=== PATIENT | male | born 1970 | race Caucasian/White ===

== ENCOUNTER 2018-01-31 20:37 | Inpatient (IN) | payer MEDICARE, MEDICAID, SELFPAY ==
[2018-01-31] VITALS (12 sets, daily range): BP systolic 95–168; BP diastolic 74–99; PULSE 103–129; RESP 16–34; TEMP 36.4–37.3; O2SAT 77–100; BMI 17.4; BMI 16.8
--- NOTE | 2018-01-31 20:56 | EKG12_ITS ---
Test Reason : SOB Blood Pressure : / mmHG Vent. Rate : 124 BPM Atrial Rate : 124 BPM P-R Int : 126 ms QRS Dur : 106 ms QT Int : 344 ms P-R-T Axes : 092 094 -35 degrees QTc Int : 494 ms Suspect arm lead reversal, interpretation assumes no reversal Sinus tachycardia Rightward axis Pulmonary disease pattern ST & T wave abnormality, consider anterior ischemia Abnormal ECG Confirmed by IESHA BATRES, AGUSTO ([id number]), editorial intern RADHA ELIZABETH ([id number] on 02/04/2018 1:29:00 PM Referred By: MARC Confirmed By:AGUSTO JULIAN MD
[2018-01-31] MEDS: Ipratropium/Albuterol Sulfate 3 ML AMPUL.NEB INHALATION (21:00)
[2018-01-31] MEDS: Succinylcholine Chloride 200 MG/10 ML Vial 100 MG IV (21:16)
[2018-01-31] MEDS: Propofol 10MG/Ml 1,000 MG/100 ML Bottle 3.588 MG CONT INF (21:22)
--- NOTE | 2018-01-31 21:25 | RAD_ITS ---
STUDY: X-RAY CHEST REASON FOR EXAM: Male, 47 years old. The T-tube and OG placement TECHNIQUE: Single frontal view of the chest. COMPARISON: None. FINDINGS: Bibasilar interstitial infiltrates. Lucency right upper lobe probably represents a large bullae. Probable skinfold left upper lung field. Enteric tube terminates near the GE junction. The sidehole is above the GE junction. Endotracheal tube terminates 8.8 cm above the uzair. Lungs are hyperaerated. There is no demonstrated pleural abnormality. Normal size heart. Normal mediastinum and klaudia. Normal visualized pulmonary arteries. Normal visualized aortic arch and descending thoracic aorta. Normal visualized thoracic spine. Normal visualized ribs, clavicles, and shoulders. There is no demonstrated abnormality of the visualized soft tissue structures of the upper abdomen. RAD/Chest 1 View (Portable) IMPRESSION: Malpositioned enteric tube requires advancement 10 to 20 cm. ET tube as above. Bibasilar interstitial infiltrates. COPD. Probable skinfold left upper lung field. Follow-up recommended to exclude pneumothorax. Electronically Signed: Griffin Schneider MD at 21:58 EST , Service support ,
[2018-01-31 21:35] LABS: Absolute Lymphocyte Count 0.43 X10^3/ul (0.83-4.51); Absolute Neutrophil Count 9.5 X10^3/uL (2.0-7.7); Differential Indicated SCAN CRITERIA MET; Hematocrit 38.8 % (40-54); International Normalized Ratio 1.5; Lymphocyte # 0.43 X10^3/ul (4.0); Mean Corp Hgb Conc 33.5 g/gl (32-36); Mean Corpuscular Hgb 29.3 pg (27.0-32.0); Mean Corpuscular Volume 87.6 fL (80-94); Mean Platelet Vol. 9.1 fl (6.2-12.0); Monocyte# 0.79 X10^3/uL; Monocyte% 7.3 % (0-10); Neutrophil # 9.53 X10^3/uL (2.7-7.7); Neutrophil % 88.4 % (47-70); POSITIVE COUNT NO; POSITIVE DIFFERENTIAL YES; POSITIVE MORPHOLOGY NO; Platelet Count 220 K/mm3 (150-450); Prothrombin Time (Protime)PT. 18.5 SECONDS (11.7-14.9); RBC Distribution Width CV 13.2 % (11.6-14.6); RBC Distribution Width SD 42.6 fl (35.1-43.9); Red Blood Count 4.43 M/mm3 (4.6-6.2); White Blood Count 10.8 K/mm3 (4.4-11.0)
[2018-01-31 21:36] LABS: Partial Thromboplast Time 32.5 Seconds (24.1-36.2)
[2018-01-31 21:40] LABS: ALB/GLOB Ratio 1.5 RATIO (0.9-2.4); AST(SGOT) 299 U/L (15-37); Alanine Aminotransfer ALT/SGPT 158 U/L (16-61); Albumin, Serum 3.4 g/dL (3.2-5.0); Alkaline Phosphatase 88 U/L (45-117); Anion Gap 11 (5-15); BUN 18 mg/dL (7-18); BUN/Creat Ratio 21.2 RATIO (10-20); Calcium,Total 7.8 mg/dL (8.5-10.1); Chloride 71 mmol/L (98-107); Creatinine, Serum 0.85 mg/dL (0.70-1.30); EST Glomerular Filtration Rate 102 mL/min (>60); Est Glom Filt Rate - Afr Amer 123 mL/min (>60); Estimated Creatinine Clearance 88.92 ml/min; Globulin 2.2 g/dL (2.2-4.2); Glucose 79 mg/dL (74-106); Potassium 4.7 mmol/L (3.5-5.1); Protein, Total 5.6 g/dL (6.4-8.2); Sodium Level 114 mmol/L (136-145)
[2018-01-31 21:45] LABS: Lactic Acid 3.8 mmol/L (0.4-2.0)
[2018-01-31 21:52] LABS: Differential Comment SCANNED
[2018-01-31] MEDS: Ceftriaxone 1 GM/50 ML BAG IV (22:03)
[2018-01-31] MEDS: fentaNYL 100 MCG/2 ML Ampul IV (22:03)
[2018-01-31] MEDS: MethylPREDNISolone 125 MG/2 ML Vial IV (22:03)
[2018-01-31] MEDS: fentaNYL drip 100 ML 5 MCG IV (22:03)
[2018-01-31] MEDS: 0.9% Normal Saline 1,000 ML 250 ML IV (22:13)
[2018-01-31] MEDS: Albuterol 2.5 MG/3 ML VIAL.NEB. INHALATION ×3 (22:17)
[2018-01-31] MEDS: 0.9% Normal Saline 1,000 ML 999 ML IV ×2 (22:19)
--- NOTE | 2018-01-31 22:40 | RAD_ITS ---
STUDY: X-RAY - ABDOMEN/PELVIS REASON FOR EXAM: Male, 47 years old. OG tube adjustment TECHNIQUE: 1 view semierect lower chest and upper abdomen COMPARISON: Chest x-ray 9:12 PM today FINDINGS: OD tube now in the stomach. Normal visualized lung bases. There is an unremarkable bowel gas pattern. There is no demonstrated free abdominal air. Normal soft tissue structures. Normal visualized osseous structures. RAD/Abdomen Single View (Portable) IMPRESSION: OG tube in stomach Electronically Signed: Griffin Schneider MD at 23:10 EST , Service support ,
[2018-01-31 22:49] LABS: Sodium Level 117 mmol/L (136-145)
--- NOTE | 2018-01-31 22:52 | ED.RN ---
lab called critical result on this pt of sodium of 117. dr tariq notified
--- NOTE | 2018-01-31 22:53 | ED.RN ---
UPON ARRIVAL TO ED PT WAS SHORT OF BREATH AND GASPING FOR AIR. PT O2 WAS 60% RA, HE WAS PUT ON NON REBREATHER WHICH BROUGHT HIM UP TO LOW 90'S, PT KEPT TAKING OXYGEN OFF AND DROPPING IN THE 70'S. PT WAS REFUSING TO LEAVE OXYGEN AND EVEN THOUGH STAFF TRIED TO REDIRECT HIM, HE WOULD NOT COOPERATE.
[2018-01-31 23:00] LABS: Blood Gas Specimen Type VEN; FI02 100; O2 Delivery Device Vent; PEEP 8; RR 16; SITE OTHER; Time Given 2300; VBG BASE EXCESS 3 mmol/L (-1.0-3.5); VBG Bicarbonate 31 mmol/L (22-26); VBG Oxygen Content 33 mmol/L (23-33); VBG PO2 30 mmHg (25-40); VBG SO2 43 % (50-70); VBG pCO2 76.1 mmHg (41-51); VBG pH 7.21 (7.32-7.42); Vt 400
--- NOTE | 2018-01-31 23:05 | ED.VISSUMM ---
- ER Visit Summary Date of Service: 01/31/18 Chief Complaint: Unresponsive History of Present Illness: The patient is a 47 M presenting from the halfway secondary to being unresponsive. Patient has an underlying history of MR, COPD, and frequent respiratory infections. He is a new resident of this halfway. Apparently staff was doing a check on him today, and he was noted to have decreased responsiveness. EMS was contacted, and they stated that the patient was unresponsive and had a pulse ox in the 50s. He was placed on supplemental oxygen and by the time he got to the emergency department pulse oxes were approaching the 80s, and his responsiveness was improving. [facility] states that the patient potentially has a history of seizures, although is not on any sort of anticonvulsants. Review of systems unable to be obtained secondary to the patient's level of illness. Physical Examination: Vital signs notable for heart rate of 129, respiratory rate of 30, pulse ox of 77% on nasal cannula. Cachectic appearing male visibly in some respiratory discomfort. Head normocephalic. PRL, EOMI no evidence of conjunctival pallor. Moist mucous membranes. No JVD. Heart was tachycardic and regular. Respiratory exam shows prolonged expiratory phase with wheezing and tachypnea with respiratory distress. Abdomen was soft and nontender. Extremities nontender nonedematous. Skin normal color no rash. Patient was alert and oriented to person, able to follow all commands with his upper and lower extremities. Test Results: EKG demonstrates sinus tachycardia with a rate of 124 with a rightward axis deviation and pulmonary disease pattern. CBC unremarkable, chemistry shows sodium of 117 chloride of 71. Liver panel shows bili of 2.1, AST of 299 and ALT of 158. Troponin 0.3. Lactic acid 3.8. VBG shows pH of 7.2 carbon dioxide of 70. Chest x-ray shows good placement of ET tube with infiltrate and multiple bullae noted. Emergency Department Course and Treatment: Patient presented secondary to a unresponsive episode and hypoxemia. On initial arrival, patient was verbal and responding to all commands but was uncooperative with supplemental oxygen or with nebulized breathing treatments. Multiple redirections were tried, and the patient continually was taking off his oxygen and the satting into the 80% range and having worsening respiratory function. I believe that due to his MR, and his level of disease that he does not have capacity at this time, and I believe that he requires intubation for adequate resuscitation of his respiratory disease. Patient was placed on supplemental oxygen again, was treated with etomidate, and succinylcholine. Direct laryngoscopy was performed using a Belkys 4 blade and a 8.0 ET tube. First-pass success was obtained, there was good color change and bilateral breath sounds. Patient did have an episode where he desaturated to 70%, and then easily came back up to 100% with bagging on 100% oxygen. Patient was found to have an infiltrate on chest x-ray, he was treated with Rocephin and azithromycin. He was found to have an elevated lactic acid and troponin which I believe likely are associated with his hypoxemia. Patient was found to be profoundly hyponatremic, which I am unsure of the etiology of this. I did consider the possibility of using 3% saline on the patient, but as he had full return of his mental capacity prior to us intubating him I believe that normal replacement the patient's saline rather than aggressive with 3% is appropriate. Patient potentially could have seized secondary to hyponatremia, versus ceased secondary to his hypoxemia. patient was given Solu-Medrol secondary to his obstructive lung disease. After OG tube was passed, blood was obtained from the stomach, so the patient was given Protonix. I contacted both the hospitalist and the pmo manager, and the patient will be admitted for further management. Disposition: Admission Impression: 1. Hypoxic respiratory failure 2. COPD exacerbation 3. Upper GI bleed 4. Hyponatremia 5. Hypochloremia 6. Metabolic and respiratory acidosis 7. Intubation by ED physician Critical care time 60 minutes This note was generated with [employer] dictation software. It may contain incorrect words, spelling, and punctuation that were not noted in review of the chart prior to signing ED Disposition - Plan for ED Patient: Disposition: Acute Care Hospital [facility] Chief Complaint: General Illness
--- NOTE | 2018-01-31 23:07 | PCM.HP.STD ---
Problem List (1) Respiratory failure Status: Acute Qualifiers: Chronicity: acute Respiratory failure complication: hypoxia and hypercapnia Qualified Code(s): J96.01 - Acute respiratory failure with hypoxia; J96.02 - Acute respiratory failure with hypercapnia (2) COPD (chronic obstructive pulmonary disease) Status: Acute (3) Smoker Status: Chronic (4) Mental and behavioral problem Status: Chronic History of Present Illness Date of Admission: 01/31/18 Chief Complaint: respiratory failure The patient is a 47 year old male [facility] was found unresponsive in the home. His eyes were open and dilated but sluggish to respond. His initial SPO2 was 50% by ems and he was transported to the ER. The patient was agitated and combative with regards to keeping oxygen mask on in the ER and would not keep it on. He would immediately desaturate and urgent decision to intubate the patient was made by the ER doctor. The patient has no next of kin or power of patent prosecution attorney to speak on his behalf and the decision was made in the best interest of the patient to protect his airway. Initial laboratory studies are significant for severe hyponatremia of 117, elevated troponin .302 along with elevated liver enzymes. WBC count is within normal limits. He was placed on mechanical ventilation and unable to provide any further history. The quality assurance manager of the jail was present and stated he arrived to the facility one week ago from [place] and has essentially stopped eating since his arrival. 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 Patient will be admitted to ICU for critical care management. Past Medical History Past Medical History (Chronic Problems): Chronic Problems Smoker (Chronic) Mental and behavioral problem (Chronic) Allergies No Known Allergies Allergy (Verified 01/31/18 20:57) Home Medications: Ambulatory Orders Medication Instructions Recorded Acetaminophen [Tylenol Extra 500 mg PO Q6H PRN PRN 01/31/18 Strength] Benztropine [Cogentin] 1 mg PO BID 01/31/18 Bisacodyl [Dulcolax] 5 mg PO DAILY 01/31/18 Budesonide/Formoterol 160/4.5 2 puff INHALATION BID 01/31/18 [Symbicort 160/4.5 Mcg Inhaler (SP)] Clonazepam [Klonopin] 0.5 mg PO QHS 01/31/18 Doxycycline Hyclate 100 mg PO BID 01/31/18 Guaifenesin [Mucinex] 600 mg PO BID 01/31/18 Haloperidol [Haldol] 10 mg PO QHS 01/31/18 Ipratropium/Albuterol Sulfate 3 ml INHALATION Q4H.RT 01/31/18 [Duoneb] Montelukast [Singulair] 10 mg PO DAILY 01/31/18 Multivitamins,Therapeutic 1 tablet PO DAILY 01/31/18 [Multivitamin] Omeprazole [Prilosec] 20 mg PO QHS 01/31/18 Risperidone [Risperdal] 1 mg PO DAILY 01/31/18 Risperidone [Risperdal] 2 mg PO QHS 01/31/18 Roflumilast [Daliresp] 500 mcg PO DAILY 01/31/18 Tamsulosin HCl 0.4 mg PO QHS 01/31/18 Tiotropium [place] [Spiriva 2 puff IH DAILY 01/31/18 Respimat] traZODone [Desyrel] 150 mg PO QHS 01/31/18 Smoking Status: Current every day smoker - *Family History Maternal History Items: No pertinent history Review of Systems Unable to obtain accurate/complete ROS d/t: patient is sedated and intubated VTE Information - Inpt Only VTE Present on Admission: No VTE Mechan Device Prophylaxis: None VTE Pharm Prophylaxis ordered?: Yes Patient Problems: Active and Suspected Problems Respiratory failure (Acute) COPD (chronic obstructive pulmonary disease) (Acute) - Physical Exam General: - - sedated and intubated HEENT: Atraumatic, EOMI, Normocephalic, Sluggish Pupils Neck: Supple Lungs: No rhonchi, No wheeze, Diminished Cardiovascular: Regular rate, Regular Rhythm, Normal S1, Normal S2, No murmurs Abdomen: Bowel Sounds Present Extremities: No edema Skin: No rashes Neurological: - - sedated and intubated Psych/Mental Status: - - unable to assess Vital Signs Temp Pulse Resp BP Pulse Ox 99.1 F 104 H 16 104/81 H 100 01/31/18 22:15 01/31/18 23:04 01/31/18 23:04 01/31/18 23:04 01/31/18 23:04 Oxygen Flow Rate (L/min) 15 Oxygen Delivery Method Room Air Weight: 131 lb 13.383 oz Body Mass Index (BMI) 17.4 Microbiology Past 72 Hours 01/31/18 21:27 Influenza Types A,B Direct FA (KODAK) - Final Mucosa - Nasopharyngeal Laboratory Tests Past 24 Hrs 01/31/18 01/31/18 01/31/18 20:55 20:55 20:55 WBC 10.8 RBC 4.43 L Hgb 13.0 Hct 38.8 L MCV 87.6 MCH 29.3 MCHC 33.5 RDW 13.2 RDW Differential 42.6 Plt Count 220 MPV 9.1 Immature Gran % (Auto) 0.300 Neut % (Auto) 88.4 H Lymph % (Auto) 4.0 L [place] % (Auto) 7.3 Eos % (Auto) 0.0 Baso % (Auto) 0.0 Absolute Neuts (auto) 9.5 H Absolute Lymphs (auto) 0.43 L Total Counted Not Reportable Differential Comment SCANNED PT 18.5 H INR 1.5 APTT 32.5 Specimen Type Sample Site O2 % VBG pH VBG pO2 VBG O2 Sat (Calc) VBG O2 Content VBG Base Excess POC Mix VBG pCO2 Pt Tmp Respiration Rate O2 Delivery Device Minute Volume Tidal Volume POC PEEP Blood Gas Notified Whom Blood Gas Notified Time Sodium 114 L* Potassium 4.7 Chloride 71 L* Carbon Dioxide 32.0 Anion Gap 11 BUN 18 Creatinine 0.85 Estim Creat Clear Calc 88.92 Est GFR (MDRD) Af Amer 123 Est GFR (MDRD) Non-Af 102 BUN/Creatinine Ratio 21.2 H Glucose 79 Lactic Acid Calcium 7.8 L Total Bilirubin 2.10 H AST 299 H ALT 158 H Alkaline Phosphatase 88 Troponin I 0.302 H Total Protein 5.6 L Albumin 3.4 Globulin 2.2 Albumin/Globulin Ratio 1.5 01/31/18 01/31/18 01/31/18 20:55 22:30 22:56 WBC RBC Hgb Hct MCV MCH MCHC RDW RDW Differential Plt Count MPV Immature Gran % (Auto) Neut % (Auto) Lymph % (Auto) [place] % (Auto) Eos % (Auto) Baso % (Auto) Absolute Neuts (auto) Absolute Lymphs (auto) Total Counted Differential Comment PT INR APTT Specimen Type BRANDON Sample Site OTHER O2 % 100 VBG pH 7.21 L VBG pO2 30 VBG O2 Sat (Calc) 43 L VBG O2 Content 33 VBG Base Excess 3 POC Mix VBG pCO2 Pt Tmp 76.1 H* Respiration Rate 16 O2 Delivery Device Vent Minute Volume 5.00 Tidal Volume 400 POC PEEP 8 Blood Gas Notified Whom ED Blood Gas Notified Time 2300 Sodium 117 L* Potassium Chloride Carbon Dioxide Anion Gap BUN Creatinine Estim Creat Clear Calc Est GFR (MDRD) Af Amer Est GFR (MDRD) Non-Af BUN/Creatinine Ratio Glucose Lactic Acid 3.8 H Calcium Total Bilirubin AST ALT Alkaline Phosphatase Troponin I Total Protein Albumin Globulin Albumin/Globulin Ratio Assessment/Plan All Active Problems Respiratory failure (Acute) COPD (chronic obstructive pulmonary disease) (Acute) Chronic Problems Smoker (Chronic) Mental and behavioral problem (Chronic) Plan 1. Acute Respiratory Failure- Consult outboard motorboat rigger, continue mechanical ventilation, solumedrol 40mg IV q 8hrs. repeat CXR in am, CBC, BMP. Continue propofol sedation and NG tube to low int. suction 2. Hyponatremia- normal saline IV at 125cc/hours repeat BMP in 6hrs 3. DVT prophylaxis- LMWH 4. Elevated troponin- cycle cardiac enzymes 5. elevated liver enzymes (liver shock)- CMP in am Code Visit Inpatient E&M: 51533 Init Hosp L3
--- NOTE | 2018-01-31 23:08 | ED.DCSUM_ITS ---
- ER Visit Summary Date of Service: 01/31/18 Chief Complaint: Unresponsive History of Present Illness: The patient is a 47 M presenting from the snf secondary to being unresponsive. Patient has an underlying history of MR, COPD, and frequent respiratory infections. He is a new resident of this snf. Apparently staff was doing a check on him today, and he was noted to have decreased responsiveness. EMS was contacted, and they stated that the patient was unresponsive and had a pulse ox in the 50s. He was placed on supplemental oxygen and by the time he got to the emergency department pulse oxes were approaching the 80s, and his responsiveness was improving. [facility] states that the patient potentially has a history of seizures, although is not on any sort of anticonvulsants. Review of systems unable to be obtained secondary to the patient's level of illness. Physical Examination: Vital signs notable for heart rate of 129, respiratory rate of 30, pulse ox of 77% on nasal cannula. Cachectic appearing male visibly in some respiratory discomfort. Head normocephalic. PRL, EOMI no evidence of conjunctival pallor. Moist mucous membranes. No JVD. Heart was tachycardic and regular. Respiratory exam shows prolonged expiratory phase with wheezing and tachypnea with respiratory distress. Abdomen was soft and nontender. Extremities nontender nonedematous. Skin normal color no rash. Patient was alert and oriented to person, able to follow all commands with his upper and lower extremities. Test Results: EKG demonstrates sinus tachycardia with a rate of 124 with a rightward axis deviation and pulmonary disease pattern. CBC unremarkable, chemistry shows sodium of 117 chloride of 71. Liver panel shows bili of 2.1, AST of 299 and ALT of 158. Troponin 0.3. Lactic acid 3.8. VBG shows pH of 7.2 carbon dioxide of 70. Chest x-ray shows good placement of ET tube with infiltrate and multiple bullae noted. Emergency Department Course and Treatment: Patient presented secondary to a unresponsive episode and hypoxemia. On initial arrival, patient was verbal and responding to all commands but was uncooperative with supplemental oxygen or with nebulized breathing treatments. Multiple redirections were tried, and the patient continually was taking off his oxygen and the satting into the 80% range and having worsening respiratory function. I believe that due to his MR, and his level of disease that he does not have capacity at this time, and I believe that he requires intubation for adequate resuscitation of his respiratory disease. Patient was placed on supplemental oxygen again, was treated with etomidate, and succinylcholine. Direct laryngoscopy was performed using a Belkys 4 blade and a 8.0 ET tube. First-pass success was obtained, there was good color change and bilateral breath sounds. Patient did have an episode where he desaturated to 70%, and then easily came back up to 100% with bagging on 100% oxygen. Patient was found to have an infiltrate on chest x-ray, he was treated with Rocephin and azithromycin. He was found to have an elevated lactic acid and troponin which I believe likely are associated with his hypoxemia. Patient was found to be profoundly hyponatremic, which I am unsure of the etiology of this. I did consider the possibility of using 3% saline on the patient, but as he had full return of his mental capacity prior to us intubating him I believe that normal replacement the patient's saline rather than aggressive with 3% is appropriate. Patient potentially could have seized secondary to hyponatremia, versus ceased secondary to his hypoxemia. patient was given Solu-Medrol secondary to his obstructive lung disease. After OG tube was passed, blood was obtained from the stomach, so the patient was given Protonix. I contacted both the hospitalist and the regional driver, and the patient will be admitted for further management. Disposition: Admission Impression: 1. Hypoxic respiratory failure 2. COPD exacerbation 3. Upper GI bleed 4. Hyponatremia 5. Hypochloremia 6. Metabolic and respiratory acidosis 7. Intubation by ED physician Critical care time 60 minutes This note was generated with [employer] dictation software. It may contain incorrect words, spelling, and punctuation that were not noted in review of the chart prior to signing ED Disposition - Plan for ED Patient: Disposition: Acute Care Hospital [facility] Chief Complaint: General Illness
--- NOTE | 2018-01-31 23:12 | HP.PCM_ITS ---
Problem List (1) Respiratory failure Status: Acute Qualifiers: Chronicity: acute Respiratory failure complication: hypoxia and hypercapnia Qualified Code(s): J96.01 - Acute respiratory failure with hypoxia; J96.02 - Acute respiratory failure with hypercapnia (2) COPD (chronic obstructive pulmonary disease) Status: Acute (3) Smoker Status: Chronic (4) Mental and behavioral problem Status: Chronic History of Present Illness Date of Admission: 01/31/18 Chief Complaint: respiratory failure The patient is a 47 year old male patient resident of a [facility] was found unresponsive in the home. His eyes were open and dilated but sluggish to re spond. His initial SPO2 was 50% by ems and he was transported to the ER. The patient was agitated and combative with regards to keeping oxygen mask on in the ER and would not keep it on. He would immediately desaturate and urgent decision to intubate the patient was made by the ER doctor. The patient has no next of kin or power of attorney recruiter to speak on his behalf and the decision was made in the best interest of the patient to protect his airway. Initial laboratory studies are significant for severe hyponatremia of 117, elevated troponin .302 along with elevated liver enzymes. WBC count is within normal limits. He was placed on mechanical ventilation and unable to provide any further history. The technical sales support manager of the [facility] was present and stated he arrived to the facility one week ago from [place] and has essentially stopped eating since his arrival. His mother has dementia and is in a fdc and is his only known kin.His baseline is mild mental retardation but is able to communicate and follow commands without any major behavioral concerns. Patient will be admitted to ICU for critical care management. Past Medical History Past Medical History (Chronic Problems): Chronic Problems Smoker (Chronic) Mental and behavioral problem (Chronic) Allergies No Known Allergies Allergy (Verified 01/31/18 20:57) Home Medications: Ambulatory Orders Medication Instructions Recorded Acetaminophen [Tylenol Extra 500 mg PO Q6H PRN PRN 01/31/18 Strength] Benztropine [Cogentin] 1 mg PO BID 01/31/18 Bisacodyl [Dulcolax] 5 mg PO DAILY 01/31/18 Budesonide/Formoterol 160/4.5 2 puff INHALATION BID 01/31/18 [Symbicort 160/4.5 Mcg Inhaler (SP)] Clonazepam [Klonopin] 0.5 mg PO QHS 01/31/18 Doxycycline Hyclate 100 mg PO BID 01/31/18 Guaifenesin [Mucinex] 600 mg PO BID 01/31/18 Haloperidol [Haldol] 10 mg PO QHS 01/31/18 Ipratropium/Albuterol Sulfate 3 ml INHALATION Q4H.RT 01/31/18 [Duoneb] Montelukast [Singulair] 10 mg PO DAILY 01/31/18 Multivitamins,Therapeutic 1 tablet PO DAILY 01/31/18 [Multivitamin] Omeprazole [Prilosec] 20 mg PO QHS 01/31/18 Risperidone [Risperdal] 1 mg PO DAILY 01/31/18 Risperidone [Risperdal] 2 mg PO QHS 01/31/18 Roflumilast [Daliresp] 500 mcg PO DAILY 01/31/18 Tamsulosin HCl 0.4 mg PO QHS 01/31/18 Tiotropium [place] [Spiriva 2 puff IH DAILY 01/31/18 Respimat] traZODone [Desyrel] 150 mg PO QHS 01/31/18 Smoking Status: Current every day smoker - *Family History Maternal History Items: No pertinent history Review of Systems Unable to obtain accurate/complete ROS d/t: patient is sedated and intubated VTE Information - Inpt Only VTE Present on Admission: No VTE Mechan Device Prophylaxis: None VTE Pharm Prophylaxis ordered?: Yes Patient Problems: Active and Suspected Problems Respiratory failure (Acute) COPD (chronic obstructive pulmonary disease) (Acute) - Physical Exam General: - - sedated and intubated HEENT: Atraumatic, EOMI, Normocephalic, Sluggish Pupils Neck: Supple Lungs: No rhonchi, No wheeze, Diminished Cardiovascular: Regular rate, Regular Rhythm, Normal S1, Normal S2, No murmurs Abdomen: Bowel Sounds Present Extremities: No edema Skin: No rashes Neurological: - - sedated and intubated Psych/Mental Status: - - unable to assess Vital Signs Temp Pulse Resp BP Pulse Ox 99.1 F 104 H 16 104/81 H 100 01/31/18 22:15 01/31/18 23:04 01/31/18 23:04 01/31/18 23:04 01/31/18 23:04 Oxygen Flow Rate (L/min) 15 Oxygen Delivery Method Room Air Weight: 131 lb 13.383 oz Body Mass Index (BMI) 17.4 Microbiology Past 72 Hours 01/31/18 21:27 Influenza Types A,B Direct FA (KODAK) - Final Mucosa - Nasopharyngeal Laboratory Tests Past 24 Hrs 01/31/18 01/31/18 01/31/18 20:55 20:55 20:55 WBC 10.8 RBC 4.43 L Hgb 13.0 Hct 38.8 L MCV 87.6 MCH 29.3 MCHC 33.5 RDW 13.2 RDW Differential 42.6 Plt Count 220 MPV 9.1 Immature Gran % (Auto) 0.300 Neut % (Auto) 88.4 H Lymph % (Auto) 4.0 L [place] % (Auto) 7.3 Eos % (Auto) 0.0 Baso % (Auto) 0.0 Absolute Neuts (auto) 9.5 H Absolute Lymphs (auto) 0.43 L Total Counted Not Reportable Differential Comment SCANNED PT 18.5 H INR 1.5 APTT 32.5 Specimen Type Sample Site O2 % VBG pH VBG pO2 VBG O2 Sat (Calc) VBG O2 Content VBG Base Excess POC Mix VBG pCO2 Pt Tmp Respiration Rate O2 Delivery Device Minute Volume Tidal Volume POC PEEP Blood Gas Notified Whom Blood Gas Notified Time Sodium 114 L* Potassium 4.7 Chloride 71 L* Carbon Dioxide 32.0 Anion Gap 11 BUN 18 Creatinine 0.85 Estim Creat Clear Calc 88.92 Est GFR (MDRD) Af Amer 123 Est GFR (MDRD) Non-Af 102 BUN/Creatinine Ratio 21.2 H Glucose 79 Lactic Acid Calcium 7.8 L Total Bilirubin 2.10 H AST 299 H ALT 158 H Alkaline Phosphatase 88 Troponin I 0.302 H Total Protein 5.6 L Albumin 3.4 Globulin 2.2 Albumin/Globulin Ratio 1.5 01/31/18 01/31/18 01/31/18 20:55 22:30 22:56 WBC RBC Hgb Hct MCV MCH MCHC RDW RDW Differential Plt Count MPV Immature Gran % (Auto) Neut % (Auto) Lymph % (Auto) [place] % (Auto) Eos % (Auto) Baso % (Auto) Absolute Neuts (auto) Absolute Lymphs (auto) Total Counted Differential Comment PT INR APTT Specimen Type BRANDON Sample Site OTHER O2 % 100 VBG pH 7.21 L VBG pO2 30 VBG O2 Sat (Calc) 43 L VBG O2 Content 33 VBG Base Excess 3 POC Mix VBG pCO2 Pt Tmp 76.1 H* Respiration Rate 16 O2 Delivery Device Vent Minute Volume 5.00 Tidal Volume 400 POC PEEP 8 Blood Gas Notified Whom ED Blood Gas Notified Time 2300 Sodium 117 L* Potassium Chloride Carbon Dioxide Anion Gap BUN Creatinine Estim Creat Clear Calc Est GFR (MDRD) Af Amer Est GFR (MDRD) Non-Af BUN/Creatinine Ratio Glucose Lactic Acid 3.8 H Calcium Total Bilirubin AST ALT Alkaline Phosphatase Troponin I Total Protein Albumin Globulin Albumin/Globulin Ratio Assessment/Plan All Active Problems Respiratory failure (Acute) COPD (chronic obstructive pulmonary disease) (Acute) Chronic Problems Smoker (Chronic) Mental and behavioral problem (Chronic) Plan 1. Acute Respiratory Failure- Consult sludge control operator, continue mechanical ventilation, solumedrol 40mg IV q 8hrs. repeat CXR in am, CBC, BMP. Continue propofol sedation and NG tube to low int. suction 2. Hyponatremia- normal saline IV at 125cc/hours repeat BMP in 6hrs 3. DVT prophylaxis- LMWH 4. Elevated troponin- cycle cardiac enzymes 5. elevated liver enzymes (liver shock)- CMP in am Code Visit Inpatient E&M: 10446 Init Hosp L3
[2018-02-01] VITALS (41 sets, daily range): BP systolic 80–172; BP diastolic 7–102; PULSE 81–139; RESP 8–28; TEMP 37.3–38.1; O2SAT 83–101
[2018-02-01 00:30] LABS: Base Excess 5 mmol/L (-2 to +2); Bicarbonate 31.2 mmol/L (22-26); Blood Gas Specimen Type ART; FI02 100; Mode A-C; O2 Delivery Device Vent; PEEP 8; PO2 375 mmHG (75-100); RR 16; SITE L Radial; SO2 100 % (95-99); Time Given 14; Total Carbon Dioxide 33 mmol/L; Vt 400; pCO2 59.2 mmHg (35-45); pH 7.33 (7.35-7.45)
[2018-02-01] MEDS: 0.9% Normal Saline 1,000 ML 125 ML IV (00:30)
[2018-02-01] MEDS: 0.9% NaCl Peripheral Flush Adult/Peds IV ×2 (00:55→04:53)
[2018-02-01 01:11] LABS: Reflex Lactate? Y
[2018-02-01 01:12] LABS: ALB/GLOB Ratio 1.4 RATIO (0.9-2.4); AST(SGOT) 657 U/L (15-37); Alanine Aminotransfer ALT/SGPT 458 U/L (16-61); Albumin, Serum 2.9 g/dL (3.2-5.0); Alkaline Phosphatase 78 U/L (45-117); Anion Gap 8 (5-15); BUN 15 mg/dL (7-18); BUN/Creat Ratio 21.2 RATIO (10-20); Calcium,Total 7.1 mg/dL (8.5-10.1); Chloride 79 mmol/L (98-107); Creatinine, Serum 0.71 mg/dL (0.70-1.30); EST Glomerular Filtration Rate 126 mL/min (>60); Est Glom Filt Rate - Afr Amer 152 mL/min (>60); Estimated Creatinine Clearance 102.89 ml/min; Globulin 2.1 g/dL (2.2-4.2); Glucose 112 mg/dL (74-106); Potassium 4.2 mmol/L (3.5-5.1); Sodium Level 119 mmol/L (136-145)
[2018-02-01 02:00] LABS: Lactic Acid 2.2 mmol/L (0.4-2.0)
[2018-02-01 04:53] LABS: Hematocrit 39.4 % (40-54); Hemoglobin 13.3 g/dl (13.0-16.5); Mean Corp Hgb Conc 33.8 g/gl (32-36); Mean Corpuscular Hgb 29.3 pg (27.0-32.0); Mean Corpuscular Volume 86.8 fL (80-94); Mean Platelet Vol. 9.1 fl (6.2-12.0); Platelet Count 192 K/mm3 (150-450); RBC Distribution Width CV 13.4 % (11.6-14.6); RBC Distribution Width SD 42.7 fl (35.1-43.9); Red Blood Count 4.54 M/mm3 (4.6-6.2); White Blood Count 8.8 K/mm3 (4.4-11.0)
[2018-02-01] MEDS: Propofol 10MG/Ml 1,000 MG/100 ML Bottle 3.588 MG CONT INF ×2 (04:53→15:48)
[2018-02-01 04:55] LABS: Scan Indicated on CBC? Y/N NO
[2018-02-01 05:03] LABS: Reflex Lactate? Y
[2018-02-01 05:22] LABS: Phosphorus 3.2 mg/dL (2.5-4.9)
[2018-02-01 05:28] LABS: ALB/GLOB Ratio 1.4 RATIO (0.9-2.4); AST(SGOT) 1083 U/L (15-37); Alanine Aminotransfer ALT/SGPT 861 U/L (16-61); Alkaline Phosphatase 82 U/L (45-117); Anion Gap 9 (5-15); BUN 12 mg/dL (7-18); BUN/Creat Ratio 19.8 RATIO (10-20); Calcium,Total 7.8 mg/dL (8.5-10.1); Chloride 86 mmol/L (98-107); Creatinine, Serum 0.61 mg/dL (0.70-1.30); EST Glomerular Filtration Rate 150 mL/min (>60); Est Glom Filt Rate - Afr Amer 181 mL/min (>60); Estimated Creatinine Clearance 119.76 ml/min; Globulin 2.1 g/dL (2.2-4.2); Glucose 80 mg/dL (74-106); Potassium 4.2 mmol/L (3.5-5.1); Protein, Total 5.1 g/dL (6.4-8.2); Sodium Level 128 mmol/L (136-145)
--- NOTE | 2018-02-01 05:55 | RAD_ITS ---
STUDY: X-RAY CHEST REASON FOR EXAM: Male, 47 years old. Patient intubated. Shortness of breath. TECHNIQUE: 1 view COMPARISON: January 31, 2018 FINDINGS: A background of emphysematous changes in the lungs especially in the right upper lobe. An ET tube and NG tube are in place. The heart is normal. Normal visualized thoracic spine. Normal visualized ribs, clavicles, and shoulders. There is no demonstrated abnormality of the visualized soft tissue structures of the upper abdomen. RAD/Chest 1 View (Portable) IMPRESSION: A background of emphysematous changes in the lungs. ET tube and NG tube in good positions Electronically Signed: Dilan Dick MD at 5:42 EST Tel , Service support ,
[2018-02-01] MEDS: CHLORHEXIDINE GLUC 2% CLOTH 1 EACH TOWELETTE TOPICAL (06:03)
--- NOTE | 2018-02-01 07:05 | PCM.CON.CC ---
Reason for Consult Date of Consultation: 02/01/18 Reason for Consultation: Acute respiratory failure History of Present Illness: The patient is a 47-year-old male, with a history as outlined below, who [facility] after being found unresponsive by staff members. The patient has a reported history of underlying MR, schizophrenia, chronic hypoxemic respiratory failure with a 2 L/min baseline requirement and severe COPD. The patient was previously being followed by Dr Dinh, pulmonary medicine. The patient also has a long-standing tobacco abuse history. He is currently on a maximal triple therapy inhaler regimen as an outpatient. Per documentation from the patient's penitentiary, he also has urinary retention, for whichshe regularly straight caths. History pertinent to his hospitalization was obtained primarily via chart review, as the patient is currently intubated and there is no next of kin available at the bedside. Per documentation, upon EMS arrival, the patient was noted to be hypoxic with an oxygen saturation in the 50s. On arrival to the emergency department, the patient was documented to be gasping for air with an oxygen saturation of 60% on room air. He was subsequently placed on a nonrebreather which did lead to improvement in his oxygen saturation. He was tachycardic, but remained hemodynamically stable. Initial laboratory evaluation revealed no evidence of a leukocytosis. A venous blood gas did reveal an elevated PCO2 level. Chemistry profile was notable for a sodium of 117 and chloride of 71, of unknown chronicity. Lactate was elevated to 3.8. Total bili was increased to 2.1 with an elevated AST of 299 and ALT of 158. Troponin was increased to 0.302. Initial plain film chest x-ray revealed hyperinflated lung prasad with possible basilar infiltrates and a malpositioned endotracheal tube. Again, per documentation by the ED provider, the patient was reportedly responding to all commands but was uncooperative with his nonrebreather mask and was refusing aerosol treatments. He was felt to lack medical decision capacity and was subsequently intubated. The patient did receive supplemental IV fluid hydration and was started on antibiotics. He was subsequently admitted to the medical intensive care unit for ongoing management. Past Medical History Past Medical History (Chronic Problems): Chronic Problems Smoker (Chronic) Mental and behavioral problem (Chronic) Allergies No Known Allergies Allergy (Verified 01/31/18 20:57) Home Medications: Ambulatory Orders Medication Instructions Recorded Acetaminophen [Tylenol Extra 500 mg PO Q6H PRN PRN 01/31/18 Strength] Benztropine [Cogentin] 1 mg PO BID 01/31/18 Bisacodyl [Dulcolax] 5 mg PO DAILY 01/31/18 Budesonide/Formoterol 160/4.5 2 puff INHALATION BID 01/31/18 [Symbicort 160/4.5 Mcg Inhaler (SP)] Clonazepam [Klonopin] 0.5 mg PO QHS 01/31/18 Doxycycline Hyclate 100 mg PO BID 01/31/18 Guaifenesin [Mucinex] 600 mg PO BID 01/31/18 Haloperidol [Haldol] 10 mg PO QHS 01/31/18 Ipratropium/Albuterol Sulfate 3 ml INHALATION Q4H.RT 01/31/18 [Duoneb] Montelukast [Singulair] 10 mg PO DAILY 01/31/18 Multivitamins,Therapeutic 1 tablet PO DAILY 01/31/18 [Multivitamin] Omeprazole [Prilosec] 20 mg PO QHS 01/31/18 Risperidone [Risperdal] 1 mg PO DAILY 01/31/18 Risperidone [Risperdal] 2 mg PO QHS 01/31/18 Roflumilast [Daliresp] 500 mcg PO DAILY 01/31/18 Tamsulosin HCl 0.4 mg PO QHS 01/31/18 Tiotropium [place] [Spiriva 2 puff IH DAILY 01/31/18 Respimat] traZODone [Desyrel] 150 mg PO QHS 01/31/18 Smoking Status: Current every day smoker - *Family History Maternal History Items: No pertinent history Review of Systems Unable to obtain accurate/complete ROS d/t: Due to current intubation and mechanical ventilation status. Patient Problems: Active and Suspected Problems Respiratory failure (Acute) COPD (chronic obstructive pulmonary disease) (Acute) Objective: The patient's most recent lab work, culture data and imaging studies have all been personally reviewed. - Physical Exam General: - - Currently intubated, sedated and mechanically ventilated. HEENT: Atraumatic, PERRLA, Normocephalic Oral: No Gingival or Mucosal Lesions/ Ulcerations, - - Poor dentition. Endotracheal and OG tubes in place. Neck: Supple, No Nodes, Trachea Midline Lungs: No rhonchi, No wheeze, No rales, Diminished Cardiovascular: Regular rate, Regular Rhythm, Normal S1, Normal S2, No murmurs Abdomen: Bowel Sounds Present, Soft, Non Tender Extremities: No clubbing, No cyanosis, No edema Skin: No breakdown Musculoskeletal: Cachexia, Muscle Wasting Lymphatic: No Cervical, Supraclavicular, or Inguinal Adenopathy Neurological: - - No focal neurological deficits. Currently sedated with a RASS of -2 Vital Signs Temp Pulse Resp BP Pulse Ox 37.7 C H 109 H 16 125/74 H 98 02/01/18 06:00 02/01/18 06:00 02/01/18 06:00 02/01/18 06:00 02/01/18 06:00 Oxygen Flow Rate (L/min) 15 Oxygen Delivery Method Mechanical Ventilator Weight: 123 lb 7.342 oz Body Mass Index (BMI) 16.8 Intake and Output for Last 24 Hours 01/30/18 01/31/18 02/01/18 23:59 23:59 23:59 Intake Total 903.5 / 903.5 Output Total 4825 / 4825 Balance -3921.5 / -3921.5 Microbiology Past 72 Hours 01/31/18 21:27 Influenza Types A,B Direct FA (KODAK) - Final Mucosa - Nasopharyngeal Laboratory Tests Past 24 Hrs 01/31/18 01/31/18 01/31/18 20:55 20:55 20:55 WBC 10.8 RBC 4.43 L Hgb 13.0 Hct 38.8 L MCV 87.6 MCH 29.3 MCHC 33.5 RDW 13.2 RDW Differential 42.6 Plt Count 220 MPV 9.1 Immature Gran % (Auto) 0.300 Neut % (Auto) 88.4 H Lymph % (Auto) 4.0 L [place] % (Auto) 7.3 Eos % (Auto) 0.0 Baso % (Auto) 0.0 Absolute Neuts (auto) 9.5 H Absolute Lymphs (auto) 0.43 L Total Counted Not Reportable Differential Comment SCANNED PT 18.5 H INR 1.5 APTT 32.5 Specimen Type Sample Site pH Bicarbonate Actual POC Total CO2 Base Excess O2 Saturation O2 % ABG pCO2 ABG pO2 [place] Test VBG pH VBG pO2 VBG O2 Sat (Calc) VBG O2 Content VBG Base Excess POC Mix VBG pCO2 Pt Tmp Respiration Rate O2 Delivery Device Minute Volume Vent Mode Tidal Volume POC PEEP Blood Gas Notified Whom Blood Gas Notified Time Sodium 114 L* Potassium 4.7 Chloride 71 L* Carbon Dioxide 32.0 Anion Gap 11 BUN 18 Creatinine 0.85 Estim Creat Clear Calc 88.92 Est GFR (MDRD) Af Amer 123 Est GFR (MDRD) Non-Af 102 BUN/Creatinine Ratio 21.2 H Glucose 79 Lactic Acid Calcium 7.8 L Phosphorus Magnesium Total Bilirubin 2.10 H AST 299 H ALT 158 H Alkaline Phosphatase 88 Troponin I 0.302 H Total Protein 5.6 L Albumin 3.4 Globulin 2.2 Albumin/Globulin Ratio 1.5 01/31/18 01/31/18 01/31/18 20:55 22:30 22:56 WBC RBC Hgb Hct MCV MCH MCHC RDW RDW Differential Plt Count MPV Immature Gran % (Auto) Neut % (Auto) Lymph % (Auto) [place] % (Auto) Eos % (Auto) Baso % (Auto) Absolute Neuts (auto) Absolute Lymphs (auto) Total Counted Differential Comment PT INR APTT Specimen Type BRANDON Sample Site OTHER pH Bicarbonate Actual POC Total CO2 Base Excess O2 Saturation O2 % 100 ABG pCO2 ABG pO2 [place] Test VBG pH 7.21 L VBG pO2 30 VBG O2 Sat (Calc) 43 L VBG O2 Content 33 VBG Base Excess 3 POC Mix VBG pCO2 Pt Tmp 76.1 H* Respiration Rate 16 O2 Delivery Device Vent Minute Volume 5.00 Vent Mode Tidal Volume 400 POC PEEP 8 Blood Gas Notified Whom ED Blood Gas Notified Time 2300 Sodium 117 L* Potassium Chloride Carbon Dioxide Anion Gap BUN Creatinine Estim Creat Clear Calc Est GFR (MDRD) Af Amer Est GFR (MDRD) Non-Af BUN/Creatinine Ratio Glucose Lactic Acid 3.8 H Calcium Phosphorus Magnesium Total Bilirubin AST ALT Alkaline Phosphatase Troponin I Total Protein Albumin Globulin Albumin/Globulin Ratio 02/01/18 02/01/18 02/01/18 00:05 00:05 00:15 WBC RBC Hgb Hct MCV MCH MCHC RDW RDW Differential Plt Count MPV Immature Gran % (Auto) Neut % (Auto) Lymph % (Auto) [place] % (Auto) Eos % (Auto) Baso % (Auto) Absolute Neuts (auto) Absolute Lymphs (auto) Total Counted Differential Comment PT INR APTT Specimen Type ART Sample Site L Radial pH 7.33 L Bicarbonate Actual 31.2 H POC Total CO2 33 Base Excess 5 H O2 Saturation 100 H O2 % 100 ABG pCO2 59.2 H ABG pO2 375 H* Tarun Test NA VBG pH VBG pO2 VBG O2 Sat (Calc) VBG O2 Content VBG Base Excess POC Mix VBG pCO2 Pt Tmp Respiration Rate 16 O2 Delivery Device Vent Minute Volume Vent Mode A-C Tidal Volume 400 POC PEEP 8 Blood Gas Notified Whom [facility] Blood Gas Notified Time 14 Sodium 119 L* Potassium 4.2 Chloride 79 L Carbon Dioxide 32.0 Anion Gap 8 BUN 15 Creatinine 0.71 Estim Creat Clear Calc 102.89 Est GFR (MDRD) Af Amer 152 Est GFR (MDRD) Non-Af 126 BUN/Creatinine Ratio 21.2 H Glucose 112 H Lactic Acid Calcium 7.1 L Phosphorus Magnesium Total Bilirubin 1.40 H AST 657 H ALT 458 H Alkaline Phosphatase 78 Troponin I 0.480 H Total Protein 5.0 L Albumin 2.9 L Globulin 2.1 L Albumin/Globulin Ratio 1.4 02/01/18 02/01/18 02/01/18 00:55 04:30 04:30 WBC 8.8 RBC 4.54 L Hgb 13.3 Hct 39.4 L MCV 86.8 MCH 29.3 MCHC 33.8 RDW 13.4 RDW Differential 42.7 Plt Count 192 MPV 9.1 Immature Gran % (Auto) Neut % (Auto) Lymph % (Auto) [place] % (Auto) Eos % (Auto) Baso % (Auto) Absolute Neuts (auto) Absolute Lymphs (auto) Total Counted Differential Comment PT INR APTT Specimen Type Sample Site pH Bicarbonate Actual POC Total CO2 Base Excess O2 Saturation O2 % ABG pCO2 ABG pO2 [place] Test VBG pH VBG pO2 VBG O2 Sat (Calc) VBG O2 Content VBG Base Excess POC Mix VBG pCO2 Pt Tmp Respiration Rate O2 Delivery Device Minute Volume Vent Mode Tidal Volume POC PEEP Blood Gas Notified Whom Blood Gas Notified Time Sodium Potassium Chloride Carbon Dioxide Anion Gap BUN Creatinine Estim Creat Clear Calc Est GFR (MDRD) Af Amer Est GFR (MDRD) Non-Af BUN/Creatinine Ratio Glucose Lactic Acid 2.2 H Calcium Phosphorus Magnesium 2.0 Total Bilirubin AST ALT Alkaline Phosphatase Troponin I Total Protein Albumin Globulin Albumin/Globulin Ratio 12/02/01/18 02/01/18 04:30 04:30 04:30 WBC RBC Hgb Hct MCV MCH MCHC RDW RDW Differential Plt Count MPV Immature Gran % (Auto) Neut % (Auto) Lymph % (Auto) [place] % (Auto) Eos % (Auto) Baso % (Auto) Absolute Neuts (auto) Absolute Lymphs (auto) Total Counted Differential Comment PT INR APTT Specimen Type Sample Site pH Bicarbonate Actual POC Total CO2 Base Excess O2 Saturation O2 % ABG pCO2 ABG pO2 [place] Test VBG pH VBG pO2 VBG O2 Sat (Calc) VBG O2 Content VBG Base Excess POC Mix VBG pCO2 Pt Tmp Respiration Rate O2 Delivery Device Minute Volume Vent Mode Tidal Volume POC PEEP Blood Gas Notified Whom Blood Gas Notified Time Sodium 128 L Potassium 4.2 Chloride 86 L Carbon Dioxide 33.0 H Anion Gap 9 BUN 12 Creatinine 0.61 L Estim Creat Clear Calc 119.76 Est GFR (MDRD) Af Amer 181 Est GFR (MDRD) Non-Af 150 BUN/Creatinine Ratio 19.8 Glucose 80 Lactic Acid Calcium 7.8 L Phosphorus 3.2 Magnesium Total Bilirubin 0.90 AST 1083 H ALT 861 H Alkaline Phosphatase 82 Troponin I 0.712 H* Total Protein 5.1 L Albumin 3.0 L Globulin 2.1 L Albumin/Globulin Ratio 1.4 Clinical Impression(s) from Imaging Studies Chest X-Ray 01/31/18 21:25 IMPRESSION: Malpositioned enteric tube requires advancement 10 to 20 cm. ET tube as above. Bibasilar interstitial infiltrates. COPD. Probable skinfold left upper lung field. Follow-up recommended to exclude pneumothorax. Electronically Signed: Griffin Schneider MD at 21:58 EST , Service support , KUB X-Ray 01/31/18 22:40 IMPRESSION: OG tube in stomach Electronically Signed: Griffin Schneider MD at 23:10 EST , Service support , Chest X-Ray 02/01/18 05:55 IMPRESSION: A background of emphysematous changes in the lungs. ET tube and NG tube in good positions Electronically Signed: Dilan Dick MD at 5:42 EST Tel , Service support , Assessment/Plan Active and Suspected Problems Respiratory failure (Acute) COPD (chronic obstructive pulmonary disease) (Acute) RECOMMENDATIONS: 1. Continue to wean FiO2 to maintain oxygen saturations at or above 90%. 2. Continue empiric antimicrobials, pending infectious workup. 3. Initiate scheduled aerosol treatments. Continue steroids. 4. Discontinue sodium containing fluids, as the patients sodium was over corrected overnight. 5. Check urine and serum osmolality. 6. Check urine toxicology screen. 7. Check hepatitis panel. 8. Continue to trend troponins and check BNP. 9. Obtain echocardiogram. IMPRESSIONS: 1. Acute on chronic hypoxemic respiratory failure The patient presented to the emergency department with acute on chronic respiratory failure. He does have a baseline 2 L/min supplemental oxygen requirement along with what is presumptive severe COPD and ongoing tobacco dependence. While his plain film chest imaging was underwhelming for the presence of a significant pneumonia, the patient was started on broad-spectrum antibiotics. We will plan to check a full respiratory viral panel to evaluate for the presence of viral etiologies. Strep and urine Legionella antigens will also be checked. We will start scheduled aerosol treatments along with steroids. Wean FiO2 to maintain oxygen saturations at or above 90%. Continue to trend troponins and check BNP. We will also check echocardiogram. 2. Hyponatremia of unknown chronicity The patient did present with significantly decreased serum sodium level of unknown chronicity. His mentation did appear to be intact while in the emergency department per documentation. Therefore hypertonic saline was never initiated. The patient did receive a significant amount of normal saline overnight and his sodium has been overcorrected over the last 12 hours. Therefore, all sodium containing supplemental IV fluids will be placed on hold at this time. We will continue to monitor sodium level closely. 3. Transaminitis Unclear etiology. Could be secondary to passive vascular congestion. However, we will also plan to check a hepatitis panel. Transaminase levels will be rechecked accordingly. 4. Troponin elevation Continue to trend troponins. Obtain echocardiogram. Cardiology consultation is pending. 5. Chronic urinary retention/schizophrenia/GERD/long-standing tobacco dependence Complicates care, management, recovery and prognosis. Continue appropriate ICU prophylaxis. Nicotine replacement therapy can be initiated while the patient is admitted to the hospital. TIME: 50 minutes of critical care time, independent of procedures, was spent addressing the patient's acute on chronic hypoxemic respiratory failure, hyponatremia, transaminitis, troponin elevation, review of all data and collaboration with the care team. ([id number]) Code Visit 9xxxx: [id number] Critical care first hour
--- NOTE | 2018-02-01 07:10 | ECHOD_ITS ---
Reason For Study: dyspnea/SOB Procedure This was a 2D Doppler, Color Flow transthoracic echocardiogram. The study was technically difficult. The study was technically limited. Due to body habitus and PT is supine and on vent for exam. Exam performed portable in ICU/CCU. Left Ventricle Normal LV size. The estimated ejection fraction is 40 %. Stage 1 diastolic dysfunction. There is mild to moderate global hypokinesis of the left ventricle. Right Ventricle Normal RV size. Normal systolic function. Atria Normal left atrium. Normal right atrium. Mitral Valve Bileaflet diffuse mitral valve thickening. Tricuspid Valve Normal tricuspid valve. Aortic Valve Trisinus/trileaflet aortic valve. Normal aortic valve. Pulmonic Valve Normal pulmonic valve. Great Vessels Normal aortic root. The inferior vena cava is dilated. Pericardium/Pleural Small pericardial effusion. Thickened pericardium. MMode/2D Measurements & Calculations LVIDd: 4.5 cm IVSd: 0.97 cm Ao root diam: 3.5 cm LVIDs: 3.5 cm LVPWd: 0.97 cm RVDd: 3.3 cm FS: 22.4 % LAV(MOD-bp): 21.5 ml LA A4 area: 9.5 cm2 LA dimension(2D): 3.3 cm LAV(MOD-bp) Indexed: 12.3 ml/m2 LAV(MOD-sp2): 22.1 ml LAV(MOD-sp4): 20.4 ml RA A4 area: 11.2 cm2 Time Measurements MV dec time: 0.23 sec Doppler Measurements & Calculations MV E max enrique: 61.6 cm/sec Med Peak E' Enrique: 7.7 cm/sec Ao V2 max: 87.3 cm/sec MV A max enrique: 93.3 cm/sec E/E' med: 7.9 Ao max P.0 mmHg MV E/A: 0.66 LV V1 max: 65.5 cm/sec PA V2 max: 62.6 cm/sec LV V1 max P.7 mmHg Interpretation Summary Normal LV size. The estimated ejection fraction is 40 %. Stage 1 diastolic dysfunction. Bileaflet diffuse mitral valve thickening. Ordering Physician: Arturo Shelby D.O. Referring Physician: OTD Performed By: Megha Padilla RDCS, RVT
[2018-02-01] MEDS: Piperacil/Tazobactam 3.375 GM/50 ML ML IV ×3 (08:00→22:15)
[2018-02-01] MEDS: Chlorhexidine 15 ML PO ×2 (08:02→21:09)
[2018-02-01] MEDS: Enoxaparin 40 MG/0.4 ML Syringe SC (08:03)
[2018-02-01 08:09] LABS: BNP,B-Type NATRIURETIC PEPTIDE 485.4 pg/mL (0-100)
[2018-02-01 08:18] LABS: Acetaminophen (Tylenol) Level 4.3 ug/mL (10.0-30.0)
[2018-02-01 08:28] LABS: Osmolality, Serum 268 mOsm/KG (275-295)
[2018-02-01 08:28] LABS: Osmolality, Urine 204 mOsm/KG
[2018-02-01 08:30] LABS: Amphetamine Urine VISTA NEGATIVE (<1000 ng/mL); Barbiturate Urine VISTA NEGATIVE (< 200 ng/mL); Benzodiazepine Urine VISTA NEGATIVE (< 200 ng/mL); Cocaine Urine VISTA NEGATIVE (< 300 ng/mL); Ecstacy Urine VISTA NEGATIVE (< 500 ng/mL); Methadone Urine VISTA NEGATIVE (< 300 ng/mL); PCP Urine VISTA NEGATIVE (< 25 ng/mL); THC Urine VISTA NEGATIVE (< 50 ng/mL); Vista UDS pH Range 6
--- NOTE | 2018-02-01 08:30 | PN_ITS ---
Patient Problems: Active and Suspected Problems Respiratory failure (Acute) COPD (chronic obstructive pulmonary disease) (Acute) Subjective: Patient is a 47-year-old gentleman [facility] the [facility] was brought to the emergency department by the EMS squad with progressive shortness of breath. Patient was reported to be gasping for air with oxygen saturation in the 60s. An assessment of acute hypoxic respiratory failure was made patient intubated and admitted to the intensive care unit for subsequent management Objective: GENERAL: d on the vent HEENT: Atraumatic; G-tube in place EYES; Anicteric, Normal Conjunctiva NECK; supple, normal thyroid, RESPIRATORY: Diminished to auscultation bilaterally, CARDIOVASCULAR: Regular S1 S2, GI: soft, non-tender, normoactive bowel sounds, : No Renal angle tenderness; EXTREMITIES: No edema, no clubbing, no cyanosis. MUSCULOSKELETAL: muscle waisting NEURO: Unable to assess patient on the vent SKIN: No Rash Vitals/I&O's: Vital Signs Temp Pulse Resp BP Pulse Ox 99.9 F H 109 H 16 125/74 H 98 02/01/18 06:00 02/01/18 06:00 02/01/18 06:00 02/01/18 06:00 02/01/18 06:00 Oxygen Flow Rate (L/min) 15 Oxygen Delivery Method Mechanical Ventilator Weight: 56 kg Body Mass Index (BMI) 16.8 Intake and Output for Last 24 Hours 01/30/18 01/31/18 02/01/18 23:59 23:59 23:59 Intake Total 903.5 / 903.5 Output Total 4825 / 4825 Balance -3921.5 / -3921.5 Microbiology Past 72 Hours 01/31/18 21:27 Mucosa - Nasopharyngeal Influenza Types A,B Direct FA ([place]) - Final Laboratory Results 01/31/18 20:55: WBC 10.8, RBC 4.43 L, Hgb 13.0, Hct 38.8 L, MCV 87.6, MCH 29.3, MCHC 33.5, RDW 13.2, RDW Differential 42.6, Plt Count 220, MPV 9.1, Immature Gran % (Auto) 0.300, Neut % (Auto) 88.4 H, Lymph % (Auto) 4.0 L, [place] % (Auto) 7.3, Eos % (Auto) 0.0, Baso % (Auto) 0.0, Absolute Neuts (auto) 9.5 H, Absolute Lymphs (auto) 0.43 L, Total Counted Not Reportable, Differential Comment SCANNED 01/31/18 20:55: PT 18.5 H, INR 1.5, APTT 32.5 01/31/18 20:55: Sodium 114 L*, Potassium 4.7, Chloride 71 L*, Carbon Dioxide 32.0, Anion Gap 11, BUN 18, Creatinine 0.85, Estim Creat Clear Calc 88.92, Est GFR (MDRD) Af Amer 123, Est GFR (MDRD) Non-Af 102, BUN/Creatinine Ratio 21.2 H, Glucose 79, Calcium 7.8 L, Total Bilirubin 2.10 H, AST 299 H, ALT 158 H, Alkaline Phosphatase 88, Troponin I 0.302 H, Total Protein 5.6 L, Albumin 3.4, Globulin 2.2, Albumin/Globulin Ratio 1.5 01/31/18 20:55: Lactic Acid 3.8 H 01/31/18 22:30: Sodium 117 L* 01/31/18 22:56: Specimen Type BRANDON, Sample Site OTHER, O2 % 100, VBG pH 7.21 L, VBG pO2 30, VBG O2 Sat (Calc) 43 L, VBG O2 Content 33, VBG Base Excess 3, POC Mix VBG pCO2 Pt Tmp 76.1 H*, Respiration Rate 16, O2 Delivery Device Vent, Minute Volume 5.00, Tidal Volume 400, POC PEEP 8, Blood Gas Notified Whom ED , Blood Gas Notified Time 2300 02/01/18 00:05: Sodium 119 L*, Potassium 4.2, Chloride 79 L, Carbon Dioxide 32.0, Anion Gap 8, BUN 15, Creatinine 0.71, Estim Creat Clear Calc 102.89, Est GFR (MDRD) Af Amer 152, Est GFR (MDRD) Non-Af 126, BUN/Creatinine Ratio 21.2 H, Glucose 112 H, Calcium 7.1 L, Total Bilirubin 1.40 H, AST 657 H, ALT 458 H, Alkaline Phosphatase 78, Total Protein 5.0 L, Albumin 2.9 L, Globulin 2.1 L, Albumin/Globulin Ratio 1.4 02/01/18 00:05: Troponin I 0.480 H 02/01/18 00:15: Specimen Type ART, Sample Site L Radial, pH 7.33 L, Bicarbonate Actual 31.2 H, POC Total CO2 33, Base Excess 5 H, O2 Saturation 100 H, O2 % 100, ABG pCO2 59.2 H, ABG pO2 375 H*, Tarun Test NA, Respiration Rate 16, O2 Delivery Device Vent, Vent Mode A-C, Tidal Volume 400, POC PEEP 8, Blood Gas Notified Whom ANNABELLE BATRES, Blood Gas Notified Time 14 02/01/18 00:55: Lactic Acid 2.2 H 02/01/18 04:30: WBC 8.8, RBC 4.54 L, Hgb 13.3, Hct 39.4 L, MCV 86.8, MCH 29.3, M CHC 33.8, RDW 13.4, RDW Differential 42.7, Plt Count 192, MPV 9.1 02/01/18 04:30: Magnesium 2.0 02/01/18 04:30: Phosphorus 3.2 02/01/18 04:30: Troponin I 0.712 H* 02/01/18 04:30: Sodium 128 L, Potassium 4.2, Chloride 86 L, Carbon Dioxide 33.0 H, Anion Gap 9, BUN 12, Creatinine 0.61 L, Estim Creat Clear Calc 119.76, Est GFR (MDRD) Af Amer 181, Est GFR (MDRD) Non-Af 150, BUN/Creatinine Ratio 19.8, Glucose 80, Calcium 7.8 L, Total Bilirubin 0.90, AST 1083 H, ALT 861 H, Alkaline Phosphatase 82, Total Protein 5.1 L, Albumin 3.0 L, Globulin 2.1 L, Albumin/Globulin Ratio 1.4 02/01/18 04:30: B-Natriuretic Peptide 485.4 H 02/01/18 07:40: Hepatitis A IgM Ab Pending, Hep Bs Antigen Pending, Hep B Core IgM Ab Pending, Hepatitis Interpret Pending 02/01/18 07:40: Acetaminophen 4.3 L 02/01/18 07:40: Serum Osmolality 268 L 02/01/18 07:50: Urine Opiates Screen Pending, Urine Methadone Screen Pending, Ur Barbiturates Screen Pending, Ur Phencyclidine Scrn Pending, Ur Amphetamines Screen Pending, U Methamphetamin-MDMA Pending, U Benzodiazepines Scrn Pending, Urine Cocaine Screen Pending, U Cannabinoids Screen Pending, Ur Drug Screen Comment 02/01/18 07:50: MRSA (PCR) Pending 02/01/18 07:50: Urine Osmolality 204 Current Medications Chlorhexidine Gluconate () 1 each TOPICAL DAILY [facility] Last Admin: 02/01/18 06:03 Dose: 1 each Chlorhexidine Gluconate () 15 ml PO BID DEVYN Enoxaparin Sodium (Lovenox) 40 mg SC DAILY@1000 DEVYN Propofol (Diprivan) 1,000 mg in 100 mls @ 3.588 mls/hr CONT INF .Q12H [facility] Last Admin: 02/01/18 04:53 Dose: 3.588 mls/hr Fentanyl () 100 mls @ 5 mls/hr IV .Q20H [facility] Last Admin: 01/31/18 22:03 Dose: 5 mls/hr Sodium Chloride () 250 mls @ 15 mls/hr IV .[id number] PRN PRN Reason: SALINE FLUSH Pantoprazole Sodium 40 mg/ (Sodium Chloride) 110 mls @ 330 mls/hr IV Q24 DEVYN Piperacillin Sod/Tazobactam Sod (Zosyn) 3.375 gm in 50 mls @ 12.5 mls/hr IV Q8 DEVYN Magnesium Hydroxide (Milk Of Magnesia) 30 ml PO DAILY PRN PRN PRN Reason: Constipation Methylprednisolone (Solu-Medrol) 40 mg IV Q8 [facility] Last Admin: 02/01/18 05:15 Dose: 40 mg Sodium Chloride () 5 - 15 ml IV UD PRN PRN Reason: SALINE FLUSH Last Admin: 02/01/18 04:53 Dose: 10 ml Medical Necessity - Tobacco Use Smoking Status: Current every day smoker Assessment/Plan All Active Problems Respiratory failure (Acute) COPD (chronic obstructive pulmonary disease) (Acute) Patient is a 47-year-old gentleman resident at the senior care was brought to the emergency department by the EMS squad with progressive shortness of breath. Patient was reported to be gasping for air with oxygen saturation in the 60s. An assessment of acute hypoxic respiratory failure was made patient intubated and admitted to the intensive care unit for subsequent management. Chest x-ray on admission demonstrated bilateral infiltrate 1. Acute hypoxic respiratory failure secondary to acute influenza B infection. Patient admitted to the intensive care unit was placed on the vent from the ED. Patient started on Tamiflu 2. Chronic hypoxic respiratory failure secondary to COPD patient is on baseline home O2 3. Elevated troponin possibly related to demand ischemia from patient underlying infectious etiology. Patient also had a slightly elevated BNP 2D echo ordered for subsequent evaluation 4. Acute hepatitis of unknown etiology at this point acute hepatitis panel signs will continue with monitoring 5. Hyponatremia patient is on IV fluids with monitoring of electrolytes 6. Severe protein calorie malnutrition as evidenced by muscle wasting hypoalbuminemia as well as BMI of 16.3 consultation placed to nutrition 7. Schizophrenia 8. Learning disability 9. DVT prophylaxis SC Lovenox Active Medications Albuterol Sulfate (Ventolin Aerosols) 2.5 mg INHALATION Q2H PRN PRN PRN Reason: SOB &/OR WHEEZING Albuterol/Ipratropium (Duoneb) 3 ml INHALATION Q4H.RT [facility] Last Admin: 02/01/18 14:42 Dose: 3 ml Chlorhexidine Gluconate () 1 each TOPICAL DAILY [facility] Last Admin: 02/01/18 06:03 Dose: 1 each Chlorhexidine Gluconate () 15 ml PO BID [facility] Last Admin: 02/01/18 08:02 Dose: 15 ml Enoxaparin Sodium (Lovenox) 40 mg SC DAILY@1000 [facility] Last Admin: 02/01/18 08:03 Dose: 40 mg Sodium Chloride () 250 mls @ 15 mls/hr IV .[id number] PRN PRN Reason: SALINE FLUSH Piperacillin Sod/Tazobactam Sod (Zosyn) 3.375 gm in 50 mls @ 12.5 mls/hr IV Q8 [facility] Last Admin: 02/01/18 13:45 Dose: 12.5 mls/hr Fentanyl () 100 mls @ 5 mls/hr IV .Q20H [facility] Propofol (Diprivan) 1,000 mg in 100 mls @ 3.588 mls/hr CONT INF .Q12H [facility] Last Admin: 02/01/18 11:13 Dose: Not Given Lansoprazole (Prevacid) 30 mg GT DAILY [facility] Last Admin: 02/01/18 12:36 Dose: Not Given Magnesium Hydroxide (Milk Of Magnesia) 30 ml PO DAILY PRN PRN PRN Reason: Constipation Methylprednisolone (Solu-Medrol) 40 mg IV Q8 [facility] Last Admin: 02/01/18 13:45 Dose: 40 mg Oseltamivir Phosphate (Tamiflu Susp) 75 mg GT BID DEVYN Stop: 02/05/18 22:01 Sodium Chloride () 5 - 15 ml IV UD PRN PRN Reason: SALINE FLUSH Last Admin: 02/01/18 04:53 Dose: 10 ml Clinical Impression(s) from Imaging Studies Chest X-Ray 01/31/18 21:25 IMPRESSION: Malpositioned enteric tube requires advancement 10 to 20 cm. ET tube as above. Bibasilar interstitial infiltrates. COPD. Probable skinfold left upper lung field. Follow-up recommended to exclude pneumothorax. Electronically Signed: Griffin Schneider MD at 21:58 EST , Service support , KUB X-Ray 01/31/18 22:40 IMPRESSION: OG tube in stomach Electronically Signed: Griffin Schneider MD at 23:10 EST , Service support , Chest X-Ray 02/01/18 05:55 IMPRESSION: A background of emphysematous changes in the lungs. ET tube and NG tube in good positions Electronically Signed: Dilan Dick MD at 5:42 EST Tel , Service support , Code Visit Inpatient E&M: [id number] Subs Hosp L3
[2018-02-01] MEDS: fentaNYL drip 100 ML 5 MCG IV ×2 (08:43→21:08)
[2018-02-01 09:31] LABS: M R Staph aureus DNA By PCR Negative (Negative); Specimen Processing Control PASS
[2018-02-01 09:32] LABS: Probe Check PASS
--- NOTE | 2018-02-01 09:52 | CASEMGMT ---
Addendum entered by Bonny Harley 02/01/18 10:54: Med list faxed, SW shared w/physician. MICHELLE Martinez, CUSTOM STOCK MAKER Original Note: Addendum entered by Bonny Harley 02/01/18 10:36: Pt's patient case manager Nicole HaneyJenni called this SW back in regard to pt. Nicole confirmed that pt is in the [facility] in [place] temporarily. Pt was in another ch[facility] and wanted a more family setting, so went to a foster home for one month. She states they parted ways and she is now looking for a more permanent place for pt. She states pt was diagnosed at age 23 with the intellectual disability. Pt is also schizophrenic. Nicole states she has funding for now but jail is more of an issue. She states she calls 10 group homes per day and is having difficulty finding a permanent spot for the pt. She states she has until March 17 and then pt will be homeless. ORION asked about LW/POA, she confirmed pt does not have these and is his own decision maker. ORION asked if decisions need made, who would make them. Nicole asked this SW how we handle this here in the hospital. SW explained if necessary we would go to the court to try to attain temporary guardianship. SW asked if pt seems able to make his own decisions, Nicole states pt would benefit from someone to assist pt in making his own decisions. She states that pt has no family other than his mother. ORION inquired if she ever spoke to pt about his wishes, and she states his only wish is to smoke. Nicole inquired about pt going to a [place], ORION explained we will need to see if this would be medically necessary. ORION explains also though that pt would need to be in agreement with this as pt is his own decision maker. SW explained if the chcf can manage his needs, he would likely return there. If not, we would need to work w/the pt regarding [place] placement, if needed would need to go to the courts for temporary guardianship. ORION asked Nicole to fax a med list as it has not yet been received. SW will continue to follow. MICHELLE Martinez, CUSTOM STOCK MAKER Original Note: There is no contact information on this pt [facility] or on the chart, but pt is from a [facility]. SW called [facility], he is not known to them. ORION called [facility], he is not known to them but states that pt may be from a different county and to call [facility]([phone]). ORION spoke w/Jada Lizarraga, she states pt is from [facility], staying in this ch[facility] for respite as he is changing from one chcf to another in [facility]. Pt will be here for approximately 2 weeks. Pt's case manager in [place] is Nicole Hood([phone]). The nurse at the chcf is Mary Ellis([phone]), and the supervisor housecleaner/gis programmer is Alyce Mantilla([phone]). Jada also shared that pt has COPD, is a smoker, is on O2 continuously. Pt gets frequent respiratory infections, has mild intellectual disability, and self caths nightly. Staff assist pt w/meds, pt takes them orally.. Pt prefers a soft diet. Pt can complete his ADL's with mild assist, needs reminders. Pt's PCP is Dr. Douglas, urologist is Dr. Carreon, and sticker operator is Dr. Yanez. Pt went to see pulmonology last week and was diagnosed w/bronchitis, put on antibiotics. Pt goes to [facility] for psychiatry though Jada does not have listed any psychiatric diagnoses. ORION asked Jada to fax a med list, she will do so. Pt has no advance directives, pt's mother is in a [place] facility and has dementia. Pt has been his own decision maker. ORION relayed this information to the physician and RN caring for pt. ORION then called pt's patient case manager Nicole Hood, message left to call this SW back. ORION will continue to follow. MICHELLE Martinez, CUSTOM STOCK MAKER
[2018-02-01 10:35] LABS: Sodium Level 128 mmol/L (136-145)
[2018-02-01] MEDS: Ipratropium/Albuterol Sulfate 3 ML AMPUL.NEB INHALATION ×2 (10:58→14:42)
--- NOTE | 2018-02-01 14:27 | RAD_ITS ---
STUDY: X-RAY - ABDOMEN/PELVIS REASON FOR EXAM: Male, 47 years old. Oral gastric tube placement. TECHNIQUE: Single AP view of the abdomen / pelvis. COMPARISON: Comparison is made with prior examination dated January 31, 2018. FINDINGS: The tip of the orogastric tube is coiled in the fundal portion of the stomach. RAD/Abdomen Single View (Portable) IMPRESSION: The tip of the orogastric tube is coiled within the fundal portion of the stomach. Electronically Signed: Jeremias Fraser MD at 15:05 EST Tel [phone], Service support ,
[2018-02-01] MEDS: OSELTAMIVIR PHOSPHATE 6 MG/ML BOTTLE 75 MG GT ×2 (14:30→21:18)
[2018-02-02] VITALS (52 sets, daily range): BP systolic 84–160; BP diastolic 61–111; PULSE 77–130; RESP 16–41; TEMP 36.6–37.9; O2SAT 89–100
[2018-02-02] MEDS: Propofol 10MG/Ml 1,000 MG/100 ML Bottle 3.588 MG CONT INF (02:08)
[2018-02-02] MEDS: CHLORHEXIDINE GLUC 2% CLOTH 1 EACH TOWELETTE TOPICAL (02:58)
[2018-02-02 04:08] LABS: HEPATITIS B SURFACE AG Negative (Negative); Hepatitis A IgM Antibody Negative (Negative)
[2018-02-02 04:21] LABS: Hemoglobin 13.1 g/dl (13.0-16.5); Mean Corp Hgb Conc 33.6 g/gl (32-36); Mean Corpuscular Volume 89.2 fL (80-94); Mean Platelet Vol. 9.7 fl (6.2-12.0); Platelet Count 204 K/mm3 (150-450); RBC Distribution Width CV 14.2 % (11.6-14.6); RBC Distribution Width SD 45.7 fl (35.1-43.9); Red Blood Count 4.37 M/mm3 (4.6-6.2); White Blood Count 20.6 K/mm3 (4.4-11.0)
[2018-02-02 04:25] LABS: Scan Indicated on CBC? Y/N NO
[2018-02-02 04:31] LABS: Anion Gap 11 (5-15); BUN 15 mg/dL (7-18); BUN/Creat Ratio 22.9 RATIO (10-20); Calcium,Total 8.1 mg/dL (8.5-10.1); Chloride 90 mmol/L (98-107); Creatinine, Serum 0.65 mg/dL (0.70-1.30); EST Glomerular Filtration Rate 137 mL/min (>60); Est Glom Filt Rate - Afr Amer 166 mL/min (>60); Estimated Creatinine Clearance 108.89 ml/min; Glucose 96 mg/dL (74-106); Magnesium 2.5 mg/dL (1.6-2.6); Potassium 4.6 mmol/L (3.5-5.1); Sodium Level 133 mmol/L (136-145)
--- NOTE | 2018-02-02 05:55 | EKG12_ITS ---
Test Reason : Blood Pressure : / mmHG Vent. Rate : 093 BPM Atrial Rate : 093 BPM P-R Int : 108 ms QRS Dur : 098 ms QT Int : 342 ms P-R-T Axes : 088 093 267 degrees QTc Int : 425 ms Sinus rhythm with short AK T wave abnormality, consider anterolateral ischemia Abnormal ECG When compared with ECG of 31-JAN-2018 21:37, MANUAL COMPARISON REQUIRED, DATA IS UNCONFIRMED Confirmed by IESHA BATRES, AGUSTO ([id number]), sports editor RADHA ELIZABETH ([id number]) on 02/04/2018 2:18:27 PM Referred By: LITA Confirmed By:AGUSTO JULIAN MD
[2018-02-02] MEDS: Ipratropium/Albuterol Sulfate 3 ML AMPUL.NEB INHALATION ×5 (06:35→23:00)
[2018-02-02] MEDS: Piperacil/Tazobactam 3.375 GM/50 ML ML IV ×3 (06:45→22:30)
--- NOTE | 2018-02-02 07:26 | PCM.PN.INT ---
Subjective: The patient was seen and examined at the bedside this morning. Events from the last 24 hours have been reviewed. The patient is currently afebrile, hemodynamically stable and maintaining appropriate oxygen saturations with an FiO2 requirement of 40%. The patient did fail his spontaneous breathing trial this morning. Overnight nursing staff did report secretions for the patient's endotracheal tube. The patient was identified yesterday as having influenza B. He was subsequently started on Tamiflu. Objective: The patient's most recent lab work, culture data and imaging studies have all been personally reviewed. Blood cultures are pending. Respiratory viral panel was positive for influenza B. Sputum culture is pending. MRSA screen was negative. Surface echocardiogram revealed normal LV size with an ejection fraction of 40% and stage I diastolic dysfunction. There was mild to moderate global hypokinesis of the LV. General: Alert, No apparent distress, - - Remains intubated and mechanically ventilated. HEENT: Atraumatic, PERRLA, Normocephalic Oral: No Gingival or Mucosal Lesions/ Ulcerations Neck: Supple, No Nodes, Trachea Midline Lungs: No rhonchi, No wheeze, No rales, Diminished Cardiovascular: Normal S1, Normal S2, No murmurs, Tachycardic Abdomen: Bowel Sounds Present, Soft, Non Tender, Non-Distended Extremities: No clubbing, No cyanosis, No edema Skin: No breakdown Musculoskeletal: Cachexia, Muscle Wasting Lymphatic: No Cervical, Supraclavicular, or Inguinal Adenopathy Neurological: Neuro grossly intact, - - Arousable and following simple commands. Psych/Mental Status: Anxious Vital Signs Temp Pulse Resp BP Pulse Ox 37.3 C H 83 16 95/68 92 02/02/18 07:00 02/02/18 07:00 02/02/18 07:00 02/02/18 07:00 02/02/18 07:00 Oxygen Flow Rate (L/min) 15 Oxygen Delivery Method Mechanical Ventilator Weight: 121 lb 11.123 oz Body Mass Index (BMI) 16.8 Intake and Output for Last 24 Hours 01/31/18 02/01/18 02/02/18 23:59 23:59 23:59 Intake Total 1358.5 / 1358.5 389.6 / 389.6 Output Total 5525 / 5525 450 / 450 Balance -4166.5 / -4166.5 -60.4 / -60.4 Labs (Last 48 Hours) 01/31/18 01/31/18 01/31/18 20:55 20:55 20:55 WBC 10.8 RBC 4.43 L Hgb 13.0 Hct 38.8 L MCV 87.6 MCH 29.3 MCHC 33.5 RDW 13.2 RDW Differential 42.6 Plt Count 220 MPV 9.1 Immature Gran % (Auto) 0.300 Neut % (Auto) 88.4 H Lymph % (Auto) 4.0 L [place] % (Auto) 7.3 Eos % (Auto) 0.0 Baso % (Auto) 0.0 Absolute Neuts (auto) 9.5 H Absolute Lymphs (auto) 0.43 L Total Counted Not Reportable Differential Comment SCANNED PT 18.5 H INR 1.5 APTT 32.5 Specimen Type Sample Site pH Bicarbonate Actual POC Total CO2 Base Excess O2 Saturation O2 % ABG pCO2 ABG pO2 Tarun Test VBG pH VBG pO2 VBG O2 Sat (Calc) VBG O2 Content VBG Base Excess POC Mix VBG pCO2 Pt Tmp Respiration Rate O2 Delivery Device Minute Volume Vent Mode Tidal Volume POC PEEP Blood Gas Notified Whom Blood Gas Notified Time Sodium 114 L* Potassium 4.7 Chloride 71 L* Carbon Dioxide 32.0 Anion Gap 11 BUN 18 Creatinine 0.85 Estim Creat Clear Calc 88.92 Est GFR (MDRD) Af Amer 123 Est GFR (MDRD) Non-Af 102 BUN/Creatinine Ratio 21.2 H Glucose 79 Serum Osmolality Lactic Acid Calcium 7.8 L Phosphorus Magnesium Total Bilirubin 2.10 H AST 299 H ALT 158 H Alkaline Phosphatase 88 Troponin I 0.302 H B-Natriuretic Peptide Total Protein 5.6 L Albumin 3.4 Globulin 2.2 Albumin/Globulin Ratio 1.5 Urine Osmolality Urine Opiates Screen Urine Methadone Screen Acetaminophen Ur Barbiturates Screen Ur Phencyclidine Scrn Ur Amphetamines Screen U Methamphetamin-MDMA U Benzodiazepines Scrn Urine Cocaine Screen U Cannabinoids Screen Ur Drug Screen Comment Hepatitis A IgM Ab Hep Bs Antigen Hep B Core IgM Ab Hepatitis Interpret MRSA (PCR) 01/31/18 01/31/18 01/31/18 20:55 22:30 22:56 WBC RBC Hgb Hct MCV MCH MCHC RDW RDW Differential Plt Count MPV Immature Gran % (Auto) Neut % (Auto) Lymph % (Auto) [place] % (Auto) Eos % (Auto) Baso % (Auto) Absolute Neuts (auto) Absolute Lymphs (auto) Total Counted Differential Comment PT INR APTT Specimen Type BRANDON Sample Site OTHER pH Bicarbonate Actual POC Total CO2 Base Excess O2 Saturation O2 % 100 ABG pCO2 ABG pO2 Tarun Test VBG pH 7.21 L VBG pO2 30 VBG O2 Sat (Calc) 43 L VBG O2 Content 33 VBG Base Excess 3 POC Mix VBG pCO2 Pt Tmp 76.1 H* Respiration Rate 16 O2 Delivery Device Vent Minute Volume 5.00 Vent Mode Tidal Volume 400 POC PEEP 8 Blood Gas Notified Whom ED Blood Gas Notified Time 2300 Sodium 117 L* Potassium Chloride Carbon Dioxide Anion Gap BUN Creatinine Estim Creat Clear Calc Est GFR (MDRD) Af Amer Est GFR (MDRD) Non-Af BUN/Creatinine Ratio Glucose Serum Osmolality Lactic Acid 3.8 H Calcium Phosphorus Magnesium Total Bilirubin AST ALT Alkaline Phosphatase Troponin I B-Natriuretic Peptide Total Protein Albumin Globulin Albumin/Globulin Ratio Urine Osmolality Urine Opiates Screen Urine Methadone Screen Acetaminophen Ur Barbiturates Screen Ur Phencyclidine Scrn Ur Amphetamines Screen U Methamphetamin-MDMA U Benzodiazepines Scrn Urine Cocaine Screen U Cannabinoids Screen Ur Drug Screen Comment Hepatitis A IgM Ab Hep Bs Antigen Hep B Core IgM Ab Hepatitis Interpret MRSA (PCR) 02/01/18 02/01/18 02/01/18 00:05 00:05 00:15 WBC RBC Hgb Hct MCV MCH MCHC RDW RDW Differential Plt Count MPV Immature Gran % (Auto) Neut % (Auto) Lymph % (Auto) [place] % (Auto) Eos % (Auto) Baso % (Auto) Absolute Neuts (auto) Absolute Lymphs (auto) Total Counted Differential Comment PT INR APTT Specimen Type ART Sample Site L Radial pH 7.33 L Bicarbonate Actual 31.2 H POC Total CO2 33 Base Excess 5 H O2 Saturation 100 H O2 % 100 ABG pCO2 59.2 H ABG pO2 375 H* Tarun Test NA VBG pH VBG pO2 VBG O2 Sat (Calc) VBG O2 Content VBG Base Excess POC Mix VBG pCO2 Pt Tmp Respiration Rate 16 O2 Delivery Device Vent Minute Volume Vent Mode A-C Tidal Volume 400 POC PEEP 8 Blood Gas Notified Whom [facility] Blood Gas Notified Time 14 Sodium 119 L* Potassium 4.2 Chloride 79 L Carbon Dioxide 32.0 Anion Gap 8 BUN 15 Creatinine 0.71 Estim Creat Clear Calc 102.89 Est GFR (MDRD) Af Amer 152 Est GFR (MDRD) Non-Af 126 BUN/Creatinine Ratio 21.2 H Glucose 112 H Serum Osmolality Lactic Acid Calcium 7.1 L Phosphorus Magnesium Total Bilirubin 1.40 H AST 657 H ALT 458 H Alkaline Phosphatase 78 Troponin I 0.480 H B-Natriuretic Peptide Total Protein 5.0 L Albumin 2.9 L Globulin 2.1 L Albumin/Globulin Ratio 1.4 Urine Osmolality Urine Opiates Screen Urine Methadone Screen Acetaminophen Ur Barbiturates Screen Ur Phencyclidine Scrn Ur Amphetamines Screen U Methamphetamin-MDMA U Benzodiazepines Scrn Urine Cocaine Screen U Cannabinoids Screen Ur Drug Screen Comment Hepatitis A IgM Ab Hep Bs Antigen Hep B Core IgM Ab Hepatitis Interpret MRSA (PCR) 02/01/18 02/01/18 02/01/18 00:55 04:30 04:30 WBC 8.8 RBC 4.54 L Hgb 13.3 Hct 39.4 L MCV 86.8 MCH 29.3 MCHC 33.8 RDW 13.4 RDW Differential 42.7 Plt Count 192 MPV 9.1 Immature Gran % (Auto) Neut % (Auto) Lymph % (Auto) [place] % (Auto) Eos % (Auto) Baso % (Auto) Absolute Neuts (auto) Absolute Lymphs (auto) Total Counted Differential Comment PT INR APTT Specimen Type Sample Site pH Bicarbonate Actual POC Total CO2 Base Excess O2 Saturation O2 % ABG pCO2 ABG pO2 Tarun Test VBG pH VBG pO2 VBG O2 Sat (Calc) VBG O2 Content VBG Base Excess POC Mix VBG pCO2 Pt Tmp Respiration Rate O2 Delivery Device Minute Volume Vent Mode Tidal Volume POC PEEP Blood Gas Notified Whom Blood Gas Notified Time Sodium Potassium Chloride Carbon Dioxide Anion Gap BUN Creatinine Estim Creat Clear Calc Est GFR (MDRD) Af Amer Est GFR (MDRD) Non-Af BUN/Creatinine Ratio Glucose Serum Osmolality Lactic Acid 2.2 H Calcium Phosphorus Magnesium 2.0 Total Bilirubin AST ALT Alkaline Phosphatase Troponin I B-Natriuretic Peptide Total Protein Albumin Globulin Albumin/Globulin Ratio Urine Osmolality Urine Opiates Screen Urine Methadone Screen Acetaminophen Ur Barbiturates Screen Ur Phencyclidine Scrn Ur Amphetamines Screen U Methamphetamin-MDMA U Benzodiazepines Scrn Urine Cocaine Screen U Cannabinoids Screen Ur Drug Screen Comment Hepatitis A IgM Ab Hep Bs Antigen Hep B Core IgM Ab Hepatitis Interpret MRSA (PCR) 02/01/18 02/01/18 02/01/18 04:30 04:30 04:30 WBC RBC Hgb Hct MCV MCH MCHC RDW RDW Differential Plt Count MPV Immature Gran % (Auto) Neut % (Auto) Lymph % (Auto) [place] % (Auto) Eos % (Auto) Baso % (Auto) Absolute Neuts (auto) Absolute Lymphs (auto) Total Counted Differential Comment PT INR APTT Specimen Type Sample Site pH Bicarbonate Actual POC Total CO2 Base Excess O2 Saturation O2 % ABG pCO2 ABG pO2 Tarun Test VBG pH VBG pO2 VBG O2 Sat (Calc) VBG O2 Content VBG Base Excess POC Mix VBG pCO2 Pt Tmp Respiration Rate O2 Delivery Device Minute Volume Vent Mode Tidal Volume POC PEEP Blood Gas Notified Whom Blood Gas Notified Time Sodium 128 L Potassium 4.2 Chloride 86 L Carbon Dioxide 33.0 H Anion Gap 9 BUN 12 Creatinine 0.61 L Estim Creat Clear Calc 119.76 Est GFR (MDRD) Af Amer 181 Est GFR (MDRD) Non-Af 150 BUN/Creatinine Ratio 19.8 Glucose 80 Serum Osmolality Lactic Acid Calcium 7.8 L Phosphorus 3.2 Magnesium Total Bilirubin 0.90 AST 1083 H ALT 861 H Alkaline Phosphatase 82 Troponin I 0.712 H* B-Natriuretic Peptide Total Protein 5.1 L Albumin 3.0 L Globulin 2.1 L Albumin/Globulin Ratio 1.4 Urine Osmolality Urine Opiates Screen Urine Methadone Screen Acetaminophen Ur Barbiturates Screen Ur Phencyclidine Scrn Ur Amphetamines Screen U Methamphetamin-MDMA U Benzodiazepines Scrn Urine Cocaine Screen U Cannabinoids Screen Ur Drug Screen Comment Hepatitis A IgM Ab Hep Bs Antigen Hep B Core IgM Ab Hepatitis Interpret MRSA (PCR) 02/01/18 02/01/18 02/01/18 04:30 07:40 07:40 WBC RBC Hgb Hct MCV MCH MCHC RDW RDW Differential Plt Count MPV Immature Gran % (Auto) Neut % (Auto) Lymph % (Auto) [place] % (Auto) Eos % (Auto) Baso % (Auto) Absolute Neuts (auto) Absolute Lymphs (auto) Total Counted Differential Comment PT INR APTT Specimen Type Sample Site pH Bicarbonate Actual POC Total CO2 Base Excess O2 Saturation O2 % ABG pCO2 ABG pO2 Tarun Test VBG pH VBG pO2 VBG O2 Sat (Calc) VBG O2 Content VBG Base Excess POC Mix VBG pCO2 Pt Tmp Respiration Rate O2 Delivery Device Minute Volume Vent Mode Tidal Volume POC PEEP Blood Gas Notified Whom Blood Gas Notified Time Sodium Potassium Chloride Carbon Dioxide Anion Gap BUN Creatinine Estim Creat Clear Calc Est GFR (MDRD) Af Amer Est GFR (MDRD) Non-Af BUN/Creatinine Ratio Glucose Serum Osmolality Lactic Acid Calcium Phosphorus Magnesium Total Bilirubin AST ALT Alkaline Phosphatase Troponin I B-Natriuretic Peptide 485.4 H Total Protein Albumin Globulin Albumin/Globulin Ratio Urine Osmolality Urine Opiates Screen Urine Methadone Screen Acetaminophen 4.3 L Ur Barbiturates Screen Ur Phencyclidine Scrn Ur Amphetamines Screen U Methamphetamin-MDMA U Benzodiazepines Scrn Urine Cocaine Screen U Cannabinoids Screen Ur Drug Screen Comment Hepatitis A IgM Ab Pending Hep Bs Antigen Pending Hep B Core IgM Ab Pending Hepatitis Interpret Pending MRSA (PCR) 02/01/18 02/01/18 02/01/18 07:40 07:50 07:50 WBC RBC Hgb Hct MCV MCH MCHC RDW RDW Differential Plt Count MPV Immature Gran % (Auto) Neut % (Auto) Lymph % (Auto) [place] % (Auto) Eos % (Auto) Baso % (Auto) Absolute Neuts (auto) Absolute Lymphs (auto) Total Counted Differential Comment PT INR APTT Specimen Type Sample Site pH Bicarbonate Actual POC Total CO2 Base Excess O2 Saturation O2 % ABG pCO2 ABG pO2 Tarun Test VBG pH VBG pO2 VBG O2 Sat (Calc) VBG O2 Content VBG Base Excess POC Mix VBG pCO2 Pt Tmp Respiration Rate O2 Delivery Device Minute Volume Vent Mode Tidal Volume POC PEEP Blood Gas Notified Whom Blood Gas Notified Time Sodium Potassium Chloride Carbon Dioxide Anion Gap BUN Creatinine Estim Creat Clear Calc Est GFR (MDRD) Af Amer Est GFR (MDRD) Non-Af BUN/Creatinine Ratio Glucose Serum Osmolality 268 L Lactic Acid Calcium Phosphorus Magnesium Total Bilirubin AST ALT Alkaline Phosphatase Troponin I B-Natriuretic Peptide Total Protein Albumin Globulin Albumin/Globulin Ratio Urine Osmolality Urine Opiates Screen NEGATIVE Urine Methadone Screen NEGATIVE Acetaminophen Ur Barbiturates Screen NEGATIVE Ur Phencyclidine Scrn NEGATIVE Ur Amphetamines Screen NEGATIVE U Methamphetamin-MDMA NEGATIVE U Benzodiazepines Scrn NEGATIVE Urine Cocaine Screen NEGATIVE U Cannabinoids Screen NEGATIVE Ur Drug Screen Comment Hepatitis A IgM Ab Hep Bs Antigen Hep B Core IgM Ab Hepatitis Interpret MRSA (PCR) Negative 02/01/18 02/01/18 02/01/18 07:50 09:30 09:30 WBC RBC Hgb Hct MCV MCH MCHC RDW RDW Differential Plt Count MPV Immature Gran % (Auto) Neut % (Auto) Lymph % (Auto) [place] % (Auto) Eos % (Auto) Baso % (Auto) Absolute Neuts (auto) Absolute Lymphs (auto) Total Counted Differential Comment PT INR APTT Specimen Type Sample Site pH Bicarbonate Actual POC Total CO2 Base Excess O2 Saturation O2 % ABG pCO2 ABG pO2 Tarun Test VBG pH VBG pO2 VBG O2 Sat (Calc) VBG O2 Content VBG Base Excess POC Mix VBG pCO2 Pt Tmp Respiration Rate O2 Delivery Device Minute Volume Vent Mode Tidal Volume POC PEEP Blood Gas Notified Whom Blood Gas Notified Time Sodium 128 L Potassium Chloride Carbon Dioxide Anion Gap BUN Creatinine Estim Creat Clear Calc Est GFR (MDRD) Af Amer Est GFR (MDRD) Non-Af BUN/Creatinine Ratio Glucose Serum Osmolality Lactic Acid Calcium Phosphorus Magnesium Total Bilirubin AST ALT Alkaline Phosphatase Troponin I 0.990 H* B-Natriuretic Peptide Total Protein Albumin Globulin Albumin/Globulin Ratio Urine Osmolality 204 Urine Opiates Screen Urine Methadone Screen Acetaminophen Ur Barbiturates Screen Ur Phencyclidine Scrn Ur Amphetamines Screen U Methamphetamin-MDMA U Benzodiazepines Scrn Urine Cocaine Screen U Cannabinoids Screen Ur Drug Screen Comment Hepatitis A IgM Ab Hep Bs Antigen Hep B Core IgM Ab Hepatitis Interpret MRSA (PCR) 02/01/18 02/01/18 02/02/18 12:30 17:30 04:00 WBC 20.6 H RBC 4.37 L Hgb 13.1 Hct 39.0 L MCV 89.2 MCH 30.0 MCHC 33.6 RDW 14.2 RDW Differential 45.7 H Plt Count 204 MPV 9.7 Immature Gran % (Auto) Neut % (Auto) Lymph % (Auto) [place] % (Auto) Eos % (Auto) Baso % (Auto) Absolute Neuts (auto) Absolute Lymphs (auto) Total Counted Differential Comment PT INR APTT Specimen Type Sample Site pH Bicarbonate Actual POC Total CO2 Base Excess O2 Saturation O2 % ABG pCO2 ABG pO2 Tarun Test VBG pH VBG pO2 VBG O2 Sat (Calc) VBG O2 Content VBG Base Excess POC Mix VBG pCO2 Pt Tmp Respiration Rate O2 Delivery Device Minute Volume Vent Mode Tidal Volume POC PEEP Blood Gas Notified Whom Blood Gas Notified Time Sodium Potassium Chloride Carbon Dioxide Anion Gap BUN Creatinine Estim Creat Clear Calc Est GFR (MDRD) Af Amer Est GFR (MDRD) Non-Af BUN/Creatinine Ratio Glucose Serum Osmolality Lactic Acid Calcium Phosphorus Magnesium Total Bilirubin AST ALT Alkaline Phosphatase Troponin I 1.090 H* 1.080 H* B-Natriuretic Peptide Total Protein Albumin Globulin Albumin/Globulin Ratio Urine Osmolality Urine Opiates Screen Urine Methadone Screen Acetaminophen Ur Barbiturates Screen Ur Phencyclidine Scrn Ur Amphetamines Screen U Methamphetamin-MDMA U Benzodiazepines Scrn Urine Cocaine Screen U Cannabinoids Screen Ur Drug Screen Comment Hepatitis A IgM Ab Hep Bs Antigen Hep B Core IgM Ab Hepatitis Interpret MRSA (PCR) 02/02/18 04:00 WBC RBC Hgb Hct MCV MCH MCHC RDW RDW Differential Plt Count MPV Immature Gran % (Auto) Neut % (Auto) Lymph % (Auto) [place] % (Auto) Eos % (Auto) Baso % (Auto) Absolute Neuts (auto) Absolute Lymphs (auto) Total Counted Differential Comment PT INR APTT Specimen Type Sample Site pH Bicarbonate Actual POC Total CO2 Base Excess O2 Saturation O2 % ABG pCO2 ABG pO2 Tarun Test VBG pH VBG pO2 VBG O2 Sat (Calc) VBG O2 Content VBG Base Excess POC Mix VBG pCO2 Pt Tmp Respiration Rate O2 Delivery Device Minute Volume Vent Mode Tidal Volume POC PEEP Blood Gas Notified Whom Blood Gas Notified Time Sodium 133 L Potassium 4.6 Chloride 90 L Carbon Dioxide 32.0 Anion Gap 11 BUN 15 Creatinine 0.65 L Estim Creat Clear Calc 108.89 Est GFR (MDRD) Af Amer 166 Est GFR (MDRD) Non-Af 137 BUN/Creatinine Ratio 22.9 H Glucose 96 Serum Osmolality Lactic Acid Calcium 8.1 L Phosphorus Magnesium 2.5 Total Bilirubin AST ALT Alkaline Phosphatase Troponin I B-Natriuretic Peptide Total Protein Albumin Globulin Albumin/Globulin Ratio Urine Osmolality Urine Opiates Screen Urine Methadone Screen Acetaminophen Ur Barbiturates Screen Ur Phencyclidine Scrn Ur Amphetamines Screen U Methamphetamin-MDMA U Benzodiazepines Scrn Urine Cocaine Screen U Cannabinoids Screen Ur Drug Screen Comment Hepatitis A IgM Ab Hep Bs Antigen Hep B Core IgM Ab Hepatitis Interpret MRSA (PCR) Microbiology 02/01/18 08:30 Sputum, Induced/[place] Gram Stain - Final 02/01/18 08:30 Mucosa - Nasopharyngeal Respiratory Panel (PCR) - Final Influenzae B 01/31/18 21:27 Mucosa - Nasopharyngeal Influenza Types A,B Direct FA ([facility]) - Final Clinical Impression(s) from Imaging Studies Chest X-Ray 01/31/18 21:25 IMPRESSION: Malpositioned enteric tube requires advancement 10 to 20 cm. ET tube as above. Bibasilar interstitial infiltrates. COPD. Probable skinfold left upper lung field. Follow-up recommended to exclude pneumothorax. Electronically Signed: Griffin Schneider MD at 21:58 EST , Service support , KUB X-Ray 01/31/18 22:40 IMPRESSION: OG tube in stomach Electronically Signed: Griffin Schneider MD at 23:10 EST , Service support , Chest X-Ray 02/01/18 05:55 IMPRESSION: A background of emphysematous changes in the lungs. ET tube and NG tube in good positions Electronically Signed: Dilan Dick MD at 5:42 EST Tel , Service support , KUB X-Ray 02/01/18 14:27 IMPRESSION: The tip of the orogastric tube is coiled within the fundal portion of the stomach. Electronically Signed: Jeremias Fraser MD at 15:05 EST Tel [phone], Service support , Medical Necessity - Tobacco Use Smoking Status: Current every day smoker Assessment/Plan All Active Problems Respiratory failure (Acute) COPD (chronic obstructive pulmonary disease) (Acute) Non-STEMI (non-ST elevated myocardial infarction) (Acute) LV dysfunction (Acute) RECOMMENDATIONS: 1. Stop propofol and start Precedex in hopes this will assist with weaning from mechanical ventilatory support. 2. Continue empiric antibiotics along with Tamiflu. 3. Start tube feeds today. 4. Recheck LFTs tomorrow. 5. Continue scheduled aerosol treatments. 6. Continue appropriate ICU prophylaxis 7. Continue IV Solu-Medrol, with plans to transition to prednisone beginning tomorrow. 8. Start nicotine replacement therapy today. IMPRESSIONS: 1. Acute on chronic hypoxemic respiratory failure secondary to COPD exacerbation due to influenza B and possible community-acquired pneumonia The patient presented to the emergency department with acute on chronic respiratory failure. He does have a baseline 2 L/min supplemental oxygen requirement along with what is presumptive severe COPD and ongoing tobacco dependence. While his plain film chest imaging was underwhelming for the presence of a significant pneumonia, the patient was started on broad-spectrum antibiotics. Subsequent workup revealed the presence of influenza B. Tamiflu was subsequently started. Scheduled aerosol treatments along with steroids will be continued. The patient will be transition from propofol to Precedex today in hopes of weaning from mechanical ventilatory support tomorrow. Start tube feeds today. Continue appropriate ICU prophylaxis. 2. Hyponatremia of unknown chronicity The patient did present with significantly decreased serum sodium level of unknown chronicity. His mentation did appear to be intact while in the emergency department per documentation. Therefore hypertonic saline was never initiated. The patient did receive a significant amount of normal saline initially and his sodium was overcorrected. The supplemental fluids were then discontinued. His sodium level has since stabilized. 3. Combined systolic and diastolic heart failure/troponin elevation The patient's recent echocardiogram did reveal evidence of combined systolic and diastolic heart failure. The patient does have risk factors for coronary artery disease. Cardiology is currently following with potential plans for coronary angiography. 4. Transaminitis Unclear etiology. Could be secondary to passive vascular congestion. Hepatitis panel is pending. Transaminase levels will be rechecked accordingly. 5. Chronic urinary retention/schizophrenia/GERD/long-standing tobacco dependence Complicates care, management, recovery and prognosis. Continue appropriate ICU prophylaxis. Nicotine replacement therapy can be initiated while the patient is admitted to the hospital. TIME: 40 minutes of critical care time, independent of procedures, was spent addressing the patient's acute on chronic hypoxemic respiratory failure, hyponatremia, transaminitis, troponin elevation, review of all data and collaboration with the care team. ([id number]) Code Visit [id number]: [id number] Critical care first hour
--- NOTE | 2018-02-02 07:33 | PN_ITS ---
Subjective: The patient was seen and examined at the bedside this morning. Events from the last 24 hours have been reviewed. The patient is currently afebrile, hemodynamically stable and maintaining appropriate oxygen saturations with an FiO2 requirement of 40%. The patient did fail his spontaneous breathing trial this morning. Overnight nursing staff did report secretions for the patient's endotracheal tube. The patient was identified yesterday as having influenza B. He was subsequently started on Tamiflu. Objective: The patient's most recent lab work, culture data and imaging studies have all been personally reviewed. Blood cultures are pending. Respiratory viral panel was positive for influenza B. Sputum culture is pending. MRSA screen was negative. Surface echocardiogram revealed normal LV size with an ejection fraction of 40% and stage I diastolic dysfunction. There was mild to moderate global hypokinesis of the LV. General: Alert, No apparent distress, - - Remains intubated and mechanically ventilated. HEENT: Atraumatic, PERRLA, Normocephalic Oral: No Gingival or Mucosal Lesions/ Ulcerations Neck: Supple, No Nodes, Trachea Midline Lungs: No rhonchi, No wheeze, No rales, Diminished Cardiovascular: Normal S1, Normal S2, No murmurs, Tachycardic Abdomen: Bowel Sounds Present, Soft, Non Tender, Non-Distended Extremities: No clubbing, No cyanosis, No edema Skin: No breakdown Musculoskeletal: Cachexia, Muscle Wasting Lymphatic: No Cervical, Supraclavicular, or Inguinal Adenopathy Neurological: Neuro grossly intact, - - Arousable and following simple commands. Psych/Mental Status: Anxious Vital Signs Temp Pulse Resp BP Pulse Ox 37.3 C H 83 16 95/68 92 02/02/18 07:00 02/02/18 07:00 02/02/18 07:00 02/02/18 07:00 02/02/18 07:00 Oxygen Flow Rate (L/min) 15 Oxygen Delivery Method Mechanical Ventilator Weight: 121 lb 11.123 oz Body Mass Index (BMI) 16.8 Intake and Output for Last 24 Hours 01/31/18 02/01/18 02/02/18 23:59 23:59 23:59 Intake Total 1358.5 / 1358.5 389.6 / 389.6 Output Total 5525 / 5525 450 / 450 Balance -4166.5 / -4166.5 -60.4 / -60.4 Labs (Last 48 Hours) 01/31/18 01/31/18 01/31/18 20:55 20:55 20:55 WBC 10.8 RBC 4.43 L Hgb 13.0 Hct 38.8 L MCV 87.6 MCH 29.3 MCHC 33.5 RDW 13.2 RDW Differential 42.6 Plt Count 220 MPV 9.1 Immature Gran % (Auto) 0.300 Neut % (Auto) 88.4 H Lymph % (Auto) 4.0 L Fannin % (Auto) 7.3 Eos % (Auto) 0.0 Baso % (Auto) 0.0 Absolute Neuts (auto) 9.5 H Absolute Lymphs (auto) 0.43 L Total Counted Not Reportable Differential Comment SCANNED PT 18.5 H INR 1.5 APTT 32.5 Specimen Type Sample Site pH Bicarbonate Actual POC Total CO2 Base Excess O2 Saturation O2 % ABG pCO2 ABG pO2 Tarun Test VBG pH VBG pO2 VBG O2 Sat (Calc) VBG O2 Content VBG Base Excess POC Mix VBG pCO2 Pt Tmp Respiration Rate O2 Delivery Device Minute Volume Vent Mode Tidal Volume POC PEEP Blood Gas Notified Whom Blood Gas Notified Time Sodium 114 L* Potassium 4.7 Chloride 71 L* Carbon Dioxide 32.0 Anion Gap 11 BUN 18 Creatinine 0.85 Estim Creat Clear Calc 88.92 Est GFR (MDRD) Af Amer 123 Est GFR (MDRD) Non-Af 102 BUN/Creatinine Ratio 21.2 H Glucose 79 Serum Osmolality Lactic Acid Calcium 7.8 L Phosphorus Magnesium Total Bilirubin 2.10 H AST 299 H ALT 158 H Alkaline Phosphatase 88 Troponin I 0.302 H B-Natriuretic Peptide Total Protein 5.6 L Albumin 3.4 Globulin 2.2 Albumin/Globulin Ratio 1.5 Urine Osmolality Urine Opiates Screen Urine Methadone Screen Acetaminophen Ur Barbiturates Screen Ur Phencyclidine Scrn Ur Amphetamines Screen U Methamphetamin-MDMA U Benzodiazepines Scrn Urine Cocaine Screen U Cannabinoids Screen Ur Drug Screen Comment Hepatitis A IgM Ab Hep Bs Antigen Hep B Core IgM Ab Hepatitis Interpret MRSA (PCR) 01/31/18 01/31/18 01/31/18 20:55 22:30 22:56 WBC RBC Hgb Hct MCV MCH MCHC RDW RDW Differential Plt Count MPV Immature Gran % (Auto) Neut % (Auto) Lymph % (Auto) Fannin % (Auto) Eos % (Auto) Baso % (Auto) Absolute Neuts (auto) Absolute Lymphs (auto) Total Counted Differential Comment PT INR APTT Specimen Type BRANDON Sample Site OTHER pH Bicarbonate Actual POC Total CO2 Base Excess O2 Saturation O2 % 100 ABG pCO2 ABG pO2 Tarun Test VBG pH 7.21 L VBG pO2 30 VBG O2 Sat (Calc) 43 L VBG O2 Content 33 VBG Base Excess 3 POC Mix VBG pCO2 Pt Tmp 76.1 H* Respiration Rate 16 O2 Delivery Device Vent Minute Volume 5.00 Vent Mode Tidal Volume 400 POC PEEP 8 Blood Gas Notified Whom ED Blood Gas Notified Time 2300 Sodium 117 L* Potassium Chloride Carbon Dioxide Anion Gap BUN Creatinine Estim Creat Clear Calc Est GFR (MDRD) Af Amer Est GFR (MDRD) Non-Af BUN/Creatinine Ratio Glucose Serum Osmolality Lactic Acid 3.8 H Calcium Phosphorus Magnesium Total Bilirubin AST ALT Alkaline Phosphatase Troponin I B-Natriuretic Peptide Total Protein Albumin Globulin Albumin/Globulin Ratio Urine Osmolality Urine Opiates Screen Urine Methadone Screen Acetaminophen Ur Barbiturates Screen Ur Phencyclidine Scrn Ur Amphetamines Screen U Methamphetamin-MDMA U Benzodiazepines Scrn Urine Cocaine Screen U Cannabinoids Screen Ur Drug Screen Comment Hepatitis A IgM Ab Hep Bs Antigen Hep B Core IgM Ab Hepatitis Interpret MRSA (PCR) 02/01/18 02/01/18 02/01/18 00:05 00:05 00:15 WBC RBC Hgb Hct MCV MCH MCHC RDW RDW Differential Plt Count MPV Immature Gran % (Auto) Neut % (Auto) Lymph % (Auto) Fannin % (Auto) Eos % (Auto) Baso % (Auto) Absolute Neuts (auto) Absolute Lymphs (auto) Total Counted Differential Comment PT INR APTT Specimen Type ART Sample Site L Radial pH 7.33 L Bicarbonate Actual 31.2 H POC Total CO2 33 Base Excess 5 H O2 Saturation 100 H O2 % 100 ABG pCO2 59.2 H ABG pO2 375 H* Tarun Test NA VBG pH VBG pO2 VBG O2 Sat (Calc) VBG O2 Content VBG Base Excess POC Mix VBG pCO2 Pt Tmp Respiration Rate 16 O2 Delivery Device Vent Minute Volume Vent Mode A-C Tidal Volume 400 POC PEEP 8 Blood Gas Notified Whom [facility] Blood Gas Notified Time 14 Sodium 119 L* Potassium 4.2 Chloride 79 L Carbon Dioxide 32.0 Anion Gap 8 BUN 15 Creatinine 0.71 Estim Creat Clear Calc 102.89 Est GFR (MDRD) Af Amer 152 Est GFR (MDRD) Non-Af 126 BUN/Creatinine Ratio 21.2 H Glucose 112 H Serum Osmolality Lactic Acid Calcium 7.1 L Phosphorus Magnesium Total Bilirubin 1.40 H AST 657 H ALT 458 H Alkaline Phosphatase 78 Troponin I 0.480 H B-Natriuretic Peptide Total Protein 5.0 L Albumin 2.9 L Globulin 2.1 L Albumin/Globulin Ratio 1.4 Urine Osmolality Urine Opiates Screen Urine Methadone Screen Acetaminophen Ur Barbiturates Screen Ur Phencyclidine Scrn Ur Amphetamines Screen U Methamphetamin-MDMA U Benzodiazepines Scrn Urine Cocaine Screen U Cannabinoids Screen Ur Drug Screen Comment Hepatitis A IgM Ab Hep Bs Antigen Hep B Core IgM Ab Hepatitis Interpret MRSA (PCR) 02/01/18 02/01/18 02/01/18 00:55 04:30 04:30 WBC 8.8 RBC 4.54 L Hgb 13.3 Hct 39.4 L MCV 86.8 MCH 29.3 MCHC 33.8 RDW 13.4 RDW Differential 42.7 Plt Count 192 MPV 9.1 Immature Gran % (Auto) Neut % (Auto) Lymph % (Auto) Fannin % (Auto) Eos % (Auto) Baso % (Auto) Absolute Neuts (auto) Absolute Lymphs (auto) Total Counted Differential Comment PT INR APTT Specimen Type Sample Site pH Bicarbonate Actual POC Total CO2 Base Excess O2 Saturation O2 % ABG pCO2 ABG pO2 Tarun Test VBG pH VBG pO2 VBG O2 Sat (Calc) VBG O2 Content VBG Base Excess POC Mix VBG pCO2 Pt Tmp Respiration Rate O2 Delivery Device Minute Volume Vent Mode Tidal Volume POC PEEP Blood Gas Notified Whom Blood Gas Notified Time Sodium Potassium Chloride Carbon Dioxide Anion Gap BUN Creatinine Estim Creat Clear Calc Est GFR (MDRD) Af Amer Est GFR (MDRD) Non-Af BUN/Creatinine Ratio Glucose Serum Osmolality Lactic Acid 2.2 H Calcium Phosphorus Magnesium 2.0 Total Bilirubin AST ALT Alkaline Phosphatase Troponin I B-Natriuretic Peptide Total Protein Albumin Globulin Albumin/Globulin Ratio Urine Osmolality Urine Opiates Screen Urine Methadone Screen Acetaminophen Ur Barbiturates Screen Ur Phencyclidine Scrn Ur Amphetamines Screen U Methamphetamin-MDMA U Benzodiazepines Scrn Urine Cocaine Screen U Cannabinoids Screen Ur Drug Screen Comment Hepatitis A IgM Ab Hep Bs Antigen Hep B Core IgM Ab Hepatitis Interpret MRSA (PCR) 02/01/18 02/01/18 02/01/18 04:30 04:30 04:30 WBC RBC Hgb Hct MCV MCH MCHC RDW RDW Differential Plt Count MPV Immature Gran % (Auto) Neut % (Auto) Lymph % (Auto) Fannin % (Auto) Eos % (Auto) Baso % (Auto) Absolute Neuts (auto) Absolute Lymphs (auto) Total Counted Differential Comment PT INR APTT Specimen Type Sample Site pH Bicarbonate Actual POC Total CO2 Base Excess O2 Saturation O2 % ABG pCO2 ABG pO2 Tarun Test VBG pH VBG pO2 VBG O2 Sat (Calc) VBG O2 Content VBG Base Excess POC Mix VBG pCO2 Pt Tmp Respiration Rate O2 Delivery Device Minute Volume Vent Mode Tidal Volume POC PEEP Blood Gas Notified Whom Blood Gas Notified Time Sodium 128 L Potassium 4.2 Chloride 86 L Carbon Dioxide 33.0 H Anion Gap 9 BUN 12 Creatinine 0.61 L Estim Creat Clear Calc 119.76 Est GFR (MDRD) Af Amer 181 Est GFR (MDRD) Non-Af 150 BUN/Creatinine Ratio 19.8 Glucose 80 Serum Osmolality Lactic Acid Calcium 7.8 L Phosphorus 3.2 Magnesium Total Bilirubin 0.90 AST 1083 H ALT 861 H Alkaline Phosphatase 82 Troponin I 0.712 H* B-Natriuretic Peptide Total Protein 5.1 L Albumin 3.0 L Globulin 2.1 L Albumin/Globulin Ratio 1.4 Urine Osmolality Urine Opiates Screen Urine Methadone Screen Acetaminophen Ur Barbiturates Screen Ur Phencyclidine Scrn Ur Amphetamines Screen U Methamphetamin-MDMA U Benzodiazepines Scrn Urine Cocaine Screen U Cannabinoids Screen Ur Drug Screen Comment Hepatitis A IgM Ab Hep Bs Antigen Hep B Core IgM Ab Hepatitis Interpret MRSA (PCR) 02/01/18 02/01/18 02/01/18 04:30 07:40 07:40 WBC RBC Hgb Hct MCV MCH MCHC RDW RDW Differential Plt Count MPV Immature Gran % (Auto) Neut % (Auto) Lymph % (Auto) Fannin % (Auto) Eos % (Auto) Baso % (Auto) Absolute Neuts (auto) Absolute Lymphs (auto) Total Counted Differential Comment PT INR APTT Specimen Type Sample Site pH Bicarbonate Actual POC Total CO2 Base Excess O2 Saturation O2 % ABG pCO2 ABG pO2 Tarun Test VBG pH VBG pO2 VBG O2 Sat (Calc) VBG O2 Content VBG Base Excess POC Mix VBG pCO2 Pt Tmp Respiration Rate O2 Delivery Device Minute Volume Vent Mode Tidal Volume POC PEEP Blood Gas Notified Whom Blood Gas Notified Time Sodium Potassium Chloride Carbon Dioxide Anion Gap BUN Creatinine Estim Creat Clear Calc Est GFR (MDRD) Af Amer Est GFR (MDRD) Non-Af BUN/Creatinine Ratio Glucose Serum Osmolality Lactic Acid Calcium Phosphorus Magnesium Total Bilirubin AST ALT Alkaline Phosphatase Troponin I B-Natriuretic Peptide 485.4 H Total Protein Albumin Globulin Albumin/Globulin Ratio Urine Osmolality Urine Opiates Screen Urine Methadone Screen Acetaminophen 4.3 L Ur Barbiturates Screen Ur Phencyclidine Scrn Ur Amphetamines Screen U Methamphetamin-MDMA U Benzodiazepines Scrn Urine Cocaine Screen U Cannabinoids Screen Ur Drug Screen Comment Hepatitis A IgM Ab Pending Hep Bs Antigen Pending Hep B Core IgM Ab Pending Hepatitis Interpret Pending MRSA (PCR) 02/01/18 02/01/18 02/01/18 07:40 07:50 07:50 WBC RBC Hgb Hct MCV MCH MCHC RDW RDW Differential Plt Count MPV Immature Gran % (Auto) Neut % (Auto) Lymph % (Auto) Fannin % (Auto) Eos % (Auto) Baso % (Auto) Absolute Neuts (auto) Absolute Lymphs (auto) Total Counted Differential Comment PT INR APTT Specimen Type Sample Site pH Bicarbonate Actual POC Total CO2 Base Excess O2 Saturation O2 % ABG pCO2 ABG pO2 Tarun Test VBG pH VBG pO2 VBG O2 Sat (Calc) VBG O2 Content VBG Base Excess POC Mix VBG pCO2 Pt Tmp Respiration Rate O2 Delivery Device Minute Volume Vent Mode Tidal Volume POC PEEP Blood Gas Notified Whom Blood Gas Notified Time Sodium Potassium Chloride Carbon Dioxide Anion Gap BUN Creatinine Estim Creat Clear Calc Est GFR (MDRD) Af Amer Est GFR (MDRD) Non-Af BUN/Creatinine Ratio Glucose Serum Osmolality 268 L Lactic Acid Calcium Phosphorus Magnesium Total Bilirubin AST ALT Alkaline Phosphatase Troponin I B-Natriuretic Peptide Total Protein Albumin Globulin Albumin/Globulin Ratio Urine Osmolality Urine Opiates Screen NEGATIVE Urine Methadone Screen NEGATIVE Acetaminophen Ur Barbiturates Screen NEGATIVE Ur Phencyclidine Scrn NEGATIVE Ur Amphetamines Screen NEGATIVE U Methamphetamin-MDMA NEGATIVE U Benzodiazepines Scrn NEGATIVE Urine Cocaine Screen NEGATIVE U Cannabinoids Screen NEGATIVE Ur Drug Screen Comment Hepatitis A IgM Ab Hep Bs Antigen Hep B Core IgM Ab Hepatitis Interpret MRSA (PCR) Negative 02/01/18 02/01/18 02/01/18 07:50 09:30 09:30 WBC RBC Hgb Hct MCV MCH MCHC RDW RDW Differential Plt Count MPV Immature Gran % (Auto) Neut % (Auto) Lymph % (Auto) Fannin % (Auto) Eos % (Auto) Baso % (Auto) Absolute Neuts (auto) Absolute Lymphs (auto) Total Counted Differential Comment PT INR APTT Specimen Type Sample Site pH Bicarbonate Actual POC Total CO2 Base Excess O2 Saturation O2 % ABG pCO2 ABG pO2 Tarun Test VBG pH VBG pO2 VBG O2 Sat (Calc) VBG O2 Content VBG Base Excess POC Mix VBG pCO2 Pt Tmp Respiration Rate O2 Delivery Device Minute Volume Vent Mode Tidal Volume POC PEEP Blood Gas Notified Whom Blood Gas Notified Time Sodium 128 L Potassium Chloride Carbon Dioxide Anion Gap BUN Creatinine Estim Creat Clear Calc Est GFR (MDRD) Af Amer Est GFR (MDRD) Non-Af BUN/Creatinine Ratio Glucose Serum Osmolality Lactic Acid Calcium Phosphorus Magnesium Total Bilirubin AST ALT Alkaline Phosphatase Troponin I 0.990 H* B-Natriuretic Peptide Total Protein Albumin Globulin Albumin/Globulin Ratio Urine Osmolality 204 Urine Opiates Screen Urine Methadone Screen Acetaminophen Ur Barbiturates Screen Ur Phencyclidine Scrn Ur Amphetamines Screen U Methamphetamin-MDMA U Benzodiazepines Scrn Urine Cocaine Screen U Cannabinoids Screen Ur Drug Screen Comment Hepatitis A IgM Ab Hep Bs Antigen Hep B Core IgM Ab Hepatitis Interpret MRSA (PCR) 02/01/18 02/01/18 02/02/18 12:30 17:30 04:00 WBC 20.6 H RBC 4.37 L Hgb 13.1 Hct 39.0 L MCV 89.2 MCH 30.0 MCHC 33.6 RDW 14.2 RDW Differential 45.7 H Plt Count 204 MPV 9.7 Immature Gran % (Auto) Neut % (Auto) Lymph % (Auto) Fannin % (Auto) Eos % (Auto) Baso % (Auto) Absolute Neuts (auto) Absolute Lymphs (auto) Total Counted Differential Comment PT INR APTT Specimen Type Sample Site pH Bicarbonate Actual POC Total CO2 Base Excess O2 Saturation O2 % ABG pCO2 ABG pO2 Tarun Test VBG pH VBG pO2 VBG O2 Sat (Calc) VBG O2 Content VBG Base Excess POC Mix VBG pCO2 Pt Tmp Respiration Rate O2 Delivery Device Minute Volume Vent Mode Tidal Volume POC PEEP Blood Gas Notified Whom Blood Gas Notified Time Sodium Potassium Chloride Carbon Dioxide Anion Gap BUN Creatinine Estim Creat Clear Calc Est GFR (MDRD) Af Amer Est GFR (MDRD) Non-Af BUN/Creatinine Ratio Glucose Serum Osmolality Lactic Acid Calcium Phosphorus Magnesium Total Bilirubin AST ALT Alkaline Phosphatase Troponin I 1.090 H* 1.080 H* B-Natriuretic Peptide Total Protein Albumin Globulin Albumin/Globulin Ratio Urine Osmolality Urine Opiates Screen Urine Methadone Screen Acetaminophen Ur Barbiturates Screen Ur Phencyclidine Scrn Ur Amphetamines Screen U Methamphetamin-MDMA U Benzodiazepines Scrn Urine Cocaine Screen U Cannabinoids Screen Ur Drug Screen Comment Hepatitis A IgM Ab Hep Bs Antigen Hep B Core IgM Ab Hepatitis Interpret MRSA (PCR) 02/02/18 04:00 WBC RBC Hgb Hct MCV MCH MCHC RDW RDW Differential Plt Count MPV Immature Gran % (Auto) Neut % (Auto) Lymph % (Auto) Fannin % (Auto) Eos % (Auto) Baso % (Auto) Absolute Neuts (auto) Absolute Lymphs (auto) Total Counted Differential Comment PT INR APTT Specimen Type Sample Site pH Bicarbonate Actual POC Total CO2 Base Excess O2 Saturation O2 % ABG pCO2 ABG pO2 Tarun Test VBG pH VBG pO2 VBG O2 Sat (Calc) VBG O2 Content VBG Base Excess POC Mix VBG pCO2 Pt Tmp Respiration Rate O2 Delivery Device Minute Volume Vent Mode Tidal Volume POC PEEP Blood Gas Notified Whom Blood Gas Notified Time Sodium 133 L Potassium 4.6 Chloride 90 L Carbon Dioxide 32.0 Anion Gap 11 BUN 15 Creatinine 0.65 L Estim Creat Clear Calc 108.89 Est GFR (MDRD) Af Amer 166 Est GFR (MDRD) Non-Af 137 BUN/Creatinine Ratio 22.9 H Glucose 96 Serum Osmolality Lactic Acid Calcium 8.1 L Phosphorus Magnesium 2.5 Total Bilirubin AST ALT Alkaline Phosphatase Troponin I B-Natriuretic Peptide Total Protein Albumin Globulin Albumin/Globulin Ratio Urine Osmolality Urine Opiates Screen Urine Methadone Screen Acetaminophen Ur Barbiturates Screen Ur Phencyclidine Scrn Ur Amphetamines Screen U Methamphetamin-MDMA U Benzodiazepines Scrn Urine Cocaine Screen U Cannabinoids Screen Ur Drug Screen Comment Hepatitis A IgM Ab Hep Bs Antigen Hep B Core IgM Ab Hepatitis Interpret MRSA (PCR) Microbiology 02/01/18 08:30 Sputum, Induced/[place]uk[place] Gram Stain - Final 02/01/18 08:30 Mucosa - Nasopharyngeal Respiratory Panel (PCR) - Final Influenzae B 01/31/18 21:27 Mucosa - Nasopharyngeal Influenza Types A,B Direct FA ([facility]) - Final Clinical Impression(s) from Imaging Studies Chest X-Ray 01/31/18 21:25 IMPRESSION: Malpositioned enteric tube requires advancement 10 to 20 cm. ET tube as above. Bibasilar interstitial infiltrates. COPD. Probable skinfold left upper lung field. Follow-up recommended to exclude pneumothorax. Electronically Signed: Griffin Schneider MD at 21:58 EST , Service support , KUB X-Ray 01/31/18 22:40 IMPRESSION: OG tube in stomach Electronically Signed: Griffin Schneider MD at 23:10 EST , Service support , Chest X-Ray 02/01/18 05:55 IMPRESSION: A background of emphysematous changes in the lungs. ET tube and NG tube in good positions Electronically Signed: Dilan Dick MD at 5:42 EST Tel , Service support , KUB X-Ray 02/01/18 14:27 IMPRESSION: The tip of the orogastric tube is coiled within the fundal portion of the stomach. Electronically Signed: Jeremias Fraser MD at 15:05 EST Tel [phone], Service support , Medical Necessity - Tobacco Use Smoking Status: Current every day smoker Assessment/Plan All Active Problems Respiratory failure (Acute) COPD (chronic obstructive pulmonary disease) (Acute) Non-STEMI (non-ST elevated myocardial infarction) (Acute) LV dysfunction (Acute) RECOMMENDATIONS: 1. Stop propofol and start Precedex in hopes this will assist with weaning from mechanical ventilatory support. 2. Continue empiric antibiotics along with Tamiflu. 3. Start tube feeds today. 4. Recheck LFTs tomorrow. 5. Continue scheduled aerosol treatments. 6. Continue appropriate ICU prophylaxis 7. Continue IV Solu-Medrol, with plans to transition to prednisone beginning tomorrow. 8. Start nicotine replacement therapy today. IMPRESSIONS: 1. Acute on chronic hypoxemic respiratory failure secondary to COPD exace rbation due to influenza B and possible community-acquired pneumonia The patient presented to the emergency department with acute on chronic respiratory failure. He does have a baseline 2 L/min supplemental oxygen requirement along with what is presumptive severe COPD and ongoing tobacco dependence. While his plain film chest imaging was underwhelming for the presence of a significant pneumonia, the patient was started on broad-spectrum antibiotics. Subsequent workup revealed the presence of influenza B. Tamiflu was subsequently started. Scheduled aerosol treatments along with steroids will be continued. The patient will be transition from propofol to Precedex today in hopes of weaning from mechanical ventilatory support tomorrow. Start tube feeds today. Continue appropriate ICU prophylaxis. 2. Hyponatremia of unknown chronicity The patient did present with significantly decreased serum sodium level of unknown chronicity. His mentation did appear to be intact while in the emergency department per documentation. Therefore hypertonic saline was never initiated. The patient did receive a significant amount of normal saline initially and his sodium was overcorrected. The supplemental fluids were then discontinued. His sodium level has since stabilized. 3. Combined systolic and diastolic heart failure/troponin elevation The patient's recent echocardiogram did reveal evidence of combined systolic and diastolic heart failure. The patient does have risk factors for coronary artery disease. Cardiology is currently following with potential plans for coronary angiography. 4. Transaminitis Unclear etiology. Could be secondary to passive vascular congestion. Hepatitis panel is pending. Transaminase levels will be rechecked accordingly. 5. Chronic urinary retention/schizophrenia/GERD/long-standing tobacco dependence Complicates care, management, recovery and prognosis. Continue appropriate ICU prophylaxis. Nicotine replacement therapy can be initiated while the patient is admitted to the hospital. TIME: 40 minutes of critical care time, independent of procedures, was spent addressing the patient's acute on chronic hypoxemic respiratory failure, hyponatremia, transaminitis, troponin elevation, review of all data and collaboration with the care team. ([id number]) Code Visit [id number]: [id number] Critical care first hour
--- NOTE | 2018-02-02 08:15 | PCM.PN.HOSP ---
Patient Problems: Active and Suspected Problems Respiratory failure (Acute) COPD (chronic obstructive pulmonary disease) (Acute) Subjective: Patient is a 47-year-old gentleman resident at the [facility] was brought to the emergency department by the EMS squad with progressive shortness of breath. Patient was reported to be gasping for air with oxygen saturation in the 60s. An assessment of acute hypoxic respiratory failure was made patient intubated and admitted to the intensive care unit for subsequent management. Chest x-ray on admission demonstrated bilateral infiltrate 02/02/2018: Patient seen awake on the vent able to carry out purposeful conversation patient to undergo weaning trial this a.m. Objective: GENERAL: Patient remains on the vent; but awake HEENT: Atraumatic; ET tube in place EYES; Anicteric, Normal Conjunctiva NECK; supple, normal thyroid, RESPIRATORY: Diminished to auscultation bilaterally, CARDIOVASCULAR: Regular S1 S2, GI: soft, non-tender, normoactive bowel sounds, : No Renal angle tenderness; EXTREMITIES: No edema, no clubbing, no cyanosis. MUSCULOSKELETAL: muscle waisting NEURO: Unable to assess patient on the vent SKIN: No Rash Vitals/I&O's: Vital Signs Temp Pulse Resp BP Pulse Ox 99.2 F H 128 H 16 150/91 H 99 02/02/18 07:00 02/02/18 08:00 02/02/18 08:00 02/02/18 08:00 02/02/18 08:00 Oxygen Flow Rate (L/min) 15 Oxygen Delivery Method Mechanical Ventilator Weight: 55.2 kg Body Mass Index (BMI) 16.8 Intake and Output for Last 24 Hours 01/31/18 02/01/18 02/02/18 23:59 23:59 23:59 Intake Total 1358.5 / 1358.5 389.6 / 389.6 Output Total 5525 / 5525 450 / 450 Balance -4166.5 / -4166.5 -60.4 / -60.4 Microbiology Past 72 Hours 02/01/18 08:30 Sputum, Induced/Lukens Gram Stain - Final 02/01/18 08:30 Mucosa - Nasopharyngeal Respiratory Panel (PCR) - Final Influenzae B 01/31/18 21:27 Mucosa - Nasopharyngeal Influenza Types A,B Direct FA (KODAK) - Final Laboratory Results 02/01/18 07:40: Acetaminophen 4.3 L 02/01/18 07:40: Serum Osmolality 268 L 02/01/18 07:50: Urine Opiates Screen NEGATIVE, Urine Methadone Screen NEGATIVE, Ur Barbiturates Screen NEGATIVE, Ur Phencyclidine Scrn NEGATIVE, Ur Amphetamines Screen NEGATIVE, U Methamphetamin-MDMA NEGATIVE, U Benzodiazepines Scrn NEGATIVE, Urine Cocaine Screen NEGATIVE, U Cannabinoids Screen NEGATIVE 02/01/18 07:50: MRSA (PCR) Negative 02/01/18 07:50: Urine Osmolality 204 02/01/18 09:30: Troponin I 0.990 H* 02/01/18 09:30: Sodium 128 L 02/01/18 12:30: Troponin I 1.090 H* 02/01/18 17:30: Troponin I 1.080 H* 02/02/18 04:00: WBC 20.6 H, RBC 4.37 L, Hgb 13.1, Hct 39.0 L, MCV 89.2, MCH 30.0, MCHC 33.6, RDW 14.2, RDW Differential 45.7 H, Plt Count 204, MPV 9.7 02/02/18 04:00: Sodium 133 L, Potassium 4.6, Chloride 90 L, Carbon Dioxide 32.0, Anion Gap 11, BUN 15, Creatinine 0.65 L, Estim Creat Clear Calc 108.89, Est GFR (MDRD) Af Amer 166, Est GFR (MDRD) Non-Af 137, BUN/Creatinine Ratio 22.9 H, Glucose 96, Calcium 8.1 L, Magnesium 2.5 Current Medications Albuterol Sulfate (Ventolin Aerosols) 2.5 mg INHALATION Q2H PRN PRN PRN Reason: SOB &/OR WHEEZING Albuterol/Ipratropium (Duoneb) 3 ml INHALATION Q4H.RT [facility] Last Admin: 02/02/18 06:35 Dose: 3 ml Chlorhexidine Gluconate () 1 each TOPICAL DAILY [facility] Last Admin: 02/02/18 02:58 Dose: 1 each Chlorhexidine Gluconate () 15 ml PO BID [facility] Last Admin: 02/01/18 21:09 Dose: 15 ml Enoxaparin Sodium (Lovenox) 40 mg SC DAILY@1000 [facility] Last Admin: 02/01/18 08:03 Dose: 40 mg Sodium Chloride () 250 mls @ 15 mls/hr IV .[id number] PRN PRN Reason: SALINE FLUSH Piperacillin Sod/Tazobactam Sod (Zosyn) 3.375 gm in 50 mls @ 12.5 mls/hr IV Q8 [facility] Last Admin: 02/02/18 06:45 Dose: 12.5 mls/hr Fentanyl () 100 mls @ 5 mls/hr IV .Q20H [facility] Last Admin: 02/01/18 21:08 Dose: 5 mls/hr Propofol (Diprivan) 1,000 mg in 100 mls @ 3.588 mls/hr CONT INF .Q12H [facility] Last Admin: 02/02/18 02:08 Dose: 3.588 mls/hr Dexmedetomidine HCl 400 mcg/ (Sodium Chloride) 100 mls @ 6.9 mls/hr IV .[id number] [facility] Lansoprazole (Prevacid) 30 mg GT DAILY [facility] Last Admin: 02/01/18 12:36 Dose: Not Given Magnesium Hydroxide (Milk Of Magnesia) 30 ml PO DAILY PRN PRN PRN Reason: Constipation Methylprednisolone (Solu-Medrol) 40 mg IV Q8 [facility] Last Admin: 02/02/18 06:46 Dose: 40 mg Oseltamivir Phosphate (Tamiflu Susp) 75 mg GT BID [facility] Stop: 02/05/18 22:01 Last Admin: 02/01/18 21:18 Dose: 75 mg Sodium Chloride () 5 - 15 ml IV UD PRN PRN Reason: SALINE FLUSH Last Admin: 02/01/18 04:53 Dose: 10 ml Medical Necessity - Tobacco Use Smoking Status: Current every day smoker Assessment/Plan All Active Problems Respiratory failure (Acute) COPD (chronic obstructive pulmonary disease) (Acute) Patient is a 47-year-old gentleman resident at the [facility] was brought to the emergency department by the EMS squad with progressive shortness of breath. Patient was reported to be gasping for air with oxygen saturation in the 60s. An assessment of acute hypoxic respiratory failure was made patient intubated and admitted to the intensive care unit for subsequent management. Chest x-ray on admission demonstrated bilateral infiltrate 1. Acute hypoxic respiratory failure secondary to acute influenza B infection. Patient admitted to the intensive care unit was placed on the vent from the ED. Patient started on Tamiflu, Zosyn as well as vancomycin given gram-positive cocci in the sputum Gram stain patient undergo weaning trial on the morning of 02/02/2018 2. Chronic hypoxic respiratory failure secondary to COPD patient is on baseline home O2 3. Elevated troponin possibly related to demand ischemia from patient underlying infectious etiology. Patient also had a slightly elevated BNP 2D echo ordered for subsequent evaluation 2D echo demonstrated EF of 40% and stage I diastolic dysfunction with bileaflet diffuse mitral valve thickening 4. Acute hepatitis of unknown etiology at this point acute hepatitis panel signs will continue with monitoring 5. Hyponatremia patient is on IV fluids with monitoring of electrolytes 6. Severe protein calorie malnutrition as evidenced by muscle wasting hypoalbuminemia as well as BMI of 16.3 consultation placed to nutrition 7. Schizophrenia 8. Learning disability 9. DVT prophylaxis SC Lovenox Clinical Impression(s) from Imaging Studies KUB X-Ray 02/01/18 14:27 IMPRESSION: The tip of the orogastric tube is coiled within the fundal portion of the stomach. Electronically Signed: Jeremias Fraser MD at 15:05 EST Tel [phone], Service support , Active Medications Albuterol Sulfate (Ventolin Aerosols) 2.5 mg INHALATION Q2H PRN PRN PRN Reason: SOB &/OR WHEEZING Albuterol/Ipratropium (Duoneb) 3 ml INHALATION Q4H.RT [facility] Last Admin: 02/02/18 06:35 Dose: 3 ml Chlorhexidine Gluconate () 1 each TOPICAL DAILY [facility] Last Admin: 02/02/18 02:58 Dose: 1 each Chlorhexidine Gluconate () 15 ml PO BID [facility] Last Admin: 02/01/18 21:09 Dose: 15 ml Enoxaparin Sodium (Lovenox) 40 mg SC DAILY@1000 [facility] Last Admin: 02/01/18 08:03 Dose: 40 mg Sodium Chloride () 250 mls @ 15 mls/hr IV .[id number] PRN PRN Reason: SALINE FLUSH Piperacillin Sod/Tazobactam Sod (Zosyn) 3.375 gm in 50 mls @ 12.5 mls/hr IV Q8 [facility] Last Admin: 02/02/18 06:45 Dose: 12.5 mls/hr Fentanyl () 100 mls @ 5 mls/hr IV .Q20H [facility] Last Admin: 02/01/18 21:08 Dose: 5 mls/hr Propofol (Diprivan) 1,000 mg in 100 mls @ 3.588 mls/hr CONT INF .Q12H [facility] Last Admin: 02/02/18 02:08 Dose: 3.588 mls/hr Dexmedetomidine HCl 400 mcg/ (Sodium Chloride) 100 mls @ 6.9 mls/hr IV .[id number] [facility] Lansoprazole (Prevacid) 30 mg GT DAILY [facility] Last Admin: 02/01/18 12:36 Dose: Not Given Magnesium Hydroxide (Milk Of Magnesia) 30 ml PO DAILY PRN PRN PRN Reason: Constipation Methylprednisolone (Solu-Medrol) 40 mg IV Q8 [facility] Last Admin: 02/02/18 06:46 Dose: 40 mg Oseltamivir Phosphate (Tamiflu Susp) 75 mg GT BID [facility] Stop: 02/05/18 22:01 Last Admin: 02/01/18 21:18 Dose: 75 mg Sodium Chloride () 5 - 15 ml IV UD PRN PRN Reason: SALINE FLUSH Last Admin: 02/01/18 04:53 Dose: 10 ml Code Visit Inpatient E&M: 13393 Subs Hosp L3
--- NOTE | 2018-02-02 08:18 | PN_ITS ---
Patient Problems: Active and Suspected Problems Respiratory failure (Acute) COPD (chronic obstructive pulmonary disease) (Acute) Subjective: Patient is a 47-year-old gentleman resident at the [facility] was brought to the emergency department by the EMS squad with progressive shortness of breath. Patient was reported to be gasping for air with oxygen saturation in the 60s. An assessment of acute hypoxic respiratory failure was made patient intubated and admitted to the intensive care unit for subsequent management. Chest x-ray on admission demonstrated bilateral infiltrate 02/02/2018: Patient seen awake on the vent able to carry out purposeful conversation patient to undergo weaning trial this a.m. Objective: GENERAL: Patient remains on the vent; but awake HEENT: Atraumatic; ET tube in place EYES; Anicteric, Normal Conjunctiva NECK; supple, normal thyroid, RESPIRATORY: Diminished to auscultation bilaterally, CARDIOVASCULAR: Regular S1 S2, GI: soft, non-tender, normoactive bowel sounds, : No Renal angle tenderness; EXTREMITIES: No edema, no clubbing, no cyanosis. MUSCULOSKELETAL: muscle waisting NEURO: Unable to assess patient on the vent SKIN: No Rash Vitals/I&O's: Vital Signs Temp Pulse Resp BP Pulse Ox 99.2 F H 128 H 16 150/91 H 99 02/02/18 07:00 02/02/18 08:00 02/02/18 08:00 02/02/18 08:00 02/02/18 08:00 Oxygen Flow Rate (L/min) 15 Oxygen Delivery Method Mechanical Ventilator Weight: 55.2 kg Body Mass Index (BMI) 16.8 Intake and Output for Last 24 Hours 01/31/18 02/01/18 02/02/18 23:59 23:59 23:59 Intake Total 1358.5 / 1358.5 389.6 / 389.6 Output Total 5525 / 5525 450 / 450 Balance -4166.5 / -4166.5 -60.4 / -60.4 Microbiology Past 72 Hours 02/01/18 08:30 Sputum, Induced/Lukens Gram Stain - Final 02/01/18 08:30 Mucosa - Nasopharyngeal Respiratory Panel (PCR) - Final Influenzae B 01/31/18 21:27 Mucosa - Nasopharyngeal Influenza Types A,B Direct FA ([facility]) - Final Laboratory Results 02/01/18 07:40: Acetaminophen 4.3 L 02/01/18 07:40: Serum Osmolality 268 L 02/01/18 07:50: Urine Opiates Screen NEGATIVE, Urine Methadone Screen NEGATIVE, Ur Barbiturates Screen NEGATIVE, Ur Phencyclidine Scrn NEGATIVE, Ur Amphetamines Screen NEGATIVE, U Methamphetamin-MDMA NEGATIVE, U Benzodiazepines Scrn NEGATIVE, Urine Cocaine Screen NEGATIVE, U Cannabinoids Screen NEGATIVE 02/01/18 07:50: MRSA (PCR) Negative 02/01/18 07:50: Urine Osmolality 204 02/01/18 09:30: Troponin I 0.990 H* 02/01/18 09:30: Sodium 128 L 02/01/18 12:30: Troponin I 1.090 H* 02/01/18 17:30: Troponin I 1.080 H* 02/02/18 04:00: WBC 20.6 H, RBC 4.37 L, Hgb 13.1, Hct 39.0 L, MCV 89.2, MCH 30. 0, MCHC 33.6, RDW 14.2, RDW Differential 45.7 H, Plt Count 204, MPV 9.7 02/02/18 04:00: Sodium 133 L, Potassium 4.6, Chloride 90 L, Carbon Dioxide 32.0, Anion Gap 11, BUN 15, Creatinine 0.65 L, Estim Creat Clear Calc 108.89, Est GFR (MDRD) Af Amer 166, Est GFR (MDRD) Non-Af 137, BUN/Creatinine Ratio 22.9 H, Glucose 96, Calcium 8.1 L, Magnesium 2.5 Current Medications Albuterol Sulfate (Ventolin Aerosols) 2.5 mg INHALATION Q2H PRN PRN PRN Reason: SOB &/OR WHEEZING Albuterol/Ipratropium (Duoneb) 3 ml INHALATION Q4H.RT [facility] Last Admin: 02/02/18 06:35 Dose: 3 ml Chlorhexidine Gluconate () 1 each TOPICAL DAILY [facility] Last Admin: 02/02/18 02:58 Dose: 1 each Chlorhexidine Gluconate () 15 ml PO BID [facility] Last Admin: 02/01/18 21:09 Dose: 15 ml Enoxaparin Sodium (Lovenox) 40 mg SC DAILY@1000 [facility] Last Admin: 02/01/18 08:03 Dose: 40 mg Sodium Chloride () 250 mls @ 15 mls/hr IV .[id number] PRN PRN Reason: SALINE FLUSH Piperacillin Sod/Tazobactam Sod (Zosyn) 3.375 gm in 50 mls @ 12.5 mls/hr IV Q8 [facility] Last Admin: 02/02/18 06:45 Dose: 12.5 mls/hr Fentanyl () 100 mls @ 5 mls/hr IV .Q20H [facility] Last Admin: 02/01/18 21:08 Dose: 5 mls/hr Propofol (Diprivan) 1,000 mg in 100 mls @ 3.588 mls/hr CONT INF .Q12H [facility] Last Admin: 02/02/18 02:08 Dose: 3.588 mls/hr Dexmedetomidine HCl 400 mcg/ (Sodium Chloride) 100 mls @ 6.9 mls/hr IV .[id number] [facility] Lansoprazole (Prevacid) 30 mg GT DAILY [facility] Last Admin: 02/01/18 12:36 Dose: Not Given Magnesium Hydroxide (Milk Of Magnesia) 30 ml PO DAILY PRN PRN PRN Reason: Constipation Methylprednisolone (Solu-Medrol) 40 mg IV Q8 [facility] Last Admin: 02/02/18 06:46 Dose: 40 mg Oseltamivir Phosphate (Tamiflu Susp) 75 mg GT BID [facility] Stop: 02/05/18 22:01 Last Admin: 02/01/18 21:18 Dose: 75 mg Sodium Chloride () 5 - 15 ml IV UD PRN PRN Reason: SALINE FLUSH Last Admin: 02/01/18 04:53 Dose: 10 ml Medical Necessity - Tobacco Use Smoking Status: Current every day smoker Assessment/Plan All Active Problems Respiratory failure (Acute) COPD (chronic obstructive pulmonary disease) (Acute) Patient is a 47-year-old gentleman resident at the [facility] was brought to the emergency department by the EMS squad with progressive shortness of breath. Patient was reported to be gasping for air with oxygen saturation in the 60s. An assessment of acute hypoxic respiratory failure was made patient intubated and admitted to the intensive care unit for subsequent management. Chest x-ray on admission demonstrated bilateral infiltrate 1. Acute hypoxic respiratory failure secondary to acute influenza B infection. Patient admitted to the intensive care unit was placed on the vent from the ED. Patient started on Tamiflu, Zosyn as well as vancomycin given gram-positive cocci in the sputum Gram stain patient undergo weaning trial on the morning of 02/02/2018 2. Chronic hypoxic respiratory failure secondary to COPD patient is on baseline home O2 3. Elevated troponin possibly related to demand ischemia from patient underlying infectious etiology. Patient also had a slightly elevated BNP 2D echo ordered for subsequent evaluation 2D echo demonstrated EF of 40% and stage I diastolic dysfunction with bileaflet diffuse mitral valve thickening 4. Acute hepatitis of unknown etiology at this point acute hepatitis panel signs will continue with monitoring 5. Hyponatremia patient is on IV fluids with monitoring of electrolytes 6. Severe protein calorie malnutrition as evidenced by muscle wasting hypoalbuminemia as well as BMI of 16.3 consultation placed to nutrition 7. Schizophrenia 8. Learning disability 9. DVT prophylaxis SC Lovenox Clinical Impression(s) from Imaging Studies KUB X-Ray 02/01/18 14:27 IMPRESSION: The tip of the orogastric tube is coiled within the fundal portion of the stomach. Electronically Signed: Jeremias Fraser MD at 15:05 EST Tel [phone], Service support , Active Medications Albuterol Sulfate (Ventolin Aerosols) 2.5 mg INHALATION Q2H PRN PRN PRN Reason: SOB &/OR WHEEZING Albuterol/Ipratropium (Duoneb) 3 ml INHALATION Q4H.RT [facility] Last Admin: 02/02/18 06:35 Dose: 3 ml Chlorhexidine Gluconate () 1 each TOPICAL DAILY [facility] Last Admin: 02/02/18 02:58 Dose: 1 each Chlorhexidine Gluconate () 15 ml PO BID [facility] Last Admin: 02/01/18 21:09 Dose: 15 ml Enoxaparin Sodium (Lovenox) 40 mg SC DAILY@1000 [facility] Last Admin: 02/01/18 08:03 Dose: 40 mg Sodium Chloride () 250 mls @ 15 mls/hr IV .[id number] PRN PRN Reason: SALINE FLUSH Piperacillin Sod/Tazobactam Sod (Zosyn) 3.375 gm in 50 mls @ 12.5 mls/hr IV Q8 [facility] Last Admin: 02/02/18 06:45 Dose: 12.5 mls/hr Fentanyl () 100 mls @ 5 mls/hr IV .Q20H [facility] Last Admin: 02/01/18 21:08 Dose: 5 mls/hr Propofol (Diprivan) 1,000 mg in 100 mls @ 3.588 mls/hr CONT INF .Q12H [facility] Last Admin: 02/02/18 02:08 Dose: 3.588 mls/hr Dexmedetomidine HCl 400 mcg/ (Sodium Chloride) 100 mls @ 6.9 mls/hr IV .[id number] [facility] Lansoprazole (Prevacid) 30 mg GT DAILY [facility] Last Admin: 02/01/18 12:36 Dose: Not Given Magnesium Hydroxide (Milk Of Magnesia) 30 ml PO DAILY PRN PRN PRN Reason: Constipation Methylprednisolone (Solu-Medrol) 40 mg IV Q8 [facility] Last Admin: 02/02/18 06:46 Dose: 40 mg Oseltamivir Phosphate (Tamiflu Susp) 75 mg GT BID [facility] Stop: 02/05/18 22:01 Last Admin: 02/01/18 21:18 Dose: 75 mg Sodium Chloride () 5 - 15 ml IV UD PRN PRN Reason: SALINE FLUSH Last Admin: 02/01/18 04:53 Dose: 10 ml Code Visit Inpatient E&M: [id number] Subs Hosp L3
--- NOTE | 2018-02-02 09:57 | NS ---
If pt to remain intubated and tube feeding appropriate, rec Vital AF 1.2 via OG at goal rate of 60c/hour w/ 100cc H2O flush every 4 hours to provide 1728 calories, 108 g protein, and 1767cc total fluid per day. Would start tube feed at 20cc/hour and increase SLOWLY by 10cc every 12 hours as pt tolerates until goal rate achieved. Would monitor pt labs closely d/t malnutrition and concern for refeeding syndrome. Estevan Palmer MS, RDN, LD
[2018-02-02] MEDS: fentaNYL drip 100 ML 5 MCG IV ×2 (10:35→19:38)
[2018-02-02] MEDS: Enoxaparin 40 MG/0.4 ML Syringe SC (10:36)
[2018-02-02] MEDS: Chlorhexidine 15 ML PO ×2 (10:37→22:22)
[2018-02-02] MEDS: Vital AF 1.2 Cal Liquid 1,000 ML 20 ML GT (10:37)
[2018-02-02] MEDS: OSELTAMIVIR PHOSPHATE 6 MG/ML BOTTLE 75 MG GT ×2 (10:58→22:24)
--- NOTE | 2018-02-02 10:58 | CASEMGMT ---
SW participated in ICU rounds, pt is still intubated this morning. SW will continue to follow, will speak w/pt when appropriate regarding discharge planning. MICHELLE Martinez, SENIOR DIRECTOR OF [employer]
[2018-02-02 11:20] LABS: Hepatitis B Core AB IgM Negative (Negative)
--- NOTE | 2018-02-02 12:14 | PCM.CONS.C ---
Problem List (1) Non-STEMI (non-ST elevated myocardial infarction) Status: Acute (2) LV dysfunction Status: Acute (3) Respiratory failure Status: Acute Qualifiers: Chronicity: acute Respiratory failure complication: hypoxia and hypercapnia Qualified Code(s): J96.01 - Acute respiratory failure with hypoxia; J96.02 - Acute respiratory failure with hypercapnia (4) COPD (chronic obstructive pulmonary disease) Status: Acute Reason for Consult Date of Consultation: 02/02/18 Reason for Consultation: Non-STEMI, LV dysfunction, respiratory arrest History of Present Illness: The patient is a 47 year old M, currently intubated, who apparently lives at a half-way, has MRDD, unknown coronary history, apparently with COPD and previous smoking history. Patient was found to be unresponsive at the half-way, and EMS was called. At that time his O2 sats were in the 50s, and he was given supplemental oxygen and brought to the emergency room at [facility]. Upon arrival his sats had improved, but his mental status was inadequate to maintain his respiratory state, and he was urgently intubated to protect his airway and for mental status changes. His initial EKG showed normal sinus rhythm with anterior T wave inversion which has subsequently corrected on today's EKG. Initially his troponins were 0.3 and increased to maximum 1.0 and are now trending downwards. A 2D echo with Doppler was performed yesterday which demonstrated an EF around 40%. Currently the patient is intubated, and there are no other family members to assist with his history. He is currently on a fentanyl drip, Precedex drip, but on no blood pressure support medications. Apparently when he becomes agitated he becomes quite tachycardic. His telemetry has showed normal sinus rhythm/sinus tachycardia with PACs. Subsequent to this the patient has been found to be positive for influenza type B, and is currently in a respiratory isolation type of situation. [] Past Medical History Allergies/Adverse Reactions: Allergies No Known Allergies Allergy (Verified 01/31/18 20:57) Home Medications: Ambulatory Orders Medication Instructions Recorded Acetaminophen [Tylenol Extra 500 mg PO Q6H PRN PRN 01/31/18 Strength] Benztropine [Cogentin] 1 mg PO BID 01/31/18 Bisacodyl [Dulcolax] 5 mg PO DAILY 01/31/18 Budesonide/Formoterol 160/4.5 2 puff INHALATION BID 01/31/18 [Symbicort 160/4.5 Mcg Inhaler (SP)] Clonazepam [Klonopin] 0.5 mg PO QHS 01/31/18 Doxycycline Hyclate 100 mg PO BID 01/31/18 Guaifenesin [Mucinex] 600 mg PO BID 01/31/18 Haloperidol [Haldol] 10 mg PO QHS 01/31/18 Ipratropium/Albuterol Sulfate 3 ml INHALATION Q4H.RT 01/31/18 [Duoneb] Montelukast [Singulair] 10 mg PO DAILY 01/31/18 Multivitamins,Therapeutic 1 tablet PO DAILY 01/31/18 [Multivitamin] Omeprazole [Prilosec] 20 mg PO QHS 01/31/18 Risperidone [Risperdal] 1 mg PO DAILY 01/31/18 Risperidone [Risperdal] 2 mg PO QHS 01/31/18 Roflumilast [Daliresp] 500 mcg PO DAILY 01/31/18 Tamsulosin HCl 0.4 mg PO QHS 01/31/18 Tiotropium [place] [Spiriva 2 puff IH DAILY 01/31/18 Respimat] traZODone [Desyrel] 150 mg PO QHS 01/31/18 Past Medical History (Chronic Problems): Chronic Problems Smoker (Chronic) Mental and behavioral problem (Chronic) - *Family History Maternal History Items: No pertinent history Smoking Status: Current every day smoker Review of Systems - Review of Systems General: Denies: Fever, Night Sweats, Fatigue Cardiovascular: Denies: Chest Discomfort, Shortness of Breath, Orthopnea, PND, Peripheral Edema, Palpitations, Lightheadedness, Dizziness, Near Syncope, Syncope Respiratory: Denies: Cough, Sputum Production, Hemoptysis Gastrointestinal: Denies: Hematemesis, Hematochezia, Melena Genitourinary: Denies: Dysuria, Hematuria Skin: Denies: Rash Subjectve: Patient intubated, sedated, unresponsive to verbal stimuli. Objective: Vital Signs Temp Pulse Resp BP Pulse Ox 99.0 F 93 16 106/72 97 02/02/18 08:00 02/02/18 11:30 02/02/18 11:30 02/02/18 11:30 02/02/18 11:30 Oxygen Flow Rate (L/min) 15 Oxygen Delivery Method Mechanical Ventilator Weight: 121 lb 11.123 oz Body Mass Index (BMI) 16.8 Intake and Output for Last 24 Hours 01/31/18 02/01/18 02/02/18 23:59 23:59 23:59 Intake Total 1358.5 / 1358.5 389.6 / 389.6 Output Total 5525 / 5525 450 / 450 Balance -4166.5 / -4166.5 -60.4 / -60.4 General: Awake, Alert, Oriented x 3 HEENT: PERRL, EOMI, Sclera Non Icteric Neck: Supple, Good ROM, No Lymph Node Enlargement Lungs: Clear to auscultation Cardiovascular: Regular Rhythm, Normal S1, Normal S2, No Murmurs, No Rubs, No Gallops Vascular: No Carotid Bruits, Normal Femoral Pulses, Normal Radial Pulses, Normal Dorsalis Pedal Pulse, Normal Posterior Tibial Pulses Abdomen: Bowel Sounds Present, Soft, Non Tender, No HSM, No Organomegaly Extremities: No Cyanosis, No Clubbing, No edema Neurological: No Focal Motor or Sensory Deficit 02/01/18 12:30: Troponin I 1.090 H* 02/01/18 17:30: Troponin I 1.080 H* 02/02/18 04:00: WBC 20.6 H, RBC 4.37 L, Hgb 13.1, Hct 39.0 L, MCV 89.2, MCH 30.0, MCHC 33.6, RDW 14.2, RDW Differential 45.7 H, Plt Count 204, MPV 9.7 02/02/18 04:00: Sodium 133 L, Potassium 4.6, Chloride 90 L, Carbon Dioxide 32.0, Anion Gap 11, BUN 15, Creatinine 0.65 L, Est GFR (MDRD) Af Amer 166, Est GFR (MDRD) Non-Af 137, BUN/Creatinine Ratio 22.9 H, Glucose 96, Calcium 8.1 L, Magnesium 2.5 Rhythm: EKG: ECHO: Stress Test: Cardiac Cath: PCI: CT Surgery: Holter monitor: EPS: PPM: CXR: Chest CT Scan: Assessment/Plan 1. Non-STEMI: The patient has evidence of respiratory distress with low P O2 sats, found unresponsive at a half-way, and requiring supplemental oxygenation followed by urgent intubation. His chest x-ray shows no overt infiltrates, but does have evidence of diaphragmatic flattening and probable COPD. In addition he was found to be hyponatremic and is being corrected slowly. The patient had a mild elevation in his troponins at a peak of 1.0, and is now trending downwards. In addition, his echocardiogram showed global LV dysfunction of a moderate degree with an EF of approximately 40%. Patient appeared to have bilateral mitral leaflet thickening, and stage I diastolic dysfunction. At this point I would recommend starting the patient on baby aspirin 81 mg p.o. daily if not already done so, and initiating Lopressor 12.5 mg p.o. twice daily and titrating up from there to keep his heart rate less than 100, and his systolic pressure greater than 100. It is my understanding that a weaning trial will be attempted tomorrow and if this is successful we can converse with the patient regarding going forward diagnostic coronary angiogram. There are no other qualified family members available to discuss catheterization at this time while the patient is intubated. If his extubation is unsuccessful, this may mean that he has significant coronary disease which may be limiting his ability to be weaned off the ventilator. If this is the case, I would recommend that we proceed with left heart catheterization with signatures of 2 physicians in light of getting informed consent from the patient has he is sedated and on fentanyl drip. I reviewed the patient's echocardiogram to assess his mitral valve status as well. I do not see any outward signs of endocarditis at this time. His blood cultures are pending. If they turn positive he may require a transesophageal echocardiogram, which under ideal conditions could be done while he is intubated. 2. Hyperlipidemia: Recommend obtaining a fasting lipid profile once the patient has recovered from this event. The patient's LFTs are increasing, possibly suggesting shock liver. Would not recommend any antilipid therapy until his LFTs have normalized. 3. COPD: Patient has evidence of COPD on his chest x-ray as well as by history. Will defer to pulmonary. 4. Discussed with Dr. Shelby. Thank you very much for the opportunity to participate in the cardiac care of your patient. Consultation time took place between 1130 and 12 PM. Code Visit Inpatient E&M: 45235 Init Hosp L2
--- NOTE | 2018-02-02 13:58 | CASEMGMT ---
ORION received a call from Mary, nurse at the [facility], for an update. ORION gave clinical update to Mary. Mary states pt does have home O2 prescribed but does not wear it. ORION explained that we will keep them updated on how pt is doing, ORION will continue to follow. MICHELLE Martinez, HUMAN RESOURCES COMPENSATION ANALYST
[2018-02-02] MEDS: 0.9% NaCl Peripheral Flush Adult/Peds IV (14:58)
[2018-02-02] MEDS: Metoprolol Tartrate 25 MG Tablet 12.5 MG PO (22:22)
[2018-02-03] VITALS (46 sets, daily range): BP systolic 85–176; BP diastolic 70–111; PULSE 64–144; RESP 14–33; TEMP 37.7–38.4; O2SAT 16–98
[2018-02-03] MEDS: Ipratropium/Albuterol Sulfate 3 ML AMPUL.NEB INHALATION ×5 (03:40→22:04)
[2018-02-03 05:19] LABS: Hematocrit 41.7 % (40-54); Mean Corp Hgb Conc 33.6 g/gl (32-36); Mean Corpuscular Volume 89.3 fL (80-94); Mean Platelet Vol. 9.5 fl (6.2-12.0); Platelet Count 203 K/mm3 (150-450); RBC Distribution Width CV 14.3 % (11.6-14.6); RBC Distribution Width SD 46.4 fl (35.1-43.9); Red Blood Count 4.67 M/mm3 (4.6-6.2); Scan Indicated on CBC? Y/N NO; White Blood Count 17.4 K/mm3 (4.4-11.0)
[2018-02-03 05:36] LABS: Anion Gap 11 (5-15); BUN 12 mg/dL (7-18); BUN/Creat Ratio 21.8 RATIO (10-20); Calcium,Total 8.1 mg/dL (8.5-10.1); Chloride 89 mmol/L (98-107); Creatinine, Serum 0.55 mg/dL (0.70-1.30); EST Glomerular Filtration Rate 167 mL/min (>60); Est Glom Filt Rate - Afr Amer 203 mL/min (>60); Estimated Creatinine Clearance 126.85 ml/min; Glucose 142 mg/dL (74-106); Potassium 3.8 mmol/L (3.5-5.1); Sodium Level 135 mmol/L (136-145)
[2018-02-03] MEDS: Piperacil/Tazobactam 3.375 GM/50 ML ML IV (06:24)
[2018-02-03] MEDS: hydrALAZINE 20 MG/ML Vial 10 MG IV ×2 (06:24→18:37)
--- NOTE | 2018-02-03 06:30 | NURSING ---
Pt passed wean trial. Tube feed on hold, pt repositioned for optimal oxygenation, suction and O2 at bedside. Two RTs at bedside. ETT removed, O2 4L placed. Pt able to speak name. Requesting water at this time. Tolerated procedure well.
--- NOTE | 2018-02-03 06:42 | PCM.PN.INT ---
Subjective: The patient was seen and examined at the bedside this morning. Events from the last 24 hours have been reviewed. The patient is currently afebrile and hypertensive. He did pass his spontaneous breathing trial on Precedex. FiO2 requirement is minimal. The patient is alert, cooperative and following commands appropriately. Objective: The patient's most recent lab work, culture data and imaging studies have all been personally reviewed. Blood cultures are pending. Respiratory viral panel was positive for influenza B. Sputum culture is pending. MRSA screen was negative. Surface echocardiogram revealed normal LV size with an ejection fraction of 40% and stage I diastolic dysfunction. There was mild to moderate global hypokinesis of the LV. General: - - Remains intubated and mechanically ventilated. Currently tolerating CPAP mode of mechanical ventilation. HEENT: Atraumatic, PERRLA, Normocephalic Oral: No Gingival or Mucosal Lesions/ Ulcerations, - - Endotracheal and OG tubes remain in place. Neck: Supple, No Nodes, Trachea Midline Lungs: No rhonchi, No wheeze, No rales, Diminished Cardiovascular: Normal S1, Normal S2, No murmurs, Tachycardic Abdomen: Bowel Sounds Present, Soft, Non Tender Extremities: No clubbing, No cyanosis, No edema Skin: - - No significant change from previous. Musculoskeletal: Cachexia, Muscle Wasting Lymphatic: No Cervical, Supraclavicular, or Inguinal Adenopathy Neurological: Neuro grossly intact, - - Alert and following commands appropriately. Psych/Mental Status: Anxious Vital Signs Temp Pulse Resp BP Pulse Ox 37.8 C H 97 30 H 176/89 H 90 02/03/18 06:00 02/03/18 06:24 02/03/18 06:00 02/03/18 06:24 02/03/18 06:00 Oxygen Flow Rate (L/min) 15 Oxygen Delivery Method Mechanical Ventilator Weight: 116 lb 2.938 oz Body Mass Index (BMI) 16.8 Intake and Output for Last 24 Hours 02/01/18 02/02/18 02/03/18 23:59 23:59 23:59 Intake Total 1358.5 / 1358.5 1149.6 / 1149.6 1984.4 / 1984.4 Output Total 5525 / 5525 1000 / 1000 2350 / 2350 Balance -4166.5 / -4166.5 149.6 / 149.6 -365.6 / -365.6 Labs (Last 48 Hours) 02/01/18 02/01/18 02/01/18 04:30 07:40 07:40 WBC RBC Hgb Hct MCV MCH MCHC RDW RDW Differential Plt Count MPV Sodium Potassium Chloride Carbon Dioxide Anion Gap BUN Creatinine Estim Creat Clear Calc Est GFR (MDRD) Af Amer Est GFR (MDRD) Non-Af BUN/Creatinine Ratio Glucose Serum Osmolality Calcium Magnesium Troponin I B-Natriuretic Peptide 485.4 H Urine Osmolality Urine Opiates Screen Urine Methadone Screen Acetaminophen 4.3 L Ur Barbiturates Screen Ur Phencyclidine Scrn Ur Amphetamines Screen U Methamphetamin-MDMA U Benzodiazepines Scrn Urine Cocaine Screen U Cannabinoids Screen Ur Drug Screen Comment Hepatitis A IgM Ab Negative Hep Bs Antigen Negative Hep B Core IgM Ab Negative Hepatitis Interpret Pending MRSA (PCR) 02/01/18 02/01/18 02/01/18 07:40 07:50 07:50 WBC RBC Hgb Hct MCV MCH MCHC RDW RDW Differential Plt Count MPV Sodium Potassium Chloride Carbon Dioxide Anion Gap BUN Creatinine Estim Creat Clear Calc Est GFR (MDRD) Af Amer Est GFR (MDRD) Non-Af BUN/Creatinine Ratio Glucose Serum Osmolality 268 L Calcium Magnesium Troponin I B-Natriuretic Peptide Urine Osmolality Urine Opiates Screen NEGATIVE Urine Methadone Screen NEGATIVE Acetaminophen Ur Barbiturates Screen NEGATIVE Ur Phencyclidine Scrn NEGATIVE Ur Amphetamines Screen NEGATIVE U Methamphetamin-MDMA NEGATIVE U Benzodiazepines Scrn NEGATIVE Urine Cocaine Screen NEGATIVE U Cannabinoids Screen NEGATIVE Ur Drug Screen Comment Hepatitis A IgM Ab Hep Bs Antigen Hep B Core IgM Ab Hepatitis Interpret MRSA (PCR) Negative 02/01/18 02/01/18 02/01/18 07:50 09:30 09:30 WBC RBC Hgb Hct MCV MCH MCHC RDW RDW Differential Plt Count MPV Sodium 128 L Potassium Chloride Carbon Dioxide Anion Gap BUN Creatinine Estim Creat Clear Calc Est GFR (MDRD) Af Amer Est GFR (MDRD) Non-Af BUN/Creatinine Ratio Glucose Serum Osmolality Calcium Magnesium Troponin I 0.990 H* B-Natriuretic Peptide Urine Osmolality 204 Urine Opiates Screen Urine Methadone Screen Acetaminophen Ur Barbiturates Screen Ur Phencyclidine Scrn Ur Amphetamines Screen U Methamphetamin-MDMA U Benzodiazepines Scrn Urine Cocaine Screen U Cannabinoids Screen Ur Drug Screen Comment Hepatitis A IgM Ab Hep Bs Antigen Hep B Core IgM Ab Hepatitis Interpret MRSA (PCR) 02/01/18 02/01/18 02/02/18 12:30 17:30 04:00 WBC 20.6 H RBC 4.37 L Hgb 13.1 Hct 39.0 L MCV 89.2 MCH 30.0 MCHC 33.6 RDW 14.2 RDW Differential 45.7 H Plt Count 204 MPV 9.7 Sodium Potassium Chloride Carbon Dioxide Anion Gap BUN Creatinine Estim Creat Clear Calc Est GFR (MDRD) Af Amer Est GFR (MDRD) Non-Af BUN/Creatinine Ratio Glucose Serum Osmolality Calcium Magnesium Troponin I 1.090 H* 1.080 H* B-Natriuretic Peptide Urine Osmolality Urine Opiates Screen Urine Methadone Screen Acetaminophen Ur Barbiturates Screen Ur Phencyclidine Scrn Ur Amphetamines Screen U Methamphetamin-MDMA U Benzodiazepines Scrn Urine Cocaine Screen U Cannabinoids Screen Ur Drug Screen Comment Hepatitis A IgM Ab Hep Bs Antigen Hep B Core IgM Ab Hepatitis Interpret MRSA (PCR) 02/02/18 02/03/18 02/03/18 04:00 05:10 05:10 WBC 17.4 H RBC 4.67 Hgb 14.0 Hct 41.7 MCV 89.3 MCH 30.0 MCHC 33.6 RDW 14.3 RDW Differential 46.4 H Plt Count 203 MPV 9.5 Sodium 133 L 135 L Potassium 4.6 3.8 Chloride 90 L 89 L Carbon Dioxide 32.0 35.0 H Anion Gap 11 11 BUN 15 12 Creatinine 0.65 L 0.55 L Estim Creat Clear Calc 108.89 126.85 Est GFR (MDRD) Af Amer 166 203 Est GFR (MDRD) Non-Af 137 167 BUN/Creatinine Ratio 22.9 H 21.8 H Glucose 96 142 H Serum Osmolality Calcium 8.1 L 8.1 L Magnesium 2.5 Troponin I B-Natriuretic Peptide Urine Osmolality Urine Opiates Screen Urine Methadone Screen Acetaminophen Ur Barbiturates Screen Ur Phencyclidine Scrn Ur Amphetamines Screen U Methamphetamin-MDMA U Benzodiazepines Scrn Urine Cocaine Screen U Cannabinoids Screen Ur Drug Screen Comment Hepatitis A IgM Ab Hep Bs Antigen Hep B Core IgM Ab Hepatitis Interpret MRSA (PCR) Microbiology 02/01/18 08:30 Sputum, Induced/Lukens Gram Stain - Final 02/01/18 08:30 Sputum, Induced/Lukens Respiratory Culture - Preliminary Appears to be normal respiratory moreno. Further studies to follow. 02/01/18 08:30 Mucosa - Nasopharyngeal Respiratory Panel (PCR) - Final Influenzae B Clinical Impression(s) from Imaging Studies Chest X-Ray 01/31/18 21:25 IMPRESSION: Malpositioned enteric tube requires advancement 10 to 20 cm. ET tube as above. Bibasilar interstitial infiltrates. COPD. Probable skinfold left upper lung field. Follow-up recommended to exclude pneumothorax. Electronically Signed: Griffin Schneider MD at 21:58 EST , Service support , KUB X-Ray 01/31/18 22:40 IMPRESSION: OG tube in stomach Electronically Signed: Griffin Schneider MD at 23:10 EST , Service support , Chest X-Ray 02/01/18 05:55 IMPRESSION: A background of emphysematous changes in the lungs. ET tube and NG tube in good positions Electronically Signed: Dilan Dick MD at 5:42 EST Tel , Service support , KUB X-Ray 02/01/18 14:27 IMPRESSION: The tip of the orogastric tube is coiled within the fundal portion of the stomach. Electronically Signed: Jeremias Fraser MD at 15:05 EST Tel [phone], Service support , Medical Necessity - Tobacco Use Smoking Status: Current every day smoker Assessment/Plan All Active Problems Respiratory failure (Acute) COPD (chronic obstructive pulmonary disease) (Acute) Non-STEMI (non-ST elevated myocardial infarction) (Acute) LV dysfunction (Acute) RECOMMENDATIONS: 1. Proceed with a trial of extubation this morning. 2. Once extubated, wean supplemental oxygen to maintain saturations at or above 90%. The patient does have a baseline 2 L/min requirement. 3. Perform bedside swallow evaluation and advance diet accordingly. 4. Continue scheduled aerosol treatments. 5. Wean the patient off of Precedex completely. 6. Transition from IV steroids to prednisone 40 mg daily by mouth. 7. Continue antibiotics along with Tamiflu. 8. Continue nicotine replacement therapy. IMPRESSIONS: 1. Acute on chronic hypoxemic respiratory failure secondary to COPD exacerbation due to influenza B and possible community-acquired pneumonia The patient presented to the emergency department with acute on chronic respiratory failure. He does have a baseline 2 L/min supplemental oxygen requirement along with what is presumptive severe COPD and ongoing tobacco dependence. While his plain film chest imaging was underwhelming for the presence of a significant pneumonia, the patient was started on broad-spectrum antibiotics. Subsequent workup revealed the presence of influenza B. Tamiflu was subsequently started. Scheduled aerosol treatments along with steroids will be continued. The patient is currently a candidate for a trial of extubation this morning. Once extubated, his Precedex will be discontinued completely. The patient's IV steroids will be transitioned to prednisone 40 mg daily by mouth. A bedside swallow evaluation can be completed and the patient's diet advanced accordingly. 2. Hyponatremia of unknown chronicity Resolved. The patient did present with significantly decreased serum sodium level of unknown chronicity. His mentation did appear to be intact while in the emergency department per documentation. Therefore hypertonic saline was never initiated. The patient did receive a significant amount of normal saline initially and his sodium was overcorrected. The supplemental fluids were then discontinued. His sodium level has since stabilized. 3. Combined systolic and diastolic heart failure/troponin elevation The patient's recent echocardiogram did reveal evidence of combined systolic and diastolic heart failure. The patient does have risk factors for coronary artery disease. Cardiology is currently following with potential plans for coronary angiography. 4. Transaminitis Unclear etiology. Could be secondary to passive vascular congestion. Hepatitis panel was negative.. Transaminase levels will be rechecked accordingly. 5. Chronic urinary retention/schizophrenia/GERD/long-standing tobacco dependence Complicates care, management, recovery and prognosis. Continue appropriate ICU prophylaxis. Nicotine replacement therapy can be initiated while the patient is admitted to the hospital. TIME: 40 minutes of critical care time, independent of procedures, was spent addressing the patient's acute on chronic hypoxemic respiratory failure, hyponatremia, transaminitis, troponin elevation, review of all data and collaboration with the care team. ([id number]) Code Visit 9xxxx: [id number] Critical care first hour
--- NOTE | 2018-02-03 06:45 | PN_ITS ---
Subjective: The patient was seen and examined at the bedside this morning. Events from the last 24 hours have been reviewed. The patient is currently afebrile and hypertensive. He did pass his spontaneous breathing trial on Precedex. FiO2 requirement is minimal. The patient is alert, cooperative and following commands appropriately. Objective: The patient's most recent lab work, culture data and imaging studies have all been personally reviewed. Blood cultures are pending. Respiratory viral panel was positive for influenza B. Sputum culture is pending. MRSA screen was negative. Surface echocardiogram revealed normal LV size with an ejection fraction of 40% and stage I diastolic dysfunction. There was mild to moderate global hypokinesis of the LV. General: - - Remains intubated and mechanically ventilated. Currently tolerating CPAP mode of mechanical ventilation. HEENT: Atraumatic, PERRLA, Normocephalic Oral: No Gingival or Mucosal Lesions/ Ulcerations, - - Endotracheal and OG tubes remain in place. Neck: Supple, No Nodes, Trachea Midline Lungs: No rhonchi, No wheeze, No rales, Diminished Cardiovascular: Normal S1, Normal S2, No murmurs, Tachycardic Abdomen: Bowel Sounds Present, Soft, Non Tender Extremities: No clubbing, No cyanosis, No edema Skin: - - No significant change from previous. Musculoskeletal: Cachexia, Muscle Wasting Lymphatic: No Cervical, Supraclavicular, or Inguinal Adenopathy Neurological: Neuro grossly intact, - - Alert and following commands appropriately. Psych/Mental Status: Anxious Vital Signs Temp Pulse Resp BP Pulse Ox 37.8 C H 97 30 H 176/89 H 90 02/03/18 06:00 02/03/18 06:24 02/03/18 06:00 02/03/18 06:24 02/03/18 06:00 Oxygen Flow Rate (L/min) 15 Oxygen Delivery Method Mechanical Ventilator Weight: 116 lb 2.938 oz Body Mass Index (BMI) 16.8 Intake and Output for Last 24 Hours 02/01/18 02/02/18 02/03/18 23:59 23:59 23:59 Intake Total 1358.5 / 1358.5 1149.6 / 1149.6 1984.4 / 1984.4 Output Total 5525 / 5525 1000 / 1000 2350 / 2350 Balance -4166.5 / -4166.5 149.6 / 149.6 -365.6 / -365.6 Labs (Last 48 Hours) 02/01/18 02/01/18 02/01/18 04:30 07:40 07:40 WBC RBC Hgb Hct MCV MCH MCHC RDW RDW Differential Plt Count MPV Sodium Potassium Chloride Carbon Dioxide Anion Gap BUN Creatinine Estim Creat Clear Calc Est GFR (MDRD) Af Amer Est GFR (MDRD) Non-Af BUN/Creatinine Ratio Glucose Serum Osmolality Calcium Magnesium Troponin I B-Natriuretic Peptide 485.4 H Urine Osmolality Urine Opiates Screen Urine Methadone Screen Acetaminophen 4.3 L Ur Barbiturates Screen Ur Phencyclidine Scrn Ur Amphetamines Screen U Methamphetamin-MDMA U Benzodiazepines Scrn Urine Cocaine Screen U Cannabinoids Screen Ur Drug Screen Comment Hepatitis A IgM Ab Negative Hep Bs Antigen Negative Hep B Core IgM Ab Negative Hepatitis Interpret Pending MRSA (PCR) 02/01/18 02/01/18 02/01/18 07:40 07:50 07:50 WBC RBC Hgb Hct MCV MCH MCHC RDW RDW Differential Plt Count MPV Sodium Potassium Chloride Carbon Dioxide Anion Gap BUN Creatinine Estim Creat Clear Calc Est GFR (MDRD) Af Amer Est GFR (MDRD) Non-Af BUN/Creatinine Ratio Glucose Serum Osmolality 268 L Calcium Magnesium Troponin I B-Natriuretic Peptide Urine Osmolality Urine Opiates Screen NEGATIVE Urine Methadone Screen NEGATIVE Acetaminophen Ur Barbiturates Screen NEGATIVE Ur Phencyclidine Scrn NEGATIVE Ur Amphetamines Screen NEGATIVE U Methamphetamin-MDMA NEGATIVE U Benzodiazepines Scrn NEGATIVE Urine Cocaine Screen NEGATIVE U Cannabinoids Screen NEGATIVE Ur Drug Screen Comment Hepatitis A IgM Ab Hep Bs Antigen Hep B Core IgM Ab Hepatitis Interpret MRSA (PCR) Negative 02/01/18 02/01/18 02/01/18 07:50 09:30 09:30 WBC RBC Hgb Hct MCV MCH MCHC RDW RDW Differential Plt Count MPV Sodium 128 L Potassium Chloride Carbon Dioxide Anion Gap BUN Creatinine Estim Creat Clear Calc Est GFR (MDRD) Af Amer Est GFR (MDRD) Non-Af BUN/Creatinine Ratio Glucose Serum Osmolality Calcium Magnesium Troponin I 0.990 H* B-Natriuretic Peptide Urine Osmolality 204 Urine Opiates Screen Urine Methadone Screen Acetaminophen Ur Barbiturates Screen Ur Phencyclidine Scrn Ur Amphetamines Screen U Methamphetamin-MDMA U Benzodiazepines Scrn Urine Cocaine Screen U Cannabinoids Screen Ur Drug Screen Comment Hepatitis A IgM Ab Hep Bs Antigen Hep B Core IgM Ab Hepatitis Interpret MRSA (PCR) 02/01/18 02/01/18 02/02/18 12:30 17:30 04:00 WBC 20.6 H RBC 4.37 L Hgb 13.1 Hct 39.0 L MCV 89.2 MCH 30.0 MCHC 33.6 RDW 14.2 RDW Differential 45.7 H Plt Count 204 MPV 9.7 Sodium Potassium Chloride Carbon Dioxide Anion Gap BUN Creatinine Estim Creat Clear Calc Est GFR (MDRD) Af Amer Est GFR (MDRD) Non-Af BUN/Creatinine Ratio Glucose Serum Osmolality Calcium Magnesium Troponin I 1.090 H* 1.080 H* B-Natriuretic Peptide Urine Osmolality Urine Opiates Screen Urine Methadone Screen Acetaminophen Ur Barbiturates Screen Ur Phencyclidine Scrn Ur Amphetamines Screen U Methamphetamin-MDMA U Benzodiazepines Scrn Urine Cocaine Screen U Cannabinoids Screen Ur Drug Screen Comment Hepatitis A IgM Ab Hep Bs Antigen Hep B Core IgM Ab Hepatitis Interpret MRSA (PCR) 02/02/18 02/03/18 02/03/18 04:00 05:10 05:10 WBC 17.4 H RBC 4.67 Hgb 14.0 Hct 41.7 MCV 89.3 MCH 30.0 MCHC 33.6 RDW 14.3 RDW Differential 46.4 H Plt Count 203 MPV 9.5 Sodium 133 L 135 L Potassium 4.6 3.8 Chloride 90 L 89 L Carbon Dioxide 32.0 35.0 H Anion Gap 11 11 BUN 15 12 Creatinine 0.65 L 0.55 L Estim Creat Clear Calc 108.89 126.85 Est GFR (MDRD) Af Amer 166 203 Est GFR (MDRD) Non-Af 137 167 BUN/Creatinine Ratio 22.9 H 21.8 H Glucose 96 142 H Serum Osmolality Calcium 8.1 L 8.1 L Magnesium 2.5 Troponin I B-Natriuretic Peptide Urine Osmolality Urine Opiates Screen Urine Methadone Screen Acetaminophen Ur Barbiturates Screen Ur Phencyclidine Scrn Ur Amphetamines Screen U Methamphetamin-MDMA U Benzodiazepines Scrn Urine Cocaine Screen U Cannabinoids Screen Ur Drug Screen Comment Hepatitis A IgM Ab Hep Bs Antigen Hep B Core IgM Ab Hepatitis Interpret MRSA (PCR) Microbiology 02/01/18 08:30 Sputum, Induced/Lukens Gram Stain - Final 02/01/18 08:30 Sputum, Induced/Lukens Respiratory Culture - Preliminary Appears to be normal respiratory moreno. Further studies to follow. 02/01/18 08:30 Mucosa - Nasopharyngeal Respiratory Panel (PCR) - Final Influenzae B Clinical Impression(s) from Imaging Studies Chest X-Ray 01/31/18 21:25 IMPRESSION: Malpositioned enteric tube requires advancement 10 to 20 cm. ET tube as above. Bibasilar interstitial infiltrates. COPD. Probable skinfold left upper lung field. Follow-up recommended to exclude pneumothorax. Electronically Signed: Griffin Schneider MD at 21:58 EST , Service support , KUB X-Ray 01/31/18 22:40 IMPRESSION: OG tube in stomach Electronically Signed: Griffin Schneider MD at 23:10 EST , Service support , Chest X-Ray 02/01/18 05:55 IMPRESSION: A background of emphysematous changes in the lungs. ET tube and NG tube in good positions Electronically Signed: Dilan Dick MD at 5:42 EST Tel , Service support , KUB X-Ray 02/01/18 14:27 IMPRESSION: The tip of the orogastric tube is coiled within the fundal portion of the stomach. Electronically Signed: Jeremias Fraser MD at 15:05 EST Tel [phone], Service support , Medical Necessity - Tobacco Use Smoking Status: Current every day smoker Assessment/Plan All Active Problems Respiratory failure (Acute) COPD (chronic obstructive pulmonary disease) (Acute) Non-STEMI (non-ST elevated myocardial infarction) (Acute) LV dysfunction (Acute) RECOMMENDATIONS: 1. Proceed with a trial of extubation this morning. 2. Once extubated, wean supplemental oxygen to maintain saturations at or above 90%. The patient does have a baseline 2 L/min requirement. 3. Perform bedside swallow evaluation and advance diet accordingly. 4. Continue scheduled aerosol treatments. 5. Wean the patient off of Precedex completely. 6. Transition from IV steroids to prednisone 40 mg daily by mouth. 7. Continue antibiotics along with Tamiflu. 8. Continue nicotine replacement therapy. IMPRESSIONS: 1. Acute on chronic hypoxemic respiratory failure secondary to COPD exacerbation due to influenza B and possible community-acquired pneumonia The patient presented to the emergency department with acute on chronic respiratory failure. He does have a baseline 2 L/min supplemental oxygen requirement along with what is presumptive severe COPD and ongoing tobacco dependence. While his plain film chest imaging was underwhelming for the presence of a significant pneumonia, the patient was started on broad-spectrum antibiotics. Subsequent workup revealed the presence of influenza B. Tamiflu was subsequently started. Scheduled aerosol treatments along with steroids will be continued. The patient is currently a candidate for a trial of extubation this morning. Once extubated, his Precedex will be discontinued completely. The patient's IV steroids will be transitioned to prednisone 40 mg daily by mouth. A bedside swallow evaluation can be completed and the patient's diet advanced accordingly. 2. Hyponatremia of unknown chronicity Resolved. The patient did present with significantly decreased serum sodium level of unknown chronicity. His mentation did appear to be intact while in the emergency department per documentation. Therefore hypertonic saline was never initiated. The patient did receive a significant amount of normal saline initially and his sodium was overcorrected. The supplemental fluids were then discontinued. His sodium level has since stabilized. 3. Combined systolic and diastolic heart failure/troponin elevation The patient's recent echocardiogram did reveal evidence of combined systolic and diastolic heart failure. The patient does have risk factors for coronary artery disease. Cardiology is currently following with potential plans for coronary angiography. 4. Transaminitis Unclear etiology. Could be secondary to passive vascular congestion. Hepatitis panel was negative.. Transaminase levels will be rechecked accordingly. 5. Chronic urinary retention/schizophrenia/GERD/long-standing tobacco dependence Complicates care, management, recovery and prognosis. Continue appropriate ICU prophylaxis. Nicotine replacement therapy can be initiated while the patient is admitted to the hospital. TIME: 40 minutes of critical care time, independent of procedures, was spent addressing the patient's acute on chronic hypoxemic respiratory failure, hyponatremia, transaminitis, troponin elevation, review of all data and collaboration with the care team. ([id number]) Code Visit 9xxxx: [id number] Critical care first hour
[2018-02-03 07:27] LABS: AST(SGOT) 386 U/L (15-37); Alanine Aminotransfer ALT/SGPT 775 U/L (16-61); Albumin, Serum 3.1 g/dL (3.2-5.0); Alkaline Phosphatase 76 U/L (45-117); Bilirubin, Direct 0.29 mg/dL (0.00-0.30); Globulin 2.2 g/dL (2.2-4.2); Protein, Total 5.3 g/dL (6.4-8.2)
--- NOTE | 2018-02-03 08:07 | PCM.PN.HOSP ---
Patient Problems: Active and Suspected Problems Respiratory failure (Acute) COPD (chronic obstructive pulmonary disease) (Acute) Non-STEMI (non-ST elevated myocardial infarction) (Acute) LV dysfunction (Acute) Subjective: Patient was successfully weaned off the vent this morning. Patient seen currently appears comfortable at rest. His med rec reconciled. Case was discussed with Dr. Shelby as well as Dr. Millan with pulmonary and neurology respectively. Plan is for patient to possibly undergo left heart catheterization prior to his discharge Objective: GENERAL: Cooperative HEENT: Atraumatic; EYES; Anicteric, Normal Conjunctiva NECK; supple, normal thyroid, RESPIRATORY: Diminished to auscultation bilaterally, CARDIOVASCULAR: Regular S1 S2, GI: soft, non-tender, normoactive bowel sounds, : No Renal angle tenderness; EXTREMITIES: No edema, no clubbing, no cyanosis. MUSCULOSKELETAL: muscle waisting NEURO: Awake no lateralizing signs SKIN: No Rash Vitals/I&O's: Vital Signs Temp Pulse Resp BP Pulse Ox 100.2 F H 111 H 22 H 145/85 H 93 02/03/18 07:00 02/03/18 07:00 02/03/18 07:00 02/03/18 07:00 02/03/18 07:00 Oxygen Flow Rate (L/min) 4 Oxygen Delivery Method Nasal Cannula Weight: 52.7 kg Body Mass Index (BMI) 16.8 Intake and Output for Last 24 Hours 02/01/18 02/02/18 02/03/18 23:59 23:59 23:59 Intake Total 1358.5 / 1358.5 1149.6 / 1149.6 1984.4 / 1984.4 Output Total 5525 / 5525 1000 / 1000 2350 / 2350 Balance -4166.5 / -4166.5 149.6 / 149.6 -365.6 / -365.6 Microbiology Past 72 Hours 02/01/18 08:30 Sputum, Induced/Lukens Gram Stain - Final 02/01/18 08:30 Sputum, Induced/Lukens Respiratory Culture - Preliminary Appears to be normal respiratory moreno. Further studies to follow. 02/01/18 08:30 Mucosa - Nasopharyngeal Respiratory Panel (PCR) - Final Influenzae B 01/31/18 21:27 Mucosa - Nasopharyngeal Influenza Types A,B Direct FA ([facility]) - Final Laboratory Results 02/01/18 07:40: Hepatitis A IgM Ab Negative, Hep Bs Antigen Negative, Hep B Core IgM Ab Negative 02/03/18 05:10: WBC 17.4 H, RBC 4.67, Hgb 14.0, Hct 41.7, MCV 89.3, MCH 30.0, MCHC 33.6, RDW 14.3, RDW Differential 46.4 H, Plt Count 203, MPV 9.5 02/03/18 05:10: Sodium 135 L, Potassium 3.8, Chloride 89 L, Carbon Dioxide 35.0 H, Anion Gap 11, BUN 12, Creatinine 0.55 L, Estim Creat Clear Calc 126.85, Est GFR (MDRD) Af Amer 203, Est GFR (MDRD) Non-Af 167, BUN/Creatinine Ratio 21.8 H, Glucose 142 H, Calcium 8.1 L 02/03/18 05:10: Total Bilirubin 0.70, Direct Bilirubin 0.29, AST 386 H, ALT 775 H, Alkaline Phosphatase 76, Total Protein 5.3 L, Albumin 3.1 L, Globulin 2.2 Current Medications Acetaminophen (Tylenol) 500 mg PO Q6H PRN PRN PRN Reason: HEADACHE Albuterol Sulfate (Ventolin Aerosols) 2.5 mg INHALATION Q2H PRN PRN PRN Reason: SOB &/OR WHEEZING Albuterol/Ipratropium (Duoneb) 3 ml INHALATION Q4H.RT DEVYN Last Admin: 02/03/18 06:36 Dose: 3 ml Aspirin (Aspirin, Baby) 81 mg PO DAILY@0800 [facility] Benztropine Mesylate (Cogentin) 1 mg PO BID [facility] Bisacodyl (Dulcolax) 5 mg PO DAILY [facility] Chlorhexidine Gluconate () 1 each TOPICAL DAILY [facility] Last Admin: 02/02/18 02:58 Dose: 1 each Enoxaparin Sodium (Lovenox) 40 mg SC DAILY@1000 [facility] Last Admin: 02/02/18 10:36 Dose: 40 mg Hydralazine HCl (Apresoline Iv) 10 mg IV Q6H PRN PRN PRN Reason: BLOOD PRESSURE Last Admin: 02/03/18 06:24 Dose: 10 mg Sodium Chloride () 250 mls @ 15 mls/hr IV .[id number] PRN PRN Reason: SALINE FLUSH Piperacillin Sod/Tazobactam Sod (Zosyn) 3.375 gm in 50 mls @ 12.5 mls/hr IV Q8 [facility] Last Admin: 02/03/18 06:24 Dose: 12.5 mls/hr Lansoprazole (Prevacid) 30 mg GT DAILY [facility] Last Admin: 02/02/18 10:38 Dose: 30 mg Magnesium Hydroxide (Milk Of Magnesia) 30 ml PO DAILY PRN PRN PRN Reason: Constipation Metoprolol Tartrate (Lopressor (Beta Pietro)) 12.5 mg PO BID [facility] Last Admin: 02/02/18 22:22 Dose: 12.5 mg Nicotine (Nicoderm Cq (Pbkc)) 21 mg TRANSDERM. DAILY [facility] Last Admin: 02/02/18 10:35 Dose: 21 mg Non-Formulary Medication (Budesonide/Formoterol 160/4.5) 2 puff INHALATION BID [facility] Non-Formulary Medication (Clonazepam) 0.5 mg PO QHS [facility] Oseltamivir Phosphate (Tamiflu Susp) 75 mg GT BID [facility] Stop: 02/05/18 22:01 Last Admin: 02/02/18 22:24 Dose: 75 mg Prednisone () 40 mg PO DAILY@0800 [facility] Sodium Chloride () 5 - 15 ml IV UD PRN PRN Reason: SALINE FLUSH Last Admin: 02/02/18 14:58 Dose: 10 ml Medical Necessity - Tobacco Use Smoking Status: Current every day smoker Assessment/Plan All Active Problems Respiratory failure (Acute) COPD (chronic obstructive pulmonary disease) (Acute) Non-STEMI (non-ST elevated myocardial infarction) (Acute) LV dysfunction (Acute) Patient is a 47-year-old gentleman resident at the [facility] was brought to the emergency department by the EMS squad with progressive shortness of breath. Patient was reported to be gasping for air with oxygen saturation in the 60s. An assessment of acute hypoxic respiratory failure was made patient intubated and admitted to the intensive care unit for subsequent management. Chest x-ray on admission demonstrated bilateral infiltrate 1. Acute hypoxic respiratory failure secondary to acute influenza B infection. Patient admitted to the intensive care unit was placed on the vent from the ED. Patient started on Tamiflu, Zosyn as well as vancomycin given gram-positive cocci in the sputum Gram stain patient undergo weaning trial on the morning of 02/02/2018. Patient was weaned off the vent on the morning of 02/03/2018 2. Chronic hypoxic respiratory failure secondary to COPD patient is on baseline home O2 3. Elevated troponin possibly related to demand ischemia from patient underlying infectious etiology. Patient also had a slightly elevated BNP 2D echo ordered for subsequent evaluation 2D echo demonstrated EF of 40% and stage I diastolic dysfunction with bileaflet diffuse mitral valve thickening Case was discussed with Dr. Millan with cardiology plan is for patient to possibly undergo left heart catheterization prior to his discharge 4. Acute hepatitis of unknown etiology at this point acute hepatitis panel ordered, will continue with monitoring 5. Hyponatremia patient is on IV fluids with monitoring of electrolytes 6. Severe protein calorie malnutrition as evidenced by muscle wasting hypoalbuminemia as well as BMI of 16.3 consultation placed to nutrition 7. Schizophrenia 8. Learning disability 9. DVT prophylaxis SC Lovenox Clinical Impression(s) from Imaging Studies KUB X-Ray 02/01/18 14:27 IMPRESSION: The tip of the orogastric tube is coiled within the fundal portion of the stomach. Electronically Signed: Jeremias Fraser MD at 15:05 EST Tel [phone], Service support , Active Medications Albuterol Sulfate (Ventolin Aerosols) 2.5 mg INHALATION Q2H PRN PRN PRN Reason: SOB &/OR WHEEZING Albuterol/Ipratropium (Duoneb) 3 ml INHALATION Q4H.RT [facility] Last Admin: 02/02/18 06:35 Dose: 3 ml Chlorhexidine Gluconate () 1 each TOPICAL DAILY [facility] Last Admin: 02/02/18 02:58 Dose: 1 each Chlorhexidine Gluconate () 15 ml PO BID [facility] Last Admin: 02/01/18 21:09 Dose: 15 ml Enoxaparin Sodium (Lovenox) 40 mg SC DAILY@1000 [facility] Last Admin: 02/01/18 08:03 Dose: 40 mg Sodium Chloride () 250 mls @ 15 mls/hr IV .[id number] PRN PRN Reason: SALINE FLUSH Piperacillin Sod/Tazobactam Sod (Zosyn) 3.375 gm in 50 mls @ 12.5 mls/hr IV Q8 [facility] Last Admin: 02/02/18 06:45 Dose: 12.5 mls/hr Fentanyl () 100 mls @ 5 mls/hr IV .Q20H [facility] Last Admin: 02/01/18 21:08 Dose: 5 mls/hr Propofol (Diprivan) 1,000 mg in 100 mls @ 3.588 mls/hr CONT INF .Q12H [facility] Last Admin: 02/02/18 02:08 Dose: 3.588 mls/hr Dexmedetomidine HCl 400 mcg/ (Sodium Chloride) 100 mls @ 6.9 mls/hr IV .[id number] [facility] Lansoprazole (Prevacid) 30 mg GT DAILY [facility] Last Admin: 02/01/18 12:36 Dose: Not Given Magnesium Hydroxide (Milk Of Magnesia) 30 ml PO DAILY PRN PRN PRN Reason: Constipation Methylprednisolone (Solu-Medrol) 40 mg IV Q8 [facility] Last Admin: 02/02/18 06:46 Dose: 40 mg Oseltamivir Phosphate (Tamiflu Susp) 75 mg GT BID [facility] Stop: 02/05/18 22:01 Last Admin: 02/01/18 21:18 Dose: 75 mg Sodium Chloride () 5 - 15 ml IV UD PRN PRN Reason: SALINE FLUSH Last Admin: 02/01/18 04:53 Dose: 10 ml Code Visit Inpatient E&M: 67148 Subs Hosp L3
[2018-02-03] MEDS: guaiFENesin 600 MG Tablet PO ×2 (08:49→21:26)
[2018-02-03] MEDS: Aspirin 81 MG TAB.CHEW PO (08:49)
[2018-02-03] MEDS: predniSONE 20 MG Tablet 40 MG PO (08:49)
[2018-02-03] MEDS: CHLORHEXIDINE GLUC 2% CLOTH 1 EACH TOWELETTE TOPICAL (08:49)
[2018-02-03] MEDS: RisperiDONE 1 MG Tablet PO (08:49)
[2018-02-03] MEDS: Montelukast 10 MG Tablet PO (08:49)
--- NOTE | 2018-02-03 09:13 | PCM.PN.CARD ---
Subjectve: Patient extubated this morning, awake, alert, talking fluently. Patient denies any chest pain or angina, or previously known coronary artery disease. I informed the patient about findings with his small release of troponins, and LV dysfunction. I discussed with the patient the option of catheterization and he wishes to wait until his qc chemist comes to discuss. Objective: Vital Signs Temp Pulse Resp BP Pulse Ox 100.2 F H 111 H 22 H 145/85 H 93 02/03/18 07:00 02/03/18 07:00 02/03/18 07:00 02/03/18 07:00 02/03/18 07:00 Oxygen Flow Rate (L/min) 4 Oxygen Delivery Method Nasal Cannula Weight: 116 lb 2.938 oz Body Mass Index (BMI) 16.8 Intake and Output for Last 24 Hours 02/01/18 02/02/18 02/03/18 23:59 23:59 23:59 Intake Total 1358.5 / 1358.5 1149.6 / 1149.6 1984.4 / 1984.4 Output Total 5525 / 5525 1000 / 1000 2350 / 2350 Balance -4166.5 / -4166.5 149.6 / 149.6 -365.6 / -365.6 General: Awake, Alert, Oriented x 3 HEENT: PERRL, EOMI, Sclera Non Icteric Neck: Supple, Good ROM, No Lymph Node Enlargement Lungs: Clear to auscultation Cardiovascular: Regular Rhythm, Normal S1, Normal S2, No Murmurs, No Rubs, No Gallops Vascular: No Carotid Bruits, Normal Femoral Pulses, Normal Radial Pulses, Normal Dorsalis Pedal Pulse, Normal Posterior Tibial Pulses Abdomen: Bowel Sounds Present, Soft, Non Tender, No HSM, No Organomegaly Extremities: No Cyanosis, No Clubbing, No edema Neurological: No Focal Motor or Sensory Deficit 02/03/18 05:10: WBC 17.4 H, RBC 4.67, Hgb 14.0, Hct 41.7, MCV 89.3, MCH 30.0, MCHC 33.6, RDW 14.3, RDW Differential 46.4 H, Plt Count 203, MPV 9.5 02/03/18 05:10: Sodium 135 L, Potassium 3.8, Chloride 89 L, Carbon Dioxide 35.0 H, Anion Gap 11, BUN 12, Creatinine 0.55 L, Est GFR (MDRD) Af Amer 203, Est GFR (MDRD) Non-Af 167, BUN/Creatinine Ratio 21.8 H, Glucose 142 H, Calcium 8.1 L 02/03/18 05:10: Total Bilirubin 0.70, Direct Bilirubin 0.29 Rhythm: EKG: ECHO: Stress Test: Cardiac Cath: PCI: CT Surgery: Holter monitor: EPS: PPM: CXR: Chest CT Scan: Medical Necessity - Tobacco Use Smoking Status: Current every day smoker Assessment/Plan 1. Non-STEMI: The patient has evidence of respiratory distress with low P O2 sats, [facility], and requiring supplemental oxygenation followed by urgent intubation. His chest x-ray shows no overt infiltrates, but does have evidence of diaphragmatic flattening and probable COPD. In addition he was found to be hyponatremic and is being corrected slowly. The patient had a mild elevation in his troponins at a peak of 1.0, and is now trending downwards. In addition, his echocardiogram showed global LV dysfunction of a moderate degree with an EF of approximately 40%. Patient appeared to have bilateral mitral leaflet thickening, and stage I diastolic dysfunction. Patient was extubated successfully this morning and has remained tachycardic and hypertensive although he is neurologically intact. Have recommended that he discontinue Lopressor and start Coreg 6.25 mg p.o. twice daily and Cozaar 25 mg p.o. daily. Patient is awaiting his qc chemist to arrive so he they can together discuss the option of left heart catheterization. The patient does not wish to discuss catheterization until she arrives. In anticipation of catheterization tomorrow morning, as well as his non-STEMI, we will load him with 3 mg of Plavix p.o. followed by 75 mg a day in addition to his baby aspirin. I have asked the nursing staff to notify me when his qc chemist arrives to the we can discuss consent for his catheterization. I reviewed the patient's echocardiogram to assess his mitral valve status as well. I do not see any outward signs of endocarditis at this time. His blood cultures are pending. 2. Hyperlipidemia: Recommend obtaining a fasting lipid profile once the patient has recovered from this event. The patient's LFTs are now decreasing, possibly suggesting resolution of shock liver. Would not recommend any antilipid therapy until his LFTs have normalized. 3. COPD: Patient has evidence of COPD on his chest x-ray as well as by history. Will defer to pulmonary. 4. Discussed with Dr. Shelby. Thank you very much for the opportunity to participate in the cardiac care of your patient. We will hopefully plan for left heart catheterization tomorrow morning pending joint consent with the patient's primary caregiver. Code Visit Inpatient E&M: 26388 Subs Hosp L2
[2018-02-03] MEDS: Metoprolol Tartrate 5 MG/5 ML Vial IV ×3 (09:15→17:10)
[2018-02-03] MEDS: Clopidogrel Bisulfate 300 MG Tablet PO (09:17)
[2018-02-03] MEDS: Losartan Potassium 25 MG Tablet PO (09:17)
--- NOTE | 2018-02-03 09:17 | PN.CARD_ITS ---
Subjectve: Patient extubated this morning, awake, alert, talking fluently. Patient denies any chest pain or angina, or previously known coronary artery disease. I informed the patient about findings with his small release of troponins, and LV dysfunction. I discussed with the patient the option of catheterization and he wishes to wait until his furnace caretaker comes to discuss. Objective: Vital Signs Temp Pulse Resp BP Pulse Ox 100.2 F H 111 H 22 H 145/85 H 93 02/03/18 07:00 02/03/18 07:00 02/03/18 07:00 02/03/18 07:00 02/03/18 07:00 Oxygen Flow Rate (L/min) 4 Oxygen Delivery Method Nasal Cannula Weight: 116 lb 2.938 oz Body Mass Index (BMI) 16.8 Intake and Output for Last 24 Hours 02/01/18 02/02/18 02/03/18 23:59 23:59 23:59 Intake Total 1358.5 / 1358.5 1149.6 / 1149.6 1984.4 / 1984.4 Output Total 5525 / 5525 1000 / 1000 2350 / 2350 Balance -4166.5 / -4166.5 149.6 / 149.6 -365.6 / -365.6 General: Awake, Alert, Oriented x 3 HEENT: PERRL, EOMI, Sclera Non Icteric Neck: Supple, Good ROM, No Lymph Node Enlargement Lungs: Clear to auscultation Cardiovascular: Regular Rhythm, Normal S1, Normal S2, No Murmurs, No Rubs, No Gallops Vascular: No Carotid Bruits, Normal Femoral Pulses, Normal Radial Pulses, Normal Dorsalis Pedal Pulse, Normal Posterior Tibial Pulses Abdomen: Bowel Sounds Present, Soft, Non Tender, No HSM, No Organomegaly Extremities: No Cyanosis, No Clubbing, No edema Neurological: No Focal Motor or Sensory Deficit 02/03/18 05:10: WBC 17.4 H, RBC 4.67, Hgb 14.0, Hct 41.7, MCV 89.3, MCH 30.0, MCHC 33.6, RDW 14.3, RDW Differential 46.4 H, Plt Count 203, MPV 9.5 02/03/18 05:10: Sodium 135 L, Potassium 3.8, Chloride 89 L, Carbon Dioxide 35.0 H, Anion Gap 11, BUN 12, Creatinine 0.55 L, Est GFR (MDRD) Af Amer 203, Est GFR (MDRD) Non-Af 167, BUN/Creatinine Ratio 21.8 H, Glucose 142 H, Calcium 8.1 L 02/03/18 05:10: Total Bilirubin 0.70, Direct Bilirubin 0.29 Rhythm: EKG: ECHO: Stress Test: Cardiac Cath: PCI: CT Surgery: Holter monitor: EPS: PPM: CXR: Chest CT Scan: Medical Necessity - Tobacco Use Smoking Status: Current every day smoker Assessment/Plan 1. Non-STEMI: The patient has evidence of respiratory distress with low P O2 sats, found unresponsive at a correction, and requiring supplemental oxygenation followed by urgent intubation. His chest x-ray shows no overt infiltrates, but does have evidence of diaphragmatic flattening and probable COPD. In addition he was found to be hyponatremic and is being corrected slowly. The patient had a mild elevation in his troponins at a peak of 1.0, and is now trending downwards. In addition, his echocardiogram showed global LV dysfunction of a moderate degree with an EF of approximately 40%. Patient appeared to have bilateral mitral leaflet thickening, and stage I diastolic dysfunction. Patient was extubated successfully this morning and has remained tachycardic and hypertensive although he is neurologically intact. Have recommended that he discontinue Lopressor and start Coreg 6.25 mg p.o. twice daily and Cozaar 25 mg p.o. daily. Patient is awaiting his furnace caretaker to arrive so he they can together discuss the option of left heart catheterization. The patient does not wish to discuss catheterization until she arrives. In anticipation of catheterization tomorrow morning, as well as his non-STEMI, we will load him with 3 mg of Plavix p.o. followed by 75 mg a day in addition to his baby aspirin. I have asked the nursing staff to notify me when his furnace caretaker arrives to the we can discuss consent for his catheterization. I reviewed the patient's echocardiogram to assess his mitral valve status as well. I do not see any outward signs of endocarditis at this time. His blood cultures are pending. 2. Hyperlipidemia: Recommend obtaining a fasting lipid profile once the patient has recovered from this event. The patient's LFTs are now decreasing, possibly suggesting resolution of shock liver. Would not recommend any antilipid therapy until his LFTs have normalized. 3. COPD: Patient has evidence of COPD on his chest x-ray as well as by history. Will defer to pulmonary. 4. Discussed with Dr. Shelby. Thank you very much for the opportunity to participate in the cardiac care of your patient. We will hopefully plan for left heart catheterization tomorrow morning pending joint consent with the patient's primary caregiver. Code Visit Inpatient E&M: 01164 Subs Hosp L2
--- NOTE | 2018-02-03 09:26 | CASEMGMT ---
Physician would like to do a heart cath. However, patient is stating he doesn't make these decisions. RN feels he is confused enough she doesn't feel comfortable getting consent from patient. Per Bonny SEARS's note patient is his own decision maker. ORION called patient's [employer] Military Administrative Technician, Nicole and she confirmed he is his own decision maker. ORION explained situation and she asked what SW would do if it was someone else. She said they cannot make decisions for him as they get paid for working with him. ORION will continue to work on this. Sonia WATKINS MSW
[2018-02-03] MEDS: Enoxaparin 40 MG/0.4 ML Syringe SC (09:49)
[2018-02-03] MEDS: Bisacodyl 5 MG Tablet PO (09:53)
[2018-02-03] MEDS: Benztropine 2 MG Tablet 1 MG PO ×2 (09:53→21:30)
[2018-02-03] MEDS: Multivitamins,Therapeutic Tablet 1 TABLET PO (09:53)
[2018-02-03] MEDS: 0.9% NaCl Peripheral Flush Adult/Peds IV ×4 (09:54→18:38)
--- NOTE | 2018-02-03 10:13 | CASEMGMT ---
SW spoke with patient and he said he wanted to talk to Kelsie. When asked who Kelsie was he said it is his step sister. SW asked if she lives around here and he said [place]. He said he wants to see her as it is almost [place] and he hasn't seen her in a long time. SW asked him if he knows who Nicole is and he said it is his Senior Health Physics Technician. SW told him SW spoke with Nicole, and she said he makes his own decisions. SW told him the Dr wants to do a procedure and he is the one that gives the okay. He said there is a house and he wants to buy it. SW explained the situation again and he says that he wants to buy that house. It doesn't appear patient is understanding the situations. We are not sure what patient's baseline is either. SW will talk with physician about whether or not heart cath is emergent and if it could be done as an outpatient. Sonia WATKINS MSW
[2018-02-03] MEDS: Oseltamivir Phosphate 75 MG Capsule PO ×2 (10:39→21:22)
--- NOTE | 2018-02-03 10:45 | CASEMGMT ---
ORION spoke with Dr Millan and explained patient is his own decision maker. Patient does need this heart cath while here. He was just extubated today so he may clear up a little. Two physicians may be able to approve the procedure. ORION updated RN. Sonia WATKINS NURSE PRACTITIONER MANAGER
[2018-02-03 10:46] LABS: Magnesium 2.1 mg/dL (1.6-2.6); Potassium 3.5 mmol/L (3.5-5.1)
[2018-02-03] MEDS: Potassium Chloride 10mEq/100mL 10 MEQ/100 ML IV.SOLN. 100 MEQ IV BOLUS ×4 (11:08→15:13)
[2018-02-03] MEDS: Carvedilol 6.25 MG Tablet PO ×2 (12:28→21:30)
[2018-02-03 13:46] LABS: Urine Sodium 91 mmol/L (Not Establ.)
[2018-02-03 14:00] LABS: Osmolality, Urine 270 mOsm/KG
[2018-02-03 14:21] LABS: Anion Gap 9 (5-15); BUN 10 mg/dL (7-18); Calcium,Total 8.5 mg/dL (8.5-10.1); Chloride 88 mmol/L (98-107); Creatinine, Serum 0.59 mg/dL (0.70-1.30); EST Glomerular Filtration Rate 156 mL/min (>60); Est Glom Filt Rate - Afr Amer 188 mL/min (>60); Estimated Creatinine Clearance 112.89 ml/min; Glucose 134 mg/dL (74-106); Potassium 4.1 mmol/L (3.5-5.1); Sodium Level 136 mmol/L (136-145)
--- NOTE | 2018-02-03 14:32 | CASEMGMT ---
ORION received a call from Nicole at [employer] . She said she spoke with patient's step dad, Lauro Guillory. Patient completed a healthcare power of contract attorney in 2010 and he named his step dad as his POA. She faxed ORION the documents. ORION called patient's step dad, Lauro and let him know SW will notify the nurse that he is the medical POA and will make sure they have his number. ORION asked him if he would be able to come to rounds tomorrow at 9am and he could not. He said he is willing to talk on the phone with physician or nurse. ORION spoke with patient's RN, Nat. SW let her know about Lauro and the healthcare POA papers. ORION told her he is not able to make it to rounds tomorrow. ORION also spoke with patient and let him know about conversation with Lauro. ORION told him that he filled out healthcare power of contract attorney papers awhile back and he named Lauro as his power of contract attorney. ORION told him Lauro can help him make medical decisions. He was fine with this and asked when he is coming in. ORION told him he did not tell SW if he was coming in. He seemed happy and relieved to have assistance with decision making. As ORION was typing this note Lauro called ORION and said he changed his plans around and he will be at [facility] for rounds tomorrow. ORION will let RN know. Sonia VARNER
[2018-02-03 14:35] LABS: Osmolality, Serum 287 mOsm/KG (275-295)
[2018-02-03] MEDS: Acetaminophen 500 MG Tablet PO (15:53)
[2018-02-03] MEDS: Piperacil/Tazobactam 3.375 GM Q8 PREMIX IV (21:21)
[2018-02-03] MEDS: Tamsulosin HCl 0.4 MG Capsule PO (21:24)
[2018-02-03] MEDS: RisperiDONE 2 MG Tablet PO (21:26)
[2018-02-03] MEDS: Haloperidol 5 MG Tablet 10 MG PO (21:28)
[2018-02-03] MEDS: traZODone 100 MG Tablet 150 MG PO (21:29)
[2018-02-03] MEDS: clonazePAM 0.5 MG Tablet PO (21:34)
[2018-02-03] MEDS: Pantoprazole Sodium 20 MG Tablet PO (21:35)
[2018-02-04] VITALS (31 sets, daily range): BP systolic 107–185; BP diastolic 49–118; PULSE 110–147; RESP 13–31; TEMP 36.7–38.1; O2SAT 76–99
[2018-02-04] MEDS: Ipratropium/Albuterol Sulfate 3 ML AMPUL.NEB INHALATION ×6 (02:20→23:17)
[2018-02-04] MEDS: CHLORHEXIDINE GLUC 2% CLOTH 1 EACH TOWELETTE TOPICAL (03:44)
[2018-02-04] MEDS: 0.9% NaCl Peripheral Flush Adult/Peds IV ×2 (03:44→18:08)
[2018-02-04 05:09] LABS: Absolute Lymphocyte Count 1.02 X10^3/ul (0.83-4.51); Basophil# 0.01 X10^3/uL; Basophil% 0.1 % (0-1); Hematocrit 46.5 % (40-54); Hemoglobin 15.4 g/dl (13.0-16.5); Lymphocyte # 1.02 X10^3/ul (4.0); Lymphocyte % 5.2 % (19-41); Mean Corp Hgb Conc 33.1 g/gl (32-36); Mean Corpuscular Volume 90.5 fL (80-94); Mean Platelet Vol. 9.7 fl (6.2-12.0); Monocyte# 0.64 X10^3/uL; Monocyte% 3.2 % (0-10); Neutrophil # 18.04 X10^3/uL (2.7-7.7); Neutrophil % 91.2 % (47-70); Platelet Count 201 K/mm3 (150-450); RBC Distribution Width CV 14.5 % (11.6-14.6); RBC Distribution Width SD 47.7 fl (35.1-43.9); Red Blood Count 5.14 M/mm3 (4.6-6.2); White Blood Count 19.8 K/mm3 (4.4-11.0)
[2018-02-04 05:10] LABS: POSITIVE COUNT NO; POSITIVE DIFFERENTIAL NO; POSITIVE MORPHOLOGY YES
[2018-02-04 05:11] LABS: Differential Indicated SCAN CRITERIA MET
[2018-02-04 05:13] LABS: International Normalized Ratio 1.2; Prothrombin Time (Protime)PT. 14.9 SECONDS (11.7-14.9)
[2018-02-04 05:14] LABS: Partial Thromboplast Time 26.5 Seconds (24.1-36.2)
[2018-02-04 05:17] LABS: Anion Gap 10 (5-15); BUN 16 mg/dL (7-18); BUN/Creat Ratio 36.8 RATIO (10-20); Calcium,Total 8.4 mg/dL (8.5-10.1); Chloride 89 mmol/L (98-107); Creatinine, Serum 0.44 mg/dL (0.70-1.30); EST Glomerular Filtration Rate 220 mL/min (>60); Est Glom Filt Rate - Afr Amer 266 mL/min (>60); Estimated Creatinine Clearance 151.38 ml/min; Glucose 95 mg/dL (74-106); Potassium 3.6 mmol/L (3.5-5.1); Sodium Level 136 mmol/L (136-145)
--- NOTE | 2018-02-04 05:55 | EKG12_ITS ---
Test Reason : AM EKG Blood Pressure : / mmHG Vent. Rate : 132 BPM Atrial Rate : 132 BPM P-R Int : 126 ms QRS Dur : 090 ms QT Int : 320 ms P-R-T Axes : 090 092 -58 degrees QTc Int : 474 ms Suspect arm lead reversal, interpretation assumes no reversal Sinus tachycardia with Premature atrial complexes Biatrial enlargement ST & T wave abnormality, consider inferior ischemia ST & T wave abnormality, consider anterior ischemia Abnormal ECG When compared with ECG of 04-FEB-2018 05:27, MANUAL COMPARISON REQUIRED, DATA IS UNCONFIRMED Confirmed by WALLACE THOMAS ([id number]), advertising editor RADHA ELIZABETH ([id number]) on 02/09/2018 2:55:01 PM Referred By: LITA Confirmed By:WALLACE THOMAS
[2018-02-04] MEDS: Aspirin 81 MG TAB.CHEW PO (06:17)
[2018-02-04] MEDS: Piperacil/Tazobactam 3.375 GM Q8 PREMIX IV ×3 (06:17→22:55)
[2018-02-04] MEDS: Clopidogrel Bisulfate 75 MG Tablet PO (06:19)
[2018-02-04] MEDS: Losartan Potassium 25 MG Tablet PO (06:21)
[2018-02-04] MEDS: Carvedilol 6.25 MG Tablet PO ×2 (06:22→13:12)
--- NOTE | 2018-02-04 07:24 | PCM.PN.HOSP ---
Patient Problems: Active and Suspected Problems Respiratory failure (Acute) COPD (chronic obstructive pulmonary disease) (Acute) Non-STEMI (non-ST elevated myocardial infarction) (Acute) LV dysfunction (Acute) Subjective: Patient seen, agreed to undergo left heart catheterization as long as there is no cutting. Patient still remains tachycardic, hyponatremia resolved. Objective: GENERAL: Cooperative HEENT: Atraumatic; EYES; Anicteric, Normal Conjunctiva NECK; supple, normal thyroid, RESPIRATORY: Diminished to auscultation bilaterally, CARDIOVASCULAR: Regular S1 S2, GI: soft, non-tender, normoactive bowel sounds, : No Renal angle tenderness; EXTREMITIES: No edema, no clubbing, no cyanosis. MUSCULOSKELETAL: muscle waisting NEURO: Awake no lateralizing signs SKIN: No Rash Vitals/I&O's: Vital Signs Temp Pulse Resp BP Pulse Ox 100.3 F H 122 H 16 136/100 H 97 02/04/18 04:00 02/04/18 07:00 02/04/18 07:00 02/04/18 07:00 02/04/18 07:00 Oxygen Flow Rate (L/min) 4 Oxygen Delivery Method Nasal Cannula Weight: 47.9 kg Body Mass Index (BMI) 16.8 Intake and Output for Last 24 Hours 02/02/18 02/03/18 02/04/18 23:59 23:59 23:59 Intake Total 1149.6 / 1149.6 5970.4 / 5970.4 239.8 / 239.8 Output Total 1000 / 1000 9800 / 9800 1850 / 1850 Balance 149.6 / 149.6 -3829.6 / -3829.6 -1610.2 / -1610.2 Microbiology Past 72 Hours 01/31/18 12:17 Blood Culture (Wb) - No Site/Description Given Blood Culture - Preliminary No growth in 48 hours. 01/31/18 20:55 Blood Culture (Wb) - Anticubital Right Blood Culture - Preliminary No growth in 48 hours. 02/01/18 08:30 Sputum, Induced/Lukens Gram Stain - Final 02/01/18 08:30 Sputum, Induced/Lukens Respiratory Culture - Final 02/01/18 08:30 Mucosa - Nasopharyngeal Respiratory Panel (PCR) - Final Influenzae B Laboratory Results 02/01/18 07:40: Hepatitis Interpret Not Reportable 02/03/18 05:10: Total Bilirubin 0.70, Direct Bilirubin 0.29, AST 386 H, ALT 775 H, Alkaline Phosphatase 76, Total Protein 5.3 L, Albumin 3.1 L, Globulin 2.2 02/03/18 10:28: Potassium 3.5, Magnesium 2.1 02/03/18 13:35: Urine Osmolality 270 02/03/18 13:35: Ur Random Sodium 91 02/03/18 13:45: Sodium 136, Potassium 4.1, Chloride 88 L, Carbon Dioxide 39.0 H, Anion Gap 9, BUN 10, Creatinine 0.59 L, Estim Creat Clear Calc 112.89, Est GFR (MDRD) Af Amer 188, Est GFR (MDRD) Non-Af 156, BUN/Creatinine Ratio 17.0, Glucose 134 H, Calcium 8.5 02/03/18 13:45: Serum Osmolality 287 02/04/18 04:55: Sodium 136, Potassium 3.6, Chloride 89 L, Carbon Dioxide 37.0 H, Anion Gap 10, BUN 16, Creatinine 0.44 L, Estim Creat Clear Calc 151.38, Est GFR (MDRD) Af Amer 266, Est GFR (MDRD) Non-Af 220, BUN/Creatinine Ratio 36.8 H, Glucose 95, Calcium 8.4 L 02/04/18 04:55: WBC 19.8 H, RBC 5.14, Hgb 15.4, Hct 46.5, MCV 90.5, MCH 30.0, MCHC 33.1, RDW 14.5, RDW Differential 47.7 H, Plt Count 201, MPV 9.7, Immature Gran % (Auto) 0.300, Neut % (Auto) 91.2 H, Lymph % (Auto) 5.2 L, Noble % (Auto) 3.2, Eos % (Auto) 0.0, Baso % (Auto) 0.1, Absolute Neuts (auto) 18.0 H, Absolute Lymphs (auto) 1.02, Total Counted Not Reportable 02/04/18 04:55: PT 14.9, INR 1.2, APTT 26.5 Current Medications Acetaminophen (Tylenol) 500 mg PO Q6H PRN PRN PRN Reason: HEADACHE Last Admin: 02/03/18 15:53 Dose: 500 mg Albuterol Sulfate (Ventolin Aerosols) 2.5 mg INHALATION Q2H PRN PRN PRN Reason: SOB &/OR WHEEZING Albuterol/Ipratropium (Duoneb) 3 ml INHALATION Q4H.RT [facility] Last Admin: 02/04/18 02:20 Dose: 3 ml Aspirin (Aspirin, Baby) 81 mg PO DAILY@0800 [facility] Last Admin: 02/04/18 06:17 Dose: 81 mg Benztropine Mesylate (Cogentin) 1 mg PO BID [facility] Last Admin: 02/03/18 21:30 Dose: 1 mg Bisacodyl (Dulcolax) 5 mg PO DAILY [facility] Last Admin: 02/03/18 09:53 Dose: 5 mg Carvedilol (Coreg) 6.25 mg PO BID [facility] Last Admin: 02/04/18 06:22 Dose: 6.25 mg Chlorhexidine Gluconate () 1 each TOPICAL DAILY [facility] Last Admin: 02/04/18 03:44 Dose: 1 each Clonazepam (Klonopin) 0.5 mg PO QHS [facility] Last Admin: 02/03/18 21:34 Dose: 0.5 mg Clopidogrel Bisulfate (Plavix) 75 mg PO DAILY [facility] Last Admin: 02/04/18 06:19 Dose: 75 mg Enoxaparin Sodium (Lovenox) 40 mg SC DAILY@1000 [facility] Last Admin: 02/03/18 09:49 Dose: 40 mg Guaifenesin (Mucinex) 600 mg PO BID [facility] Last Admin: 02/03/18 21:26 Dose: 600 mg Haloperidol (Haldol) 10 mg PO QHS [facility] Last Admin: 02/03/18 21:28 Dose: 10 mg Hydralazine HCl (Apresoline Iv) 10 mg IV Q6H PRN PRN PRN Reason: BLOOD PRESSURE Last Admin: 02/03/18 18:37 Dose: 10 mg Sodium Chloride () 250 mls @ 15 mls/hr IV .[id number] PRN PRN Reason: SALINE FLUSH Piperacillin Sod/Tazobactam Sod (Zosyn) 3.375 gm in 50 mls @ 12.5 mls/hr IV Q8 [facility] Last Admin: 02/04/18 06:17 Dose: 12.5 mls/hr Losartan Potassium (Cozaar) 25 mg PO DAILY [facility] Last Admin: 02/04/18 06:21 Dose: 25 mg Magnesium Hydroxide (Milk Of Magnesia) 30 ml PO DAILY PRN PRN PRN Reason: Constipation Metoprolol Tartrate (Lopressor (Beta Pietro)) 5 mg IV Q6H PRN PRN PRN Reason: HR > 100 Last Admin: 02/03/18 17:10 Dose: 5 mg Montelukast Sodium (Singulair) 10 mg PO DAILY [facility] Last Admin: 02/03/18 08:49 Dose: 10 mg [facility]it[facility]amin) [facility] Last Admin: 02/03/18 09:53 Dose: 1 tablet Nicotine (Nicoderm Cq (Pbkc)) 21 mg TRANSDERM. DAILY [facility] Last Admin: 02/03/18 08:50 Dose: 21 mg Nutritional Formula (Lactose Free) (Ensure Enlive) 120 ml PO 4X/DAY [facility] Last Admin: 02/04/18 00:02 Dose: Not Given Oseltamivir Phosphate (Tamiflu) 75 mg PO BID [facility] Stop: 02/05/18 22:01 Last Admin: 02/03/18 21:22 Dose: 75 mg Pantoprazole Sodium (Protonix) 20 mg PO QHS [facility] Last Admin: 02/03/18 21:35 Dose: 20 mg Prednisone () 40 mg PO DAILY@0800 [facility] Last Admin: 02/03/18 08:49 Dose: 40 mg Risperidone (Risperdal) 2 mg PO QHS [facility] Last Admin: 02/03/18 21:26 Dose: 2 mg Risperidone (Risperdal) 1 mg PO DAILY [facility] Last Admin: 02/03/18 08:49 Dose: 1 mg Sodium Chloride () 5 - 15 ml IV UD PRN PRN Reason: SALINE FLUSH Last Admin: 02/04/18 03:44 Dose: 10 ml Tamsulosin HCl (Flomax) 0.4 mg PO QHS [facility] Last Admin: 02/03/18 21:24 Dose: 0.4 mg Trazodone HCl (Desyrel) 150 mg PO QHS [facility] Last Admin: 02/03/18 21:29 Dose: 150 mg Medical Necessity - Tobacco Use Smoking Status: Current every day smoker Assessment/Plan All Active Problems Respiratory failure (Acute) COPD (chronic obstructive pulmonary disease) (Acute) Non-STEMI (non-ST elevated myocardial infarction) (Acute) LV dysfunction (Acute) Patient is a 47-year-old gentleman resident [facility] the [facility] was brought to the emergency department by the EMS squad with progressive shortness of breath. Patient was reported to be gasping for air with oxygen saturation in the 60s. An assessment of acute hypoxic respiratory failure was made patient intubated and admitted to the intensive care unit for subsequent management. Chest x-ray on admission demonstrated bilateral infiltrate 1. Acute hypoxic respiratory failure secondary to acute influenza B infection. Patient admitted to the intensive care unit was placed on the vent from the ED. Patient started on Tamiflu, Zosyn as well as vancomycin given gram-positive cocci in the sputum Gram stain patient undergo weaning trial on the morning of 02/02/2018. Patient was weaned off the vent on the morning of 02/03/2018. Seen on the morning of 02/04/2018 remains comfortable at rest 2. Chronic hypoxic respiratory failure secondary to COPD patient is on baseline home O2 3. Elevated troponin possibly related to demand ischemia from patient underlying infectious etiology. Patient also had a slightly elevated BNP 2D echo ordered for subsequent evaluation 2D echo demonstrated EF of 40% and stage I diastolic dysfunction with bileaflet diffuse mitral valve thickening Case was discussed with Dr. Millan with cardiology plan is for patient to possibly undergo left heart catheterization prior to his discharge patient left heart catheterization tentatively scheduled on 02/04/2018 4. Acute hepatitis of unknown etiology at this point acute hepatitis panel ordered, will continue with monitoring 5. Hyponatremia patient is on IV fluids with monitoring of electrolytes 6. Severe protein calorie malnutrition as evidenced by muscle wasting hypoalbuminemia as well as BMI of 16.3 consultation placed to nutrition 7. Schizophrenia 8. Learning disability 9. DVT prophylaxis SC Lovenox Code Visit Inpatient E&M: 53784 Subs Hosp L2
--- NOTE | 2018-02-04 07:30 | PN_ITS ---
Subjective: The patient was seen and examined at the bedside this morning. Events from the last 24 hours have been reviewed. The patient is currently afebrile, hemodynamically stable and maintaining appropriate oxygen saturations on 4 L/min via nasal cannula. The patient is done well clinically following extubation yesterday. His only complaint is for that of being thirsty this morning. Objective: The patient's most recent lab work, culture data and imaging studies have all been personally reviewed. Blood cultures are pending. Respiratory viral panel was positive for influenza B. Sputum culture is pending. MRSA screen was negative. Surface echocardiogram revealed normal LV size with an ejection fraction of 40% and stage I diastolic dysfunction. There was mild to moderate global hypokinesis of the LV. General: Alert, Cooperative, No apparent distress, - - Intermittently confused. HEENT: Atraumatic, PERRLA, Normocephalic Oral: Moist Mucosa, - - Poor dentition Neck: Supple, No Nodes, Trachea Midline Lungs: No wheeze, No rales, Diminished, Rhonchi Cardiovascular: Normal S1, Normal S2, No murmurs, Tachycardic Abdomen: Bowel Sounds Present, Soft, Non Tender Extremities: No clubbing, No cyanosis, No edema Skin: - - No significant change from previous. Musculoskeletal: Cachexia, Muscle Wasting Lymphatic: No Cervical, Supraclavicular, or Inguinal Adenopathy Neurological: Neuro grossly intact Psych/Mental Status: Flat Affect Vital Signs Temp Pulse Resp BP Pulse Ox 37.9 C H 122 H 16 136/100 H 97 02/04/18 04:00 02/04/18 07:00 02/04/18 07:00 02/04/18 07:00 02/04/18 07:00 Oxygen Flow Rate (L/min) 4 Oxygen Delivery Method Nasal Cannula Weight: 105 lb 9.623 oz Body Mass Index (BMI) 16.8 Intake and Output for Last 24 Hours 02/02/18 02/03/18 02/04/18 23:59 23:59 23:59 Intake Total 1149.6 / 1149.6 5970.4 / 5970.4 239.8 / 239.8 Output Total 1000 / 1000 9800 / 9800 1850 / 1850 Balance 149.6 / 149.6 -3829.6 / -3829.6 -1610.2 / -1610.2 Labs (Last 48 Hours) 02/01/18 02/03/18 02/03/18 07:40 05:10 05:10 WBC 17.4 H RBC 4.67 Hgb 14.0 Hct 41.7 MCV 89.3 MCH 30.0 MCHC 33.6 RDW 14.3 RDW Differential 46.4 H Plt Count 203 MPV 9.5 Immature Gran % (Auto) Neut % (Auto) Lymph % (Auto) [place] % (Auto) Eos % (Auto) Baso % (Auto) Absolute Neuts (auto) Absolute Lymphs (auto) Total Counted PT INR APTT Sodium 135 L Potassium 3.8 Chloride 89 L Carbon Dioxide 35.0 H Anion Gap 11 BUN 12 Creatinine 0.55 L Estim Creat Clear Calc 126.85 Est GFR (MDRD) Af Amer 203 Est GFR (MDRD) Non-Af 167 BUN/Creatinine Ratio 21.8 H Glucose 142 H Serum Osmolality Calcium 8.1 L Magnesium Total Bilirubin Direct Bilirubin AST ALT Alkaline Phosphatase Total Protein Albumin Globulin Urine Osmolality Ur Random Sodium Hepatitis A IgM Ab Negative Hep Bs Antigen Negative Hep B Core IgM Ab Negative Hepatitis Interpret Not Reportable 02/03/18 02/03/18 02/03/18 05:10 10:28 13:35 WBC RBC Hgb Hct MCV MCH MCHC RDW RDW Differential Plt Count MPV Immature Gran % (Auto) Neut % (Auto) Lymph % (Auto) [place] % (Auto) Eos % (Auto) Baso % (Auto) Absolute Neuts (auto) Absolute Lymphs (auto) Total Counted PT INR APTT Sodium Potassium 3.5 Chloride Carbon Dioxide Anion Gap BUN Creatinine Estim Creat Clear Calc Est GFR (MDRD) Af Amer Est GFR (MDRD) Non-Af BUN/Creatinine Ratio Glucose Serum Osmolality Calcium Magnesium 2.1 Total Bilirubin 0.70 Direct Bilirubin 0.29 AST 386 H ALT 775 H Alkaline Phosphatase 76 Total Protein 5.3 L Albumin 3.1 L Globulin 2.2 Urine Osmolality 270 Ur Random Sodium Hepatitis A IgM Ab Hep Bs Antigen Hep B Core IgM Ab Hepatitis Interpret 02/03/18 02/03/18 02/03/18 13:35 13:45 13:45 WBC RBC Hgb Hct MCV MCH MCHC RDW RDW Differential Plt Count MPV Immature Gran % (Auto) Neut % (Auto) Lymph % (Auto) [place] % (Auto) Eos % (Auto) Baso % (Auto) Absolute Neuts (auto) Absolute Lymphs (auto) Total Counted PT INR APTT Sodium 136 Potassium 4.1 Chloride 88 L Carbon Dioxide 39.0 H Anion Gap 9 BUN 10 Creatinine 0.59 L Estim Creat Clear Calc 112.89 Est GFR (MDRD) Af Amer 188 Est GFR (MDRD) Non-Af 156 BUN/Creatinine Ratio 17.0 Glucose 134 H Serum Osmolality 287 Calcium 8.5 Magnesium Total Bilirubin Direct Bilirubin AST ALT Alkaline Phosphatase Total Protein Albumin Globulin Urine Osmolality Ur Random Sodium 91 Hepatitis A IgM Ab Hep Bs Antigen Hep B Core IgM Ab Hepatitis Interpret 02/04/18 02/04/18 02/04/18 04:55 04:55 04:55 WBC 19.8 H RBC 5.14 Hgb 15.4 Hct 46.5 MCV 90.5 MCH 30.0 MCHC 33.1 RDW 14.5 RDW Differential 47.7 H Plt Count 201 MPV 9.7 Immature Gran % (Auto) 0.300 Neut % (Auto) 91.2 H Lymph % (Auto) 5.2 L [place] % (Auto) 3.2 Eos % (Auto) 0.0 Baso % (Auto) 0.1 Absolute Neuts (auto) 18.0 H Absolute Lymphs (auto) 1.02 Total Counted Not Reportable PT 14.9 INR 1.2 APTT 26.5 Sodium 136 Potassium 3.6 Chloride 89 L Carbon Dioxide 37.0 H Anion Gap 10 BUN 16 Creatinine 0.44 L Estim Creat Clear Calc 151.38 Est GFR (MDRD) Af Amer 266 Est GFR (MDRD) Non-Af 220 BUN/Creatinine Ratio 36.8 H Glucose 95 Serum Osmolality Calcium 8.4 L Magnesium Total Bilirubin Direct Bilirubin AST ALT Alkaline Phosphatase Total Protein Albumin Globulin Urine Osmolality Ur Random Sodium Hepatitis A IgM Ab Hep Bs Antigen Hep B Core IgM Ab Hepatitis Interpret Microbiology 01/31/18 12:17 Blood Culture (Wb) - No Site/Description Given Blood Culture - Preliminary No growth in 48 hours. 01/31/18 20:55 Blood Culture (Wb) - Anticubital Right Blood Culture - Preliminary No growth in 48 hours. 02/01/18 08:30 Sputum, Induced/Lukens Gram Stain - Final 02/01/18 08:30 Sputum, Induced/Lukens Respiratory Culture - Final Clinical Impression(s) from Imaging Studies Chest X-Ray 01/31/18 21:25 IMPRESSION: Malpositioned enteric tube requires advancement 10 to 20 cm. ET tube as above. Bibasilar interstitial infiltrates. COPD. Probable skinfold left upper lung field. Follow-up recommended to exclude pneumothorax. Electronically Signed: Griffin Schneider MD at 21:58 EST , Service support , KUB X-Ray 01/31/18 22:40 IMPRESSION: OG tube in stomach Electronically Signed: Griffin Schneider MD at 23:10 EST , Service support , Chest X-Ray 02/01/18 05:55 IMPRESSION: A background of emphysematous changes in the lungs. ET tube and NG tube in good positions Electronically Signed: Dilan Dick MD at 5:42 EST Tel , Service support , KUB X-Ray 02/01/18 14:27 IMPRESSION: The tip of the orogastric tube is coiled within the fundal portion of the stomach. Electronically Signed: Jeremias Fraser MD at 15:05 EST Tel [phone], Service support , Medical Necessity - Tobacco Use Smoking Status: Current every day smoker Assessment/Plan All Active Problems Respiratory failure (Acute) COPD (chronic obstructive pulmonary disease) (Acute) Non-STEMI (non-ST elevated myocardial infarction) (Acute) LV dysfunction (Acute) RECOMMENDATIONS: 1. Consideration for cardiac catheterization next week. 2. Continue to wean supplemental oxygen to maintain saturations at or above 90%. Encourage aggressive incentive spirometer use. 3. Continue 1.5 L fluid restriction 4. Continue antibiotics along with Tamiflu. 5. Continue scheduled bronchodilators along with prednisone 40 mg daily. 6. Continue nicotine replacement therapy. 7. Continue baseline psychiatric medications. IMPRESSIONS: 1. Acute on chronic hypoxemic respiratory failure secondary to COPD exacerbation due to influenza B and possible community-acquired pneumonia The patient presented to the emergency department with acute on chronic respiratory failure. He does have a baseline 2 L/min supplemental oxygen requirement along with what is presumptive severe COPD and ongoing tobacco dependence. While his plain film chest imaging was underwhelming for the presence of a significant pneumonia, the patient was started on broad-spectrum antibiotics. Subsequent workup revealed the presence of influenza B. Tamiflu was subsequently started. Scheduled aerosol treatments along with steroids will be continued. We will continue to encourage incentive spirometer use and wean supplemental oxygen as tolerated. 2. Hyponatremia of unknown chronicity Resolved. The patient did present with significantly decreased serum sodium level of unknown chronicity. His mentation did appear to be intact while in the emergency department per documentation. Therefore hypertonic saline was never initiated. The patient did receive a significant amount of normal saline initially and his sodium was overcorrected. The supplemental fluids were then discontinued. His sodium level has since stabilized. The patient does appear to be drinking a significant amount of free water, raising the concern for underlying psychogenic polydipsia. He has therefore been placed on a 1.5 L fluid restriction. 3. Combined systolic and diastolic heart failure/troponin elevation The patient's recent echocardiogram did reveal evidence of combined systolic and diastolic heart failure. The patient does have risk factors for coronary artery disease. Cardiology is currently following with potential plans for coronary angiography. 4. Transaminitis Unclear etiology. Could be secondary to passive vascular congestion. Hepatitis panel was negative. Transaminase levels are improving. 5. Chronic urinary retention/schizophrenia/GERD/long-standing tobacco dependence Complicates care, management, recovery and prognosis. Continue appropriate ICU prophylaxis. Nicotine replacement therapy can be continued while the patient is admitted to the hospital. This note was generated with [employer] software. It may contain incorrect words, spelling, and punctuation that were not noted in checking the note before signing. Code Visit Inpatient E&M: 81529 Subs Hosp L3
--- NOTE | 2018-02-04 07:31 | PN_ITS ---
Patient Problems: Active and Suspected Problems Respiratory failure (Acute) COPD (chronic obstructive pulmonary disease) (Acute) Non-STEMI (non-ST elevated myocardial infarction) (Acute) LV dysfunction (Acute) Subjective: Patient seen, agreed to undergo left heart catheterization as long as there is no cutting. Patient still remains tachycardic, hyponatremia resolved. Objective: GENERAL: Cooperative HEENT: Atraumatic; EYES; Anicteric, Normal Conjunctiva NECK; supple, normal thyroid, RESPIRATORY: Diminished to auscultation bilaterally, CARDIOVASCULAR: Regular S1 S2, GI: soft, non-tender, normoactive bowel sounds, : No Renal angle tenderness; EXTREMITIES: No edema, no clubbing, no cyanosis. MUSCULOSKELETAL: muscle waisting NEURO: Awake no lateralizing signs SKIN: No Rash Vitals/I&O's: Vital Signs Temp Pulse Resp BP Pulse Ox 100.3 F H 122 H 16 136/100 H 97 02/04/18 04:00 02/04/18 07:00 02/04/18 07:00 02/04/18 07:00 02/04/18 07:00 Oxygen Flow Rate (L/min) 4 Oxygen Delivery Method Nasal Cannula Weight: 47.9 kg Body Mass Index (BMI) 16.8 Intake and Output for Last 24 Hours 02/02/18 02/03/18 02/04/18 23:59 23:59 23:59 Intake Total 1149.6 / 1149.6 5970.4 / 5970.4 239.8 / 239.8 Output Total 1000 / 1000 9800 / 9800 1850 / 1850 Balance 149.6 / 149.6 -3829.6 / -3829.6 -1610.2 / -1610.2 Microbiology Past 72 Hours 01/31/18 12:17 Blood Culture (Wb) - No Site/Description Given Blood Culture - Preliminary No growth in 48 hours. 01/31/18 20:55 Blood Culture (Wb) - Anticubital Right Blood Culture - Preliminary No growth in 48 hours. 02/01/18 08:30 Sputum, Induced/Lukens Gram Stain - Final 02/01/18 08:30 Sputum, Induced/Lukens Respiratory Culture - Final 02/01/18 08:30 Mucosa - Nasopharyngeal Respiratory Panel (PCR) - Final Influenzae B Laboratory Results 02/01/18 07:40: Hepatitis Interpret Not Reportable 02/03/18 05:10: Total Bilirubin 0.70, Direct Bilirubin 0.29, AST 386 H, ALT 775 H, Alkaline Phosphatase 76, Total Protein 5.3 L, Albumin 3.1 L, Globulin 2.2 02/03/18 10:28: Potassium 3.5, Magnesium 2.1 02/03/18 13:35: Urine Osmolality 270 02/03/18 13:35: Ur Random Sodium 91 02/03/18 13:45: Sodium 136, Potassium 4.1, Chloride 88 L, Carbon Dioxide 39.0 H, Anion Gap 9, BUN 10, Creatinine 0.59 L, Estim Creat Clear Calc 112.89, Est GFR (MDRD) Af Amer 188, Est GFR (MDRD) Non-Af 156, BUN/Creatinine Ratio 17.0, Glucose 134 H, Calcium 8.5 02/03/18 13:45: Serum Osmolality 287 02/04/18 04:55: Sodium 136, Potassium 3.6, Chloride 89 L, Carbon Dioxide 37.0 H, Anion Gap 10, BUN 16, Creatinine 0.44 L, Estim Creat Clear Calc 151.38, Est GFR (MDRD) Af Amer 266, Est GFR (MDRD) Non-Af 220, BUN/Creatinine Ratio 36.8 H, Glucose 95, Calcium 8.4 L 02/04/18 04:55: WBC 19.8 H, RBC 5.14, Hgb 15.4, Hct 46.5, MCV 90.5, MCH 30.0, MCHC 33.1, RDW 14.5, RDW Differential 47.7 H, Plt Count 201, MPV 9.7, Immature Gran % (Auto) 0.300, Neut % (Auto) 91.2 H, Lymph % (Auto) 5.2 L, [place] % (Auto) 3.2, Eos % (Auto) 0.0, Baso % (Auto) 0.1, Absolute Neuts (auto) 18.0 H, Absolute Lymphs (auto) 1.02, Total Counted Not Reportable 02/04/18 04:55: PT 14.9, INR 1.2, APTT 26.5 Current Medications Acetaminophen (Tylenol) 500 mg PO Q6H PRN PRN PRN Reason: HEADACHE Last Admin: 02/03/18 15:53 Dose: 500 mg Albuterol Sulfate (Ventolin Aerosols) 2.5 mg INHALATION Q2H PRN PRN PRN Reason: SOB &/OR WHEEZING Albuterol/Ipratropium (Duoneb) 3 ml INHALATION Q4H.RT [facility] Last Admin: 02/04/18 02:20 Dose: 3 ml Aspirin (Aspirin, Baby) 81 mg PO DAILY@0800 [facility] Last Admin: 02/04/18 06:17 Dose: 81 mg Benztropine Mesylate (Cogentin) 1 mg PO BID [facility] Last Admin: 02/03/18 21:30 Dose: 1 mg Bisacodyl (Dulcolax) 5 mg PO DAILY [facility] Last Admin: 02/03/18 09:53 Dose: 5 mg Carvedilol (Coreg) 6.25 mg PO BID [facility] Last Admin: 02/04/18 06:22 Dose: 6.25 mg Chlorhexidine Gluconate () 1 each TOPICAL DAILY [facility] Last Admin: 02/04/18 03:44 Dose: 1 each Clonazepam (Klonopin) 0.5 mg PO QHS [facility] Last Admin: 02/03/18 21:34 Dose: 0.5 mg Clopidogrel Bisulfate (Plavix) 75 mg PO DAILY [facility] Last Admin: 02/04/18 06:19 Dose: 75 mg Enoxaparin Sodium (Lovenox) 40 mg SC DAILY@1000 [facility] Last Admin: 02/03/18 09:49 Dose: 40 mg Guaifenesin (Mucinex) 600 mg PO BID [facility] Last Admin: 02/03/18 21:26 Dose: 600 mg Haloperidol (Haldol) 10 mg PO QHS [facility] Last Admin: 02/03/18 21:28 Dose: 10 mg Hydralazine HCl (Apresoline Iv) 10 mg IV Q6H PRN PRN PRN Reason: BLOOD PRESSURE Last Admin: 02/03/18 18:37 Dose: 10 mg Sodium Chloride () 250 mls @ 15 mls/hr IV .[id number] PRN PRN Reason: SALINE FLUSH Piperacillin Sod/Tazobactam Sod (Zosyn) 3.375 gm in 50 mls @ 12.5 mls/hr IV Q8 [facility] Last Admin: 02/04/18 06:17 Dose: 12.5 mls/hr Losartan Potassium (Cozaar) 25 mg PO DAILY [facility] Last Admin: 02/04/18 06:21 Dose: 25 mg Magnesium Hydroxide (Milk Of Magnesia) 30 ml PO DAILY PRN PRN PRN Reason: Constipation Metoprolol Tartrate (Lopressor (Beta Pietro)) 5 mg IV Q6H PRN PRN PRN Reason: HR > 100 Last Admin: 02/03/18 17:10 Dose: 5 mg Montelukast Sodium (Singulair) 10 mg PO DAILY [facility] Last Admin: 02/03/18 08:49 Dose: 10 mg [facility] Last Admin: 02/03/18 09:53 Dose: 1 tablet Nicotine (Nicoderm Cq (Pbkc)) 21 mg TRANSDERM. DAILY [facility] Last Admin: 02/03/18 08:50 Dose: 21 mg Nutritional Formula (Lactose Free) (Ensure Enlive) 120 ml PO 4X/DAY [facility] Last Admin: 02/04/18 00:02 Dose: Not Given Oseltamivir Phosphate (Tamiflu) 75 mg PO BID [facility] Stop: 02/05/18 22:01 Last Admin: 02/03/18 21:22 Dose: 75 mg Pantoprazole Sodium (Protonix) 20 mg PO QHS [facility] Last Admin: 02/03/18 21:35 Dose: 20 mg Prednisone () 40 mg PO DAILY@0800 [facility] Last Admin: 02/03/18 08:49 Dose: 40 mg Risperidone (Risperdal) 2 mg PO QHS [facility] Last Admin: 02/03/18 21:26 Dose: 2 mg Risperidone (Risperdal) 1 mg PO DAILY [facility] Last Admin: 02/03/18 08:49 Dose: 1 mg Sodium Chloride () 5 - 15 ml IV UD PRN PRN Reason: SALINE FLUSH Last Admin: 02/04/18 03:44 Dose: 10 ml Tamsulosin HCl (Flomax) 0.4 mg PO QHS [facility] Last Admin: 02/03/18 21:24 Dose: 0.4 mg Trazodone HCl (Desyrel) 150 mg PO QHS [facility] Last Admin: 02/03/18 21:29 Dose: 150 mg Medical Necessity - Tobacco Use Smoking Status: Current every day smoker Assessment/Plan All Active Problems Respiratory failure (Acute) COPD (chronic obstructive pulmonary disease) (Acute) Non-STEMI (non-ST elevated myocardial infarction) (Acute) LV dysfunction (Acute) Patient is a 47-year-old gentleman resident at the [facility] was brought to the emergency department by the EMS squad with progressive shortness of breath. Patient was reported to be gasping for air with oxygen saturation in the 60s. An assessment of acute hypoxic respiratory failure was made patient intubated and admitted to the intensive care unit for subsequent management. Chest x-ray on admission demonstrated bilateral infiltrate 1. Acute hypoxic respiratory failure secondary to acute influenza B infection. Patient admitted to the intensive care unit was placed on the vent from the ED. Patient started on Tamiflu, Zosyn as well as vancomycin given gram-positive cocci in the sputum Gram stain patient undergo weaning trial on the morning of 02/02/2018. Patient was weaned off the vent on the morning of 02/03/2018. Seen on the morning of 02/04/2018 remains comfortable at rest 2. Chronic hypoxic respiratory failure secondary to COPD patient is on baseline home O2 3. Elevated troponin possibly related to demand ischemia from patient underlying infectious etiology. Patient also had a slightly elevated BNP 2D echo ordered for subsequent evaluation 2D echo demonstrated EF of 40% and stage I diastolic dysfunction with bileaflet diffuse mitral valve thickening Case was discussed with Dr. Millan with cardiology plan is for patient to possibly undergo left heart catheterization prior to his discharge patient left heart catheterization tentatively scheduled on 02/04/2018 4. Acute hepatitis of unknown etiology at this point acute hepatitis panel o rdered, will continue with monitoring 5. Hyponatremia patient is on IV fluids with monitoring of electrolytes 6. Severe protein calorie malnutrition as evidenced by muscle wasting hypoalbuminemia as well as BMI of 16.3 consultation placed to nutrition 7. Schizophrenia 8. Learning disability 9. DVT prophylaxis SC Lovenox Code Visit Inpatient E&M: 57334 Subs Hosp L2
--- NOTE | 2018-02-04 09:34 | PCM.PN.CARD ---
Subjectve: Patient improving from mental status today, although still has occasional confusing conversations. No anginal symptoms. Patient is tachycardic and hypertensive as well as tachypneic. He is unable to lay down flat due to nausea for more than 1 minute. No edema. He has significant rhonchi over his right lung with what appears to be a late expiratory pleural rub. Telemetry shows sinus tachycardia with rare PVCs. Objective: Vital Signs Temp Pulse Resp BP Pulse Ox 100.3 F H 112 H 13 143/101 H 96 02/04/18 04:00 02/04/18 08:00 02/04/18 08:00 02/04/18 08:00 02/04/18 08:00 Oxygen Flow Rate (L/min) 4 Oxygen Delivery Method Nasal Cannula Weight: 105 lb 9.623 oz Body Mass Index (BMI) 16.8 Intake and Output for Last 24 Hours 02/02/18 02/03/18 02/04/18 23:59 23:59 23:59 Intake Total 1149.6 / 1149.6 5970.4 / 5970.4 239.8 / 239.8 Output Total 1000 / 1000 9800 / 9800 1850 / 1850 Balance 149.6 / 149.6 -3829.6 / -3829.6 -1610.2 / -1610.2 General: Awake, Alert, Oriented x 3 HEENT: PERRL, EOMI, Sclera Non Icteric Neck: Supple, Good ROM, No Lymph Node Enlargement Lungs: Clear to auscultation Cardiovascular: Regular Rhythm, Normal S1, Normal S2, No Murmurs, No Rubs, No Gallops Vascular: No Carotid Bruits, Normal Femoral Pulses, Normal Radial Pulses, Normal Dorsalis Pedal Pulse, Normal Posterior Tibial Pulses Abdomen: Bowel Sounds Present, Soft, Non Tender, No HSM, No Organomegaly Extremities: No Cyanosis, No Clubbing, No edema Neurological: No Focal Motor or Sensory Deficit 02/03/18 10:28: Potassium 3.5, Magnesium 2.1 02/03/18 13:45: Sodium 136, Potassium 4.1, Chloride 88 L, Carbon Dioxide 39.0 H, Anion Gap 9, BUN 10, Creatinine 0.59 L, Est GFR (MDRD) Af Amer 188, Est GFR (MDRD) Non-Af 156, BUN/Creatinine Ratio 17.0, Glucose 134 H, Calcium 8.5 02/03/18 13:45: Serum Osmolality 287 02/04/18 04:55: Sodium 136, Potassium 3.6, Chloride 89 L, Carbon Dioxide 37.0 H, Anion Gap 10, BUN 16, Creatinine 0.44 L, Est GFR (MDRD) Af Amer 266, Est GFR (MDRD) Non-Af 220, BUN/Creatinine Ratio 36.8 H, Glucose 95, Calcium 8.4 L 02/04/18 04:55: WBC 19.8 H, RBC 5.14, Hgb 15.4, Hct 46.5, MCV 90.5, MCH 30.0, MCHC 33.1, RDW 14.5, RDW Differential 47.7 H, Plt Count 201, MPV 9.7, Immature Gran % (Auto) 0.300, Neut % (Auto) 91.2 H, Lymph % (Auto) 5.2 L, [place] % (Auto) 3.2, Eos % (Auto) 0.0, Baso % (Auto) 0.1, Absolute Neuts (auto) 18.0 H, Total Counted Not Reportable 02/04/18 04:55: PT 14.9, INR 1.2, APTT 26.5 Rhythm: EKG: ECHO: Stress Test: Cardiac Cath: PCI: CT Surgery: Holter monitor: EPS: PPM: CXR: Chest CT Scan: Medical Necessity - Tobacco Use Smoking Status: Current every day smoker Assessment/Plan 1. Non-STEMI: The patient has evidence of respiratory distress with low P O2 sats, found unresponsive at a fdc, and requiring supplemental oxygenation followed by urgent intubation. His chest x-ray showed no overt infiltrates, but does have evidence of diaphragmatic flattening and probable COPD. In addition he was found to be hyponatremic and is being corrected slowly. Patient is tachypneic this morning, with rhonchi over his right base as well as a late expiratory pleural rub. The patient had a mild elevation in his troponins at a peak of 1.0, and is now trending downwards. In addition, his echocardiogram showed global LV dysfunction of a moderate degree with an EF of approximately 40%. Patient appeared to have bilateral mitral leaflet thickening, and stage I diastolic dysfunction. Patient was extubated successfully on 02/03/18 and has remained tachycardic and hypertensive although he is neurologically intact. We have started Coreg 6.25 mg p.o. twice daily yesterday, and will recommend increasing to 12.5 mg p.o. twice daily today for tachycardia and hypertension. In addition we had started him on Cozaar 25 mg p.o. daily. Would also recommend starting him on Lasix 20 mg p.o. daily for his LV dysfunction and tachypnea. I reviewed the patient's echocardiogram to assess his mitral valve status as well. I do not see any outward signs of endocarditis at this time. His blood cultures are pending. I had a long and thorough discussion with the patient this morning, who deferred to his stepfather who is a POA. I had a long and thorough discussion with the patient's stepfather who is his POA and explained the risks/benefits of the catheterization procedure with specific attention to lack of on-site surgical backup. Patient's POA has agreed to consent to catheterization witnessed by ICU nursing staff. Signed consent is in the chart. Patient is unable to lay down flat today, but will hopefully be able to proceed with catheterization on Wednesday. Patient was loaded with Plavix 300 mg x1 yesterday and will continue baby aspirin and Plavix 75 mg p.o. daily going forward until his catheterization on Wednesday. 2. Hyperlipidemia: Recommend obtaining a fasting lipid profile once the patient has recovered from this event. The patient's LFTs are now decreasing, possibly suggesting resolution of shock liver. Would not recommend any antilipid therapy until his LFTs have normalized. 3. COPD: Patient has evidence of COPD on his chest x-ray as well as by history. Will defer to pulmonary. 4. Discussed with Dr. Shelby. Thank you very much for the opportunity to participate in the cardiac care of your patient. We will hopefully plan for left heart catheterization Wednesday. Code Visit Inpatient E&M: 84107 Subs Hosp L2
[2018-02-04] MEDS: Benztropine 2 MG Tablet 1 MG PO ×2 (11:10→22:57)
[2018-02-04] MEDS: Multivitamins,Therapeutic Tablet 1 TABLET PO (11:10)
[2018-02-04] MEDS: predniSONE 20 MG Tablet 40 MG PO (11:10)
[2018-02-04] MEDS: Bisacodyl 5 MG Tablet PO (11:11)
[2018-02-04] MEDS: guaiFENesin 600 MG Tablet PO ×2 (11:11→22:56)
[2018-02-04] MEDS: RisperiDONE 1 MG Tablet PO (11:12)
[2018-02-04] MEDS: Montelukast 10 MG Tablet PO (11:12)
[2018-02-04] MEDS: Oseltamivir Phosphate 75 MG Capsule PO ×2 (11:13→22:56)
[2018-02-04] MEDS: Enoxaparin 40 MG/0.4 ML Syringe SC (11:16)
--- NOTE | 2018-02-04 13:51 | CASEMGMT ---
ORION spoke with Mary cosby [facility] RN. She said she would need to come in and do an assessment before patient could return. ORION told her he will be getting a heart cath on Wednesday so he won't be ready over the weekend. She will talk with ORION on Wednesday. She told ORION that there are a lot of steps at the [facility]. Sonia WATKINS MSW
--- NOTE | 2018-02-04 16:06 | CPS ---
Patient up with therapy to bathroom. Patient removed nasal cannula as PT entered room. Approx on room Air x 5 min. placed back on 3lpm.
[2018-02-04] MEDS: Metoprolol Tartrate 5 MG/5 ML Vial IV (18:07)
[2018-02-04] MEDS: Tamsulosin HCl 0.4 MG Capsule PO (22:55)
[2018-02-04] MEDS: Pantoprazole Sodium 20 MG Tablet PO (22:56)
[2018-02-04] MEDS: RisperiDONE 2 MG Tablet PO (22:56)
[2018-02-04] MEDS: clonazePAM 0.5 MG Tablet PO (22:56)
[2018-02-04] MEDS: Carvedilol 12.5 MG Tablet PO (22:57)
[2018-02-04] MEDS: traZODone 100 MG Tablet 150 MG PO (22:57)
[2018-02-04] MEDS: Haloperidol 5 MG Tablet 10 MG PO (23:00)
[2018-02-05] VITALS (24 sets, daily range): BP systolic 72–162; BP diastolic 46–90; PULSE 92–130; RESP 16–22; TEMP 36.4–37.1; O2SAT 93–97
--- NOTE | 2018-02-05 06:15 | PN_ITS ---
Patient Problems: Active and Suspected Problems Respiratory failure (Acute) COPD (chronic obstructive pulmonary disease) (Acute) Non-STEMI (non-ST elevated myocardial infarction) (Acute) LV dysfunction (Acute) Subjective: The patient was seen and examined at the bedside this morning. Events from the last 24 hours have been reviewed. The patient is currently afebrile, hemodynamically stable and maintaining appropriate oxygen saturations on 3 L/min via nasal cannula. The patient has done well clinically following his transfer from the intensive care unit. The patient is currently being considered for cardiac catheterization on Wednesday. Objective: The patient's most recent lab work, culture data and imaging studies have all been personally reviewed. Blood cultures are pending. Respiratory viral panel was positive for influenza B. Sputum culture is pending. MRSA screen was negative. Surface echocardiogram revealed normal LV size with an ejection fraction of 40% and stage I diastolic dysfunction. There was mild to moderate global hypokinesis of the LV. - Physical Exam General: Alert, Cooperative, No apparent distress, - - Resting comfortably in bed at the current time. HEENT: Atraumatic, PERRLA, Normocephalic Oral: No Gingival or Mucosal Lesions/ Ulcerations, - - Poor dentition Neck: Supple, No Nodes, Trachea Midline Lungs: No rhonchi, No wheeze, No rales, Diminished Cardiovascular: Normal S1, Normal S2, No murmurs, Tachycardic Abdomen: Bowel Sounds Present, Soft, Non Tender Extremities: No clubbing, No cyanosis, No edema Skin: - - No significant change from previous Musculoskeletal: Cachexia, Muscle Wasting Lymphatic: No Cervical, Supraclavicular, or Inguinal Adenopathy Neurological: Cranial nerves II-XII grossly intact, Neuro grossly intact Psych/Mental Status: Flat Affect Vital Signs Temp Pulse Resp BP Pulse Ox 36.7 C 110 H 18 162/90 H 94 02/05/18 04:34 02/05/18 04:34 02/05/18 04:34 02/05/18 04:34 02/05/18 04:34 Oxygen Flow Rate (L/min) 3 Oxygen Delivery Method Nasal Cannula Weight: 105 lb 9.623 oz Body Mass Index (BMI) 16.8 Intake and Output for Last 24 Hours 02/03/18 02/04/18 02/05/18 23:59 23:59 23:59 Intake Total 5970.4 / 5970.4 1521.8 / 1521.8 120 / 120 Output Total 9800 / 9800 2250 / 2250 1800 / 1800 Balance -3829.6 / -3829.6 -728.2 / -728.2 -1680 / -1680 Microbiology Past 72 Hours 01/31/18 12:17 Blood Culture - Preliminary Blood Culture (Wb) - No Site/Description Given No growth in 48 hours. 01/31/18 20:55 Blood Culture - Preliminary Blood Culture (Wb) - Anticubital Right No growth in 48 hours. 02/01/18 08:30 Gram Stain - Final Sputum, Induced/Lukens Respiratory Culture - Final Labs (Last 48 Hours) 02/01/18 02/03/18 02/03/18 07:40 05:10 10:28 WBC RBC Hgb Hct MCV MCH MCHC RDW RDW Differential Plt Count MPV Immature Gran % (Auto) Neut % (Auto) Lymph % (Auto) Stoddard % (Auto) Eos % (Auto) Baso % (Auto) Absolute Neuts (auto) Absolute Lymphs (auto) Total Counted PT INR APTT Sodium Potassium 3.5 Chloride Carbon Dioxide Anion Gap BUN Creatinine Estim Creat Clear Calc Est GFR (MDRD) Af Amer Est GFR (MDRD) Non-Af BUN/Creatinine Ratio Glucose Serum Osmolality Calcium Magnesium 2.1 Total Bilirubin 0.70 Direct Bilirubin 0.29 AST 386 H ALT 775 H Alkaline Phosphatase 76 Total Protein 5.3 L Albumin 3.1 L Globulin 2.2 Urine Osmolality Ur Random Sodium Hepatitis Interpret Not Reportable 02/03/18 02/03/18 02/03/18 13:35 13:35 13:45 WBC RBC Hgb Hct MCV MCH MCHC RDW RDW Differential Plt Count MPV Immature Gran % (Auto) Neut % (Auto) Lymph % (Auto) Stoddard % (Auto) Eos % (Auto) Baso % (Auto) Absolute Neuts (auto) Absolute Lymphs (auto) Total Counted PT INR APTT Sodium 136 Potassium 4.1 Chloride 88 L Carbon Dioxide 39.0 H Anion Gap 9 BUN 10 Creatinine 0.59 L Estim Creat Clear Calc 112.89 Est GFR (MDRD) Af Amer 188 Est GFR (MDRD) Non-Af 156 BUN/Creatinine Ratio 17.0 Glucose 134 H Serum Osmolality Calcium 8.5 Magnesium Total Bilirubin Direct Bilirubin AST ALT Alkaline Phosphatase Total Protein Albumin Globulin Urine Osmolality 270 Ur Random Sodium 91 Hepatitis Interpret 02/03/18 02/04/18 02/04/18 13:45 04:55 04:55 WBC 19.8 H RBC 5.14 Hgb 15.4 Hct 46.5 MCV 90.5 MCH 30.0 MCHC 33.1 RDW 14.5 RDW Differential 47.7 H Plt Count 201 MPV 9.7 Immature Gran % (Auto) 0.300 Neut % (Auto) 91.2 H Lymph % (Auto) 5.2 L Stoddard % (Auto) 3.2 Eos % (Auto) 0.0 Baso % (Auto) 0.1 Absolute Neuts (auto) 18.0 H Absolute Lymphs (auto) 1.02 Total Counted Not Reportable PT INR APTT Sodium 136 Potassium 3.6 Chloride 89 L Carbon Dioxide 37.0 H Anion Gap 10 BUN 16 Creatinine 0.44 L Estim Creat Clear Calc 151.38 Est GFR (MDRD) Af Amer 266 Est GFR (MDRD) Non-Af 220 BUN/Creatinine Ratio 36.8 H Glucose 95 Serum Osmolality 287 Calcium 8.4 L Magnesium Total Bilirubin Direct Bilirubin AST ALT Alkaline Phosphatase Total Protein Albumin Globulin Urine Osmolality Ur Random Sodium Hepatitis Interpret 02/04/18 04:55 WBC RBC Hgb Hct MCV MCH MCHC RDW RDW Differential Plt Count MPV Immature Gran % (Auto) Neut % (Auto) Lymph % (Auto) Stoddard % (Auto) Eos % (Auto) Baso % (Auto) Absolute Neuts (auto) Absolute Lymphs (auto) Total Counted PT 14.9 INR 1.2 APTT 26.5 Sodium Potassium Chloride Carbon Dioxide Anion Gap BUN Creatinine Estim Creat Clear Calc Est GFR (MDRD) Af Amer Est GFR (MDRD) Non-Af BUN/Creatinine Ratio Glucose Serum Osmolality Calcium Magnesium Total Bilirubin Direct Bilirubin AST ALT Alkaline Phosphatase Total Protein Albumin Globulin Urine Osmolality Ur Random Sodium Hepatitis Interpret Microbiology 01/31/18 12:17 Blood Culture (Wb) - No Site/Description Given Blood Culture - Preliminary No growth in 48 hours. 01/31/18 20:55 Blood Culture (Wb) - Anticubital Right Blood Culture - Preliminary No growth in 48 hours. 02/01/18 08:30 Sputum, Induced/Lukens Gram Stain - Final 02/01/18 08:30 Sputum, Induced/Lukens Respiratory Culture - Final Clinical Impression(s) from Imaging Studies Chest X-Ray 01/31/18 21:25 IMPRESSION: Malpositioned enteric tube requires advancement 10 to 20 cm. ET tube as above. Bibasilar interstitial infiltrates. COPD. Probable skinfold left upper lung field. Follow-up recommended to exclude pneumothorax. Electronically Signed: Griffin Schneider MD at 21:58 EST , Service support , KUB X-Ray 01/31/18 22:40 IMPRESSION: OG tube in stomach Electronically Signed: Griffin Schneider MD at 23:10 EST , Service support , Chest X-Ray 02/01/18 05:55 IMPRESSION: A background of emphysematous changes in the lungs. ET tube and NG tube in good positions Electronically Signed: Dilan Dick MD at 5:42 EST Tel , Service support , KUB X-Ray 02/01/18 14:27 IMPRESSION: The tip of the orogastric tube is coiled within the fundal portion of the stomach. Electronically Signed: Jeremias Farser MD at 15:05 EST Tel [phone], Service support , Medical Necessity - Tobacco Use Smoking Status: Current every day smoker Assessment/Plan All Active Problems Respiratory failure (Acute) COPD (chronic obstructive pulmonary disease) (Acute) Non-STEMI (non-ST elevated myocardial infarction) (Acute) LV dysfunction (Acute) RECOMMENDATIONS: 1. Consideration for cardiac catheterization next week. 2. Continue to wean supplemental oxygen to maintain saturations at or above 90%. Encourage aggressive incentive spirometer use. 3. Continue 1.5 L fluid restriction 4. Continue antibiotics along with Tamiflu. 5. Continue scheduled bronchodilators along with prednisone 40 mg daily. 6. Continue nicotine replacement therapy. 7. Continue baseline psychiatric medications. IMPRESSIONS: 1. Acute on chronic hypoxemic respiratory failure secondary to COPD exacerbation due to influenza B and possible community-acquired pneumonia The patient presented to the emergency department with acute on chronic respiratory failure. He does have a baseline 2 L/min supplemental oxygen requirement along with what is presumptive severe COPD and ongoing tobacco dependence. While his plain film chest imaging was underwhelming for the presence of a significant pneumonia, the patient was continued on broad-spectrum antibiotics. Subsequent workup revealed the presence of influenza B. Tamiflu was subsequently started. Scheduled aerosol treatments along with steroids will be continued. We will continue to encourage incentive spirometer use and wean supplemental oxygen as tolerated. 2. Hyponatremia of unknown chronicity Resolved. The patient did present with significantly decreased serum sodium level of unknown chronicity. His mentation did appear to be intact while in the emergency department per documentation. Therefore hypertonic saline was never initiated. The patient did receive a significant amount of normal saline initially and his sodium was overcorrected. The supplemental fluids were then discontinued. His sodium level has since stabilized. The patient does appear to be drinking a significant amount of free water, raising the concern for underlying psychogenic polydipsia. He has therefore been placed on a 1.5 L fluid restriction. 3. Combined systolic and diastolic heart failure/troponin elevation The patient's recent echocardiogram did reveal evidence of combined systolic and diastolic heart failure. The patient does have risk factors for coronary artery disease. Cardiology is currently following with potential plans for coronary angiography. 4. Transaminitis Unclear etiology. Could be secondary to passive vascular congestion. Hepatitis panel was negative. Transaminase levels are improving. 5. Chronic urinary retention/schizophrenia/GERD/long-standing tobacco dependence Complicates care, management, recovery and prognosis. Continue appropriate ICU prophylaxis. Nicotine replacement therapy can be continued while the patient is admitted to the hospital. This note was generated with [employer] dictation software. It may contain incorrect words, spelling, and punctuation that were not noted in checking the note before signing. Code Visit Inpatient E&M: 28884 Subs Hosp L2
[2018-02-05] MEDS: Piperacil/Tazobactam 3.375 GM Q8 PREMIX IV ×3 (06:28→22:02)
[2018-02-05] MEDS: Ipratropium/Albuterol Sulfate 3 ML AMPUL.NEB INHALATION ×5 (06:54→23:53)
--- NOTE | 2018-02-05 09:04 | PCM.PN.HOSP ---
Patient Problems: Active and Suspected Problems Respiratory failure (Acute) COPD (chronic obstructive pulmonary disease) (Acute) Non-STEMI (non-ST elevated myocardial infarction) (Acute) LV dysfunction (Acute) Subjective: Patient seen undergoing physical therapy still has a wet productive cough plan is for patient undergo left heart catheterization on 02/07/2018 Objective: GENERAL: Cooperative HEENT: Atraumatic; EYES; Anicteric, Normal Conjunctiva NECK; supple, normal thyroid, RESPIRATORY: Diminished to auscultation bilaterally, CARDIOVASCULAR: Regular S1 S2, GI: soft, non-tender, normoactive bowel sounds, : No Renal angle tenderness; EXTREMITIES: No edema, no clubbing, no cyanosis. MUSCULOSKELETAL: muscle waisting NEURO: Awake no lateralizing signs SKIN: No Rash Vitals/I&O's: Vital Signs Temp Pulse Resp BP Pulse Ox 98.0 F 100 20 H 162/90 H 95 02/05/18 04:34 02/05/18 07:10 02/05/18 06:54 02/05/18 04:34 02/05/18 06:54 Oxygen Flow Rate (L/min) 3 Oxygen Delivery Method Nasal Cannula Weight: 47.4 kg Body Mass Index (BMI) 16.8 Intake and Output for Last 24 Hours 02/03/18 02/04/18 02/05/18 23:59 23:59 23:59 Intake Total 5970.4 / 5970.4 1521.8 / 1521.8 120 / 120 Output Total 9800 / 9800 2250 / 2250 1800 / 1800 Balance -3829.6 / -3829.6 -728.2 / -728.2 -1680 / -1680 Microbiology Past 72 Hours 01/31/18 12:17 Blood Culture (Wb) - No Site/Description Given Blood Culture - Preliminary No growth in 48 hours. 01/31/18 20:55 Blood Culture (Wb) - Anticubital Right Blood Culture - Preliminary No growth in 48 hours. 02/01/18 08:30 Sputum, Induced/Lukens Gram Stain - Final 02/01/18 08:30 Sputum, Induced/Lukens Respiratory Culture - Final Current Medications Acetaminophen (Tylenol) 500 mg PO Q6H PRN PRN PRN Reason: HEADACHE Last Admin: 02/03/18 15:53 Dose: 500 mg Albuterol Sulfate (Ventolin Aerosols) 2.5 mg INHALATION Q2H PRN PRN PRN Reason: SOB &/OR WHEEZING Albuterol/Ipratropium (Duoneb) 3 ml INHALATION Q4H.RT [facility] Last Admin: 02/05/18 06:54 Dose: 3 ml Aspirin (Aspirin, Baby) 81 mg PO DAILY@0800 [facility] Last Admin: 02/04/18 06:17 Dose: 81 mg Benztropine Mesylate (Cogentin) 1 mg PO BID [facility] Last Admin: 02/04/18 22:57 Dose: 1 mg Bisacodyl (Dulcolax) 5 mg PO DAILY [facility] Last Admin: 02/04/18 11:11 Dose: 5 mg Carvedilol (Coreg) 12.5 mg PO BID [facility] Last Admin: 02/04/18 22:57 Dose: 12.5 mg Chlorhexidine Gluconate () 1 each TOPICAL DAILY [facility] Last Admin: 02/04/18 03:44 Dose: 1 each Clonazepam (Klonopin) 0.5 mg PO QHS [facility] Last Admin: 02/04/18 22:56 Dose: 0.5 mg Clopidogrel Bisulfate (Plavix) 75 mg PO DAILY [facility] Last Admin: 02/04/18 06:19 Dose: 75 mg Enoxaparin Sodium (Lovenox) 40 mg SC DAILY@1000 [facility] Last Admin: 02/04/18 11:16 Dose: 40 mg Furosemide (Lasix) 20 mg PO DAILY [facility] Guaifenesin (Mucinex) 600 mg PO BID [facility] Last Admin: 02/04/18 22:56 Dose: 600 mg Haloperidol (Haldol) 10 mg PO QHS [facility] Last Admin: 02/04/18 23:00 Dose: 10 mg Hydralazine HCl (Apresoline Iv) 10 mg IV Q6H PRN PRN PRN Reason: BLOOD PRESSURE Last Admin: 02/03/18 18:37 Dose: 10 mg Sodium Chloride () 250 mls @ 15 mls/hr IV .[id number] PRN PRN Reason: SALINE FLUSH Piperacillin Sod/Tazobactam Sod (Zosyn) 3.375 gm in 50 mls @ 12.5 mls/hr IV Q8 [facility] Last Admin: 02/05/18 06:28 Dose: 12.5 mls/hr Losartan Potassium (Cozaar) 25 mg PO DAILY [facility] Last Admin: 02/04/18 06:21 Dose: 25 mg Magnesium Hydroxide (Milk Of Magnesia) 30 ml PO DAILY PRN PRN PRN Reason: Constipation Metoprolol Tartrate (Lopressor (Beta Pietro)) 5 mg IV Q6H PRN PRN PRN Reason: HR > 100 Last Admin: 02/04/18 18:07 Dose: 5 mg Montelukast Sodium (Singulair) 10 mg PO DAILY [facility] Last Admin: 02/04/18 11:12 Dose: 10 mg Multivitamins (Multivitamin) 1 tablet PO DAILYCM [facility] Last Admin: 02/04/18 11:10 Dose: 1 tablet Nicotine (Nicoderm Cq (Pbkc)) 21 mg TRANSDERM. DAILY [facility] Last Admin: 02/04/18 11:16 Dose: 21 mg Nutritional Formula (Lactose Free) (Ensure Enlive) 120 ml PO 4X/DAY [facility] Last Admin: 02/04/18 22:57 Dose: 120 ml Oseltamivir Phosphate (Tamiflu) 75 mg PO BID [facility] Stop: 02/05/18 22:01 Last Admin: 02/04/18 22:56 Dose: 75 mg Pantoprazole Sodium (Protonix) 20 mg PO QHS [facility] Last Admin: 02/04/18 22:56 Dose: 20 mg Prednisone () 40 mg PO DAILY@0800 [facility] Last Admin: 02/04/18 11:10 Dose: 40 mg Risperidone (Risperdal) 2 mg PO QHS [facility] Last Admin: 02/04/18 22:56 Dose: 2 mg Risperidone (Risperdal) 1 mg PO DAILY [facility] Last Admin: 02/04/18 11:12 Dose: 1 mg Sodium Chloride () 5 - 15 ml IV UD PRN PRN Reason: SALINE FLUSH Last Admin: 02/04/18 18:08 Dose: 10 ml Tamsulosin HCl (Flomax) 0.4 mg PO QHS [facility] Last Admin: 02/04/18 22:55 Dose: 0.4 mg Trazodone HCl (Desyrel) 150 mg PO QHS [facility] Last Admin: 02/04/18 22:57 Dose: 150 mg Medical Necessity - Tobacco Use Smoking Status: Current every day smoker Assessment/Plan All Active Problems Respiratory failure (Acute) COPD (chronic obstructive pulmonary disease) (Acute) Non-STEMI (non-ST elevated myocardial infarction) (Acute) LV dysfunction (Acute) Patient is a 47-year-old gentleman resident at the [facility] was brought to the emergency department by the EMS squad with progressive shortness of breath. Patient was reported to be gasping for air with oxygen saturation in the 60s. An assessment of acute hypoxic respiratory failure was made patient intubated and admitted to the intensive care unit for subsequent management. Chest x-ray on admission demonstrated bilateral infiltrate 1. Acute hypoxic respiratory failure secondary to acute influenza B infection. Patient admitted to the intensive care unit was placed on the vent from the ED. Patient started on Tamiflu, Zosyn as well as vancomycin given gram-positive cocci in the sputum Gram stain final sputum cultures demonstrated only mixed normal moreno. Patient was weaned off the vent on the morning of 02/03/2018. Patient progress is rather been slow 2. Chronic hypoxic respiratory failure secondary to COPD patient is on baseline home O2 3. Elevated troponin possibly related to demand ischemia from patient underlying infectious etiology. Patient also had a slightly elevated BNP 2D echo ordered for subsequent evaluation 2D echo demonstrated EF of 40% and stage I diastolic dysfunction with bileaflet diffuse mitral valve thickening Case was discussed with Dr. Millan with cardiology plan is for patient to possibly undergo left heart catheterization prior to his discharge patient left heart catheterization tentatively scheduled on 02/07/2018 4. Acute hepatitis of unknown etiology at this point acute hepatitis panel ordered, will continue with monitoring 5. Hyponatremia patient is on IV fluids with monitoring of electrolytes 6. Severe protein calorie malnutrition as evidenced by muscle wasting hypoalbuminemia as well as BMI of 16.3 consultation placed to nutrition 7. Schizophrenia 8. Learning disability 9. DVT prophylaxis SC Lovenox Code Visit Inpatient E&M: 08599 Subs Hosp L2
[2018-02-05] MEDS: Multivitamins,Therapeutic Tablet 1 TABLET PO (09:22)
[2018-02-05] MEDS: Aspirin 81 MG TAB.CHEW PO (09:22)
[2018-02-05] MEDS: Enoxaparin 40 MG/0.4 ML Syringe SC (09:23)
[2018-02-05] MEDS: Bisacodyl 5 MG Tablet PO (09:23)
[2018-02-05] MEDS: Benztropine 2 MG Tablet 1 MG PO ×2 (09:23→22:01)
[2018-02-05] MEDS: predniSONE 20 MG Tablet 40 MG PO (09:23)
[2018-02-05] MEDS: Montelukast 10 MG Tablet PO (09:24)
[2018-02-05] MEDS: Oseltamivir Phosphate 75 MG Capsule PO ×2 (09:24→21:59)
[2018-02-05] MEDS: RisperiDONE 1 MG Tablet PO (09:24)
[2018-02-05] MEDS: Clopidogrel Bisulfate 75 MG Tablet PO (09:24)
[2018-02-05] MEDS: guaiFENesin 600 MG Tablet PO ×2 (09:24→22:01)
--- NOTE | 2018-02-05 09:51 | PCM.PN.CARD ---
Subjectve: Patient continues to improve, however still unable to lay down flat due to what appears to be abdominal spasms. Still has harsh productive cough. No chest pain. Telemetry shows normal sinus rhythm with rare PVC. Objective: Vital Signs Temp Pulse Resp BP Pulse Ox 98.4 F 109 H 18 97/67 97 02/05/18 09:36 02/05/18 09:36 02/05/18 09:36 02/05/18 09:36 02/05/18 09:36 Oxygen Flow Rate (L/min) 2 Oxygen Delivery Method Nasal Cannula Weight: 104 lb 7.986 oz Body Mass Index (BMI) 16.8 Intake and Output for Last 24 Hours 02/03/18 02/04/18 02/05/18 23:59 23:59 23:59 Intake Total 5970.4 / 5970.4 1521.8 / 1521.8 120 / 120 Output Total 9800 / 9800 2250 / 2250 1800 / 1800 Balance -3829.6 / -3829.6 -728.2 / -728.2 -1680 / -1680 General: Awake, Alert, Oriented x 3 HEENT: PERRL, EOMI, Sclera Non Icteric Neck: Supple, Good ROM, No Lymph Node Enlargement Lungs: Clear to auscultation Cardiovascular: Regular Rhythm, Normal S1, Normal S2, No Murmurs, No Rubs, No Gallops Vascular: No Carotid Bruits, Normal Femoral Pulses, Normal Radial Pulses, Normal Dorsalis Pedal Pulse, Normal Posterior Tibial Pulses Abdomen: Bowel Sounds Present, Soft, Non Tender, No HSM, No Organomegaly Extremities: No Cyanosis, No Clubbing, No edema Neurological: No Focal Motor or Sensory Deficit Rhythm: EKG: ECHO: Stress Test: Cardiac Cath: PCI: CT Surgery: Holter monitor: EPS: PPM: CXR: Chest CT Scan: Medical Necessity - Tobacco Use Smoking Status: Current every day smoker Assessment/Plan 1. Non-STEMI: The patient has evidence of respiratory distress with low P O2 sats, found unresponsive at a detention, and requiring supplemental oxygenation followed by urgent intubation. His chest x-ray showed no overt infiltrates, but does have evidence of diaphragmatic flattening and probable COPD. In addition he was found to be hyponatremic and is being corrected slowly. Patient is tachypneic this morning, with rhonchi over his right base as well as a late expiratory pleural rub. The patient had a mild elevation in his troponins at a peak of 1.0, and is now trending downwards. In addition, his echocardiogram showed global LV dysfunction of a moderate degree with an EF of approximately 40%. Patient appeared to have bilateral mitral leaflet thickening, and stage I diastolic dysfunction. Patient was extubated successfully on 02/03/18 and has remained tachycardic and hypertensive although he is neurologically intact. We have started Coreg 6.25 mg p.o. twice daily yesterday, and will continue current dose of 12.5 mg p.o. twice daily today for tachycardia and hypertension. In addition we had started him on Cozaar 25 mg p.o. daily. Would also recommend starting him on Lasix 20 mg p.o. daily for his LV dysfunction and tachypnea. I reviewed the patient's echocardiogram to assess his mitral valve status as well. I do not see any outward signs of endocarditis at this time. His blood cultures are negative x2. I had a long and thorough discussion with the patient this morning, who deferred to his stepfather who is a POA. I had a long and thorough discussion with the patient's stepfather who is his POA and explained the risks/benefits of the catheterization procedure with specific attention to lack of on-site surgical backup. Patient's POA has agreed to consent to catheterization witnessed by ICU nursing staff. Signed consent is in the chart. Patient is unable to lay down flat today, but will hopefully be able to proceed with catheterization on Wednesday. Patient was loaded with Plavix 300 mg x1 yesterday and will continue baby aspirin and Plavix 75 mg p.o. daily going forward until his catheterization on Wednesday. 2. Hyperlipidemia: Recommend obtaining a fasting lipid profile once the patient has recovered from this event. The patient's LFTs are now decreasing, possibly suggesting resolution of shock liver. Would not recommend any antilipid therapy until his LFTs have normalized. 3. COPD: Patient has evidence of COPD on his chest x-ray as well as by history. Will defer to pulmonary. 4. Thank you very much for the opportunity to participate in the cardiac care of your patient. We will hopefully plan for left heart catheterization Wednesday. Code Visit Inpatient E&M: 20328 Subs Hosp L2
[2018-02-05] MEDS: Pantoprazole Sodium 20 MG Tablet PO (21:59)
[2018-02-05] MEDS: RisperiDONE 2 MG Tablet PO (21:59)
[2018-02-05] MEDS: clonazePAM 0.5 MG Tablet PO (21:59)
[2018-02-05] MEDS: Haloperidol 5 MG Tablet 10 MG PO (22:00)
[2018-02-05] MEDS: traZODone 100 MG Tablet 150 MG PO (22:00)
[2018-02-05] MEDS: Tamsulosin HCl 0.4 MG Capsule PO (22:01)
[2018-02-06] VITALS (20 sets, daily range): BP systolic 92–127; BP diastolic 44–87; PULSE 58–125; RESP 16–22; TEMP 36.2–37.4; O2SAT 90–96
[2018-02-06] MEDS: Ipratropium/Albuterol Sulfate 3 ML AMPUL.NEB INHALATION ×5 (03:48→20:34)
--- NOTE | 2018-02-06 06:07 | PCM.PROGNOTE ---
Patient Problems: Active and Suspected Problems Respiratory failure (Acute) COPD (chronic obstructive pulmonary disease) (Acute) Non-STEMI (non-ST elevated myocardial infarction) (Acute) LV dysfunction (Acute) Subjective: The patient was seen and examined at the bedside this morning. Events from the last 24 hours have been reviewed. The patient is currently afebrile, hemodynamically stable and maintaining appropriate oxygen saturations on 2 L/min via nasal cannula. No overnight events were noted. The patient does report interval improvement in his shortness of breath. He does still have a cough. Objective: The patient's most recent lab work, culture data and imaging studies have all been personally reviewed. Blood cultures are pending. Respiratory viral panel was positive for influenza B. Sputum culture is pending. MRSA screen was negative. Surface echocardiogram revealed normal LV size with an ejection fraction of 40% and stage I diastolic dysfunction. There was mild to moderate global hypokinesis of the LV. - Physical Exam General: Alert, Cooperative, No apparent distress HEENT: Atraumatic, PERRLA, Normocephalic Oral: Moist Mucosa, - - Poor dentition Neck: Supple, No Nodes, Trachea Midline Lungs: No rhonchi, No wheeze, No rales, Diminished Cardiovascular: Normal S1, Normal S2, No murmurs, Tachycardic Abdomen: Bowel Sounds Present, Soft, Non Tender, Non-Distended Extremities: No clubbing, No cyanosis, No edema, Capillary Refill Less than 3 Seconds Skin: - - No significant change from previous Musculoskeletal: Cachexia, Muscle Wasting Lymphatic: No Cervical, Supraclavicular, or Inguinal Adenopathy Neurological: Cranial nerves II-XII grossly intact, Neuro grossly intact Psych/Mental Status: Flat Affect Vital Signs Temp Pulse Resp BP Pulse Ox 37.1 C 109 H 16 102/82 H 96 02/06/18 04:00 02/06/18 04:00 02/06/18 04:00 02/06/18 04:00 02/06/18 04:00 Oxygen Flow Rate (L/min) 2 Oxygen Delivery Method Nasal Cannula Weight: 104 lb 7.986 oz Body Mass Index (BMI) 16.8 Intake and Output for Last 24 Hours 02/04/18 02/05/18 02/06/18 23:59 23:59 23:59 Intake Total 1521.8 / 1521.8 1765 / 1765 Output Total 2250 / 2250 3100 / 3100 Balance -728.2 / -728.2 -1335 / -1335 Microbiology Past 72 Hours 01/31/18 12:17 Blood Culture - Preliminary Blood Culture (Wb) - No Site/Description Given No growth in 48 hours. 01/31/18 20:55 Blood Culture - Preliminary Blood Culture (Wb) - Anticubital Right No growth in 48 hours. 02/01/18 08:30 Gram Stain - Final Sputum, Induced/Lukens Respiratory Culture - Final Clinical Impression(s) from Imaging Studies Chest X-Ray 01/31/18 21:25 IMPRESSION: Malpositioned enteric tube requires advancement 10 to 20 cm. ET tube as above. Bibasilar interstitial infiltrates. COPD. Probable skinfold left upper lung field. Follow-up recommended to exclude pneumothorax. Electronically Signed: Griffin Schneider MD at 21:58 EST , Service support , KUB X-Ray 01/31/18 22:40 IMPRESSION: OG tube in stomach Electronically Signed: Griffin Schneider MD at 23:10 EST , Service support , Chest X-Ray 02/01/18 05:55 IMPRESSION: A background of emphysematous changes in the lungs. ET tube and NG tube in good positions Electronically Signed: Dilan Dick MD at 5:42 EST Tel , Service support , KUB X-Ray 02/01/18 14:27 IMPRESSION: The tip of the orogastric tube is coiled within the fundal portion of the stomach. Electronically Signed: Jeremias Fraser MD at 15:05 EST Tel [phone], Service support , Medical Necessity - Tobacco Use Smoking Status: Current every day smoker Assessment/Plan All Active Problems Respiratory failure (Acute) COPD (chronic obstructive pulmonary disease) (Acute) Non-STEMI (non-ST elevated myocardial infarction) (Acute) LV dysfunction (Acute) RECOMMENDATIONS: 1. Consideration for cardiac catheterization next week. 2. Continue to wean supplemental oxygen to maintain saturations at or above 90%. Encourage aggressive incentive spirometer use. 3. Continue 1.5 L fluid restriction 4. Continue antibiotics along with Tamiflu. 5. Continue scheduled bronchodilators along with prednisone 40 mg daily. 6. Continue nicotine replacement therapy. 7. Continue baseline psychiatric medications. IMPRESSIONS: 1. Acute on chronic hypoxemic respiratory failure secondary to COPD exacerbation due to influenza B and possible community-acquired pneumonia The patient presented to the emergency department with acute on chronic respiratory failure. He does have a baseline 2 L/min supplemental oxygen requirement along with what is presumptive severe COPD and ongoing tobacco dependence. While his plain film chest imaging was underwhelming for the presence of a significant pneumonia, the patient was continued on broad-spectrum antibiotics, due to fevers which recurred once antibiotics were discontinued. Subsequent workup revealed the presence of influenza B. Tamiflu was subsequently started. Scheduled aerosol treatments along with steroids will be continued. We will continue to encourage incentive spirometer use and wean supplemental oxygen as tolerated. 2. Hyponatremia of unknown chronicity Resolved. The patient did present with significantly decreased serum sodium level of unknown chronicity. His mentation did appear to be intact while in the emergency department per documentation. Therefore hypertonic saline was never initiated. The patient did receive a significant amount of normal saline initially and his sodium was overcorrected. The supplemental fluids were then discontinued. His sodium level has since stabilized. The patient does appear to be drinking a significant amount of free water, raising the concern for underlying psychogenic polydipsia. He has therefore been placed on a 1.5 L fluid restriction. 3. Combined systolic and diastolic heart failure/troponin elevation The patient's recent echocardiogram did reveal evidence of combined systolic and diastolic heart failure. The patient does have risk factors for coronary artery disease. Cardiology is currently following with potential plans for coronary angiography. 4. Transaminitis Unclear etiology. Could be secondary to passive vascular congestion. Hepatitis panel was negative. Transaminase levels are improving. 5. Chronic urinary retention/schizophrenia/GERD/long-standing tobacco dependence Complicates care, management, recovery and prognosis. Continue appropriate ICU prophylaxis. Nicotine replacement therapy can be continued while the patient is admitted to the hospital. This note was generated with [employer] dictation software. It may contain incorrect words, spelling, and punctuation that were not noted in checking the note before signing. Code Visit Inpatient E&M: 96140 Subs Hosp L2
[2018-02-06] MEDS: Piperacil/Tazobactam 3.375 GM Q8 PREMIX IV (06:33)
[2018-02-06 07:00] LABS: Hematocrit 42.6 % (40-54); Hemoglobin 13.4 g/dl (13.0-16.5); Mean Corp Hgb Conc 31.5 g/gl (32-36); Mean Corpuscular Hgb 29.3 pg (27.0-32.0); Mean Platelet Vol. 9.2 fl (6.2-12.0); Platelet Count 222 K/mm3 (150-450); RBC Distribution Width CV 14.1 % (11.6-14.6); RBC Distribution Width SD 47.5 fl (35.1-43.9); Red Blood Count 4.58 M/mm3 (4.6-6.2); White Blood Count 16.1 K/mm3 (4.4-11.0)
[2018-02-06 07:12] LABS: Scan Indicated on CBC? Y/N NO
[2018-02-06 07:27] LABS: AST(SGOT) 115 U/L (15-37); Alanine Aminotransfer ALT/SGPT 571 U/L (16-61); Albumin, Serum 2.9 g/dL (3.2-5.0); Alkaline Phosphatase 63 U/L (45-117); Anion Gap 5 (5-15); BUN 12 mg/dL (7-18); BUN/Creat Ratio 19.4 RATIO (10-20); Bilirubin, Direct 0.33 mg/dL (0.00-0.30); Chloride 92 mmol/L (98-107); Creatinine, Serum 0.62 mg/dL (0.70-1.30); EST Glomerular Filtration Rate 147 mL/min (>60); Est Glom Filt Rate - Afr Amer 177 mL/min (>60); Estimated Creatinine Clearance 92.55 ml/min; Glucose 100 mg/dL (74-106); Magnesium 2.1 mg/dL (1.6-2.6); Protein, Total 4.9 g/dL (6.4-8.2); Sodium Level 137 mmol/L (136-145)
--- NOTE | 2018-02-06 07:38 | PN_ITS ---
Patient Problems: Active and Suspected Problems Respiratory failure (Acute) COPD (chronic obstructive pulmonary disease) (Acute) Non-STEMI (non-ST elevated myocardial infarction) (Acute) LV dysfunction (Acute) Subjective: Patient seen remains comfortable at rest. Scheduled to undergo left heart catheterization on 02/07/2018 Objective: GENERAL: Cooperative HEENT: Atraumatic; EYES; Anicteric, Normal Conjunctiva NECK; supple, normal thyroid, RESPIRATORY: Diminished to auscultation bilaterally, CARDIOVASCULAR: Regular S1 S2, GI: soft, non-tender, normoactive bowel sounds, : No Renal angle tenderness; EXTREMITIES: No edema, no clubbing, no cyanosis. MUSCULOSKELETAL: muscle waisting NEURO: Awake no lateralizing signs SKIN: No Rash Vitals/I&O's: Vital Signs Temp Pulse Resp BP Pulse Ox 98.8 F 107 H 22 H 102/82 H 91 02/06/18 04:00 02/06/18 06:38 02/06/18 06:38 02/06/18 04:00 02/06/18 06:38 Oxygen Flow Rate (L/min) 2 Oxygen Delivery Method Nasal Cannula Weight: 45.4 kg Body Mass Index (BMI) 16.8 Intake and Output for Last 24 Hours 02/04/18 02/05/18 02/06/18 23:59 23:59 23:59 Intake Total 1521.8 / 1521.8 1765 / 1765 Output Total 2250 / 2250 3100 / 3100 500 / 500 Balance -728.2 / -728.2 -1335 / -1335 -500 / -500 Microbiology Past 72 Hours 01/31/18 12:17 Blood Culture (Wb) - No Site/Description Given Blood Culture - Preliminary No growth in 48 hours. 01/31/18 20:55 Blood Culture (Wb) - Anticubital Right Blood Culture - Preliminary No growth in 48 hours. 02/01/18 08:30 Sputum, Induced/Lukens Gram Stain - Final 02/01/18 08:30 Sputum, Induced/Lukens Respiratory Culture - Final Laboratory Results 02/06/18 05:24: WBC 16.1 H, RBC 4.58 L, Hgb 13.4, Hct 42.6, MCV 93.0, MCH 29.3, MCHC 31.5 L, RDW 14.1, RDW Differential 47.5 H, Plt Count 222, MPV 9.2 02/06/18 05:24: Sodium 137, Potassium 3.0 L, Chloride 92 L, Carbon Dioxide 40.0 H, Anion Gap 5, BUN 12, Creatinine 0.62 L, Estim Creat Clear Calc 92.55, Est GFR (MDRD) Af Amer 177, Est GFR (MDRD) Non-Af 147, BUN/Creatinine Ratio 19.4, Glucose 100, Calcium 8.0 L, Magnesium 2.1, Total Bilirubin 1.00, Direct Bilirubin 0.33 H, AST 115 H, ALT 571 H, Alkaline Phosphatase 63, Total Protein 4.9 L, Albumin 2.9 L, Globulin 2.0 L Current Medications Acetaminophen (Tylenol) 500 mg PO Q6H PRN PRN PRN Reason: HEADACHE Last Admin: 02/03/18 15:53 Dose: 500 mg Albuterol Sulfate (Ventolin Aerosols) 2.5 mg INHALATION Q2H PRN PRN PRN Reason: SOB &/OR WHEEZING Albuterol/Ipratropium (Duoneb) 3 ml INHALATION Q4H.RT [facility] Last Admin: 02/06/18 06:38 Dose: 3 ml Aspirin (Aspirin, Baby) 81 mg PO DAILY@0800 [facility] Last Admin: 02/05/18 09:22 Dose: 81 mg Benztropine Mesylate (Cogentin) 1 mg PO BID [facility] Last Admin: 02/05/18 22:01 Dose: 1 mg Bisacodyl (Dulcolax) 5 mg PO DAILY [facility] Last Admin: 02/05/18 09:23 Dose: 5 mg Carvedilol (Coreg) 12.5 mg PO BID [facility] Last Admin: 02/04/18 22:57 Dose: 12.5 mg Clonazepam (Klonopin) 0.5 mg PO QHS [facility] Last Admin: 02/05/18 21:59 Dose: 0.5 mg Clopidogrel Bisulfate (Plavix) 75 mg PO DAILY [facility] Last Admin: 02/05/18 09:24 Dose: 75 mg Enoxaparin Sodium (Lovenox) 40 mg SC DAILY@1000 [facility] Last Admin: 02/05/18 09:23 Dose: 40 mg Furosemide (Lasix) 20 mg PO DAILY [facility] Guaifenesin (Mucinex) 600 mg PO BID [facility] Last Admin: 02/05/18 22:01 Dose: 600 mg Haloperidol (Haldol) 10 mg PO QHS [facility] Last Admin: 02/05/18 22:00 Dose: 10 mg Hydralazine HCl (Apresoline Iv) 10 mg IV Q6H PRN PRN PRN Reason: BLOOD PRESSURE Last Admin: 02/03/18 18:37 Dose: 10 mg Sodium Chloride () 250 mls @ 15 mls/hr IV .[id number] PRN PRN Reason: SALINE FLUSH Piperacillin Sod/Tazobactam Sod (Zosyn) 3.375 gm in 50 mls @ 12.5 mls/hr IV Q8 [facility] Last Admin: 02/06/18 06:33 Dose: 12.5 mls/hr Losartan Potassium (Cozaar) 25 mg PO DAILY [facility] Last Admin: 02/05/18 10:44 Dose: Not Given Magnesium Hydroxide (Milk Of Magnesia) 30 ml PO DAILY PRN PRN PRN Reason: Constipation Metoprolol Tartrate (Lopressor (Beta Pietro)) 5 mg IV Q6H PRN PRN PRN Reason: HR > 100 Last Admin: 02/04/18 18:07 Dose: 5 mg Montelukast Sodium (Singulair) 10 mg PO DAILY [facility] Last Admin: 02/05/18 09:24 Dose: 10 mg [facility]amin[facility] Last Admin: 02/05/18 09:22 Dose: 1 tablet Nicotine (Nicoderm Cq (Pbkc)) 21 mg TRANSDERM. DAILY [facility] Last Admin: 02/05/18 09:24 Dose: 21 mg Nutritional Formula (Lactose Free) (Ensure Enlive) 120 ml PO 4X/DAY [facility] Last Admin: 02/05/18 22:01 Dose: Not Given Pantoprazole Sodium (Protonix) 20 mg PO QHS [facility] Last Admin: 02/05/18 21:59 Dose: 20 mg Prednisone () 40 mg PO DAILY@0800 [facility] Last Admin: 02/05/18 09:23 Dose: 40 mg Risperidone (Risperdal) 2 mg PO QHS [facility] Last Admin: 02/05/18 21:59 Dose: 2 mg Risperidone (Risperdal) 1 mg PO DAILY [facility] Last Admin: 02/05/18 09:24 Dose: 1 mg Sodium Chloride () 5 - 15 ml IV UD PRN PRN Reason: SALINE FLUSH Last Admin: 12/21/18 18:08 Dose: 10 ml Tamsulosin HCl (Flomax) 0.4 mg PO QHS [facility] Last Admin: 02/05/18 22:01 Dose: 0.4 mg Trazodone HCl (Desyrel) 150 mg PO QHS [facility] Last Admin: 02/05/18 22:00 Dose: 150 mg Medical Necessity - Tobacco Use Smoking Status: Current every day smoker Assessment/Plan All Active Problems Respiratory failure (Acute) COPD (chronic obstructive pulmonary disease) (Acute) Non-STEMI (non-ST elevated myocardial infarction) (Acute) LV dysfunction (Acute) Patient is a 47-year-old gentleman resident at the [facility] was brought to the emergency department by the EMS squad with progressive shortness of breath. Patient was reported to be gasping for air with oxygen saturation in the 60s. An assessment of acute hypoxic respiratory failure was made patient intubated and admitted to the intensive care unit for subsequent management. Chest x-ray on admission demonstrated bilateral infiltrate 1. Acute hypoxic respiratory failure secondary to acute influenza B infection. Patient admitted to the intensive care unit was placed on the vent from the ED. Patient started on Tamiflu, Zosyn as well as vancomycin given gram-positive cocci in the sputum Gram stain final sputum cultures demonstrated only mixed normal moreno. Patient was weaned off the vent on the morning of 02/03/2018. Patient progress is rather been slow. Patient currently only on Zosyn which was switched to Augmentin starting 02/06/2018 2. Chronic hypoxic respiratory failure secondary to COPD patient is on baseline home O2 3. Elevated troponin possibly related to demand ischemia from patient underlying infectious etiology. Patient also had a slightly elevated BNP 2D echo ordered for subsequent evaluation 2D echo demonstrated EF of 40% and stage I diastolic dysfunction with bileaflet diffuse mitral valve thickening Case was discussed with Dr. Millan with cardiology plan is for patient to possibly undergo left heart catheterization prior to his discharge patient left heart catheterization tentatively scheduled on 02/07/2018 4. Acute hepatitis of unknown etiology at this point acute hepatitis panel ordered, will continue with monitoring 5. Hyponatremia patient is on IV fluids with monitoring of electrolytes 6. Severe protein calorie malnutrition as evidenced by muscle wasting hypoalbuminemia as well as BMI of 16.3 consultation placed to nutrition 7. Schizophrenia 8. Learning disability 9. DVT prophylaxis SC Lovenox 10. Severe protein calorie malnutrition as evidenced by low BMI 13.2, decreased energy level and muscle wasting: Patient has been seen in consultation by dietitian Code Visit Inpatient E&M: 92386 Subs Hosp L2
[2018-02-06] MEDS: Aspirin 81 MG TAB.CHEW PO (09:07)
[2018-02-06] MEDS: Clopidogrel Bisulfate 75 MG Tablet PO (09:07)
[2018-02-06] MEDS: Benztropine 2 MG Tablet 1 MG PO ×2 (09:07→22:59)
[2018-02-06] MEDS: Montelukast 10 MG Tablet PO (09:07)
[2018-02-06] MEDS: guaiFENesin 600 MG Tablet PO ×2 (09:07→23:00)
[2018-02-06] MEDS: Losartan Potassium 25 MG Tablet PO (09:08)
[2018-02-06] MEDS: Enoxaparin 40 MG/0.4 ML Syringe SC (09:08)
[2018-02-06] MEDS: predniSONE 20 MG Tablet 40 MG PO (09:08)
[2018-02-06] MEDS: Bisacodyl 5 MG Tablet PO (09:08)
[2018-02-06] MEDS: Multivitamins,Therapeutic Tablet 1 TABLET PO (09:08)
[2018-02-06] MEDS: RisperiDONE 1 MG Tablet PO (09:10)
--- NOTE | 2018-02-06 09:30 | PN.CARD_ITS ---
Subjectve: Patient sitting in a chair eating breakfast. Reports that he was able to lay down flat last evening. No chest pain. Telemetry showed normal sinus rhythm. Objective: Vital Signs Temp Pulse Resp BP Pulse Ox 98.8 F 116 H 22 H 102/82 H 91 02/06/18 04:00 02/06/18 06:59 02/06/18 06:38 02/06/18 04:00 02/06/18 06:38 Oxygen Flow Rate (L/min) 2 Oxygen Delivery Method Nasal Cannula Weight: 100 lb 1.438 oz Body Mass Index (BMI) 16.8 Intake and Output for Last 24 Hours 02/04/18 02/05/18 02/06/18 23:59 23:59 23:59 Intake Total 1521.8 / 1521.8 1765 / 1765 Output Total 2250 / 2250 3100 / 3100 500 / 500 Balance -728.2 / -728.2 -1335 / -1335 -500 / -500 General: Awake, Alert, Oriented x 3 HEENT: PERRL, EOMI, Sclera Non Icteric Neck: Supple, Good ROM, No Lymph Node Enlargement Lungs: Clear to auscultation Cardiovascular: Regular Rhythm, Normal S1, Normal S2, No Murmurs, No Rubs, No Gallops Vascular: No Carotid Bruits, Normal Femoral Pulses, Normal Radial Pulses, Normal Dorsalis Pedal Pulse, Normal Posterior Tibial Pulses Abdomen: Bowel Sounds Present, Soft, Non Tender, No HSM, No Organomegaly Extremities: No Cyanosis, No Clubbing, No edema Neurological: No Focal Motor or Sensory Deficit 02/06/18 05:24: WBC 16.1 H, RBC 4.58 L, Hgb 13.4, Hct 42.6, MCV 93.0, MCH 29.3, MCHC 31.5 L, RDW 14.1, RDW Differential 47.5 H, Plt Count 222, MPV 9.2 02/06/18 05:24: Sodium 137, Potassium 3.0 L, Chloride 92 L, Carbon Dioxide 40.0 H, Anion Gap 5, BUN 12, Creatinine 0.62 L, Est GFR (MDRD) Af Amer 177, Est GFR (MDRD) Non-Af 147, BUN/Creatinine Ratio 19.4, Glucose 100, Calcium 8.0 L, Magnesium 2.1, Total Bilirubin 1.00, Direct Bilirubin 0.33 H Rhythm: EKG: ECHO: Stress Test: Cardiac Cath: PCI: CT Surgery: Holter monitor: EPS: PPM: CXR: Chest CT Scan: Medical Necessity - Tobacco Use Smoking Status: Current every day smoker Assessment/Plan 1. Non-STEMI: The patient had initial presentation of respiratory distress with low P O2 sats, [facility], and requiring supplemental oxygenation followed by urgent intubation. His chest x-ray showed no overt infiltrates, but does have evidence of diaphragmatic flattening and probable COPD. In addition he was found to be hyponatremic and is being corrected slowly. Patient is tachypneic this morning, with rhonchi over his right base as well as a late expiratory pleural rub. The patient had a mild elevation in his troponins at a peak of 1.0, and is now trending downwards. In addition, his echocardiogram showed global LV dysfunction of a moderate degree with an EF of approximately 40%. Patient appeared to have bilateral mitral leaflet thickening, and stage I diastolic dysfunction. Patient was extubated successfully on 02/03/18 and has remained tachycardic and hypertensive although he is neurologically intact. We have started Coreg 6.25 mg p.o. twice daily yesterday, and will continue current dose of 12.5 mg p.o. twice daily today for tachycardia and hypertension. In addition we had started him on Cozaar 25 mg p.o. daily. Would also recommend starting him on Lasix 20 mg p.o. daily for his LV dysfunction and tachypnea, and will add potassium chloride 10 mEq p.o. daily. Recommend keeping his potassium above 4.0. I reviewed the patient's echocardiogram to assess his mitral valve status as well. I do not see any outward signs of endocarditis at this time. His blood cultures are negative x2. I had a long and thorough discussion with the patient this morning, who deferred to his stepfather who is a POA. I had a long and thorough discussion with the patient's stepfather who is his POA and explained the risks/benefits of the catheterization procedure with specific attention to lack of on-site surgical backup. Patient's POA has agreed to consent to catheterization witnessed by ICU nursing staff. Signed consent is in the chart. Patient is unable to lay down flat today, but will hopefully be able to proceed with catheterization on Wednesday. Patient was loaded with Plavix 300 mg x1 yesterday and will continue baby aspirin and Plavix 75 mg p.o. daily going forward until his catheterization on Wednesday. 2. Hyperlipidemia: Recommend obtaining a fasting lipid profile once the patient has recovered from this event. The patient's LFTs are now decreasing, possibly suggesting resolution of shock liver. Would not recommend any antilipid therapy until his LFTs have normalized. 3. COPD: Patient has evidence of COPD on his chest x-ray as well as by history. Will defer to pulmonary. 4. Thank you very much for the opportunity to participate in the cardiac care of your patient. We will hopefully plan for left heart catheterization Wednesday. Code Visit Inpatient E&M: 51768 Subs Hosp L2
[2018-02-06] MEDS: Amox/Clavulanate 500 MG Tablet PO ×2 (12:43→16:28)
[2018-02-06] MEDS: Acetaminophen 500 MG Tablet PO (16:38)
[2018-02-06] MEDS: Haloperidol 5 MG Tablet 10 MG PO (23:00)
[2018-02-06] MEDS: clonazePAM 0.5 MG Tablet PO (23:00)
[2018-02-06] MEDS: Pantoprazole Sodium 20 MG Tablet PO (23:00)
[2018-02-06] MEDS: RisperiDONE 2 MG Tablet PO (23:00)
[2018-02-06] MEDS: Tamsulosin HCl 0.4 MG Capsule PO (23:04)
[2018-02-06] MEDS: traZODone 100 MG Tablet 150 MG PO (23:05)
[2018-02-07] VITALS (24 sets, daily range): BP systolic 95–137; BP diastolic 60–98; PULSE 85–113; RESP 16–20; TEMP 35.8–37.5; O2SAT 93–100
[2018-02-07 02:31] LABS: Bacteria 0 SEEN /hpf (None Seen); Red Blood Cells-Urine 0 SEEN /hpf (0-5); White Blood Cells 0 SEEN /hpf (0-5)
[2018-02-07 02:35] LABS: Color, Urine Yellow (Yellow); Glucose, Dipstick Normal (Normal); Ketone-Dipstick Negative (Negative); Leukocyte Esterase-Dipstick Negative /ul (Negative); Nitrite-Dipstick Negative (Negative); Occult Blood-Urine Negative /ul (Negative); Protein-Dipstick 15 mg/dl (Negative); Urine Bilirubin Dipstick Negative (Negative); Urine Clarity Clear (Clear); Urine Urobilinogen Normal (Normal)
[2018-02-07 03:08] LABS: Amorphous Sediment RARE; Mucous, Urine RARE /hpf (<or=2+); Squamous Epithelial Cells - UA 0-5 SEEN /hpf (0-5)
[2018-02-07] MEDS: Ipratropium/Albuterol Sulfate 3 ML AMPUL.NEB INHALATION ×4 (03:49→19:19)
[2018-02-07 05:58] LABS: Absolute Lymphocyte Count 1.19 X10^3/ul (0.83-4.51); Absolute Neutrophil Count 14.1 X10^3/uL (2.0-7.7); Basophil# 0.01 X10^3/uL; Basophil% 0.1 % (0-1); Eosinophil# 0.01 X10^3/uL; Eosinophils% 0.1 % (0-5); Hematocrit 43.7 % (40-54); Hemoglobin 14.1 g/dl (13.0-16.5); Lymphocyte # 1.19 X10^3/ul (4.0); Lymphocyte % 7.2 % (19-41); Mean Corp Hgb Conc 32.3 g/gl (32-36); Mean Corpuscular Hgb 30.3 pg (27.0-32.0); Mean Corpuscular Volume 93.8 fL (80-94); Mean Platelet Vol. 9.4 fl (6.2-12.0); Monocyte# 1.09 X10^3/uL; Monocyte% 6.6 % (0-10); Neutrophil # 14.12 X10^3/uL (2.7-7.7); Neutrophil % 85.8 % (47-70); Platelet Count 242 K/mm3 (150-450); RBC Distribution Width CV 14.3 % (11.6-14.6); RBC Distribution Width SD 47.2 fl (35.1-43.9); Red Blood Count 4.66 M/mm3 (4.6-6.2); White Blood Count 16.5 K/mm3 (4.4-11.0)
[2018-02-07 06:00] LABS: POSITIVE COUNT NO; POSITIVE DIFFERENTIAL NO; POSITIVE MORPHOLOGY NO
[2018-02-07 06:05] LABS: International Normalized Ratio 1.1; Prothrombin Time (Protime)PT. 14.5 SECONDS (11.7-14.9)
[2018-02-07 06:06] LABS: Partial Thromboplast Time 25.2 Seconds (24.1-36.2)
[2018-02-07] MEDS: Aspirin 81 MG TAB.CHEW PO (06:14)
[2018-02-07] MEDS: 0.9% Normal Saline 1,000 ML 15 ML IV (06:14)
[2018-02-07] MEDS: Losartan Potassium 25 MG Tablet PO (06:16)
[2018-02-07] MEDS: Clopidogrel Bisulfate 75 MG Tablet PO (06:16)
[2018-02-07 06:25] LABS: AST(SGOT) 64 U/L (15-37); Alanine Aminotransfer ALT/SGPT 447 U/L (16-61); Albumin, Serum 3.1 g/dL (3.2-5.0); Alkaline Phosphatase 65 U/L (45-117); Anion Gap 6 (5-15); BUN 14 mg/dL (7-18); BUN/Creat Ratio 25.9 RATIO (10-20); Chloride 95 mmol/L (98-107); Creatinine, Serum 0.54 mg/dL (0.70-1.30); EST Glomerular Filtration Rate 171 mL/min (>60); Est Glom Filt Rate - Afr Amer 207 mL/min (>60); Estimated Creatinine Clearance 106.26 ml/min; Glucose 103 mg/dL (74-106); Potassium 2.8 mmol/L (3.5-5.1); Protein, Total 5.1 g/dL (6.4-8.2); Sodium Level 140 mmol/L (136-145)
[2018-02-07] MEDS: Potassium Chloride 10mEq/100mL 10 MEQ/100 ML IV.SOLN. 100 MEQ IV BOLUS ×6 (06:49→13:45)
--- NOTE | 2018-02-07 08:13 | PCM.PROGNOTE ---
Patient Problems: Active and Suspected Problems Respiratory failure (Acute) COPD (chronic obstructive pulmonary disease) (Acute) Non-STEMI (non-ST elevated myocardial infarction) (Acute) LV dysfunction (Acute) Subjective: Patient is a poor historian, but overall feels that he is subjectively improved compared to previous. She does still requiring supplemental oxygen to maintain saturations. Patient is currently n.p.o. secondary to heart catheterization later today. Patient does report a cough, but feels this is slightly improved compared to previous. - Physical Exam General: Alert, Cooperative, No apparent distress, - - Difficult to obtain a history. HEENT: Atraumatic, PERRLA, EOMI, Normocephalic, - - No scleral icterus or injection noted. Deep set eyes. Oral: Moist Mucosa, No Gingival or Mucosal Lesions/ Ulcerations, - - Poor dentition Neck: Supple, No JVD, No Nodes, Trachea Midline Lungs: No rhonchi, No wheeze, No rales, Diminished, - - Symmetric expansion. No dullness to percussion. Cardiovascular: Normal S1, Normal S2, No murmurs, No rub noted, No Gallop, Tachycardic Abdomen: Bowel Sounds Present, Soft, Non Tender, Non-Distended Extremities: No clubbing, No cyanosis, No edema, Capillary Refill Less than 3 Seconds Skin: No rashes, No breakdown Musculoskeletal: No Tenderness to Palpation of Joints or Extremities, Cachexia, Muscle Wasting Lymphatic: No Cervical, Supraclavicular, or Inguinal Adenopathy Neurological: Cranial nerves II-XII grossly intact, Neuro grossly intact Psych/Mental Status: Impulsive, Restless Vital Signs Temp Pulse Resp BP Pulse Ox 36.5 C L 109 H 18 111/85 H 93 02/07/18 06:20 02/07/18 07:01 02/07/18 06:53 02/07/18 06:20 02/07/18 06:53 Oxygen Flow Rate (L/min) 3 Oxygen Delivery Method Nasal Cannula Weight: 43.7 kg Body Mass Index (BMI) 16.8 Intake and Output for Last 24 Hours 02/05/18 02/06/18 02/07/18 23:59 23:59 23:59 Intake Total 1765 / 1765 1255.4 / 1255.4 Output Total 3100 / 3100 2024 700 / 700 Balance -1335 / -1335 -769.6 / -769.6 -700 / -700 Microbiology Past 72 Hours 01/31/18 12:17 Blood Culture - Final Blood Culture (Wb) - No Site/Description Given No growth in 5 days. 01/31/18 20:55 Blood Culture - Final Blood Culture (Wb) - Anticubital Right No growth in 5 days. Laboratory Tests Past 24 Hrs 02/07/18 02/07/18 02/07/18 02:25 05:18 05:18 WBC 16.5 H RBC 4.66 Hgb 14.1 Hct 43.7 MCV 93.8 MCH 30.3 MCHC 32.3 RDW 14.3 RDW Differential 47.2 H Plt Count 242 MPV 9.4 Immature Gran % (Auto) 0.200 Neut % (Auto) 85.8 H Lymph % (Auto) 7.2 L Page % (Auto) 6.6 Eos % (Auto) 0.1 Baso % (Auto) 0.1 Absolute Neuts (auto) 14.1 H Absolute Lymphs (auto) 1.19 Total Counted Not Reportable PT INR APTT Sodium 140 Potassium 2.8 L Chloride 95 L Carbon Dioxide 39.0 H Anion Gap 6 BUN 14 Creatinine 0.54 L Estim Creat Clear Calc 106.26 Est GFR (MDRD) Af Amer 207 Est GFR (MDRD) Non-Af 171 BUN/Creatinine Ratio 25.9 H Glucose 103 Calcium 8.0 L Total Bilirubin 1.10 H Direct Bilirubin 0.40 H AST 64 H ALT 447 H Alkaline Phosphatase 65 Total Protein 5.1 L Albumin 3.1 L Globulin 2.0 L Urine Color Yellow Urine Clarity Clear Urine pH 7.0 Ur Specific [place] 1.010 Urine Protein 15 H Urine Glucose (UA) Normal Urine Ketones Negative Urine Occult Blood Negative Urine Nitrite Negative Urine Bilirubin Negative Urine Urobilinogen Normal Ur Leukocyte Esterase Negative Urine RBC 0 SEEN Urine WBC 0 SEEN Ur Squamous Epith Cells 0-5 SEEN Amorphous Sediment RARE Urine Bacteria 0 SEEN Urine Mucus RARE 02/07/18 05:18 WBC RBC Hgb Hct MCV MCH MCHC RDW RDW Differential Plt Count MPV Immature Gran % (Auto) Neut % (Auto) Lymph % (Auto) Page % (Auto) Eos % (Auto) Baso % (Auto) Absolute Neuts (auto) Absolute Lymphs (auto) Total Counted PT 14.5 INR 1.1 APTT 25.2 Sodium Potassium Chloride Carbon Dioxide Anion Gap BUN Creatinine Estim Creat Clear Calc Est GFR (MDRD) Af Amer Est GFR (MDRD) Non-Af BUN/Creatinine Ratio Glucose Calcium Total Bilirubin Direct Bilirubin AST ALT Alkaline Phosphatase Total Protein Albumin Globulin Urine Color Urine Clarity Urine pH Ur Specific [place] Urine Protein Urine Glucose (UA) Urine Ketones Urine Occult Blood Urine Nitrite Urine Bilirubin Urine Urobilinogen Ur Leukocyte Esterase Urine RBC Urine WBC Ur Squamous Epith Cells Amorphous Sediment Urine Bacteria Urine Mucus Medical Necessity - Tobacco Use Smoking Status: Current every day smoker Assessment/Plan All Active Problems Respiratory failure (Acute) COPD (chronic obstructive pulmonary disease) (Acute) Non-STEMI (non-ST elevated myocardial infarction) (Acute) LV dysfunction (Acute) RECOMMENDATIONS: 1. Await results of cardiac catheterization 2. Continue to wean supplemental oxygen to maintain saturations at or above 90%. Encourage aggressive incentive spirometer use. 3. Continue 1.5 L fluid restriction 4. Continue antibiotics along with Tamiflu. 5. Continue scheduled bronchodilators along with prednisone 40 mg daily. 6. Continue nicotine replacement therapy. 7. Continue baseline psychiatric medications. IMPRESSIONS: 1. Acute on chronic hypoxemic respiratory failure secondary to COPD exacerbation due to influenza B and possible community-acquired pneumonia The patient presented to the emergency department with acute on chronic respiratory failure. He does have a baseline 2 L/min supplemental oxygen requirement along with what is presumptive severe COPD and ongoing tobacco dependence. Patient is currently on steroids, bronchodilators and Tamiflu secondary to influenza B. Encourage incentive spirometer and ambulation as tolerated. Would not be surprised the patient requires increased supplemental oxygen at discharge from his baseline for at least a short period of time. 2. Hyponatremia of unknown chronicity Resolved. Patient's clinical course is consistent with hypovolemic hyponatremia. Patient currently on a fluid restriction note sodium level is stabilized. Patient would also be at risk for psychogenic polydipsia given baseline schizophrenia. 3. Combined systolic and diastolic heart failure/troponin elevation The patient's recent echocardiogram did reveal evidence of combined systolic and diastolic heart failure. The patient does have risk factors for coronary artery disease. Cardiology is currently following with potential plans for coronary angiography. Await these results. 4. Transaminitis Unclear etiology. Could be secondary to passive vascular congestion. Hepatitis panel was negative. Transaminase levels are improving. 5. Chronic urinary retention/schizophrenia/GERD/long-standing tobacco dependence Complicates care, management, recovery and prognosis. Continue appropriate ICU prophylaxis. Nicotine replacement therapy can be continued while the patient is admitted to the hospital. Code Visit Inpatient E&M: 70690 Subs Hosp L2
[2018-02-07] MEDS: guaiFENesin 600 MG Tablet PO ×2 (08:38→22:15)
[2018-02-07] MEDS: Amox/Clavulanate 500 MG Tablet PO ×3 (08:38→16:22)
[2018-02-07] MEDS: RisperiDONE 1 MG Tablet PO (08:38)
--- NOTE | 2018-02-07 09:09 | CASEMGMT ---
ORION called Mary from patient's [place] [facility]. She will be in today around 1p to assess patient and see if he is able to return to the [place] [facility] or if he will need alternative placement. She will be in today around 1p. Sonia WATKINS MSW
[2018-02-07] MEDS: DiphenhydrAMINE 25 MG Capsule 50 MG PO (09:50)
--- NOTE | 2018-02-07 10:17 | PCM.PN.HOSP ---
Patient Problems: Active and Suspected Problems Respiratory failure (Acute) COPD (chronic obstructive pulmonary disease) (Acute) Non-STEMI (non-ST elevated myocardial infarction) (Acute) LV dysfunction (Acute) Subjective: Patient was seen and examined. He had a left heart cath done today. Findings include non-obstructive coronary arteries, normal LV size, wall motion and systolic function, occluded bilateral common iliacs. Unable to assess the coronaries from the femoral approach due to occluded bilateral common iliacs. Cardiac cath was done via right brachial approach. Vitals/I&O's: Vital Signs Temp Pulse Resp BP Pulse Ox 97.9 F 99 18 109/98 H 98 02/07/18 08:45 02/07/18 08:45 02/07/18 08:45 02/07/18 08:45 02/07/18 08:45 Oxygen Flow Rate (L/min) 3 Oxygen Delivery Method Nasal Cannula Weight: 43.7 kg Body Mass Index (BMI) 16.8 Intake and Output for Last 24 Hours 02/05/18 02/06/18 02/07/18 23:59 23:59 23:59 Intake Total 1765 / 1765 1255.4 / 1255.4 Output Total 3100 / 3100 202 / 2024 700 / 700 Balance -1335 / -1335 -769.6 / -769.6 -700 / -700 General: Alert, Oriented x3, Cooperative, No apparent distress HEENT: Atraumatic, PERRLA, EOMI, Normocephalic Oral: Moist Mucosa Neck: Supple Lungs: Clear to auscultation, Normal air movement Cardiovascular: Regular rate, Regular Rhythm, Normal S1, Normal S2, No murmurs Abdomen: Bowel Sounds Present, Soft, Non Tender, Non-Distended, No Hepato-splenomegaly Extremities: No edema Skin: No rashes, No breakdown Musculoskeletal: No Tenderness to Palpation of Joints or Extremities Lymphatic: No Cervical, Supraclavicular, or Inguinal Adenopathy Neurological: Cranial nerves II-XII grossly intact, Neuro grossly intact Psych/Mental Status: Normal Affect, Appropriate Microbiology Past 72 Hours 01/31/18 12:17 Blood Culture (Wb) - No Site/Description Given Blood Culture - Final No growth in 5 days. 01/31/18 20:55 Blood Culture (Wb) - Anticubital Right Blood Culture - Final No growth in 5 days. Laboratory Results 02/07/18 02:25: Urine Color Yellow, Urine Clarity Clear, Urine pH 7.0, Ur Specific [place] 1.010, Urine Protein 15 H, Urine Glucose (UA) Normal, Urine Ketones Negative, Urine Occult Blood Negative, Urine Nitrite Negative, Urine Bilirubin Negative, Urine Urobilinogen Normal, Ur Leukocyte Esterase Negative, Urine RBC 0 SEEN, Urine WBC 0 SEEN, Ur Squamous Epith Cells 0-5 SEEN, Amorphous Sediment RARE, Urine Bacteria 0 SEEN, Urine Mucus RARE 02/07/18 05:18: WBC 16.5 H, RBC 4.66, Hgb 14.1, Hct 43.7, MCV 93.8, MCH 30.3, MCHC 32.3, RDW 14.3, RDW Differential 47.2 H, Plt Count 242, MPV 9.4, Immature Gran % (Auto) 0.200, Neut % (Auto) 85.8 H, Lymph % (Auto) 7.2 L, [place] % (Auto) 6.6, Eos % (Auto) 0.1, Baso % (Auto) 0.1, Absolute Neuts (auto) 14.1 H, Absolute Lymphs (auto) 1.19, Total Counted Not Reportable 02/07/18 05:18: Sodium 140, Potassium 2.8 L, Chloride 95 L, Carbon Dioxide 39.0 H, Anion Gap 6, BUN 14, Creatinine 0.54 L, Estim Creat Clear Calc 106.26, Est GFR (MDRD) Af Amer 207, Est GFR (MDRD) Non-Af 171, BUN/Creatinine Ratio 25.9 H, Glucose 103, Calcium 8.0 L, Total Bilirubin 1.10 H, Direct Bilirubin 0.40 H, AST 64 H, ALT 447 H, Alkaline Phosphatase 65, Total Protein 5.1 L, Albumin 3.1 L, Globulin 2.0 L 02/07/18 05:18: PT 14.5, INR 1.1, APTT 25.2 Current Medications Acetaminophen (Tylenol) 500 mg PO Q6H PRN PRN PRN Reason: HEADACHE Last Admin: 02/06/18 16:38 Dose: 500 mg Albuterol Sulfate (Ventolin Aerosols) 2.5 mg INHALATION Q2H PRN PRN PRN Reason: SOB &/OR WHEEZING Albuterol/Ipratropium (Duoneb) 3 ml INHALATION Q4H.RT [facility] Last Admin: 02/07/18 06:53 Dose: 3 ml Amoxicillin/Clavulanate Potassium (Augmentin Tablet) 500 mg PO TIDCM [facility] Last Admin: 02/07/18 08:38 Dose: 500 mg Aspirin (Aspirin, Baby) 81 mg PO DAILY@0800 [facility] Last Admin: 02/07/18 06:14 Dose: 81 mg Benztropine Mesylate (Cogentin) 1 mg PO BID [facility] Last Admin: 02/06/18 22:59 Dose: 1 mg Bisacodyl (Dulcolax) 5 mg PO DAILY [facility] Last Admin: 02/06/18 09:08 Dose: 5 mg Carvedilol (Coreg) 12.5 mg PO BID [facility] Last Admin: 02/04/18 22:57 Dose: 12.5 mg Clonazepam (Klonopin) 0.5 mg PO QHS [facility] Last Admin: 02/06/18 23:00 Dose: 0.5 mg Clopidogrel Bisulfate (Plavix) 75 mg PO DAILY [facility] Last Admin: 02/07/18 06:16 Dose: 75 mg Enoxaparin Sodium (Lovenox) 40 mg SC DAILY@1000 [facility] Last Admin: 02/07/18 08:39 Dose: Not Given Furosemide (Lasix) 20 mg PO DAILY [facility] Guaifenesin (Mucinex) 600 mg PO BID [facility] Last Admin: 02/07/18 08:38 Dose: 600 mg Haloperidol (Haldol) 10 mg PO QHS [facility] Last Admin: 02/06/18 23:00 Dose: 10 mg Hydralazine HCl (Apresoline Iv) 10 mg IV Q6H PRN PRN PRN Reason: BLOOD PRESSURE Last Admin: 02/03/18 18:37 Dose: 10 mg Sodium Chloride () 250 mls @ 15 mls/hr IV .[id number] PRN PRN Reason: SALINE FLUSH Sodium Chloride () 1,000 mls @ 15 mls/hr IV .Q48H [facility] Last Admin: 02/07/18 06:14 Dose: 15 mls/hr Potassium Chloride () 10 meq in 100 mls @ 100 mls/hr IV BOLUS Q1H [facility] Stop: 02/07/18 12:29 Last Admin: 02/07/18 09:48 Dose: 100 mls/hr Losartan Potassium (Cozaar) 25 mg PO DAILY [facility] Last Admin: 02/07/18 06:16 Dose: 25 mg Magnesium Hydroxide (Milk Of Magnesia) 30 ml PO DAILY PRN PRN PRN Reason: Constipation Metoprolol Tartrate (Lopressor (Beta Pietro)) 5 mg IV Q6H PRN PRN PRN Reason: HR > 100 Last Admin: 02/04/18 18:07 Dose: 5 mg Montelukast Sodium (Singulair) 10 mg PO DAILY [facility] Last Admin: 02/06/18 09:07 Dose: 10 mg [facility] Admin: 02/06/18 09:08 Dose: 1 tablet Nicotine (Nicoderm Cq (Pbkc)) 21 mg TRANSDERM. DAILY [facility] Last Admin: 02/07/18 08:38 Dose: 21 mg Nutritional Formula (Lactose Free) (Ensure Enlive) 120 ml PO 4X/DAY [facility] Last Admin: 02/07/18 08:38 Dose: Not Given Pantoprazole Sodium (Protonix) 20 mg PO QHS [facility] Last Admin: 02/06/18 23:00 Dose: 20 mg Potassium Chloride (K-Dur) 20 meq PO DAILYCM [facility] Last Admin: 02/07/18 08:38 Dose: 20 meq Prednisone () 40 mg PO DAILY@0800 [facility] Last Admin: 02/06/18 09:08 Dose: 40 mg Risperidone (Risperdal) 2 mg PO QHS [facility] Last Admin: 02/06/18 23:00 Dose: 2 mg Risperidone (Risperdal) 1 mg PO DAILY [facility] Last Admin: 02/07/18 08:38 Dose: 1 mg Sodium Chloride () 5 - 15 ml IV UD PRN PRN Reason: SALINE FLUSH Last Admin: 02/04/18 18:08 Dose: 10 ml Tamsulosin HCl (Flomax) 0.4 mg PO QHS [facility] Last Admin: 02/06/18 23:04 Dose: 0.4 mg Trazodone HCl (Desyrel) 150 mg PO QHS [facility] Last Admin: 02/06/18 23:05 Dose: 150 mg Medical Necessity - Tobacco Use Smoking Status: Current every day smoker Assessment/Plan All Active Problems Respiratory failure (Acute) COPD (chronic obstructive pulmonary disease) (Acute) Non-STEMI (non-ST elevated myocardial infarction) (Acute) LV dysfunction (Acute) 47-year-old male, resident at the [facility] admitted with progressive shortness of breath. Patient was reported to be in severe respiratory distress with Spo2 in the 60s. He was intubated and admitted to the intensive care unit for subsequent management. Chest x-ray on admission demonstrated bilateral infiltrate 1. Acute hypoxic respiratory failure secondary to acute COPD exacerbation secondary to acute influenza B infection, patient was intubated on admission, extubated on 02/03/2018. Remains on Tamiflu, Zosyn and Augmentin. Now on 3 L of oxygen, recovery has been very slow. 2. Acute COPD exacerbation second to acute influenza B infection, improving, on prednisone, will continue on tapering doses. 3. Elevated troponin possibly related to demand ischemia, 2D echo admission showed EF of 40%, status post cardiac cath today, EF is 75%, nonobstructive coronaries. 4. Peripheral arterial disease, occluded bilateral iliac arteries, seen during left heart cath, will refer patient for outpatient vascular surgery consult. 5. Acute hepatitis of unknown etiology, acute hepatitis panel neg, liver function appears to be slightly improved, will trend 6. Hypokalemia, potassium is 2.8, replaced, recheck, and in a.m. 7. Hyponatremia, resolved 8. Severe protein calorie malnutrition, BMI 12.7, evp strategy following 9. Schizophrenia, learning disability, on risperidone 10. DVT prophylaxis SC Lovenox Code Visit Inpatient E&M: 53468 Subs Hosp L2
--- NOTE | 2018-02-07 11:20 | CL.D_ITS ---
Patient Name: MARIAA OROZCO Study Date: 02/07/2018 Performing: Jose Guadalupe Millan MD Ht: 72.83 inches 185 cm : 1970 Wt: 97 lbs 44 kg Age: 47 Gender: male BSA: 1.58 PROCEDURE(S) PERFORMED [id number]/COR/LV CLINICAL PROFILE AND INDICATIONS Patient presents with NSTEMI for urgent cardiac cath Indications: Suspected CAD, Cardiomyopathy, LV Dysfunction Heart Failure: NYHA Class: 3, Newly Diagnosed: Yes, Heart Failure Type: Systolic Stress/Imaging Stress/Image Study Performed: No CAD Presentations: Non-STEMI. Symptom onset Date/Time: 01/31/2018 Time Not Available Comorbidities/Risk Factors: Current/Recent Smoker (< 1year) Hypertension Dyslipidemia Peripheral Arterial Disease CONCLUSIONS Non obstructive coronary arteries Normal LV size, wall motion,and systolic function LVEF: by LV gram 65-70 % RECOMMENDATIONS Management as per referring [employer] Referral for bilat aorto iliac bypass or grafting. No retrograde access via bilat femoral approach due to occluded bilateral common iliacs. Cath done via R brachial approach. No evidence of anomalous LCX. LCX appears small off of LM Consider PV surgical consult for bilat aorto bifemoral bypass. Manual sheath removal. DESCRIPTION OF PROCEDURE The patient arrived to the procedure lab. The risks and benefits of the procedure as well as a full d escription of our services here and current unavailability of surgical backup were fully explained to the patient and/or their significant other prior to the catheterization. The Timeout was completed, verifying the correct patient and procedure. The patient's procedural site was prepped and draped in the usual fashion. Local anesthetic was given subcutaneously to right groin region with Lidocaine 2%. Using a modified Seldinger technique, arterial access was obtained via the right femoral artery, a 4 Fr sheath was inserted, arterial access was obtained via the left femoral artery, a 4Fr sheath was in serted, arterial access was obtained via the right brachial artery, a 4Fr sheath was inserted Right Coronary Artery selective angiography was then performed in multiple views using a 4 Fr. AR MOD 2 cat heter. Left Coronary Artery selective angiography was performed in multiple views using a 4 Fr. JL4 catheter. Left Ventriculography was performed in KEYES projection using a [address] LV to AO pullback pressures were then recorded. Ascending (root) aorta selective angiography was then performed in single view. Ascending (root) aorta selective angiography was then performed in si ngle view.The brachial arterial sheath was pulled and manual compression applied until hemostasis is achieved.. The arterial sheath from the left groin was pulled and manual compression applied until he mostasis is achieved.. The arterial sheath from the right gropin was pulled and manual compression ap plied until hemostasis is achieved. CORONARY ANGIOGRAPHY DOMINANCE: Right Dominant LEFT HEART ASSESSMENT Left Ventricular Ejection Fraction: by LV Gram 65-70 % Normal LV wall motion Normal Left Ventricular systolic function LVEDP: 14 mmHg LEFT MAIN: Angiographically normal LEFT ANTERIOR DECENDING ARTERY: PROX LAD: Moderate calcification MID LAD: Mild luminal irregularities less than 30% CIRCUMFLEX ARTERY: Angiographically normal RIGHT CORONARY ARTERY: MID RCA: Mild luminal irregularities less than 30% AORTIC ROOT: Angiographically normal PERIPHERAL FINDINGS: Right Common Iliac Artery Appears occluded. Left Common Iliac Artery is occluded. COMPLICATIONS No Complications PROCEDURE MEDICATIONS Oxygen: 3 L/min via nasal cannula Heparin diluted in 23cc Heparinized saline. Patient given 10cc IA of this solution. 02/07/2018 10:47 :31 Verapamil 2.5mg, Ntg 100mcgs, 2000 units of Heparin diluted in 23cc Heparinized saline. Patient give n 10cc IA of this solution. 02/07/2018 10:47:31 IV Bolus: .9 NaCl 300 ml total 02/07/2018 11:13:47 SUMMARY OF HEMODYNAMIC DATA Time AIR REST ECG 10:13:54 AO 102/75 (88) SA 10:50:41 LV 92/11, 14 11:01:32 LV 100/12, 14 11:01:38 LVp 105/16, 16 11:01:44 AOp 112/75 (94) 11:01:49 Signed By Jose Guadalupe Millan MD On 02/07/2018 11:19:58 Jose Guadalupe Millan MD
[2018-02-07] MEDS: Bisacodyl 5 MG Tablet PO (12:59)
[2018-02-07] MEDS: predniSONE 20 MG Tablet 40 MG PO (12:59)
[2018-02-07] MEDS: Multivitamins,Therapeutic Tablet 1 TABLET PO (12:59)
[2018-02-07] MEDS: Benztropine 2 MG Tablet 1 MG PO ×2 (12:59→22:14)
[2018-02-07] MEDS: Montelukast 10 MG Tablet PO (12:59)
--- NOTE | 2018-02-07 13:07 | CASEMGMT ---
ORION spoke with Mary from the residential. She spoke with patient. The biggest thing would be that he is able to do steps as there are a lot of steps in the residential. Patient is only walking a few feet right now. ORION will follow up on Wednesday with his [employer] worker. ORION may need to find placement. Sonia WATKINS MSW
--- NOTE | 2018-02-07 16:12 | NURSING ---
Walked patient at bedside. No signs of bleeding or issues at insertion sites. Will continue to monitor.
[2018-02-07] MEDS: clonazePAM 0.5 MG Tablet PO (22:14)
[2018-02-07] MEDS: Pantoprazole Sodium 20 MG Tablet PO (22:14)
[2018-02-07] MEDS: Haloperidol 5 MG Tablet 10 MG PO (22:15)
[2018-02-07] MEDS: RisperiDONE 2 MG Tablet PO (22:15)
[2018-02-07] MEDS: Tamsulosin HCl 0.4 MG Capsule PO (22:15)
[2018-02-07] MEDS: traZODone 100 MG Tablet 150 MG PO (22:16)
[2018-02-08] VITALS (18 sets, daily range): BP systolic 77–143; BP diastolic 63–88; PULSE 64–120; RESP 15–24; TEMP 36.6–37.3; O2SAT 94–98
[2018-02-08] MEDS: Ipratropium/Albuterol Sulfate 3 ML AMPUL.NEB INHALATION ×4 (06:37→19:17)
[2018-02-08 06:47] LABS: Hematocrit 40.1 % (40-54); Hemoglobin 12.6 g/dl (13.0-16.5); Mean Corp Hgb Conc 31.4 g/gl (32-36); Mean Corpuscular Hgb 29.6 pg (27.0-32.0); Mean Corpuscular Volume 94.4 fL (80-94); Mean Platelet Vol. 9.6 fl (6.2-12.0); Platelet Count 231 K/mm3 (150-450); RBC Distribution Width CV 13.9 % (11.6-14.6); Red Blood Count 4.25 M/mm3 (4.6-6.2); White Blood Count 14.6 K/mm3 (4.4-11.0)
[2018-02-08 07:01] LABS: Magnesium 2.3 mg/dL (1.6-2.6); Scan Indicated on CBC? Y/N NO
[2018-02-08 07:03] LABS: AST(SGOT) 41 U/L (15-37); Alanine Aminotransfer ALT/SGPT 316 U/L (16-61); Albumin, Serum 2.7 g/dL (3.2-5.0); Alkaline Phosphatase 60 U/L (45-117); Anion Gap 8 (5-15); BUN 13 mg/dL (7-18); BUN/Creat Ratio 22.5 RATIO (10-20); Bilirubin, Direct 0.32 mg/dL (0.00-0.30); Chloride 95 mmol/L (98-107); Creatinine, Serum 0.58 mg/dL (0.70-1.30); EST Glomerular Filtration Rate 159 mL/min (>60); Est Glom Filt Rate - Afr Amer 192 mL/min (>60); Estimated Creatinine Clearance 94.79 ml/min; Globulin 1.9 g/dL (2.2-4.2); Glucose 127 mg/dL (74-106); Potassium 3.3 mmol/L (3.5-5.1); Protein, Total 4.6 g/dL (6.4-8.2); Sodium Level 139 mmol/L (136-145)
--- NOTE | 2018-02-08 07:13 | PN_ITS ---
Patient Problems: Active and Suspected Problems Respiratory failure (Acute) COPD (chronic obstructive pulmonary disease) (Acute) Non-STEMI (non-ST elevated myocardial infarction) (Acute) LV dysfunction (Acute) Subjective: Patient did well overnight. Patient did have a heart catheterization yesterday and no intervention was required. Patient with no complaints this morning. Patient remains on nasal cannula oxygen, but states that he slept well. - Physical Exam General: Alert, Cooperative, No apparent distress, Disoriented, - - Cachectic. Speaking in full sentences. HEENT: Atraumatic, PERRLA, EOMI, Normocephalic, - - No scleral icterus or injection noted Oral: Moist Mucosa, No Gingival or Mucosal Lesions/ Ulcerations Neck: Supple, No JVD, No Nodes, Trachea Midline Lungs: No rhonchi, No rales, Diminished, Wheezes, - - Symmetric expansion. No dullness to percussion. Cardiovascular: Regular rate, Regular Rhythm, Normal S1, Normal S2, No murmurs, No rub noted, No Gallop Abdomen: Bowel Sounds Present, Soft, Non Tender, Non-Distended Extremities: No cyanosis, No edema, Capillary Refill Less than 3 Seconds, Clubbing Skin: No rashes, No breakdown Musculoskeletal: No Tenderness to Palpation of Joints or Extremities, Cachexia, Muscle Wasting Lymphatic: No Cervical, Supraclavicular, or Inguinal Adenopathy Neurological: Cranial nerves II-XII grossly intact, Neuro grossly intact, Motor Exam 5/5 strength throughout Psych/Mental Status: Flat Affect Vital Signs Temp Pulse Resp BP Pulse Ox 37.2 C 97 18 110/66 95 02/08/18 03:30 02/08/18 06:38 02/08/18 06:38 02/08/18 03:30 02/08/18 06:39 Oxygen Flow Rate (L/min) 3 Oxygen Delivery Method Nasal Cannula Weight: 43.5 kg Body Mass Index (BMI) 16.8 Intake and Output for Last 24 Hours 02/06/18 02/07/18 02/08/18 23:59 23:59 23:59 Intake Total 1255.4 / 1255.4 1496 / 1496 460 / 460 Output Total 2024 / 2024 3475 / 3475 250 / 250 Balance -769.6 / -769.6 -1978 / 210 / 210 Microbiology Past 72 Hours 01/31/18 12:17 Blood Culture - Final Blood Culture (Wb) - No Site/Description Given No growth in 5 days. 01/31/18 20:55 Blood Culture - Final Blood Culture (Wb) - Anticubital Right No growth in 5 days. Laboratory Tests Past 24 Hrs 02/08/18 02/08/18 02/08/18 05:30 05:30 05:30 WBC 14.6 H RBC 4.25 L Hgb 12.6 L Hct 40.1 MCV 94.4 H MCH 29.6 MCHC 31.4 L RDW 13.9 RDW Differential 48.0 H Plt Count 231 MPV 9.6 Sodium 139 Potassium 3.3 L Chloride 95 L Carbon Dioxide 36.0 H Anion Gap 8 BUN 13 Creatinine 0.58 L Estim Creat Clear Calc 94.79 Est GFR (MDRD) Af Amer 192 Est GFR (MDRD) Non-Af 159 BUN/Creatinine Ratio 22.5 H Glucose 127 H Calcium 8.0 L Magnesium 2.3 Total Bilirubin 1.00 Direct Bilirubin 0.32 H AST 41 H ALT 316 H Alkaline Phosphatase 60 Total Protein 4.6 L Albumin 2.7 L Globulin 1.9 L Medical Necessity - Tobacco Use Smoking Status: Current every day smoker Assessment/Plan All Active Problems Respiratory failure (Acute) COPD (chronic obstructive pulmonary disease) (Acute) Non-STEMI (non-ST elevated myocardial infarction) (Acute) LV dysfunction (Acute) RECOMMENDATIONS: 1. Wean steroids over the next 12-14 days 2. Continue to wean supplemental oxygen to maintain saturations at or above 90%. Encourage aggressive incentive spirometer use. 3. Continue 1.5 L fluid restriction 4. Likely okay to discontinue antibiotics from my perspective. Continue Tamiflu until discharge 5. Walking oximetry prior to discharge 6. Continue nicotine replacement therapy. 7. Continue baseline psychiatric medications. IMPRESSIONS: 1. Acute on chronic hypoxemic respiratory failure secondary to COPD exacerbation due to influenza B and possible community-acquired pneumonia The patient presented to the emergency department with acute on chronic respiratory failure. He does have a baseline 2 L/min supplemental oxygen requirement along with what is presumptive severe COPD and ongoing tobacco depe ndence. Patient is currently on steroids, bronchodilators and Tamiflu secondary to influenza B. Encourage incentive spirometer and ambulation as tolerated. Would not be surprised the patient requires increased supplemental oxygen at discharge from his baseline for at least a short period of time. Will obtain a walking oximetry for discharge recommendations 2. Hyponatremia of unknown chronicity Resolved. Patient's clinical course is consistent with hypovolemic hyponatremia. Patient currently on a fluid restriction note sodium level is stabilized. Patient would also be at risk for psychogenic polydipsia given baseline schizophrenia. 3. Combined systolic and diastolic heart failure/troponin elevation The patient's recent echocardiogram did reveal evidence of combined systolic and diastolic heart failure. The patient does have risk factors for coronary artery disease. Cardiology is currently following, but coronary vasc ulature appears to be appropriate at this time. 4. Transaminitis Continues to improve. Unclear etiology. Could be secondary to passive vascular congestion. Hepatitis panel was negative. Transaminase levels are improving. 5. Chronic urinary retention/schizophrenia/GERD/long-standing tobacco dependence Complicates care, management, recovery and prognosis. Continue appropriate ICU prophylaxis. Nicotine replacement therapy can be continued while the patient is admitted to the hospital. Code Visit Inpatient E&M: 21095 Subs Hosp L2
[2018-02-08] MEDS: guaiFENesin 600 MG Tablet PO ×2 (09:16→22:16)
[2018-02-08] MEDS: Clopidogrel Bisulfate 75 MG Tablet PO (09:16)
[2018-02-08] MEDS: Montelukast 10 MG Tablet PO (09:16)
[2018-02-08] MEDS: RisperiDONE 1 MG Tablet PO (09:16)
[2018-02-08] MEDS: Losartan Potassium 25 MG Tablet PO (09:17)
[2018-02-08] MEDS: Amox/Clavulanate 500 MG Tablet PO ×3 (09:17→18:46)
[2018-02-08] MEDS: predniSONE 20 MG Tablet 40 MG PO (09:17)
[2018-02-08] MEDS: Aspirin 81 MG TAB.CHEW PO (09:17)
[2018-02-08] MEDS: Bisacodyl 5 MG Tablet PO (09:17)
[2018-02-08] MEDS: Multivitamins,Therapeutic Tablet 1 TABLET PO (09:17)
[2018-02-08] MEDS: Benztropine 2 MG Tablet 1 MG PO ×2 (09:17→22:15)
[2018-02-08] MEDS: Potassium Chloride 10mEq/100mL 10 MEQ/100 ML IV.SOLN. 100 MEQ IV BOLUS ×4 (09:21→13:36)
--- NOTE | 2018-02-08 10:30 | PCM.PN.CARD ---
Subjectve: Patient doing well this morning, somewhat hypotensive and feels slight dizziness. Bilateral groin and right brachial area clean/dry/intact without evidence of hematoma or bruits. Objective: Vital Signs Temp Pulse Resp BP Pulse Ox 98.7 F 104 H 16 77/69 L 98 02/08/18 09:30 02/08/18 09:30 02/08/18 09:30 02/08/18 09:30 02/08/18 09:30 Oxygen Flow Rate (L/min) 3 Oxygen Delivery Method Nasal Cannula Weight: 95 lb 14.417 oz Body Mass Index (BMI) 16.8 Intake and Output for Last 24 Hours 02/06/18 02/07/18 02/08/18 23:59 23:59 23:59 Intake Total 1255.4 / 1255.4 1496 / 1496 460 / 460 Output Total 2024 / 2024 3475 / 3475 250 / 250 Balance -769.6 / -769.6 -1978 / 210 / 210 General: Awake, Alert, Oriented x 3 HEENT: PERRL, EOMI, Sclera Non Icteric Neck: Supple, Good ROM, No Lymph Node Enlargement Lungs: Clear to auscultation Cardiovascular: Regular Rhythm, Normal S1, Normal S2, No Murmurs, No Rubs, No Gallops Vascular: No Carotid Bruits, Normal Femoral Pulses, Normal Radial Pulses, Normal Dorsalis Pedal Pulse, Normal Posterior Tibial Pulses Abdomen: Bowel Sounds Present, Soft, Non Tender, No HSM, No Organomegaly Extremities: No Cyanosis, No Clubbing, No edema Neurological: No Focal Motor or Sensory Deficit 02/08/18 05:30: WBC 14.6 H, RBC 4.25 L, Hgb 12.6 L, Hct 40.1, MCV 94.4 H, MCH 29.6, MCHC 31.4 L, RDW 13.9, RDW Differential 48.0 H, Plt Count 231, MPV 9.6 02/08/18 05:30: Sodium 139, Potassium 3.3 L, Chloride 95 L, Carbon Dioxide 36.0 H, Anion Gap 8, BUN 13, Creatinine 0.58 L, Est GFR (MDRD) Af Amer 192, Est GFR (MDRD) Non-Af 159, BUN/Creatinine Ratio 22.5 H, Glucose 127 H, Calcium 8.0 L, Total Bilirubin 1.00, Direct Bilirubin 0.32 H 02/08/18 05:30: Magnesium 2.3 Rhythm: EKG: ECHO: Stress Test: Cardiac Cath: PCI: CT Surgery: Holter monitor: EPS: PPM: CXR: Chest CT Scan: Medical Necessity - Tobacco Use Smoking Status: Current every day smoker Assessment/Plan 1. Non-STEMI: The patient had initial presentation of respiratory distress with low P O2 sats, found unresponsive at a [facility], and requiring supplemental oxygenation followed by urgent intubation. His chest x-ray showed no overt infiltrates, but does have evidence of diaphragmatic flattening and probable COPD. In addition he was found to be hyponatremic and is being corrected slowly. Patient is tachypneic this morning, with rhonchi over his right base as well as a late expiratory pleural rub. The patient had a mild elevation in his troponins at a peak of 1.0, and is now trending downwards. In addition, his echocardiogram showed global LV dysfunction of a moderate degree with an EF of approximately 40%. Patient appeared to have bilateral mitral leaflet thickening, and stage I diastolic dysfunction. Patient was extubated successfully on 02/03/18 and has remained tachycardic and hypertensive although he is neurologically intact. We have started Coreg 6.25 mg p.o. twice daily yesterday, and will and initially increased it to 12.5 mg p.o. twice daily however the patient is hypotensive this morning. We will decrease it back to 6.25 mg p.o. twice daily going forward. In addition we had started him on Cozaar 25 mg p.o. daily, will cut this in half to 12.5 mg a day given his normalized LV function by catheterization yesterday. Would recommend discontinuation of Lasix at this time. Recommend keeping his potassium above 4.0. I reviewed the patient's echocardiogram to assess his mitral valve status as well. I do not see any outward signs of endocarditis at this time. His blood cultures are negative x2. Patient underwent left heart catheterization yesterday which showed severe bilateral PVD with bilateral occlusion of his left and right common iliacs requiring us to access his coronary arteries via the right brachial approach. The patient has minimal nonobstructive coronary disease and normalization of his LV function. No need for PCI at this time. Recommend baby aspirin and Plavix going forward given his PVD. Patient will require a consultation with [facility] surgery Dr. Preciado for possible aortobifem bypass going forward in the future. His bilateral groin sites and brachial sites look okay. 2. Hyperlipidemia: Recommend obtaining a fasting lipid profile once the patient has recovered from this event. The patient's LFTs are now decreasing, possibly suggesting resolution of shock liver, but his ALT has not completely normalized.. Would not recommend any antilipid therapy until his LFTs have normalized. 3. COPD: Patient has evidence of COPD on his chest x-ray as well as by history. Will defer to pulmonary. 4. Thank you very much for the opportunity to participate in the cardiac care of your patient. Patient may follow-up with Dr. Millan going forward. Code Visit Inpatient E&M: 14833 Subs Hosp L2
--- NOTE | 2018-02-08 10:34 | PN.CARD_ITS ---
Subjectve: Patient doing well this morning, somewhat hypotensive and feels slight dizziness. Bilateral groin and right brachial area clean/dry/intact without ev idence of hematoma or bruits. Objective: Vital Signs Temp Pulse Resp BP Pulse Ox 98.7 F 104 H 16 77/69 L 98 02/08/18 09:30 02/08/18 09:30 02/08/18 09:30 02/08/18 09:30 02/08/18 09:30 Oxygen Flow Rate (L/min) 3 Oxygen Delivery Method Nasal Cannula Weight: 95 lb 14.417 oz Body Mass Index (BMI) 16.8 Intake and Output for Last 24 Hours 02/06/18 02/07/18 02/08/18 23:59 23:59 23:59 Intake Total 1255.4 / 1255.4 1496 / 1496 460 / 460 Output Total 2024 / 2024 3475 / 3475 250 / 250 Balance -769.6 / -769.6 -1978 / 210 / 210 General: Awake, Alert, Oriented x 3 HEENT: PERRL, EOMI, Sclera Non Icteric Neck: Supple, Good ROM, No Lymph Node Enlargement Lungs: Clear to auscultation Cardiovascular: Regular Rhythm, Normal S1, Normal S2, No Murmurs, No Rubs, No Gallops Vascular: No Carotid Bruits, Normal Femoral Pulses, Normal Radial Pulses, Normal Dorsalis Pedal Pulse, Normal Posterior Tibial Pulses Abdomen: Bowel Sounds Present, Soft, Non Tender, No HSM, No Organomegaly Extremities: No Cyanosis, No Clubbing, No edema Neurological: No Focal Motor or Sensory Deficit 02/08/18 05:30: WBC 14.6 H, RBC 4.25 L, Hgb 12.6 L, Hct 40.1, MCV 94.4 H, MCH 29.6, MCHC 31.4 L, RDW 13.9, RDW Differential 48.0 H, Plt Count 231, MPV 9.6 02/08/18 05:30: Sodium 139, Potassium 3.3 L, Chloride 95 L, Carbon Dioxide 36.0 H, Anion Gap 8, BUN 13, Creatinine 0.58 L, Est GFR (MDRD) Af Amer 192, Est GFR (MDRD) Non-Af 159, BUN/Creatinine Ratio 22.5 H, Glucose 127 H, Calcium 8.0 L, Total Bilirubin 1.00, Direct Bilirubin 0.32 H 02/08/18 05:30: Magnesium 2.3 Rhythm: EKG: ECHO: Stress Test: Cardiac Cath: PCI: CT Surgery: Holter monitor: EPS: PPM: CXR: Chest CT Scan: Medical Necessity - Tobacco Use Smoking Status: Current every day smoker Assessment/Plan 1. Non-STEMI: The patient had initial presentation of respiratory distress with low P O2 sats, [facility], and requiring supplemental oxygenation followed by urgent intubation. His chest x-ray showed no overt infiltrates, but does have evidence of diaphragmatic flattening and probable COPD. In addition he was found to be hyponatremic and is being corrected slowly. Patient is tachypneic this morning, with rhonchi over his right base as well as a late expiratory pleural rub. The patient had a mild elevation in his troponins at a peak of 1.0, and is now trending downwards. In addition, his echocardiogram showed global LV dysfunction of a moderate degree with an EF of approximately 40%. Patient appeared to have bilateral mitral leaflet thickening, and stage I diastolic dysfunction. Patient was extubated successfully on 02/03/18 and has remained tachycardic and hypertensive although he is neurologically intact. We have started Coreg 6.25 mg p.o. twice daily yesterday, and will and initially increased it to 12.5 mg p.o. twice daily however the patient is hypotensive this morning. We will decrease it back to 6.25 mg p.o. twice daily going forward. In addition we had started him on Cozaar 25 mg p.o. daily, will cut this in half to 12.5 mg a day given his normalized LV function by catheterization yesterday. Would recommend discontinuation of Lasix at this time. Recommend keeping his potassium above 4 .0. I reviewed the patient's echocardiogram to assess his mitral valve status as well. I do not see any outward signs of endocarditis at this time. His blood cultures are negative x2. Patient underwent left heart catheterization yesterday which showed severe bilateral PVD with bilateral occlusion of his left and right common iliacs requiring us to access his coronary arteries via the right brachial approach. The patient has minimal nonobstructive coronary disease and normalization of his LV function. No need for PCI at this time. Recommend baby aspirin and Plavix going forward given his PVD. Patient will require a consultation with [facility] surgery Dr. Preciado for possible aortobifem bypass going forward in the future. His bilateral groin sites and brachial sites look okay. 2. Hyperlipidemia: Recommend obtaining a fasting lipid profile once the patient has recovered from this event. The patient's LFTs are now decreasing, possibly suggesting resolution of shock liver, but his ALT has not completely normalized.. Would not recommend any antilipid therapy until his LFTs have normalized. 3. COPD: Patient has evidence of COPD on his chest x-ray as well as by history. Will defer to pulmonary. 4. Thank you very much for the opportunity to participate in the cardiac care of your patient. Patient may follow-up with Dr. Millan going forward. Code Visit Inpatient E&M: 97239 Subs Hosp L2
--- NOTE | 2018-02-08 14:33 | NURSING ---
Called Mary DE LEON at [facility] to inquire about if Bhupinder has had his influenza vaccine for this season. She was unable to say but was going to call the principal programmer and call back to U with the date of administration if he has had. Will await the return call.
--- NOTE | 2018-02-08 19:24 | PCM.PN.HOSP ---
Patient Problems: Active and Suspected Problems Respiratory failure (Acute) COPD (chronic obstructive pulmonary disease) (Acute) Non-STEMI (non-ST elevated myocardial infarction) (Acute) LV dysfunction (Acute) Subjective: Patient was seen and examined. Denied any new complaints. Denies chest pain or dizziness or shortness of breath. Objective: Physical exam: General: Alert, Oriented x3, Cooperative, No apparent distress HEENT: Atraumatic, PERRLA, EOMI, Normocephalic Oral: Moist Mucosa Neck: Supple Lungs: Clear to auscultation, Normal air movement Cardiovascular: Regular rate, Regular Rhythm, Normal S1, Normal S2, No murmurs Abdomen: Bowel Sounds Present, Soft, Non Tender, Non-Distended, No Hepato-splenomegaly Extremities: No edema Skin: No rashes, No breakdown Musculoskeletal: No Tenderness to Palpation of Joints or Extremities Lymphatic: No Cervical, Supraclavicular, or Inguinal Adenopathy Neurological: Cranial nerves II-XII grossly intact, Neuro grossly intact Psych/Mental Status: Normal Affect, Appropriate Vitals/I&O's: Vital Signs Temp Pulse Resp BP Pulse Ox 99.1 F 112 H 24 H 112/78 97 02/08/18 15:50 02/08/18 19:17 02/08/18 19:17 02/08/18 15:50 02/08/18 15:50 Oxygen Flow Rate (L/min) 3 Oxygen Delivery Method Nasal Cannula Weight: 43.5 kg Body Mass Index (BMI) 16.8 Intake and Output for Last 24 Hours 02/06/18 02/07/18 02/08/18 23:59 23:59 23:59 Intake Total 1255.4 / 1255.4 1496 / 1496 1971 / 1971 Output Total 2024 / 2024 3475 / 3475 2250 / 2250 Balance -769.6 / -769.6 -1978 / -1978 -278 / -278 Microbiology Past 72 Hours 01/31/18 12:17 Blood Culture (Wb) - No Site/Description Given Blood Culture - Final No growth in 5 days. 01/31/18 20:55 Blood Culture (Wb) - Anticubital Right Blood Culture - Final No growth in 5 days. Laboratory Results 02/08/18 05:30: WBC 14.6 H, RBC 4.25 L, Hgb 12.6 L, Hct 40.1, MCV 94.4 H, MCH 29.6, MCHC 31.4 L, RDW 13.9, RDW Differential 48.0 H, Plt Count 231, MPV 9.6 02/08/18 05:30: Sodium 139, Potassium 3.3 L, Chloride 95 L, Carbon Dioxide 36.0 H, Anion Gap 8, BUN 13, Creatinine 0.58 L, Estim Creat Clear Calc 94.79, Est GFR (MDRD) Af Amer 192, Est GFR (MDRD) Non-Af 159, BUN/Creatinine Ratio 22.5 H, Glucose 127 H, Calcium 8.0 L, Total Bilirubin 1.00, Direct Bilirubin 0.32 H, AST 41 H, ALT 316 H, Alkaline Phosphatase 60, Total Protein 4.6 L, Albumin 2.7 L, Globulin 1.9 L 02/08/18 05:30: Magnesium 2.3 Current Medications Acetaminophen (Tylenol) 500 mg PO Q6H PRN PRN PRN Reason: HEADACHE Last Admin: 02/06/18 16:38 Dose: 500 mg Albuterol Sulfate (Ventolin Aerosols) 2.5 mg INHALATION Q2H PRN PRN PRN Reason: SOB &/OR WHEEZING Albuterol/Ipratropium (Duoneb) 3 ml INHALATION Q4H.RT [facility] Last Admin: 02/08/18 19:17 Dose: 3 ml Amoxicillin/Clavulanate Potassium (Augmentin Tablet) 500 mg PO TIDCM [facility] Last Admin: 02/08/18 18:46 Dose: 500 mg Aspirin (Aspirin, Baby) 81 mg PO DAILY@0800 [facility] Last Admin: 02/08/18 09:17 Dose: 81 mg Benztropine Mesylate (Cogentin) 1 mg PO BID [facility] Last Admin: 02/08/18 09:17 Dose: 1 mg Bisacodyl (Dulcolax) 5 mg PO DAILY [facility] Last Admin: 02/08/18 09:17 Dose: 5 mg Carvedilol (Coreg) 12.5 mg PO BID [facility] Last Admin: 02/04/18 22:57 Dose: 12.5 mg Clonazepam (Klonopin) 0.5 mg PO QHS [facility] Last Admin: 02/07/18 22:14 Dose: 0.5 mg Clopidogrel Bisulfate (Plavix) 75 mg PO DAILY [facility] Last Admin: 02/08/18 09:16 Dose: 75 mg Furosemide (Lasix) 20 mg PO DAILY [facility] Guaifenesin (Mucinex) 600 mg PO BID [facility] Last Admin: 02/08/18 09:16 Dose: 600 mg Haloperidol (Haldol) 10 mg PO QHS [facility] Last Admin: 02/07/18 22:15 Dose: 10 mg Heparin Sodium (Beef Lung) (Heparin 500 Unit/5 Ml (100/Ml)) 500 unit IV UD PRN PRN Reason: HEPARIN FLUSH Hydralazine HCl (Apresoline Iv) 10 mg IV Q6H PRN PRN PRN Reason: BLOOD PRESSURE Last Admin: 02/03/18 18:37 Dose: 10 mg Sodium Chloride () 250 mls @ 15 mls/hr IV .[id number] PRN PRN Reason: SALINE FLUSH Sodium Chloride () 1,000 mls @ 15 mls/hr IV .Q48H [facility] Last Admin: 02/07/18 06:14 Dose: 15 mls/hr Labetalol HCl (Trandate) 5 mg IV X1 PRN PRN Reason: SBP > 160 prior to sheath pull Stop: 02/09/18 11:07 Losartan Potassium (Cozaar) 12.5 mg PO DAILY [facility] Magnesium Hydroxide (Milk Of Magnesia) 30 ml PO DAILY PRN PRN PRN Reason: Constipation Metoprolol Tartrate (Lopressor (Beta Pietro)) 5 mg IV Q6H PRN PRN PRN Reason: HR > 100 Last Admin: 02/04/18 18:07 Dose: 5 mg Montelukast Sodium (Singulair) 10 mg PO DAILY [facility] Last Admin: 02/08/18 09:16 Dose: 10 mg [facility] Last Admin: 02/08/18 09:17 Dose: 1 tablet Nicotine (Nicoderm Cq (Pbkc)) 21 mg TRANSDERM. DAILY [facility] Last Admin: 02/08/18 09:20 Dose: 21 mg Nutritional Formula (Lactose Free) (Ensure Enlive) 120 ml PO 4X/DAY [facility] Last Admin: 02/08/18 18:46 Dose: 120 ml Pantoprazole Sodium (Protonix) 20 mg PO QHS [facility] Last Admin: 02/07/18 22:14 Dose: 20 mg Potassium Chlor[facility] (K[facility]Dur) [facility] Last Admin: 02/08/18 09:16 Dose: 20 meq Prednisone () 40 mg PO DAILY@0800 [facility]; Taper Stop: 02/20/18 07:59 Last Admin: 02/08/18 09:17 Dose: 40 mg Risperidone (Risperdal) 2 mg PO QHS [facility] Last Admin: 02/07/18 22:15 Dose: 2 mg Risperidone (Risperdal) 1 mg PO DAILY [facility] Last Admin: 02/08/18 09:16 Dose: 1 mg Sodium Chloride () 5 - 15 ml IV UD PRN PRN Reason: SALINE FLUSH Last Admin: 02/04/18 18:08 Dose: 10 ml Tamsulosin HCl (Flomax) 0.4 mg PO QHS [facility] Last Admin: 02/07/18 22:15 Dose: 0.4 mg Trazodone HCl (Desyrel) 150 mg PO QHS [facility] Last Admin: 02/07/18 22:16 Dose: 150 mg Medical Necessity - Tobacco Use Smoking Status: Current every day smoker Assessment/Plan All Active Problems Respiratory failure (Acute) COPD (chronic obstructive pulmonary disease) (Acute) Non-STEMI (non-ST elevated myocardial infarction) (Acute) LV dysfunction (Acute) 47-year-old male, resident at the [facility] admitted with progressive shortness of breath. Patient was reported to be in severe respiratory distress with Spo2 in the 60s. He was intubated and admitted to the intensive care unit for subsequent management. Chest x-ray on admission demonstrated bilateral infiltrate 1. Acute hypoxic respiratory failure secondary to acute COPD exacerbation secondary to acute influenza B infection, patient was intubated on admission, extubated on 02/03/2018. Completed 5 days of Tamiflu, more than 7 days of Augmentin. Discontinue Tamiflu and Augmentin. Continue to wean off oxygen. 2. Acute COPD exacerbation second to acute influenza B infection, improving, on prednisone taper, will continue to monitor. 3. Elevated troponin possibly related to demand ischemia, 2D echo admission showed EF of 40%, status post cardiac cath today, EF is 75%, nonobstructive coronaries. Continue on aspirin, Plavix, Coreg 4. Peripheral arterial disease, occluded bilateral iliac arteries, seen during left heart cath, will refer patient for outpatient vascular surgery consult. 5. Acute hepatitis of unknown etiology, acute hepatitis panel neg, liver function appears to be slightly improved, will trend 6. Hypokalemia, replaced, recheck, and in a.m. 7. Hyponatremia, resolved 8. Severe protein calorie malnutrition, BMI 12.7, bedspread cutter hand following 9. Schizophrenia, learning disability, on risperidone 10. DVT prophylaxis SC Lovenox Code Visit Inpatient E&M: 87857 Subs Hosp L2
[2018-02-08] MEDS: traZODone 100 MG Tablet 150 MG PO (22:15)
[2018-02-08] MEDS: Tamsulosin HCl 0.4 MG Capsule PO (22:15)
[2018-02-08] MEDS: clonazePAM 0.5 MG Tablet PO (22:16)
[2018-02-08] MEDS: Pantoprazole Sodium 20 MG Tablet PO (22:16)
[2018-02-08] MEDS: Haloperidol 5 MG Tablet 10 MG PO (22:28)
[2018-02-08] MEDS: RisperiDONE 2 MG Tablet PO (22:29)
--- NOTE | 2018-02-08 22:55 | NURSING ---
Pt at fluid restriction at time of 22:00 med pass. Pt encouraged to take meds with small amount of water.
--- NOTE | 2018-02-08 22:58 | NURSING ---
1 mg tab of Risperdal pulled from [facility]. Order is for 2 mg tab in HS. 1 mg tab not used, placed in locked information engineer pt room.
[2018-02-09] VITALS (11 sets, daily range): BP systolic 95–112; BP diastolic 61–72; PULSE 61–131; RESP 14–22; TEMP 36.8–37.2; O2SAT 85–97
[2018-02-09] MEDS: Ipratropium/Albuterol Sulfate 3 ML AMPUL.NEB INHALATION ×3 (04:20→10:45)
--- NOTE | 2018-02-09 08:03 | PN_ITS ---
Patient Problems: Active and Suspected Problems Respiratory failure (Acute) COPD (chronic obstructive pulmonary disease) (Acute) Non-STEMI (non-ST elevated myocardial infarction) (Acute) LV dysfunction (Acute) Subjective: Patient still with cough, but feels subjectively improved compared to previous. Patient denies any chest pain. Patient does report using supplemental oxygen at home, but is unaware of the liter flow. Patient feels his exercise tolerance is improved. - Physical Exam General: Alert, Cooperative, No apparent distress, - - Cachectic. Appears older than stated age. No conversational dyspnea noted. HEENT: Atraumatic, PERRLA, EOMI, Normocephalic, - - No scleral icterus or injection noted. Oral: Moist Mucosa, No Gingival or Mucosal Lesions/ Ulcerations, - - Poor dentition. Neck: Supple, No JVD, No Nodes, Trachea Midline Lungs: No rhonchi, No rales, Diminished, Wheezes, - - Symmetric expansion. No dullness to percussion. Cardiovascular: Normal S1, Normal S2, No murmurs, No rub noted, No Gallop, Tachycardic Abdomen: Bowel Sounds Present, Soft, Non Tender, Non-Distended Extremities: No cyanosis, No edema, Capillary Refill Less than 3 Seconds, Clubbing Skin: No rashes, No breakdown Musculoskeletal: No Tenderness to Palpation of Joints or Extremities Lymphatic: No Cervical, Supraclavicular, or Inguinal Adenopathy Neurological: Cranial nerves II-XII grossly intact, Neuro grossly intact, Motor Exam 5/5 strength throughout Psych/Mental Status: Anxious, Flat Affect Vital Signs Temp Pulse Resp BP Pulse Ox 37.2 C 114 H 18 110/70 93 02/09/18 06:34 02/09/18 07:23 02/09/18 07:23 02/09/18 06:34 02/09/18 07:23 Oxygen Flow Rate (L/min) 4 Oxygen Delivery Method Nasal Cannula Weight: 44.9 kg Body Mass Index (BMI) 16.8 Intake and Output for Last 24 Hours 02/07/18 02/08/18 02/09/18 23:59 23:59 23:59 Intake Total 1496 / 1496 2732 / 2732 0 / 0 Output Total 3475 / 3475 3005 / 3005 550 / 550 Balance -1978 / -1978 -273 / -273 -550 / -550 Microbiology Past 72 Hours 12/17/18 12:17 Blood Culture - Final Blood Culture (Wb) - No Site/Description Given No growth in 5 days. 01/31/18 20:55 Blood Culture - Final Blood Culture (Wb) - Anticubital Right No growth in 5 days. Medical Necessity - Tobacco Use Smoking Status: Current every day smoker Assessment/Plan All Active Problems Respiratory failure (Acute) COPD (chronic obstructive pulmonary disease) (Acute) Non-STEMI (non-ST elevated myocardial infarction) (Acute) LV dysfunction (Acute) RECOMMENDATIONS: 1. Wean steroids over the next 12-14 days 2. Continue to wean supplemental oxygen to maintain saturations at or above 90%. Encourage aggressive incentive spirometer use. 3. Continue 1.5 L fluid restriction 4. Likely okay to discontinue antibiotics from my perspective. Continue Tamiflu until discharge 5. Walking oximetry prior to discharge 6. Continue nicotine replacement therapy. 7. Continue baseline psychiatric medications. 8. Okay to discharge from my perspective if patient requires 6 L or less with ambulation IMPRESSIONS: 1. Acute on chronic hypoxemic respiratory failure secondary to COPD exacerbation due to influenza B and possible community-acquired pneumonia The patient presented to the emergency department with acute on chronic respiratory failure. He does have a baseline 2 L/min supplemental oxygen requirement along with what is presumptive severe COPD and ongoing tobacco dependence. Patient is currently on steroids, bronchodilators and Tamiflu se condary to influenza B. Encourage incentive spirometer and ambulation as tolerated. Would not be surprised the patient requires increased supplemental oxygen at discharge from his baseline for at least a short period of time. Patient can ambulate on 6 L or less and maintain a saturation greater than 89%, it is likely okay to discharge from my perspective. Patient will need close outpatient follow-up. 2. Hyponatremia of unknown chronicity Resolved. Patient's clinical course is consistent with hypovolemic hyponatremia. Patient currently on a fluid restriction note sodium level is stabilized. Patient would also be at risk for psychogenic polydipsia given baseline schizophrenia. 3. Combined systolic and diastolic heart failure/troponin elevation The patient's recent echocardiogram did reveal evidence of combined systolic and diastolic heart failure. The patient does have risk factors for coronary artery disease. Cardiology is currently following, but coronary vasculature appears to be appropriate at this time. 4. Transaminitis No labs today. This can be followed as an outpatient. Unclear if this is related to medications. Unclear etiology. Could be secondary to passive vascular congestion. Hepatitis panel was negative. Transaminase levels are improving. 5. Chronic urinary retention/schizophrenia/GERD/long-standing tobacco dependence Complicates care, management, recovery and prognosis. Continue appropriate ICU prophylaxis. Nicotine replacement therapy can be continued while the patient is admitted to the hospital. Code Visit Inpatient E&M: 77582 Subs Hosp L2
--- NOTE | 2018-02-09 08:14 | PN_ITS ---
Patient Problems: Active and Suspected Problems Respiratory failure (Acute) COPD (chronic obstructive pulmonary disease) (Acute) Non-STEMI (non-ST elevated myocardial infarction) (Acute) LV dysfunction (Acute) Subjective: Patient was seen and examined. Complains of feeling nervous, anxious to be discharged home. Denies any dizziness or shortness of breath or chest pain. Objective: General: Alert, Oriented x3, Cooperative, No apparent distress, appears anxious, on 4 L of oxygen HEENT: Atraumatic, PERRLA, EOMI, Normocephalic Oral: Moist Mucosa Neck: Supple Lungs: Clear to auscultation, Normal air movement Cardiovascular: Regular rate, Regular Rhythm, Normal S1, Normal S2, No murmurs Abdomen: Bowel Sounds Present, Soft, Non Tender, Non-Distended, No Hepato- splenomegaly Extremities: No edema Skin: No rashes, No breakdown Musculoskeletal: No Tenderness to Palpation of Joints or Extremities Lymphatic: No Cervical, Supraclavicular, or Inguinal Adenopathy Neurological: Cranial nerves II-XII grossly intact, Neuro grossly intact Psych/Mental Status: Normal Affect, Appropriate Vitals/I&O's: Vital Signs Temp Pulse Resp BP Pulse Ox 98.9 F 115 H 20 H 110/70 93 02/09/18 06:34 02/09/18 07:23 02/09/18 07:23 02/09/18 06:34 02/09/18 07:23 Oxygen Flow Rate (L/min) 4 Oxygen Delivery Method Nasal Cannula Weight: 44.9 kg Body Mass Index (BMI) 16.8 Intake and Output for Last 24 Hours 02/07/18 02/08/18 02/09/18 23:59 23:59 23:59 Intake Total 1496 / 1496 2732 / 2732 0 / 0 Output Total 3475 / 3475 3005 / 3005 550 / 550 Balance -1978 / -1979 -273 / -273 -550 / -550 Microbiology Past 72 Hours 01/31/18 12:17 Blood Culture (Wb) - No Site/Description Given Blood Culture - Final No growth in 5 days. 01/31/18 20:55 Blood Culture (Wb) - Anticubital Right Blood Culture - Final No growth in 5 days. Current Medications Acetaminophen (Tylenol) 500 mg PO Q6H PRN PRN PRN Reason: HEADACHE Last Admin: 02/06/18 16:38 Dose: 500 mg Albuterol Sulfate (Ventolin Aerosols) 2.5 mg INHALATION Q2H PRN PRN PRN Reason: SOB &/OR WHEEZING Albuterol/Ipratropium (Duoneb) 3 ml INHALATION Q4H.RT [facility] Last Admin: 02/09/18 07:22 Dose: 3 ml Aspirin (Aspirin, Baby) 81 mg PO DAILY@0800 [facility] Last Admin: 02/08/18 09:17 Dose: 81 mg Benztropine Mesylate (Cogentin) 1 mg PO BID [facility] Last Admin: 02/08/18 22:15 Dose: 1 mg Bisacodyl (Dulcolax) 5 mg PO DAILY [facility] Last Admin: 02/08/18 09:17 Dose: 5 mg Carvedilol (Coreg) 12.5 mg PO BID [facility] Last Admin: 02/04/18 22:57 Dose: 12.5 mg Clonazepam (Klonopin) 0.5 mg PO QHS [facility] Last Admin: 02/08/18 22:16 Dose: 0.5 mg Clopidogrel Bisulfate (Plavix) 75 mg PO DAILY [facility] Last Admin: 02/08/18 09:16 Dose: 75 mg Enoxaparin Sodium (Lovenox) 40 mg SC DAILY [facility] Furosemide (Lasix) 20 mg PO DAILY [facility] Guaifenesin (Mucinex) 600 mg PO BID [facility] Last Admin: 02/08/18 22:16 Dose: 600 mg Haloperidol (Haldol) 10 mg PO QHS [facility] Last Admin: 02/08/18 22:28 Dose: 10 mg Heparin Sodium (Beef Lung) (Heparin 500 Unit/5 Ml (100/Ml)) 500 unit IV UD PRN PRN Reason: HEPARIN FLUSH Hydralazine HCl (Apresoline Iv) 10 mg IV Q6H PRN PRN PRN Reason: BLOOD PRESSURE Last Admin: 02/03/18 18:37 Dose: 10 mg Sodium Chloride () 250 mls @ 15 mls/hr IV .[id number] PRN PRN Reason: SALINE FLUSH Sodium Chloride () 1,000 mls @ 15 mls/hr IV .Q48H [facility] Last Admin: 02/09/18 02:17 Dose: Not Given Labetalol HCl (Trandate) 5 mg IV X1 PRN PRN Reason: SBP > 160 prior to sheath pull Stop: 02/09/18 11:07 Losartan Potassium (Cozaar) 12.5 mg PO DAILY [facility] Magnesium Hydroxide (Milk Of Magnesia) 30 ml PO DAILY PRN PRN PRN Reason: Constipation Metoprolol Tartrate (Lopressor (Beta Pietro)) 5 mg IV Q6H PRN PRN PRN Reason: HR > 100 Last Admin: 02/04/18 18:07 Dose: 5 mg Montelukast Sodium (Singulair) 10 mg PO DAILY [facility] Last Admin: 02/08/18 09:16 Dose: 10 mg [facility] Admin: 02/08/18 09:17 Dose: 1 tablet Nicotine (Nicoderm Cq (Pbkc)) 21 mg TRANSDERM. DAILY [facility] Last Admin: 02/08/18 09:20 Dose: 21 mg Nutritional Formula (Lactose Free) (Ensure Enlive) 120 ml PO 4X/DAY [facility] Last Admin: 02/08/18 22:33 Dose: Not Given Pantoprazole Sodium (Protonix) 20 mg PO QHS [facility] Last Admin: 02/08/18 22:16 Dose: 20 mg Potassium Chloride ([facility]Dur) [facility] Last Admin: 02/08/18 09:16 Dose: 20 meq Prednisone () 40 mg PO DAILY@0800 [facility]; Taper Stop: 02/20/18 07:59 Last Admin: 02/08/18 09:17 Dose: 40 mg Risperidone (Risperdal) 2 mg PO QHS [facility] Last Admin: 02/08/18 22:29 Dose: 2 mg Risperidone (Risperdal) 1 mg PO DAILY [facility] Last Admin: 02/08/18 09:16 Dose: 1 mg Sodium Chloride () 5 - 15 ml IV UD PRN PRN Reason: SALINE FLUSH Last Admin: 02/04/18 18:08 Dose: 10 ml Trazodone HCl (Desyrel) 150 mg PO QHS [facility] Last Admin: 02/08/18 22:15 Dose: 150 mg Medical Necessity - Tobacco Use Smoking Status: Current every day smoker Assessment/Plan All Active Problems Respiratory failure (Acute) COPD (chronic obstructive pulmonary disease) (Acute) Non-STEMI (non-ST elevated myocardial infarction) (Acute) LV dysfunction (Acute) 47-year-old male, resident at the nursing home admitted with progressive shortness of breath. Patient was reported to be in severe respiratory distress with Spo2 in the 60s. He was intubated and admitted to the intensive care unit for subsequent management. Chest x-ray on admission demonstrated bilateral infiltrate 1. Acute hypoxic respiratory failure secondary to acute COPD exacerbation secondary to acute influenza B infection, patient was intubated on admission, extubated on 02/03/2018. Completed Tamiflu and Augmentin. Continue to wean off oxygen. 2. Acute COPD exacerbation secondary to acute influenza B infection, improving, on prednisone taper, will continue to monitor. 3. Elevated troponin possibly related to demand ischemia, 2D echo admission showed EF of 40%, status post cardiac cath today, EF is 75%, nonobstructive coronaries. Continue on aspirin, Plavix, Coreg 4. Peripheral arterial disease, occluded bilateral iliac arteries, seen during left heart cath, will refer patient for outpatient vascular surgery consult. 5. Acute hepatitis of unknown etiology, acute hepatitis panel neg, liver function appears to be slightly improved, will trend 6. Hypokalemia, replaced, recheck, and in a.m. 7. Hyponatremia, resolved 8. Severe protein calorie malnutrition, BMI 12.7, baker helper following 9. Schizophrenia, learning disability, on risperidone 10. DVT prophylaxis SC Lovenox Code Visit Inpatient E&M: 55969 Subs Hosp L2
[2018-02-09] MEDS: RisperiDONE 1 MG Tablet PO (08:40)
[2018-02-09] MEDS: Multivitamins,Therapeutic Tablet 1 TABLET PO (08:41)
[2018-02-09] MEDS: Benztropine 2 MG Tablet 1 MG PO (08:41)
[2018-02-09] MEDS: Clopidogrel Bisulfate 75 MG Tablet PO (08:42)
[2018-02-09] MEDS: predniSONE 20 MG Tablet 40 MG PO (08:42)
[2018-02-09] MEDS: Bisacodyl 5 MG Tablet PO (08:42)
[2018-02-09] MEDS: Aspirin 81 MG TAB.CHEW PO (08:42)
[2018-02-09] MEDS: Losartan Potassium 25 MG Tablet 12.5 MG PO (08:42)
[2018-02-09] MEDS: Montelukast 10 MG Tablet PO (08:43)
[2018-02-09] MEDS: guaiFENesin 600 MG Tablet PO (08:43)
[2018-02-09] MEDS: Enoxaparin 40 MG/0.4 ML Syringe SC (08:43)
[2018-02-09 09:02] LABS: Absolute Lymphocyte Count 1.15 X10^3/ul (0.83-4.51); Absolute Neutrophil Count 12.5 X10^3/uL (2.0-7.7); Eosinophil# 0.01 X10^3/uL; Eosinophils% 0.1 % (0-5); Hematocrit 42.2 % (40-54); Hemoglobin 13.3 g/dl (13.0-16.5); Lymphocyte # 1.15 X10^3/ul (4.0); Lymphocyte % 7.7 % (19-41); Mean Corp Hgb Conc 31.5 g/gl (32-36); Mean Corpuscular Hgb 29.5 pg (27.0-32.0); Mean Corpuscular Volume 93.6 fL (80-94); Mean Platelet Vol. 9.4 fl (6.2-12.0); Monocyte% 8.7 % (0-10); Neutrophil # 12.52 X10^3/uL (2.7-7.7); Neutrophil % 83.4 % (47-70); Platelet Count 227 K/mm3 (150-450); RBC Distribution Width CV 13.7 % (11.6-14.6); RBC Distribution Width SD 46.7 fl (35.1-43.9); Red Blood Count 4.51 M/mm3 (4.6-6.2)
[2018-02-09 09:06] LABS: POSITIVE COUNT NO; POSITIVE DIFFERENTIAL NO; POSITIVE MORPHOLOGY NO
[2018-02-09 09:19] LABS: ALB/GLOB Ratio 1.4 RATIO (0.9-2.4); AST(SGOT) 44 U/L (15-37); Alanine Aminotransfer ALT/SGPT 291 U/L (16-61); Albumin, Serum 3.3 g/dL (3.2-5.0); Alkaline Phosphatase 69 U/L (45-117); Anion Gap 6 (5-15); BUN 12 mg/dL (7-18); BUN/Creat Ratio 23.5 RATIO (10-20); Calcium,Total 8.2 mg/dL (8.5-10.1); Chloride 95 mmol/L (98-107); Creatinine, Serum 0.51 mg/dL (0.70-1.30); EST Glomerular Filtration Rate 183 mL/min (>60); Est Glom Filt Rate - Afr Amer 221 mL/min (>60); Estimated Creatinine Clearance 111.27 ml/min; Globulin 2.3 g/dL (2.2-4.2); Glucose 105 mg/dL (74-106); Protein, Total 5.6 g/dL (6.4-8.2); Sodium Level 136 mmol/L (136-145)
--- NOTE | 2018-02-09 09:32 | CASEMGMT ---
Patient is ready for discharge. He is still using a walker with therapy, therefore it is unlikely he would be able to manage the multiple steps at the custodial. ORION called patient's stepdad/POA and he has no preference as to which detention patient goes to. ORION told him SW will let him know where he goes. ORION also tried to call patient's [facility], but they do not appear to be open today. ORION called [facility] and [facility] with referral. ORION also faxed them information. [facility] wanted to do an on-site visit today. Await response from SNF's. Sonia VARNER
--- NOTE | 2018-02-09 10:20 | NURSING ---
Removed Chatman at this time - Pt tolerated well. 700 in bag documented and 8cc removed from balloon. Will monitor pt for retention.
--- NOTE | 2018-02-09 11:50 | CASEMGMT ---
ORION received a call from [place] at [facility] and they can accept patient. ORION will notify physician. Sonia VARNER
--- NOTE | 2018-02-09 11:52 | PCM.TXEXTCAR ---
- Diet 02/03/18 15:59 Diet: Regular Diet Food consistency:: Mechanical Soft/Ground Liquid Consistency:: Regular/Thin Dietary Modifications:: Fluid Restricted Diet Is pt able to select menu?: Yes Tube Feed: Shortness of breath - Routine Orders/Code Status O2 Liters per Minute: 4L O2 Frequency: Continuous Keep PO Greater than or Equal to (%): 94 Routine Lab Work: CBC - within days, BMP - within 3 days Code Status: Full Code - Wound(s) Lateral right foot Wound Type: Pressure Injury Left lateral foot Wound Type: Pressure Injury Bilateral Buttocks Wound Type: Pressure Injury Coccyx Wound Type: Pressure Injury Right groin Wound Type: Puncture Left groin Wound Type: Puncture Right brachial Wound Type: Surgical Incision Bilateral Great Toes Wound Type: Crack/Blood Blister - Therapies Weight Bearing: Weight bearing as tolerated Physical Therapy: Eval and Treat Occupational Therapy: Eval and Treat - Allergies/Procedures Done in Hospital Allergies/Adverse Reactions: Allergies No Known Allergies Allergy (Verified 01/31/18 20:57) Procedures: 2-D Echocardiogram, Cardiac catheterization - Type of Care/Length of Stay Estimated LOS: Convalescent Care Less Than 30 days Type of Care Needed: Skilled Rehab Potential: Good Prognosis: Good - Additional Orders/Day of Discharge Day of Discharge: 02/09/18 - Dietary and Speech Recommendations Dietitian Recommendations/Changes: 1.) Rec Georgi bid to help w/ skin healing. 2.) Continue Ensure Enlive 120 mL 4x/day as accepting. 3.) Rec consider supplemental nutrition support/TF d/t poor po intake to help prevent further worsening of nutrition status if in accordance with pt/family wishes. - Follow Up Care Primary Care Physician: Mike Prince,Out of [Primary Care Provider] - Please follow up with your Primary Care Physician in: within 2 weeks of disxharge from SNF Please Follow Up With: Jose Guadalupe Millan MD When: within 2 weeks Please Follow Up With: aCde Walls MD When: within 2 weeks Please Follow Up With: Kade Preciado MD When: within 1 week
--- NOTE | 2018-02-09 11:55 | PCM.DC.SUM ---
Discharge Date and Diagnosis Date of Admission: 01/31/18 Date of Discharge: 02/09/18 - Primary Discharge Diagnosis Active and Suspected Problems Acute hypoxic respiratory failure Acute COPD exacerbation Community acquired pneumonia Non-[place] Elevated troponins LV dysfunction (Acute) Acute influenza B Elevated liver enzymes Hypokalemia Hyponatremia Protein-calorie malnutrition, severe disability, on risperidone - Secondary Discharge Diagnosis Chronic Problems Smoker (Chronic) Mental and behavioral problem (Chronic) Hospital Course and Treatment Summary of Care Provided: 47-year-old male, with PMHx of schizophrenia, [place] [facility] [place] admitted with progressive shortness of breath. Patient was reported to be in severe respiratory distress with Spo2 in the 60s. He was intubated in the ED and admitted to the intensive care unit for subsequent management. Chest x-ray on admission demonstrated bilateral infiltrate. He was managed in the ICU on mechanical ventilation. He was found to have Acute influenza B. Started on Tamifu, IV antibiotics. Extubated on 02/03/18. Transitioned to Augmentin and completed course of antibiotics and Tamiflu. He was also managed for Acute COPD exacerbation with IV steroids and breathing treatments. He was transitioned to a tapering dose of prednisone. He also had elevated troponins on admission, 2d-echo showed an EF of 40%. Cardiology was consulted, subsequently had a LHC which showed minimal disease in his cofronaries but occluded common iliacs resulting in a brachial approach. He needs to follow-up with a vascular surgeon for further evaluation. His admission abnormal electrolytes - hyponatremia and hypokalemia were replaced and normal at discharge. He was also seen by nursery school teacher for severe protein and started on supplements. Subjective: See progress note of the day Objective: See progress note of the day - Physical Exam Vital Signs Temp Pulse Resp BP Pulse Ox 98.7 F 131 H 16 95/61 85 02/09/18 08:34 02/09/18 11:00 02/09/18 08:34 02/09/18 08:34 02/09/18 09:10 Oxygen Flow Rate (L/min) 4 Oxygen Delivery Method Nasal Cannula Weight: 44.9 kg Body Mass Index (BMI) 16.8 Intake and Output for Last 24 Hours 02/07/18 02/08/18 02/09/18 23:59 23:59 23:59 Intake Total 1496 / 1496 2732 / 2732 0 / 0 Output Total 3475 / 3475 3005 / 3005 550 / 550 Balance -1978 / -1978 -273 / -273 -550 / -550 Microbiology Past 72 Hours 01/31/18 12:17 Blood Culture - Final Blood Culture (Wb) - No Site/Description Given No growth in 5 days. 01/31/18 20:55 Blood Culture - Final Blood Culture (Wb) - Anticubital Right No growth in 5 days. Laboratory Tests Past 24 Hrs 02/09/18 02/09/18 08:45 08:45 WBC 15.0 H RBC 4.51 L Hgb 13.3 Hct 42.2 MCV 93.6 MCH 29.5 MCHC 31.5 L RDW 13.7 RDW Differential 46.7 H Plt Count 227 MPV 9.4 Immature Gran % (Auto) 0.100 Neut % (Auto) 83.4 H Lymph % (Auto) 7.7 L [place] % (Auto) 8.7 Eos % (Auto) 0.1 Baso % (Auto) 0.0 Absolute Neuts (auto) 12.5 H Absolute Lymphs (auto) 1.15 Total Counted Not Reportable Sodium 136 Potassium 4.0 Chloride 95 L Carbon Dioxide 35.0 H Anion Gap 6 BUN 12 Creatinine 0.51 L Estim Creat Clear Calc 111.27 Est GFR (MDRD) Af Amer 221 Est GFR (MDRD) Non-Af 183 BUN/Creatinine Ratio 23.5 H Glucose 105 Calcium 8.2 L Total Bilirubin 0.90 AST 44 H ALT 291 H Alkaline Phosphatase 69 Total Protein 5.6 L Albumin 3.3 Globulin 2.3 Albumin/Globulin Ratio 1.4 Discharge Diet: Low fat/ Low Cholesterol, 2000 mg Sodium Diet Discharge Activity: Return to Normal Activity Home Medications: Medications to take at Discharge Acetaminophen [Tylenol] 500 mg PO Q6H PRN PRN 01/31/18 Benztropine [Cogentin] 1 mg PO BID 01/31/18 Bisacodyl [Dulcolax] 5 mg PO DAILY 01/31/18 Budesonide/Formoterol 160/4.5 [Symbicort 160/4.5 Mcg Inhaler (SP)] 2 puff INHALATION BID 01/31/18 Clonazepam [Klonopin] 0.5 mg PO QHS 01/31/18 Guaifenesin [Mucinex] 600 mg PO BID 01/31/18 Haloperidol [Haldol] 10 mg PO QHS 01/31/18 Ipratropium/Albuterol Sulfate [Duoneb] 3 ml INHALATION Q4H.RT 01/31/18 Montelukast [Singulair] 10 mg PO DAILY 01/31/18 Multivitamins,Therapeutic [Multivitamin] 1 tablet PO DAILY 01/31/18 Omeprazole [Prilosec] 20 mg PO QHS 01/31/18 Risperidone [Risperdal] 1 mg PO DAILY 01/31/18 Risperidone [Risperdal] 2 mg PO QHS 01/31/18 Roflumilast [Daliresp] 500 mcg PO DAILY 01/31/18 Tamsulosin HCl 0.4 mg PO QHS 01/31/18 Tiotropium [place] [Spiriva Respimat] 2 puff IH DAILY 01/31/18 traZODone [Desyrel] 150 mg PO QHS 01/31/18 Albuterol Aerosols [Ventolin Aerosols] 2.5 mg INHALATION Q2H PRN PRN #0 vial.neb. 02/09/18 Aspirin [Aspirin, Baby] 81 mg PO DAILY@0800 #0 tab.chew 02/09/18 Clopidogrel Bisulfate [Plavix] 75 mg PO DAILY tablet 02/09/18 Ensure Enlive 120 ml PO 4X/DAY liquid 02/09/18 Losartan Potassium [Cozaar] 12.5 mg PO DAILY tablet 02/09/18 Nicotine [Nicoderm Cq] 21 mg TRANSDERM. DAILY patch 02/09/18 Potassium Chloride [K-Dur] 20 meq PO DAILYCM tablet 02/09/18 Prednisone 10 mg PO UD #20 tablet 02/09/18 Following Prescrptions Were Given to Patient: Prednisone 10 mg PO UD #20 tablet Primary Care Physician: Mike Doctor,Out of [Primary Care Provider] - Please follow up with your Primary Care Physician in: within 2 weeks of disxharge from SNF Please Follow Up With: Jose Guadalupe Millan MD When: within 2 weeks Please Follow Up With: Cade Walls MD When: within 2 weeks Please Follow Up With: Kade Preciado MD When: within 1 week Disposition: Group Home facility Minutes spent on discharge:: 45 Patient Condition:: Stable Medical Necessity - Tobacco Use Smoking Status: Current every day smoker Tobacco Use: Cigarettes Meaningful Use Info Meaningful Use Diagnoses (Choose all that apply): CHF - CHF KARUNA/ARB ordered at discharge?: Yes Documented LVEF (%): 40 Code Visit Inpatient E&M: 87272 Disch Hosp
--- NOTE | 2018-02-09 12:33 | CASEMGMT ---
Patient is ready for discharge. ORION faxed orders to [facility]. SW completed convalescent on HENS. ORION spoke with patient and let him know the plan. At first he said he did not want to go to a penitentiary and then he was ok with it once SW explained there is nowhere else for him to go right now as he would not be able to do the steps at the jail. ORION called [facility] and arranged for patient to get picked up at via cot. ORION notified RN, admin secretary, and left a message for Keya at [facility]. ORION also called patient's POA, Lauro Guillory and notified him. ORION called Mary from the jail and let her know the plan. ORION will call patient's cold press loader at [facility] tomorrow when they re-open and let her know patient went to [facility]. Plan: [facility] under skilled level of care on a convalescent stay. [facility] transported him via cot. Sonia WATKINS MSW
--- NOTE | 2018-02-09 12:43 | CASEMGMT ---
ORION also called [facility] and canceled the referral. Sonia WATKINS MSW
--- NOTE | 2018-02-09 13:04 | NURSING ---
Called report to [facility] with Annmarie and Margaret at this time - updated on H/P and current orders. Given my direct number for any questions or concerns
--- NOTE | 2018-02-10 09:59 | CASEMGMT ---
Addendum entered by Sonia Adame 02/10/18 13:47: A technical services representative from [facility] came and picked up patient's belongings. SW called Nicole at [facility] and left her a voice mail as she is out, letting her know patient went to [facility]. Sonia VARNER Original Note: SW tried to reach [facility] and no one is answering. SW did get patient's CM's voice mail and she is out until 02-21-18. ORION called Keya at [facility] and she said she could send their transportation person today if available and if not she will come and get them tomorrow. She will let SW know. ORION told her that it is an O2 concentrator with several portables, and a suitcase. Sonia WATKINS MSW
--- OUTSIDE RECORDS SUMMARY | 2018-05-05 10:28 | XMS RPT_ITS | Summary of Care ---
:1970 Author Organization [facility] Address [address] [place] [address] Care Team Providers Name Role Phone Unavailable Primary Care Provider Unavailable Encounter Details Date Type Department Care Team Description 12/22/2017 Hospital Encounter [facility] Lauro Dinh [address] MD [place], [place] [address] [id number] [place] [address] [phone] Social History Tobacco Use Types Packs/Day Years Used Date Never Assessed Sex Assigned at Date Recorded Not on file as of this encounter Plan of Treatment Not on fileas of this encounter Procedures Procedure Name Priority Date/Time Associated Diagnosis Comments BLOOD GAS, ARTERIAL Routine 12/22/2017 2:14 PM Results for this EST procedure are in the results section. in this encounter Results Blood Gas, Arterial (12/22/2017 2:14 PM) pH 7.412 7.350 - 7.450 [facility] PCO2 50.5 (H)Comment: Value 35 - 45 mm Hg [facility] above reference range [facility]OSPITAL PO2 63.8 (L) 80 - 100 mm Hg [facility] HCO3 32.1 (H) 22 - 26 mmol/L [facility] Base Excess 6.1 (H) -2 - 2 mmol/L [facility] O2 Hemoglobin 90.1 (L)Comment: Value 92 - 99 % [facility] below reference range [facility] [id number] 21.6 mm Hg [facility] Aa Ratio 74.7 % [facility] O2CT 8.2 mmol/L [facility] Hemoglobin O2 Sat. 92.2 92 - 99 % [facility] Carboxyhemoglobin 1.3 % [facility] Comment: [facility] [place] Non-Smoker? <1.5% of total Hgb Smoker?1.5 - 5.0 % of total Hgb Heavy Smoker? 5.0 - 9.0 % of total Hgb Methemoglobin 1.0 <2.0 % [facility] DeOxyhemoglobin (HHB) 7.6 (H) 0.0 - 5.0 % [facility] pH (temp conv.) 7.412 7.350 - 7.450 [facility] pCO2 (temp conv.) 50.5 (H) 35.0 - 45.0 mm Hg [facility] pO2 (temp conv.) 63.8 (L) 80 - 100 mm Hg [facility] Drawn By pdb [facility] Site [facility]TR[facility]IAL [facility] Hemoglobin 14.4 13.5 - 17.5 g/dL [facility] Hematocrit 44.3 41 - 53 % [facility] O2 Device Room Air [facility] FIO2 21.0 21 - 100 % [facility] Temperature 37.0 36.0 - 38.0 Celsius [facility] Allens Test Positive [facility] Blood Gas Instrument ;ICU [facility] Specimen Blood Performing Organization Address City/State/Zipcode Phone Number [facility] [address] [place] [address] in this encounter
--- OUTSIDE RECORDS SUMMARY | 2018-05-05 10:28 | XMS RPT_ITS | Summary of Care ---
:1970 Author Organization [facility] Address [address] [place] [address] Phone Care Team Providers Name Role Phone Lauro Douglas MD Primary Care Provider Reason for Visit Reason Comments Reschedule Encounter Details Date Type Department Care Team Description 12/30/2017 Telephone [facility] Margaret Wallace LPN Reschedule Gastroenterology [address] [place] [address] Allergies No Known Allergiesas of this encounter Medications Prescription Sig. Disp. Refills Start Date End Date Status tiotropium 18 MCG Inhale 18 mcg Active inhalation capsule daily. albuterol (PROAIR Inhale 2 puffs Active HFA) 108 (90 Base) every 6 hours as MCG/ACT Aero Soln needed for inhaler Wheezing. benztropine 1 MG Tab Take 1 mg by mouth Active 2 times daily. risperiDONE 4 MG Tab Take 4 mg by mouth Active 2 times daily. 2 tabs bid clonazePAM (KLONOPIN) Take 1 mg by mouth Active 1 MG Tab at bedtime. haloperidol lactate 5 1 mg by Intravenous Active MG/ML Solution route daily. acetaminophen 500 MG Take 500 mg by Active Tab tablet mouth every 6 hours as needed for Pain. Fluticasone Inhale 1 puff Active Furoate-Vilanterol daily. (BREO ELLIPTA) 200-25 MCG/INH Aerosol Powder, breath activated trazodone 150 MG Tab Take 150 mg by Active mouth At bedtime. Take 1/2 tab at hs bisacodyl (DULCOLAX) Take 4 dulcolax 10 tablet 0 12/13/2017 Active 5 MG Tab pills DRIndications: Other constipation peg 3350 ONE DAY before 1 L 0 12/13/2017 Active w/electrolytes Colonoscopy (GOLYTELY) oral starting at 9 am solutionIndications: drink 1 glassful 8 Other constipation oz every hour to finish by 5am the day of procedure. magnesium citrate Drink on bottle of 4 Bottle 0 12/13/2017 Active 1.745 GM/30ML magnesium citrate SolutionIndications: as directed Other constipation as of this encounter Active Problems Problem Noted Date Other constipation 12/13/2017 Overview: Added automatically from request for surgery [id number] Generalized abdominal pain 12/13/2017 Overview: Added automatically from request for surgery [id number] Abnormal weight loss 12/13/2017 Overview: Added automatically from request for surgery [id number] Social History Tobacco Use Types Packs/Day Years Used Date Current Every Day Smoker Smokeless Tobacco: Never Used Alcohol Use Drinks/Week oz/Week Comments No Sex Assigned at Date Recorded Not on file as of this encounter Plan of Treatment Upcoming Encounters Date Type Specialty Care Team Description 01/10/2018 Surgery Endoscopy Delmy Kern MD EGD DIAGNOSTIC [address] [place] [address] [phone] 01/10/2018 Procedure Pass Endoscopy 01/10/2018 Hospital Encounter Endoscopy Delmy Kern MD Other constipation [address] [place] [address] [phone] Health Maintenance Due Date Last Done Comments HIV SCREENING DISCUSSION 1981 TETANUS 1986 TDAP (ADULT) 1987 LIPID SCREENING 2008 INFLUENZA VACCINE (#1) 2017 as of this encounter
--- OUTSIDE RECORDS SUMMARY | 2018-05-05 10:29 | XMS RPT_ITS ---
:1970 Author Organization [place] Support Name Relationship Address Phone D Unavailable Unavailable Unavailable O'HENRI BANKS(COOK DINNER) Unavailable Unavailable + [place] [address] JENNY CONNOR(BOWLING ALLEY MANAGER) Unavailable [address] + MARTI CHAPPELL, [place] [address] PRIYA SIMPSON(POA) Unavailable Unavailable + D Unavailable Unavailable Unavailable Kyle'HENRI BANKS(COOK DINNER) Unavailable Unavailable + [place] [address] PRIYA SIMPSON(POA) Unavailable Unavailable + D Unavailable Unavailable Unavailable Kyle'HENRI BANKS(COOK DINNER) Unavailable Unavailable + [place] [address] D Unavailable Unavailable Unavailable Kyle'JOCELYN HENRI(COOK DINNER) Unavailable Unavailable + [place] [address] JENNY CONNOR(BOWLING ALLEY MANAGER) Unavailable [address] + MISAEL [place] [address] D Unavailable Unavailable Unavailable Kyle'HENRI BANKS(COOK DINNER) Unavailable Unavailable + [place] [address] JENNY CONNOR(BOWLING ALLEY MANAGER) Unavailable [address] + [place] [address] D Unavailable Unavailable Unavailable Kyle'HENRI BANKS(COOK DINNER) Unavailable Unavailable + [place] [address] JENNY CONNOR(BOWLING ALLEY MANAGER) Unavailable [address] + [place] [address] D Unavailable Unavailable Unavailable O'DIAM, HENRI(COOK DINNER) Unavailable Unavailable + [place] [address] JENNY CONNOR(BOWLING ALLEY MANAGER) Unavailable [address] + MARTI CHAPPELL, [place] [address] D Unavailable Unavailable Unavailable O'DIAM, HENRI(COOK DINNER) Unavailable Unavailable + [place] [address] JENNY CONNOR(BOWLING ALLEY MANAGER) Unavailable [address] + MARTI CHAPPELL, [place] [address] D Unavailable Unavailable Unavailable O'DIAM HENRI(COOK DINNER) Unavailable Unavailable + [place] [address] JENNY CONNOR(BOWLING ALLEY MANAGER) Unavailable [address] + MARTI CHAPPELL, [place] [address] D Unavailable Unavailable Unavailable O'DIAM, HENRI(COOK DINNER) Unavailable Unavailable + [place] [address] JENNY CONNOR(BOWLING ALLEY MANAGER) Unavailable [address] + MARTI CHAPPELL, [place] [address] PRIYA SIMPSON(POA) Unavailable UNK + D Unavailable Unavailable Unavailable O'DIAM HENRI(COOK DINNER) Unavailable Unavailable + [place] [address] PRIYA SIMPSON(POA) Unavailable UNK + D Unavailable Unavailable Unavailable O'DIAM HENRI(COOK DINNER) Unavailable Unavailable + [place] [address] PRIYA SIMPSON(POA) Unavailable UNK + D Unavailable Unavailable Unavailable O'DIAM, HENRI(COOK DINNER) Unavailable Unavailable + [place] [address] PRIYA SIMPSON(POA) Unavailable UNK + D Unavailable Unavailable Unavailable O'DIAM, HENRI(COOK DINNER) Unavailable Unavailable + [place] [address] PRIYA SIMPSON(POA) Unavailable Unavailable + D Unavailable Unavailable Unavailable O'DIAM, HENRI(COOK DINNER) Unavailable Unavailable + [place] [address] PRIYA SIMPSON(POA) Unavailable Unavailable + D Unavailable Unavailable Unavailable O'DIAM, HENRI(COOK DINNER) Unavailable Unavailable + [place] [address] PRIYA SIMPSON(POA) Unavailable Unavailable + D Unavailable Unavailable Unavailable O'DIAM, HENRI(COOK DINNER) Unavailable Unavailable + [place] [address] PRIYA SIMPSON(POA) Unavailable Unavailable + D Unavailable Unavailable Unavailable O'DIAM, HENRI(COOK DINNER) Unavailable Unavailable + [place] [address] PRIYA SIMPSON(POA) Unavailable Unavailable + D Unavailable Unavailable Unavailable O'DIAM, HENRI(COOK DINNER) Unavailable Unavailable + [place] [address] PRIYA SIMPSON(POA) Unavailable Unavailable + D Unavailable Unavailable Unavailable O'DIAM, HENRI(COOK DINNER) Unavailable Unavailable + [place] [address] PRIYA SIMPSON(POA) Unavailable Unavailable + D Unavailable Unavailable Unavailable O'DIAM, HENRI(COOK DINNER) Unavailable Unavailable + [place] [address] PRIYA SIMPSON(POA) Unavailable Unavailable + D Unavailable Unavailable Unavailable O'DIAM, HENRI(COOK DINNER) Unavailable Unavailable + [place] [address] PRIYA SIMPSON(POA) Unavailable Unavailable + D Unavailable Unavailable Unavailable O'DIAM, HENRI(COOK DINNER) Unavailable Unavailable + [place], [place] [address]PRIYA WALLIS(POA) Unavailable Unavailable + D Unavailable Unavailable Unavailable O'DIAM, HENRI(COOK DINNER) Unavailable Unavailable + [place] [address] PRIYA SIMPSON(POA) Unavailable Unavailable + D Unavailable Unavailable Unavailable Kyle'HENRI BANKS(COOK DINNER) Unavailable Unavailable + [place] [address] PRIYA SIMPSON(POA) Unavailable Unavailable + D Unavailable Unavailable Unavailable HENRI RANGEL(COOK DINNER) Unavailable Unavailable + [place] [address] PRIYA SIMPSON(POA) Unavailable Unavailable + D Unavailable Unavailable Unavailable Kyle'HENRI BANKS(COOK DINNER) Unavailable Unavailable + [place] [address] PRIYA SIMPSON(POA) Unavailable Unavailable + D Unavailable Unavailable Unavailable Kyle'HENRI BANKS(COOK DINNER) Unavailable Unavailable + [place] [id number] VANHAJA LOUIS Unavailable [address] + [place] [address] VANHAJA, AMNAOPHER Unavailable [address] + [place] [address] VANWAVE, LOUIS Unavailable [address] + [place] [address] VANMERRITTVE, CHRISTOPHER Unavailable [address] + [place] [address] VANHAJA, LOUIS Unavailable [address] + [place] [address] VANHAJA, CHRISTOPHER Unavailable [address] + [place] [phone] PRIYA SIMPSON Unavailable Unavailable + Care Team Providers Name Role Phone XIAO MAHAN Primary Care Unavailable Robby Braun Admitting Unavailable Arturo Shelby D.O. Consulting Unavailable Paintsil, [place] Attending Unavailable Dewayne [place] Consulting Unavailable aKde Preciado Consulting Unavailable Aparna, Robby Admitting Unavailable Robby Braun Attending Unavailable XIAO MAHAN Primary Care Unavailable Robby Braun Consulting Unavailable Robby Braun Admitting Unavailable Fantasma Oro Attending Unavailable XIAO MAHAN Primary Care Unavailable Arturo Shelby D.O. Consulting Unavailable Ulises Buchanan Consulting Unavailable Fantasma Oro Consulting Unavailable Braun, Robby Admitting Unavailable Arturo Shelby D.O. Attending Unavailable XIAO MAHAN Primary Care Unavailable Arturo Shelby D.O. Consulting Unavailable Dewayne, [place] Consulting Unavailable Kittoe, Fantasma Consulting Unavailable Braun, Robby Admitting Unavailable [place], [place] Attending Unavailable XIAO MAHAN Primary Care Unavailable Arturo Shelby D.O. Consulting Unavailable Dewayne, Ulises Consulting Unavailable [place], [place] Consulting Unavailable Braun, Robby Admitting Unavailable Jose Guadalupe Thomas Attending Unavailable XIAO MAHAN Primary Care Unavailable Arturo Shelby D.O. Consulting Unavailable Dewayne, Ulises Consulting Unavailable [place], Fantasma Consulting Unavailable Braun, Robby Admitting Unavailable Arturo Shelby D.O. Attending Unavailable XIAO MAHAN Primary Care Unavailable Arturo Shelby D.O. Consulting Unavailable Dewayne, Ulises Consulting Unavailable [place], Fantasma Consulting Unavailable Braun, Robby Admitting Unavailable KittoeFantasma Attending Unavailable XIAO MAHAN Primary Care Unavailable Arturo Shelby D.O. Consulting Unavailable Dewayne, Ulises Consulting Unavailable [place], [place] Consulting Unavailable Braun, Robby Admitting Unavailable Jose Guadalupe Thomas Attending Unavailable XIAO MAHAN Primary Care Unavailable Arturo Shelby D.O. Consulting Unavailable Dewayne, [place] Consulting Unavailable [place], [place]asma Consulting Unavailable Braun, Robby Admitting Unavailable Arturo Shelby D.O. Attending Unavailable XIAO MAHAN Primary Care Unavailable Arturo Shelby D.O. Consulting Unavailable Dewayne, [place] Consulting Unavailable [place], Fantasma Consulting Unavailable Braun, Robby Admitting Unavailable [place], Fantasma Attending Unavailable XIAO MAHAN Primary Care Unavailable Arturo Shelby D.O. Consulting Unavailable Dewayne, Ulises Consulting Unavailable [place], [place] Consulting Unavailable Braun, Robby Admitting Unavailable Jose Guadalupe Thomas Attending Unavailable XIAO MAHAN Primary Care Unavailable Arturo Shelby D.O. Consulting Unavailable Dewayne, Ulises Consulting Unavailable [place], [place] Consulting Unavailable Braun, Robby Admitting Unavailable Arturo Shelby D.O. Attending Unavailable XIAO MAHAN Primary Care Unavailable Arturo Shelby D.O. Consulting Unavailable Dewayne, [place] Consulting Unavailable [place], Fantasma Consulting Unavailable Braun, Robby Admitting Unavailable Arturo Shelby D.O. Attending Unavailable XIAO MAHAN Primary Care Unavailable Arturo Shelby D.O. Consulting Unavailable Dewayne, Ulises Consulting Unavailable [place], Fantasma Consulting Unavailable Braun, Robby Admitting Unavailable [place], Fantasma Attending Unavailable XIAO MAHAN Primary Care Unavailable Arturo Shelby D.O. Consulting Unavailable Dewayne, [place] Consulting Unavailable [place], Fantasma Consulting Unavailable Braun, Robby Admitting Unavailable Jose Guadalupe Thomas Attending Unavailable XIAO MAHAN Primary Care Unavailable Arturo Shelyb D.O. Consulting Unavailable Dewayne, Ulises Consulting Unavailable [place], [place] Consulting Unavailable Braun, Robby Admitting Unavailable Arturo Shelby D.O. Attending Unavailable XIAO MAHAN Primary Care Unavailable Arturo Shelby D.O. Consulting Unavailable Dewayne, [place] Consulting Unavailable [place], Fantasma Consulting Unavailable Braun, Robby Admitting Unavailable [place], [place] Attending Unavailable XIAO MAHAN Primary Care Unavailable Arturo Shelby D.O. Consulting Unavailable Dewayne, Ulises Consulting Unavailable [place], [place] Consulting Unavailable Braun, Robby Admitting Unavailable Jose Guadalupe Thomas Attending Unavailable XIAO MAHAN Primary Care Unavailable Arturo Shelby D.O. Consulting Unavailable Dewayne, [place] Consulting Unavailable [place], Fantasma Consulting Unavailable Braun, Robby Admitting Unavailable Paintsil, [place] Attending Unavailable XIAO MAHAN Primary Care Unavailable Arturo Shelby D.O. Consulting Unavailable Dewayne, Ulises Consulting Unavailable Paintsil, [place] Consulting Unavailable Braun, Robby Admitting Unavailable Cade Walls Attending Unavailable XIAO MAHAN Primary Care Unavailable Arturo Shelby D.O. Consulting Unavailable Dewayne, [place] Consulting Unavailable Paintsil, [place] Consulting Unavailable Braun, Robby Admitting Unavailable Jose Guadalupe Thomas Attending Unavailable XIAO MAHAN Primary Care Unavailable Arturo Shelby D.O. Consulting Unavailable Dewayne, [place] Consulting Unavailable Paintsil, [place] Consulting Unavailable Braun, Robby Admitting Unavailable Cade Walls Attending Unavailable XIAO MAHAN Primary Care Unavailable Arturo Shelby D.O. Consulting Unavailable Dewayne, [place] Consulting Unavailable Paintsil, [place] Consulting Unavailable Braun, Robby Admitting Unavailable Paintsil, [place] Attending Unavailable XIAO MAHAN Primary Care Unavailable Arturo Shelby D.O. Consulting Unavailable Dewayne, Ulises Consulting Unavailable Paintsil, [place] Consulting Unavailable Braun, Robby Admitting Unavailable Paintsil, [place] Attending Unavailable XIAO MAHAN Primary Care Unavailable Arturo Shelby D.O. Consulting Unavailable Dewayne, Ulises Consulting Unavailable Preciado, Kade A Consulting Unavailable Paintsil, [place] Consulting Unavailable Braun, Robby Admitting Unavailable Cade Walls Attending Unavailable XIAO MAHAN Primary Care Unavailable Arturo Shelby D.O. Consulting Unavailable Dewayne, [place] Consulting Unavailable Preciado, Kade A Consulting Unavailable Paintsil, [place] Consulting Unavailable Dewayne, [place] Attending Unavailable Paintsil, [place] Referring Unavailable Jose Guadalupe Thomas Attending Unavailable Fantasma Oro Referring Unavailable Carreon, Tyron Rey Attending Unavailable Barkett, Priya E Primary Care Unavailable Yanez, Gregorio R Attending Unavailable Barkett, Priya E Primary Care Unavailable Carreon, Tyron Rey Attending Unavailable Barkett, Priya E Primary Care Unavailable Carreon, Tyron Rey Admitting Unavailable Carreon, Tyron Rey Attending Unavailable Barkett, Priya E Primary Care Unavailable Carreon, Tyron Rey Attending Unavailable Barkett, Priya E Primary Care Unavailable Newbill, Luis Gutierrez Admitting Unavailable Newbill, Luis Gutierrez Attending Unavailable Barkett, Priya E Primary Care Unavailable Newbill, Luisscarlet Gutierrez Admitting Unavailable Newbill, Luis Gutierrez Attending Unavailable Barkett, Priya E Primary Care Unavailable Carreon, Tyron Rey Attending Unavailable Barkett, Priya E Primary Care Unavailable Carreon, Tyron Rey Admitting Unavailable Carreon, Tyron Rey Attending Unavailable Barkett, Priya E Primary Care Unavailable Carreon, Tyron Rey Admitting Unavailable Carreon, Tyron Rey Attending Unavailable Barkett, Priya E Primary Care Unavailable Newbill, Luisscarlet Gutierrez Admitting Unavailable Newbill, Luis Gutierrez Attending Unavailable Barkett, Priya E Primary Care Unavailable Carreon, Tyron Rey Attending Unavailable Barkett, Priya E Primary Care Unavailable Carreon, Tyron Rey Admitting Unavailable Carreon, Tyron Rey Attending Unavailable Barkett, Priya E Primary Care Unavailable Yanez, Gregorio R Admitting Unavailable Yanez, Gregorio Dillon Attending Unavailable Barkett, Priya E Primary Care Unavailable YanezGregorio R Attending Unavailable Barkett, Priya E Primary Care Unavailable Carreon, Tyron Rey Attending Unavailable Barkett, Priya E Primary Care Unavailable Yanez, Gregorio R Admitting Unavailable YanezGregorio R Attending Unavailable Barkett, Priya E Primary Care Unavailable Jovon Jo Admitting Unavailable Jovon Jo Attending Unavailable Priya Johnson Primary Care Unavailable Tyron Carreon Attending Unavailable Priya Johnson Primary Care Unavailable Tyron Carreon Attending Unavailable Priya Johnson Primary Care Unavailable Home, Dr. Abhijit Loaiza Attending Unavailable Home, Dr. Abhijit Loaiza Admitting Unavailable Gabe, Dr. Elvira Malin Admitting Unavailable Gabe, Dr. Elvira Malin Attending Unavailable Fabrizio, Dr. Priya Saldana Admitting Unavailable [place], Dr. Priya Saldana Attending Unavailable JOSE TOPETE Attending Unavailable PRIYA JOHNSON Referring Unavailable PROBLEMS PROBLEMS DATE TYPE CONDITION / CODE ATTENDING STATUS SOURCE Unknown R94.31 - Abnormal Jose Guadalupe Thomas [facility] 9 electrocardiogram Community [ECG] [EKG] / Hospital R94.31(ICD-10) Repository Admitting Other constipation / YOSELYN, [place] [address] Diagnosis K59.09(ICD-10) [place] ([place]) Repository Admitting Generalized abdominal [place] [address] Diagnosis pain / R10.84(ICD-10) [place] Repository Admitting Abnormal weight loss / YOSELYN, [facility] 8 Diagnosis R63.4(ICD-10) K System ([place]) Repository PROCEDURES PROCEDURES No Procedure Records FoundRESULTS RESULTS DISCHARGE SUMMARY Observed: 02/11/2018 Status: F Source: [place] 9:21 [facility] REPOSITORY [facility] Medical Records Department [address] [place] [id number] Discharge Summary 02/09/18 1155 MR#: [id number] Acct: [id number] Name: MARIAA OROZCO Rep #: [id number] : 1970 47 From: Maxine Rolon MD PCP: OUT OF TOWN DOCTOR Status: DIS IN Y Location: [facility] [id number] Discharge Date and Diagnosis Date of Admission: 01/31/18 Date of Discharge: 02/09/18 - Primary Discharge Diagnosis Active and Suspected Problems Acute hypoxic respiratory failure Acute COPD exacerbation Community acquired pneumonia Non-NV Elevated troponins LV dysfunction (Acute) Acute influenza B Elevated liver enzymes Hypokalemia Hyponatremia Protein-calorie malnutrition, severe disability, on risperidone - Secondary Discharge Diagnosis Chronic Problems Smoker (Chronic) Mental and behavioral problem (Chronic) Hospital Course and Treatment Summary of Care Provided: 47-year-old male, with PMHx of schizophrenia, resident at a shelter admitted with progressive shortness of breath. Patient was reported to be in severe respiratory distress with Spo2 in the 60s. He was intubated in the ED and admitted to the intensive care unit for subsequent management. Chest x-ray on admission demonstrated bilateral infiltrate. He was managed in the ICU on mechanical ventilation. He was found to have Acute influenza B. Started on Tamifu, IV antibiotics. Extubated on 02/03/18. Transitioned to Augmentin and completed course of antibiotics and Tamiflu. He was also managed for Acute COPD exacerbation with IV steroids and breathing treatments. He was transitioned to a tapering dose of prednisone. He also had elevated troponins on admission, 2d-echo showed an EF of 40%. Cardiology was consulted, subsequently had a LHC which showed minimal disease in his cofronaries but occluded common iliacs resulting in a brachial approach. He needs to follow-up with a vascular surgeon for further evaluation. His admission abnormal electrolytes - hyponatremia and hypokalemia were replaced and normal at discharge. He was also seen by manager lpn for severe protein and started on supplements. Subjective: See progress note of the day Objective: See progress note of the day - Physical Exam Vital Signs Temp Pulse Resp BP Pulse Ox 98.7 F 131 H 16 95/61 85 02/09/18 08:34 02/09/18 11:00 02/09/18 08:34 02/09/18 08:34 02/09/18 09:10 Oxygen Flow Rate (L/min) 4 Oxygen Delivery Method Nasal Cannula Weight: 44.9 kg Body Mass Index (BMI) 16.8 Intake and Output for Last 24 Hours Intake Total 1496 / 1496 2732 / 2732 0 / 0 Output Total 3475 / 3475 3005 / 3005 550 / 550 Balance -1978 / -1978 - / -273 -550 / -550 Microbiology Past 72 Hours 01/31/18 12:17 Blood Culture - Final Laboratory Tests Past 24 Hrs WBC 15.0 H RBC 4.51 L Hgb 13.3 Hct 42.2 MCV 93.6 MCH 29.5 Discharge Diet: Low fat/ Low Cholesterol, 2000 mg Sodium Diet Discharge Activity: Return to Normal Activity Home Medications: Medications to take at Discharge Acetaminophen [Tylenol] 500 mg PO Q6H PRN PRN 01/31/18 Benztropine [Cogentin] 1 mg PO BID 01/31/18 Bisacodyl [Dulcolax] 5 mg PO DAILY 01/31/18 Budesonide/Formoterol 160/4.5 [Symbicort 160/4.5 Mcg Inhaler (SP)] 2 puff INHALATION BID 01/31/18 Clonazepam [Klonopin] 0.5 mg PO QHS 01/31/18 Guaifenesin [Mucinex] 600 mg PO BID 01/31/18 Haloperidol [Haldol] 10 mg PO QHS 01/31/18 Ipratropium/Albuterol Sulfate [Duoneb] 3 ml INHALATION Q4H.RT 01/31/18 Montelukast [Singulair] 10 mg PO DAILY 01/31/18 Multivitamins,Therapeutic [Multivitamin] 1 tablet PO DAILY 01/31/18 Omeprazole [Prilosec] 20 mg PO QHS 01/31/18 Risperidone [Risperdal] 1 mg PO DAILY 01/31/18 Risperidone [Risperdal] 2 mg PO QHS 01/31/18 Roflumilast [Daliresp] 500 mcg PO DAILY 01/31/18 Tamsulosin HCl 0.4 mg PO QHS 01/31/18 Tiotropium [place] [Spiriva Respimat] 2 puff IH DAILY 01/31/18 traZODone [Desyrel] 150 mg PO QHS 01/31/18 Albuterol Aerosols [Ventolin Aerosols] 2.5 mg INHALATION Q2H PRN PRN #0 vial.neb. 02/09/18 Aspirin [Aspirin, Baby] 81 mg PO DAILY@0800 #0 tab.chew 02/09/18 Clopidogrel Bisulfate [Plavix] 75 mg PO DAILY tablet 02/09/18 Ensure Enlive 120 ml PO 4X/DAY liquid 02/09/18 Losartan Potassium [Cozaar] 12.5 mg PO DAILY tablet 02/09/18 Nicotine [Nicoderm Cq] 21 mg TRANSDERM. DAILY patch 02/09/18 Potassium Chloride [K-Dur] 20 meq PO DAILYCM tablet 02/09/18 Prednisone 10 mg PO UD #20 tablet 02/09/18 Following Prescrptions Were Given to Patient: Prednisone 10 mg PO UD #20 tablet Primary Care Physician: [facility] Doctor,Out of [Primary Care Provider] - Please follow up with your Primary Care Physician in: within 2 weeks of disxharge from SNF Please Follow Up With: Jose Guadalupe Thomas MD When: within 2 weeks Please Follow Up With: Cade Walls MD When: within 2 weeks Please Follow Up With: Kade Preciado MD When: within 1 week Disposition: [facility] facility Minutes spent on discharge:: 45 Patient Condition:: Stable Medical Necessity - Tobacco Use Smoking Status: Current every day smoker Tobacco Use: Cigarettes Meaningful Use Info Meaningful Use Diagnoses (Choose all that apply): CHF - CHF KARUNA/ARB ordered at discharge?: Yes Documented LVEF (%): 40 Code Visit Inpatient E AND M: [id number] Disch Hosp 02/11/18 0921 <Electronically signed by Maxine Rolon MD> Date Maxine Rolon MD Cosigner Signature (if applicable): Date CC: Maxine Rolon MD; OUT OF TOWN DOCTOR Signed 12 LEAD ELECTROCARDIOGRAM Observed: 02/09/2018 Status: F Source: [place] 2:55 PM [facility] REPOSITORY [facility] Cardiovascular Services [address] [place] [address] 12 Lead EKG 02/04/18 0553 MR#: [id number] Acct: [id number] Name: MARIAA OROZCO Rep #: [id number] : 1970 47 From: Jose Guadalupe Thomas MD Attending Dr: Maxine Rolon MD Status: DIS IN Ordering Dr: Jose Guadalupe Thomas MD Date: 02/04/18 Location: [facility] Sex: M C Admitted: 01/31/18 Test Reason : AM EKG Blood Pressure : / mmHG Vent. Rate : 132 BPM Atrial Rate : 132 BPM P-R Int : 126 ms QRS Dur : 090 ms QT Int : 320 ms P-R-T Axes : 090 092 -58 degrees QTc Int : 474 ms Suspect arm lead reversal, interpretation assumes no reversal Sinus tachycardia with Premature atrial complexes Biatrial enlargement ST AND T wave abnormality, consider inferior ischemia ST AND T wave abnormality, consider anterior ischemia Abnormal ECG When compared with ECG of 04-FEB-2018 05:27, MANUAL COMPARISON REQUIRED, DATA IS UNCONFIRMED Confirmed by JOSE GUADALUPE THOMAS ([id number]), food editor RADHA ELIZABETH ([id number]) on 02/09/2018 2:55:01 PM Referred By: LITA Confirmed By:JOSE GUADALUPE THOMAS 02/09/18 0622 Date Jose Guadalupe Thomas MD CC: Maxine Rolon MD; Jose Guadalupe Thomas MD; OUT OF TOWN DOCTOR Signed TRANSFER TO [facility] Observed: 02/09/2018 Status: F Source: [facility] 11:55 [facility] REPOSITORY [facility] Medical Records Department [address] [place] [address] Transfer to [facility] MR#: [id number] Acct: [id number] Name: MARIAA OROZCO Rep #: [id number] : 1970 47 From: Maxine Rolon MD PCP: OUT OF TOWN DOCTOR Status: ADM IN MARIAA OROZCO (Patient) (Health Ins. Claim No.) (Day of Discharge to Facility) Certification of patient admission REQUIRED AT TIME OF ADMISSION. I CERTIFY THAT POST-HOSPITAL CRITICAL ACCESS HOSPITAL SERVICES ARE REQUIRED TO BE GIVEN ON AN IN-PATIENT BASIS BECAUSE OF THE ABOVE NAMED PATIENT'S NEED FOR GROUP HOME CARE ON A CONTINUING BASIS FOR THE CONDITION(S) FOR WHICH HE/SHE WAS RECEIVING IN-PATIENT HOSPITAL SERVICES PRIOR TO HIS/HER TRANSFER TO THE CRITICAL ACCESS HOSPITAL. 02/09/18 9244 <Electronically signed by Maxine Rolon MD> Date [place] Paintsil MD - Diet 02/03/18 15:59 Diet: Regular Diet Food consistency:: Mechanical Soft/Ground Liquid Consistency:: Regular/Thin Dietary Modifications:: Fluid Restricted Diet Is pt able to select menu?: Yes Tube Feed: Shortness of breath - Routine Orders/Code Status O2 Liters per Minute: 4L O2 Frequency: Continuous Keep PO Greater than or Equal to (%): 94 Routine Lab Work: CBC - within days, BMP - within 3 days Code Status: Full Code - Wound(s) Lateral right foot Wound Type: Pressure Injury Left lateral foot Wound Type: Pressure Injury Bilateral Buttocks Wound Type: Pressure Injury Coccyx Wound Type: Pressure Injury Right groin Wound Type: Puncture Left groin Wound Type: Puncture Right brachial Wound Type: Surgical Incision Bilateral Great Toes Wound Type: Crack/Blood Blister - Therapies Weight Bearing: Weight bearing as tolerated Physical Therapy: Eval and Treat Occupational Therapy: Eval and Treat - Allergies/Procedures Done in Hospital Allergies/Adverse Reactions: Allergies No Known Allergies Allergy (Verified 01/31/18 20:57) Procedures: 2-D Echocardiogram, Cardiac catheterization - Type of Care/Length of Stay Estimated LOS: Convalescent Care Less Than 30 days Type of Care Needed: Skilled Rehab Potential: Good Prognosis: Good - Additional Orders/Day of Discharge Day of Discharge: 02/09/18 - Dietary and Speech Recommendations Dietitian Recommendations/Changes: 1.) Rec Georgi bid to help w/ skin healing. 2.) Continue Ensure Enlive 120 mL 4x/day as accepting. 3.) Rec consider supplemental nutrition support/TF d/t poor po intake to help prevent further worsening of nutrition status if in accordance with pt/family wishes. - Follow Up Care Primary Care Physician: Mike Doctor,Out of [Primary Care Provider] - Please follow up with your Primary Care Physician in: within 2 weeks of disxharge from SNF Please Follow Up With: Jose Guadalupe Thomas MD When: within 2 weeks Please Follow Up With: Cade Walls MD When: within 2 weeks Please Follow Up With: Kade Preciado MD When: within 1 week 02/09/18 5850 <Electronically signed by Maxine Rolon MD> Date Maxine Rolon MD CC: Kade Preciado MD; Ulises Buchanan MD; Arturo Shelby D.O.; OUT OF [facility] Signed CBC W/DIFF, AUTOMATED Collected: 02/09/2018 Status: F Source: [place] 8:45 AM [facility] REPOSITORY TYPE CODE TESTS RESULT OUT OF RANGE REFERENCE UNITS LAB L100.1000 4.4-11.0 K/mm3 High WBC 15.0 LAB L100.1200 4.6-6.2 M/mm3 Low RBC 4.51 LAB L100.1300 13.0-16.5 g/dl Normal HGB 13.3 LAB L100.1400 40-54 % Normal HCT 42.2 LAB L100.1500 80-94 fL Normal MCV 93.6 LAB L100.1600 27.0-32.0 pg Normal MCH 29.5 LAB L100.1700 32-36 g/gl Low MCHC 31.5 LAB L100.1810 11.6-14.6 % Normal RDW CV 13.7 LAB L100.1820 35.1-43.9 fl High RDW SD 46.7 LAB L100.1900 150-450 K/mm3 Normal PLT 227 LAB L100.2000 6.2-12.0 fl Normal MPV 9.4 LAB L100.2100 47-70 % High NEUT% 83.4 LAB L100.2200 19-41 % Low LY% 7.7 LAB L100.2300 0-10 % Normal MONO% 8.7 LAB L100.2400 0-5 % Normal EO% 0.1 LAB L100.2500 0-1 % Normal BASO% 0.0 LAB L100.2550 0.0-0.9 % Normal IM GRAN % 0.100 Result Comment: IG% - Immature Granulocytes (promyelocytes, myelocytes and metamyelocytes) > 1% indicates that a LEFT SHIFT is Present. LAB L100.2620 2.0-7.7 X10 3/uL High Absolute Neut 12.5 LAB L100.2720 0.83-4.51 X10 3/ul Normal Absolute Lymph 1.15 Performed By: #### L100.0100 #### [facility] [address] [place], [address] COMPREHENSIVE METABOLIC Collected: 02/09/2018 Status: F Source: [place] 8:45 AM [facility] REPOSITORY TYPE CODE TESTS RESULT OUT OF RANGE REFERENCE UNITS LAB L501.0100 74-106 mg/dL Normal GLU 105 Result Comment: Fasting Glucose result from 100 to 125 mg/dL suggests IMPAIRED HOMEOSTASIS per A.D.A. criteria. Please note revised GLUCOSE reference range effective 2017. LAB L501.1000 7-18 mg/dL Normal BUN 12 LAB L501.1100 0.70-1.30 mg/dL Low CREAT,SERUM 0.51 Result Comment: The validity of the calculated GFR AND GFRAA in patients over 70 years has not been determined. Clinical correlation is essential. LAB L501.1110 >60 mL/min Normal EST GFR 183 Result Comment: Non- GFR Calc LAB L501.1115 >60 mL/min Normal EST GFR - AA 221 Result Comment: GFR Calc LAB L501.1255 ml/min Normal Estimated CRCL 111.27 LAB L501.1300 10-20 RATIO High BUN/CRE 23.5 LAB L501.1500 6.4-8. g/dL Low 2 T PROT 5.6 LAB L501.1800 3.2-5. g/dL 0 ALB Normal 3.3 LAB L501.1950 2.2-4. g/dL 2 GLOB Normal 2.3 LAB L501.2000 0.9-2. RATIO 4 A/G Normal 1.4 LAB L501.2200 8.5-10 mg/dL Low .1 CA 8.2 LAB L501.4100 15-37 U/L High AST 44 LAB L501.4305 45-117 U/L ALK P Normal 69 LAB L501.4405 16-61 U/L High ALT 291 LAB L501.4600 0.20-1 mg/dL .00 T BILI Normal 0.90 LAB L501.5300 136-14 mmol/L 5 NA Normal 136 LAB L501.5600 3.5-5. mmol/L 1 K Normal 4.0 LAB L501.5900 98-107 mmol/L Low CL 95 LAB L501.6100 21.0-3 mmol/L High 2.0 CO2 35.0 LAB L501.6200 5-15 GAP Normal 6 Performed By: #### L500.4050 #### [facility] [address] [place], [place], [id number] CBC-COMPLETE BLOOD CNT Collected: 02/08/2018 Status: F Source: [place] NO DIFF 5:30 AM [facility] REPOSITORY TYPE CODE TESTS RESULT OUT OF RANGE REFERENCE UNITS LAB L100.1000 4.4-11.0 K/mm3 High WBC 14.6 LAB L100.1200 4.6-6.2 M/mm3 Low RBC 4.25 LAB L100.1300 13.0-16.5 g/dl Low HGB 12.6 LAB L100.1400 40-54 % Normal HCT 40.1 LAB L100.1500 80-94 fL High MCV 94.4 LAB L100.1600 27.0-32.0 pg Normal MCH 29.6 LAB L100.1700 32-36 g/gl Low MCHC 31.4 LAB L100.1810 11.6-14.6 % Normal RDW CV 13.9 LAB L100.1820 35.1-43.9 fl High RDW SD 48.0 LAB L100.1900 150-450 K/mm3 Normal PLT 231 LAB L100.2000 6.2-12.0 fl Normal MPV 9.6 Performed By: #### L100.0500 #### [facility] [address] [place], [place], [id number] MAGNESIUM Collected: 02/08/2018 Status: F Source: [place] 5:30 AM [facility] REPOSITORY TYPE CODE TESTS RESULT OUT OF RANGE REFERENCE UNITS LAB L501.5200 1.6-2.6 mg/dL Normal MG 2.3 Performed By: #### L501.5200 #### [facility] [address] [place], [place], [id number] BASIC METABOLIC Collected: 02/08/2018 Status: F Source: [place] PROFILE (BMP) 5:30 AM [facility] REPOSITORY TYPE CODE TESTS RESULT OUT OF RANGE REFERENCE UNITS LAB L501.0100 74-106 mg/dL High GLU 127 Result Comment: Fasting Glucose result greater than or equal to 126 mg/dL suggests DIABETES MELLITUS per A.D.A. criteria. Please note revised GLUCOSE reference range effective 2017. LAB L501.1000 7-18 mg/dL Normal BUN 13 LAB L501.1100 0.70-1.30 mg/dL Low CREAT,SERUM 0.58 Result Comment: The validity of the calculated GFR AND GFRAA in patients over 70 years has not been determined. Clinical correlation is essential. LAB L501.1110 >60 mL/min Normal EST GFR 159 Result Comment: Non- GFR Calc LAB L501.1115 >60 mL/min Normal EST GFR - AA 192 Result Comment: GFR Calc LAB L501.1255 ml/min Normal Estimated CRCL 94.79 LAB L501.1300 10-20 RATIO High BUN/CRE 22.5 LAB L501.2200 8.5-10 mg/dL Low .1 CA 8.0 LAB L501.5300 136-14 mmol/L Normal 5 NA 139 LAB L501.5600 3.5-5. mmol/L Low 1 K 3.3 LAB L501.5900 98-107 mmol/L Low CL 95 LAB L501.6100 21.0-3 mmol/L High 2.0 CO2 36.0 LAB L501.6200 5-15 Normal GAP 8 Performed By: #### L500.2500, L500.3400 #### [facility] [address] [place], [address] LIVER PROFILE Collected: 02/08/2018 Status: F Source: [place] 5:30 AM [facility] REPOSITORY TYPE CODE TESTS RESULT OUT OF RANGE REFERENCE UNITS LAB L501.1500 6.4-8.2 g/dL Low T PROT 4.6 LAB L501.1800 3.2-5.0 g/dL Low ALB 2.7 LAB L501.1950 2.2-4.2 g/dL Low GLOB 1.9 LAB L501.4100 15-37 U/L High AST 41 LAB L501.4305 45-117 U/L Normal ALK P 60 LAB L501.4405 16-61 U/L High ALT 316 LAB L501.4600 0.20-1.00 mg/dL Normal T BILI 1.00 LAB L501.4700 0.00-0.30 mg/dL High D BILI 0.32 Performed By: #### L500.2500, L500.3400 #### [facility] [address] [place], [place], [address] CBC W/DIFF, AUTOMATED Collected: 02/07/2018 Status: F Source: [place] 5:18 AM [facility] REPOSITORY TYPE CODE TESTS RESULT OUT OF RANGE REFERENCE UNITS LAB L100.1000 4.4-11.0 K/mm3 High WBC 16.5 LAB L100.1200 4.6-6.2 M/mm3 Normal RBC 4.66 LAB L100.1300 13.0-16.5 g/dl Normal HGB 14.1 LAB L100.1400 40-54 % Normal HCT 43.7 LAB L100.1500 80-94 fL Normal MCV 93.8 LAB L100.1600 27.0-32.0 pg Normal MCH 30.3 LAB L100.1700 32-36 g/gl Normal MCHC 32.3 LAB L100.1810 11.6-14.6 % Normal RDW CV 14.3 LAB L100.1820 35.1-43.9 fl High RDW SD 47.2 LAB L100.1900 150-450 K/mm3 Normal PLT 242 LAB L100.2000 6.2-12.0 fl Normal MPV 9.4 LAB L100.2100 47-70 % High NEUT% 85.8 LAB L100.2200 19-41 % Low LY% 7.2 LAB L100.2300 0-10 % Normal MONO% 6.6 LAB L100.2400 0-5 % Normal EO% 0.1 LAB L100.2500 0-1 % Normal BASO% 0.1 LAB L100.2550 0.0-0.9 % Normal IM GRAN % 0.200 Result Comment: IG% - Immature Granulocytes (promyelocytes, myelocytes and metamyelocytes) > 1% indicates that a LEFT SHIFT is Present. LAB L100.2620 2.0-7.7 X10 3/uL High Absolute Neut 14.1 LAB L100.2720 0.83-4.51 X10 3/ul Normal Absolute Lymph 1.19 Performed By: #### L100.0100 #### [facility] [address] [place], [address] PROTHROMBIN TIME W/INR Collected: 02/07/2018 Status: F Source: [place] 5:18 AM [facility] REPOSITORY TYPE CODE TESTS RESULT OUT OF RANGE REFERENCE UNITS LAB L300.4150 11.7-14.9 SECONDS Normal PROTIME 14.5 LAB L300.4200 Normal INR 1.1 Performed By: #### L300.3900, L300.4310 #### [facility] [address] [place], [address] PARTIAL THROMBOPLAST Collected: 02/07/2018 Status: F Source: [place] TIME 5:18 AM [facility] REPOSITORY TYPE CODE TESTS RESULT OUT OF RANGE REFERENCE UNITS LAB L300.4310 24.1-36.2 Seconds Normal PTT 25.2 Performed By: #### L300.3900, L300.4310 #### [facility] [address] [place], [address] BASIC METABOLIC Collected: 02/07/2018 Status: F Source: [place] PROFILE (BMP) 5:18 AM [facility] REPOSITORY TYPE CODE TESTS RESULT OUT OF RANGE REFERENCE UNITS LAB L501.0100 74-106 mg/dL Normal GLU 103 Result Comment: Fasting Glucose result from 100 to 125 mg/dL suggests IMPAIRED HOMEOSTASIS per A.D.A. criteria. Please note revised GLUCOSE reference range effective 2017. LAB L501.1000 7-18 mg/dL Normal BUN 14 LAB L501.1100 0.70-1.30 mg/dL Low CREAT,SERUM 0.54 Result Comment: The validity of the calculated GFR AND GFRAA in patients over 70 years has not been determined. Clinical correlation is essential. LAB L501.1110 >60 mL/min Normal EST GFR 171 Result Comment: Non- GFR Calc LAB L501.1115 >60 mL/min Normal EST GFR - AA 207 Result Comment: GFR Calc LAB L501.1255 ml/min Normal Estimated CRCL 106.26 LAB L501.1300 10-20 RATIO High BUN/CRE 25.9 LAB L501.2200 8.5-10 mg/dL Low .1 CA 8.0 LAB L501.5300 136-14 mmol/L 5 NA Normal 140 LAB L501.5600 3.5-5. mmol/L Low 1 K 2.8 LAB L501.5900 98-107 mmol/L Low CL 95 LAB L501.6100 21.0-3 mmol/L High 2.0 CO2 39.0 LAB L501.6200 5-15 GAP Normal 6 Performed By: #### L500.2500, L500.3400 #### [facility] [address] [place], [place], [id number] LIVER PROFILE Collected: 02/07/2018 Status: F Source: [place] 5:18 AM [facility] REPOSITORY TYPE CODE TESTS RESULT OUT OF RANGE REFERENCE UNITS LAB L501.1500 6.4-8.2 g/dL Low T PROT 5.1 LAB L501.1800 3.2-5.0 g/dL Low ALB 3.1 LAB L501.1950 2.2-4.2 g/dL Low GLOB 2.0 LAB L501.4100 15-37 U/L High AST 64 LAB L501.4305 45-117 U/L Normal ALK P 65 LAB L501.4405 16-61 U/L High ALT 447 LAB L501.4600 0.20-1.00 mg/dL High T BILI 1.10 LAB L501.4700 0.00-0.30 mg/dL High D BILI 0.40 Performed By: #### L500.2500, L500.3400 #### [facility] [address] [place], [place], [id number] URINALYSIS, COMPLETE Collected: 02/07/2018 Status: F Source: [place] 2:25 AM [facility] REPOSITORY Order Comment: How was Urine Obtained? CATHETER SPECIMEN TYPE CODE TESTS RESULT OUT OF RANGE REFERENCE UNITS LAB L400.3000 Yellow COLOR Normal Yellow LAB L400.3050 Clear Normal CLARITY Clear LAB L400.3200 Normal mg/dl Normal GLUCOSE, UR Normal LAB L400.3300 Negative mg/dL Normal BILIRUBIN URINE Negative LAB L400.3400 Negative mg/dl Normal KETONE UR Negative LAB L400.3465 1.002-1.030 Normal SP.GR. DIPSTX 1.010 LAB L400.3550 5.0 - 8.0 pH UR Normal 7.0 LAB L400.3600 Negative mg/dl High PROT 15 DIPSTX LAB L400.3700 Normal mg/dl Normal UROBILI Normal LAB L400.3750 Negative Normal NITRITE UR Negative LAB L400.3780 Negative /ul Normal OCCULT BLOOD-UR Negative LAB L400.3800 Negative /ul LEUK Normal ESTERASE Negative LAB L400.4050 0-5 /hpf WBC 0 Normal SEEN LAB L400.4100 0-5 /hpf 0 Normal RBC-UA SEEN LAB L400.4150 0-5 /hpf SQUAM Normal EPI 0-5 SEEN LAB L400.4300 None Seen /hpf 0 Normal BACTERIA SEEN LAB L400.4350 <or=2+ /hpf Normal MUCUS, URINE RARE LAB L400.4900 Normal AMORPHOUS RARE Performed By: #### L400.0001 #### [facility] [address] [facility] [place], [place], [id number] CBC-COMPLETE BLOOD CNT Collected: 02/06/2018 Status: F Source: [place] NO DIFF 5:24 AM [facility] REPOSITORY TYPE CODE TESTS RESULT OUT OF RANGE REFERENCE UNITS LAB L100.1000 4.4-11.0 K/mm3 High WBC 16.1 LAB L100.1200 4.6-6.2 M/mm3 Low RBC 4.58 LAB L100.1300 13.0-16.5 g/dl Normal HGB 13.4 LAB L100.1400 40-54 % Normal HCT 42.6 LAB L100.1500 80-94 fL Normal MCV 93.0 LAB L100.1600 27.0-32.0 pg Normal MCH 29.3 LAB L100.1700 32-36 g/gl Low MCHC 31.5 LAB L100.1810 11.6-14.6 % Normal RDW CV 14.1 LAB L100.1820 35.1-43.9 fl High RDW SD 47.5 LAB L100.1900 150-450 K/mm3 Normal PLT 222 LAB L100.2000 6.2-12.0 fl Normal MPV 9.2 Performed By: #### L100.0500 #### [facility] [address] [facility] [place], [place], [id number] BASIC METABOLIC Collected: 02/06/2018 Status: F Source: [place] PROFILE (BMP) 5:24 AM [facility] REPOSITORY TYPE CODE TESTS RESULT OUT OF RANGE REFERENCE UNITS LAB L501.0100 74-106 mg/dL Normal GLU 100 Result Comment: Fasting Glucose result from 100 to 125 mg/dL suggests IMPAIRED HOMEOSTASIS per A.D.A. criteria. Please note revised GLUCOSE reference range effective 2017. LAB L501.1000 7-18 mg/dL Normal BUN 12 LAB L501.1100 0.70-1.30 mg/dL Low CREAT,SERUM 0.62 Result Comment: The validity of the calculated GFR AND GFRAA in patients over 70 years has not been determined. Clinical correlation is essential. LAB L501.1110 >60 mL/min Normal EST GFR 147 Result Comment: Non- GFR Calc LAB L501.1115 >60 mL/min Normal EST GFR - AA 177 Result Comment: GFR Calc LAB L501.1255 ml/min Normal Estimated CRCL 92.55 LAB L501.1300 10-20 RATIO Normal BUN/CRE 19.4 LAB L501.2200 8.5-10 mg/dL Low .1 CA 8.0 LAB L501.5300 136-14 mmol/L Normal 5 NA 137 LAB L501.5600 3.5-5. mmol/L Low 1 K 3.0 LAB L501.5900 98-107 mmol/L Low CL 92 LAB L501.6100 21.0-3 mmol/L High 2.0 CO2 40.0 LAB L501.6200 5-15 Normal GAP 5 Performed By: #### L500.2500, L500.3400, L501.5200 #### [facility] [address] [place], [address] LIVER PROFILE Collected: 02/06/2018 Status: F Source: [place] 5:24 AM [facility] REPOSITORY TYPE CODE TESTS RESULT OUT OF RANGE REFERENCE UNITS LAB L501.1500 6.4-8.2 g/dL Low T PROT 4.9 LAB L501.1800 3.2-5.0 g/dL Low ALB 2.9 LAB L501.1950 2.2-4.2 g/dL Low GLOB 2.0 LAB L501.4100 15-37 U/L High AST 115 LAB L501.4305 45-117 U/L Normal ALK P 63 LAB L501.4405 16-61 U/L High ALT 571 LAB L501.4600 0.20-1.00 mg/dL Normal T BILI 1.00 LAB L501.4700 0.00-0.30 mg/dL High D BILI 0.33 Performed By: #### L500.2500, L500.3400, L501.5200 #### [facility] [address] [place], [address] MAGNESIUM Collected: 02/06/2018 Status: F Source: [place] 5:24 AM [facility] REPOSITORY TYPE CODE TESTS RESULT OUT OF RANGE REFERENCE UNITS LAB L501.5200 1.6-2.6 mg/dL Normal MG 2.1 Performed By: #### L500.2500, L500.3400, L501.5200 #### [facility] [address] [place], [address] 12 LEAD ELECTROCARDIOGRAM Observed: 02/04/2018 Status: F Source: [place] 2:18 PM [facility] REPOSITORY [facility] Cardiovascular Services [address] [place] [address] 12 Lead EKG 02/02/18 0525 MR#: [id number] Acct: [id number] Name: MARIAA OROZCO Rep #: [id number] : 1970 47 From: Ulises Buchanan MD Attending Dr: Fantasma Oro MD Status: ADM IN Ordering Dr: Ulises Buchanan MD Date: 02/02/18 Location: [facility] Sex: M C Admitted: 01/31/18 Test Reason : Blood Pressure : / mmHG Vent. Rate : 093 BPM Atrial Rate : 093 BPM P-R Int : 108 ms QRS Dur : 098 ms QT Int : 342 ms P-R-T Axes : 088 093 267 degrees QTc Int : 425 ms Sinus rhythm with short IA T wave abnormality, consider anterolateral ischemia Abnormal ECG When compared with ECG of 31-JAN-2018 21:37, MANUAL COMPARISON REQUIRED, DATA IS UNCONFIRMED Confirmed by DEWAYNE BATRES, ULISES ([id number]), food editor RADHA ELIZABETH ([id number]) on 02/04/2018 2:18:27 PM Referred By: LITA Confirmed By:ULISES BUCHANAN MD 02/04/18 1418 Date Ulises Buchanan MD CC: Ulises Buchanan MD; Fantasma Oro MD; OUT OF TOWN DOCTOR Signed 12 LEAD ELECTROCARDIOGRAM Observed: 02/04/2018 Status: F Source: [place] 1:29 PM [facility] REPOSITORY [facility] Cardiovascular Services [address] [place] [address] 12 Lead EKG 01/31/182136 MR#: [id number] Acct: [id number] Name: MARIAA OROZCO Rep #: [id number] : 1970 47 From: Ulises Buchanan MD Attending Dr: Fantasma Oro MD Status: ADM IN Ordering Dr: Mariaa Che MD Date: 01/31/18 Location: [facility] Sex: M C Admitted: 01/31/18 Test Reason : SOB Blood Pressure : / mmHG Vent. Rate : 124 BPM Atrial Rate : 124 BPM P-R Int : 126 ms QRS Dur : 106 ms QT Int : 344 ms P-R-T Axes : 092 094 -35 degrees QTc Int : 494 ms Suspect arm lead reversal, interpretation assumes no reversal Sinus tachycardia Rightward axis Pulmonary disease pattern ST AND T wave abnormality, consider anterior ischemia Abnormal ECG Confirmed by ULISES BUCHANAN MD ([id number]), food editor RADHA ELIZABETH ([id number]) on 02/04/2018 1:29:00 PM Referred By: MARC Confirmed By:ULISES BUCHANAN MD 02/04/18 1329 Date Ulises Buchanan MD CC: Fantasma Oro MD; Mariaa Che; OUT OF TOWN DOCTOR Signed CBC W/DIFF, AUTOMATED Collected: 02/04/2018 Status: F Source: [place] 4:55 AM [facility] REPOSITORY TYPE CODE TESTS RESULT OUT OF RANGE REFERENCE UNITS LAB L100.1000 4.4-11.0 K/mm3 High WBC 19.8 LAB L100.1200 4.6-6.2 M/mm3 Normal RBC 5.14 LAB L100.1300 13.0-16.5 g/dl Normal HGB 15.4 LAB L100.1400 40-54 % Normal HCT 46.5 LAB L100.1500 80-94 fL Normal MCV 90.5 LAB L100.1600 27.0-32.0 pg Normal MCH 30.0 LAB L100.1700 32-36 g/gl Normal MCHC 33.1 LAB L100.1810 11.6-14.6 % Normal RDW CV 14.5 LAB L100.1820 35.1-43.9 fl High RDW SD 47.7 LAB L100.1900 150-450 K/mm3 Normal PLT 201 LAB L100.2000 6.2-12.0 fl Normal MPV 9.7 LAB L100.2100 47-70 % High NEUT% 91.2 LAB L100.2200 19-41 % Low LY% 5.2 LAB L100.2300 0-10 % Normal MONO% 3.2 LAB L100.2400 0-5 % Normal EO% 0.0 LAB L100.2500 0-1 % Normal BASO% 0.1 LAB L100.2550 0.0-0.9 % Normal IM GRAN % 0.300 Result Comment: IG% - Immature Granulocytes (promyelocytes, myelocytes and metamyelocytes) > 1% indicates that a LEFT SHIFT is Present. LAB L100.2620 2.0-7.7 X10 3/uL High Absolute Neut 18.0 LAB L100.2720 0.83-4.51 X10 3/ul Normal Absolute Lymph 1.02 Performed By: #### L100.0100 #### [facility] [address] [place], [place], [address] PROTHROMBIN TIME W/INR Collected: 02/04/2018 Status: F Source: [place] 4:55 AM [facility] REPOSITORY TYPE CODE TESTS RESULT OUT OF RANGE REFERENCE UNITS LAB L300.4150 11.7-14.9 SECONDS Normal PROTIME 14.9 LAB L300.4200 Normal INR 1.2 Performed By: #### L300.3900, L300.4310 #### [facility] [address] [place], [address] PARTIAL THROMBOPLAST Collected: 02/04/2018 Status: F Source: [place] TIME 4:55 AM [facility] REPOSITORY TYPE CODE TESTS RESULT OUT OF RANGE REFERENCE UNITS LAB L300.4310 24.1-36.2 Seconds Normal PTT 26.5 Performed By: #### L300.3900, L300.4310 #### [facility] [address] [place], [address] BASIC METABOLIC Collected: 02/04/2018 Status: F Source: [place] PROFILE (BMP) 4:55 AM [facility] REPOSITORY TYPE CODE TESTS RESULT OUT OF RANGE REFERENCE UNITS LAB L501.0100 74-106 mg/dL Normal GLU 95 Result Comment: Please note revised GLUCOSE reference range effective 2017. LAB L501.1000 7-18 mg/dL Normal BUN 16 LAB L501.1100 0.70-1.30 mg/dL Low CREAT,SERUM 0.44 Result Comment: The validity of the calculated GFR AND GFRAA in patients over 70 years has not been determined. Clinical correlation is essential. LAB L501.1110 >60 mL/min Normal EST GFR 220 Result Comment: Non- GFR Calc LAB L501.1115 >60 mL/min Normal EST GFR - AA 266 Result Comment: GFR Calc LAB L501.1255 ml/min Normal Estimated CRCL 151.38 LAB L501.1300 10-20 RATIO High BUN/CRE 36.8 LAB L501.2200 8.5-10 mg/dL Low .1 CA 8.4 LAB L501.5300 136-14 mmol/L 5 NA Normal 136 LAB L501.5600 3.5-5. mmol/L 1 K Normal 3.6 LAB L501.5900 98-107 mmol/L Low CL 89 LAB L501.6100 21.0-3 mmol/L High 2.0 CO2 37.0 LAB L501.6200 5-15 GAP Normal 10 Performed By: #### L500.2500 #### [facility] [address] [place], [address] BASIC METABOLIC Collected: 02/03/2018 Status: F Source: [place] PROFILE (BMP) 1:45 PM [facility] REPOSITORY TYPE CODE TESTS RESULT OUT OF RANGE REFERENCE UNITS LAB L501.0100 74-106 mg/dL High GLU 134 Result Comment: Fasting Glucose result greater than or equal to 126 mg/dL suggests DIABETES MELLITUS per A.D.A. criteria. Please note revised GLUCOSE reference range effective 2017. LAB L501.1000 7-18 mg/dL Normal BUN 10 LAB L501.1100 0.70-1.30 mg/dL Low CREAT,SERUM 0.59 Result Comment: The validity of the calculated GFR AND GFRAA in patients over 70 years has not been determined. Clinical correlation is essential. LAB L501.1110 >60 mL/min Normal EST GFR 156 Result Comment: Non- GFR Calc LAB L501.1115 >60 mL/min Normal EST GFR - AA 188 Result Comment: GFR Calc LAB L501.1255 ml/min Normal Estimated CRCL 112.89 LAB L501.1300 10-20 RATIO BUN/CRE Normal 17.0 LAB L501.2200 8.5-10 mg/dL .1 CA Normal 8.5 LAB L501.5300 136-14 mmol/L 5 NA Normal 136 LAB L501.5600 3.5-5. mmol/L 1 K Normal 4.1 LAB L501.5900 98-107 mmol/L Low CL 88 LAB L501.6100 21.0-3 mmol/L High 2.0 CO2 39.0 LAB L501.6200 5-15 GAP Normal 9 Performed By: #### L500.2500 #### [facility] [address] [place], [address] OSMOLALITY, SERUM Collected: 02/03/2018 Status: F Source: [place] 1:45 PM [facility] REPOSITORY TYPE CODE TESTS RESULT OUT OF RANGE REFERENCE UNITS LAB L501.7300 275-295 mOsm/KG Normal 287 OSMOLALITY,S ER Performed By: #### L501.7300 #### [facility] [address] [place], [address] URINE SODIUM Collected: 02/03/2018 Status: F Source: [place] 1:35 PM [facility] REPOSITORY TYPE CODE TESTS RESULT OUT OF RANGE REFERENCE UNITS LAB L501.5500 Not Establ. mmol/L Normal UR NA 91 Performed By: #### L501.5500 #### [facility] [address] [place], [address] OSMOLALITY, URINE Collected: 02/03/2018 Status: F Source: [place] 1:35 PM [facility] REPOSITORY TYPE CODE TESTS RESULT OUT OF RANGE REFERENCE UNITS LAB L501.7400 mOsm/KG Normal 270 OSMOLALITY,U R Result Comment: OSMOLALITY URINE REFERENCE INTERVALS 24-hour Urine 300 - 900 mOsm/kg Random Urine 50 - 1400 mOsm/kg After 12 Hr fluid restriction >850 mOsm/kg Performed By: #### L501.7400 #### [facility] [address] [facility], [address] MAGNESIUM Collected: 02/03/2018 Status: F Source: [place] 10:28 AM [facility] REPOSITORY TYPE CODE TESTS RESULT OUT OF RANGE REFERENCE UNITS LAB L501.5200 1.6-2.6 mg/dL Normal MG 2.1 Performed By: #### L501.5200, L501.5600 #### [facility] [address] [facility], [address] POTASSIUM Collected: 02/03/2018 Status: F Source: PRATIMA 10:28 AM [facility] REPOSITORY TYPE CODE TESTS RESULT OUT OF RANGE REFERENCE UNITS LAB L501.5600 3.5-5.1 mmol/L Normal K 3.5 Performed By: #### L501.5200, L501.5600 #### [facility] [address] [place], [address] CBC-COMPLETE BLOOD CNT Collected: 02/03/2018 Status: F Source: PRATIM[place] NO DIFF 5:10 AM [facility] REPOSITORY TYPE CODE TESTS RESULT OUT OF RANGE REFERENCE UNITS LAB L100.1000 4.4-11.0 K/mm3 High WBC 17.4 LAB L100.1200 4.6-6.2 M/mm3 Normal RBC 4.67 LAB L100.1300 13.0-16.5 g/dl Normal HGB 14.0 LAB L100.1400 40-54 % Normal HCT 41.7 LAB L100.1500 80-94 fL Normal MCV 89.3 LAB L100.1600 27.0-32.0 pg Normal MCH 30.0 LAB L100.1700 32-36 g/gl Normal MCHC 33.6 LAB L100.1810 11.6-14.6 % Normal RDW CV 14.3 LAB L100.1820 35.1-43.9 fl High RDW SD 46.4 LAB L100.1900 150-450 K/mm3 Normal PLT 203 LAB L100.2000 6.2-12.0 fl Normal MPV 9.5 Performed By: #### L100.0500 #### [facility] [address] [place], [address] BASIC METABOLIC Collected: 02/03/2018 Status: F Source: [place] PROFILE (BMP) 5:10 AM [facility] REPOSITORY TYPE CODE TESTS RESULT OUT OF RANGE REFERENCE UNITS LAB L501.0100 74-106 mg/dL High GLU 142 Result Comment: Fasting Glucose result greater than or equal to 126 mg/dL suggests DIABETES MELLITUS per A.D.A. criteria. Please note revised GLUCOSE reference range effective 2017. LAB L501.1000 7-18 mg/dL Normal BUN 12 LAB L501.1100 0.70-1.30 mg/dL Low CREAT,SERUM 0.55 Result Comment: The validity of the calculated GFR AND GFRAA in patients over 70 years has not been determined. Clinical correlation is essential. LAB L501.1110 >60 mL/min Normal EST GFR 167 Result Comment: Non- GFR Calc LAB L501.1115 >60 mL/min Normal EST GFR - AA 203 Result Comment: GFR Calc LAB L501.1255 ml/min Normal Estimated CRCL 126.85 LAB L501.1300 10-20 RATIO High BUN/CRE 21.8 LAB L501.2200 8.5-10 mg/dL Low .1 CA 8.1 LAB L501.5300 136-14 mmol/L Low 5 NA 135 LAB L501.5600 3.5-5. mmol/L 1 K Normal 3.8 LAB L501.5900 98-107 mmol/L Low CL 89 LAB L501.6100 21.0-3 mmol/L High 2.0 CO2 35.0 LAB L501.6200 5-15 GAP Normal 11 Performed By: #### L500.2500 #### [facility] [address] [place], [address] LIVER PROFILE Collected: 02/03/2018 Status: F Source: [place] 5:10 AM [facility] REPOSITORY TYPE CODE TESTS RESULT OUT OF RANGE REFERENCE UNITS LAB L501.1500 6.4-8.2 g/dL Low T PROT 5.3 LAB L501.1800 3.2-5.0 g/dL Low ALB 3.1 LAB L501.1950 2.2-4.2 g/dL Normal GLOB 2.2 LAB L501.4100 15-37 U/L High AST 386 LAB L501.4305 45-117 U/L Normal ALK P 76 LAB L501.4405 16-61 U/L High ALT 775 LAB L501.4600 0.20-1.00 mg/dL Normal T BILI 0.70 LAB L501.4700 0.00-0.30 mg/dL Normal D BILI 0.29 Performed By: #### L500.3400 #### [facility] [address] [place], [address] CONSULTATION Observed: 02/02/2018 Status: F Source: [place] 12:22 PM [facility] REPOSITORY [facility] Medical Records Department [address] [place] [address] Consultation 02/02/18 1214 MR#: [id number] Acct: [id number] Name: MARIAA OROZCO Rep #: [id number] : 1970 47 From: Jose Guadalupe Thomas MD PCP: OUT OF TOWN DOCTOR Status: ADM IN Y Location: ICU ICU08-1 Problem List (1) Non-STEMI (non-ST elevated myocardial infarction) Status: Acute (2) LV dysfunction Status: Acute (3) Respiratory failure Status: Acute Qualifiers: Chronicity: acute Respiratory failure complication: hypoxia and hypercapnia Qualified Code(s): J96.01 - Acute respiratory failure with hypoxia; J96.02 - Acute respiratory failure with hypercapnia (4) COPD (chronic obstructive pulmonary disease) Status: Acute Reason for Consult Date of Consultation: 02/02/18 Reason for Consultation: Non-STEMI, LV dysfunction, respiratory arrest History of Present Illness: The patient is a 47 year old M, currently intubated, who apparently lives at a shelter, has MRDD, unknown coronary history, apparently with COPD and previous smoking history. Patient was found to be unresponsive at the shelter, and EMS was called. At that time his O2 sats were in the 50s, and he was given supplemental oxygen and brought to the emergency room at [facility]. Upon arrival his sats had improved, but his mental status was inadequate to maintain his respiratory state, and he was urgently intubated to protect his airway and for mental status changes. His initial EKG showed normal sinus rhythm with anterior T wave inversion which has subsequently corrected on today's EKG. Initially his troponins were 0.3 and increased to maximum 1.0 and are now trending downwards. A 2D echo with Doppler was performed yesterday which demonstrated an EF around 40%. Currently the patient is intubated, and there are no other family members to assist with his history. He is currently on a fentanyl drip, Precedex drip, but on no blood pressure support medications. Apparently when he becomes agitated he becomes quite tachycardic. His telemetry has showed normal sinus rhythm/sinus tachycardia with PACs. Subsequent to this the patient has been found to be positive for influenza type B, and is currently in a respiratory isolation type of situation. [] Past Medical History Allergies/Adverse Reactions: Allergies No Known Allergies Allergy (Verified 01/31/18 20:57) Home Medications: Ambulatory Orders Medication Instructions Recorded Acetaminophen [Tylenol Extra 500 mg PO Q6H PRN PRN 01/31/18 Past Medical History (Chronic Problems): Chronic Problems Smoker (Chronic) Mental and behavioral problem (Chronic) - *Family History Maternal History Items: No pertinent history Smoking Status: Current every day smoker Review of Systems - Review of Systems General: Denies: Fever, Night Sweats, Fatigue Cardiovascular: Denies: Chest Discomfort, Shortness of Breath, Orthopnea, PND, Peripheral Edema, Palpitations, Lightheadedness, Dizziness, Near Syncope, Syncope Respiratory: Denies: Cough, Sputum Production, Hemoptysis Gastrointestinal: Denies: Hematemesis, Hematochezia, Melena Genitourinary: Denies: Dysuria, Hematuria Skin: Denies: Rash Subjectve: Patient intubated, sedated, unresponsive to verbal stimuli. Objective: Vital Signs Temp Pulse Resp BP Pulse Ox 99.0 F 93 16 106/72 97 02/02/18 08:00 02/02/18 11:30 02/02/18 11:30 02/02/18 11:30 02/02/18 11:30 Oxygen Flow Rate (L/min) 15 Oxygen Delivery Method Mechanical Ventilator Weight: 121 lb 11.123 oz Body Mass Index (BMI) 16.8 Intake and Output for Last 24 Hours Intake Total 1358.5 / 1358.5 389.6 / 389.6 Output Total 5525 / 5525 450 / 450 Balance -4166.5 / -4166.5 -60.4 / -60.4 General: Awake, Alert, Oriented x 3 HEENT: PERRL, EOMI, Sclera Non Icteric Neck: Supple, Good ROM, No Lymph Node Enlargement Lungs: Clear to auscultation Cardiovascular: Regular Rhythm, Normal S1, Normal S2, No Murmurs, No Rubs, No Gallops Vascular: No Carotid Bruits, Normal Femoral Pulses, Normal Radial Pulses, Normal Dorsalis Pedal Pulse, Normal Posterior Tibial Pulses Abdomen: Bowel Sounds Present, Soft, Non Tender, No HSM, No Organomegaly Extremities: No Cyanosis, No Clubbing, No edema Neurological: No Focal Motor or Sensory Deficit 02/01/18 12:30: Troponin I 1.090 H* 02/01/18 17:30: Troponin I 1.080 H* 02/02/18 04:00: WBC 20.6 H, RBC 4.37 L, Hgb 13.1, Hct 39.0 L, MCV 89.2, MCH 30.0, MCHC 33.6, RDW 14.2, RDW Differential 45.7 H, Plt Count 204, MPV 9.7 02/02/18 04:00: Sodium 133 L, Potassium 4.6, Chloride 90 L, Carbon Dioxide 32.0, Anion Gap 11, BUN 15, Creatinine 0.65 L, Est GFR (MDRD) Af Amer 166, Est GFR (MDRD) Non-Af 137, BUN/Creatinine Ratio 22.9 H, Glucose 96, Calcium 8.1 L, Magnesium 2.5 Rhythm: EKG: ECHO: Stress Test: Cardiac Cath: PCI: CT Surgery: Holter monitor: EPS: PPM: CXR: Chest CT Scan: Assessment/Plan 1. Non-STEMI: The patient has evidence of respiratory distress with low P O2 sats, found unresponsive at a shelter, and requiring supplemental oxygenation followed by urgent intubation. His chest x-ray shows no overt infiltrates, but does have evidence of diaphragmatic flattening and probable COPD. In addition he was found to be hyponatremic and is being corrected slowly. The patient had a mild elevation in his troponins at a peak of 1.0, and is now trending downwards. In addition, his echocardiogram showed global LV dysfunction of a moderate degree with an EF of approximately 40%. Patient appeared to have bilateral mitral leaflet thickening, and stage I diastolic dysfunction. At this point I would recommend starting the patient on baby aspirin 81 mg p.o. daily if not already done so, and initiating Lopressor 12.5 mg p.o. twice daily and titrating up from there to keep his heart rate less than 100, and his systolic pressure greater than 100. It is my understanding that a weaning trial will be attempted tomorrow and if this is successful we can converse with the patient regarding going forward diagnostic coronary angiogram. There are no other qualified family members available to discuss catheterization at this time while the patient is intubated. If his extubation is unsuccessful, this may mean that he has significant coronary disease which may be limiting his ability to be weaned off the ventilator. If this is the case, I would recommend that we proceed with left heart catheterization with signatures of 2 physicians in light of getting informed consent from the patient has he is sedated and on fentanyl drip. I reviewed the patient's echocardiogram to assess his mitral valve status as well. I do not see any outward signs of endocarditis at this time. His blood cultures are pending. If they turn positive he may require a transesophageal echocardiogram, which under ideal conditions could be done while he is intubated. 2. Hyperlipidemia: Recommend obtaining a fasting lipid profile once the patient has recovered from this event. The patient's LFTs are increasing, possibly suggesting shock liver. Would not recommend any antilipid therapy until his LFTs have normalized. 3. COPD: Patient has evidence of COPD on his chest x-ray as well as by history. Will defer to pulmonary. 4. Discussed with Dr. Shelby. Thank you very much for the opportunity to participate in the cardiac care of your patient. Consultation time took place between 1130 and 12 PM. Code Visit Inpatient E AND M: [id number] Init Hosp L2 02/02/18 1222 <Electronically signed by Jose Guadalupe Thomas MD> Date Jose Guadalupe Thomas MD Cosigner Signature (if applicable): Date CC: Ulises Buchanan MD; Arturo Shelby D.O.; OUT OF TOWN DOCTOR Signed CONSULTATION Observed: 02/02/2018 Status: F Source: [place] 7:26 AM [facility] Medical Records Department [address] [place] [address] Consultation 02/01/18 0705 MR#: [id number] Acct: [id number] Name: MARIAA OROZCO Rep #: [id number] : 1970 47 From: Arturo Shelby DO PCP: OUT OF TOWN DOCTOR Status: ADM IN Y Location: ICU ICU-1 Reason for Consult Date of Consultation: 02/01/18 Reason for Consultation: Acute respiratory failure History of Present Illness: The patient is a 47-year-old male, with a history as outlined below, who presented from his shelter on January 31 after being found unresponsive by staff members. The patient has a reported history of underlying MR, schizophrenia, chronic hypoxemic respiratory failure with a 2 L/min baseline requirement and severe COPD. The patient was previously being followed by Dr Dinh, pulmonary medicine. The patient also has a long-standing tobacco abuse history. He is currently on a maximal triple therapy inhaler regimen as an outpatient. Per documentation from the patient's shelter, he also has urinary retention, for whichshe regularly straight caths. History pertinent to his hospitalization was obtained primarily via chart review, as the patient is currently intubated and there is no next of kin available at the bedside. Per documentation, upon EMS arrival, the patient was noted to be hypoxic with an oxygen saturation in the 50s. On arrival to the emergency department, the patient was documented to be gasping for air with an oxygen saturation of 60% on room air. He was subsequently placed on a nonrebreather which did lead to improvement in his oxygen saturation. He was tachycardic, but remained hemodynamically stable. Initial laboratory evaluation revealed no evidence of a leukocytosis. A venous blood gas did reveal an elevated PCO2 level. Chemistry profile was notable for a sodium of 117 and chloride of 71, of unknown chronicity. Lactate was elevated to 3.8. Total bili was increased to 2.1 with an elevated AST of 299 and ALT of 158. Troponin was increased to 0.302. Initial plain film chest x-ray revealed hyperinflated lung prasad with possible basilar infiltrates and a malpositioned endotracheal tube. Again, per documentation by the ED provider, the patient was reportedly responding to all commands but was uncooperative with his nonrebreather mask and was refusing aerosol treatments. He was felt to lack medical decision capacity and was subsequently intubated. The patient did receive supplemental IV fluid hydration and was started on antibiotics. He was subsequently admitted to the medical intensive care unit for ongoing management. Past Medical History Past Medical History (Chronic Problems): Chronic Problems Smoker (Chronic) Mental and behavioral problem (Chronic) Allergies No Known Allergies Allergy (Verified 01/31/18 20:57) Home Medications: Ambulatory Orders Medication Instructions Recorded Acetaminophen [Tylenol Extra 500 mg PO Q6H PRN PRN 01/31/18 Smoking Status: Current every day smoker - *Family History Maternal History Items: No pertinent history Review of Systems Unable to obtain accurate/complete ROS d/t: Due to current intubation and mechanical ventilation status. Patient Problems: Active and Suspected Problems Respiratory failure (Acute) COPD (chronic obstructive pulmonary disease) (Acute) Objective: The patient's most recent lab work, culture data and imaging studies have all been personally reviewed. - Physical Exam General: - - Currently intubated, sedated and mechanically ventilated. HEENT: Atraumatic, PERRLA, Normocephalic Oral: No Gingival or Mucosal Lesions/ Ulcerations, - - Poor dentition. Endotracheal and OG tubes in place. Neck: Supple, No Nodes, Trachea Midline Lungs: No rhonchi, No wheeze, No rales, Diminished Cardiovascular: Regular rate, Regular Rhythm, Normal S1, Normal S2, No murmurs Abdomen: Bowel Sounds Present, Soft, Non Tender Extremities: No clubbing, No cyanosis, No edema Skin: No breakdown Musculoskeletal: Cachexia, Muscle Wasting Lymphatic: No Cervical, Supraclavicular, or Inguinal Adenopathy Neurological: - - No focal neurological deficits. Currently sedated with a RASS of -2 Vital Signs Temp Pulse Resp BP Pulse Ox 37.7 C H 109 H 16 125/74 H 98 02/01/18 06:00 02/01/18 06:00 02/01/18 06:00 02/01/18 06:00 02/01/18 06:00 Oxygen Flow Rate (L/min) 15 Oxygen Delivery Method Mechanical Ventilator Weight: 123 lb 7.342 oz Body Mass Index (BMI) 16.8 Intake and Output for Last 24 Hours Intake Total 903.5 / 903.5 Output Total 4825 / 4825 Balance -3921.5 / -3921.5 Microbiology Past 72 Hours 01/31/18 21:27 Influenza Types A,B Direct FA ([place]) - Final Mucosa - Nasopharyngeal Laboratory Tests Past 24 Hrs WBC 10.8 RBC 4.43 L Hgb 13.0 Hct 38.8 L MCV 87.6 MCH 29.3 MCHC 33.5 RDW 13.2 RDW Differential 42.6 WBC RBC Hgb Hct MCV MCH MCHC RDW RDW Differential WBC 8.8 RBC 4.54 L Hgb 13.3 Hct 39.4 L MCV 86.8 MCH 29.3 MCHC 33.8 RDW 13.4 RDW Differential 42.7 Clinical Impression(s) from Imaging Studies Chest X-Ray 01/31/18 21:25 IMPRESSION: Malpositioned enteric tube requires advancement 10 to 20 cm. ET tube as above. Bibasilar interstitial infiltrates. COPD. Probable skinfold left upper lung field. Follow-up recommended to exclude pneumothorax. Electronically Signed: Griffin Schneider MD at 21:58 EST , Service support , KUB X-Ray 01/31/18 22:40 IMPRESSION: OG tube in stomach Electronically Signed: Griffin Schneider MD at 23:10 EST , Service support , Chest X-Ray 02/01/18 05:55 IMPRESSION: A background of emphysematous changes in the lungs. ET tube and NG tube in good positions Electronically Signed: Dilan Dick MD at 5:42 EST Tel , Service support , Assessment/Plan Active and Suspected Problems Respiratory failure (Acute) COPD (chronic obstructive pulmonary disease) (Acute) RECOMMENDATIONS: 1. Continue to wean FiO2 to maintain oxygen saturations at or above 90%. 2. Continue empiric antimicrobials, pending infectious workup. 3. Initiate scheduled aerosol treatments. Continue steroids. 4. Discontinue sodium containing fluids, as the patients sodium was over corrected overnight. 5. Check urine and serum osmolality. 6. Check urine toxicology screen. 7. Check hepatitis panel. 8. Continue to trend troponins and check BNP. 9. Obtain echocardiogram. IMPRESSIONS: 1. Acute on chronic hypoxemic respiratory failure The patient presented to the emergency department with acute on chronic respiratory failure. He does have a baseline 2 L/min supplemental oxygen requirement along with what is presumptive severe COPD and ongoing tobacco dependence. While his plain film chest imaging was underwhelming for the presence of a significant pneumonia, the patient was started on broad-spectrum antibiotics. We will plan to check a full respiratory viral panel to evaluate for the presence of viral etiologies. Strep and urine Legionella antigens will also be checked. We will start scheduled aerosol treatments along with steroids. Wean FiO2 to maintain oxygen saturations at or above 90%. Continue to trend troponins and check BNP. We will also check echocardiogram. 2. Hyponatremia of unknown chronicity The patient did present with significantly decreased serum sodium level of unknown chronicity. His mentation did appear to be intact while in the emergency department per documentation. Therefore hypertonic saline was never initiated. The patient did receive a significant amount of normal saline overnight and his sodium has been overcorrected over the last 12 hours. Therefore, all sodium containing supplemental IV fluids will be placed on hold at this time. We will continue to monitor sodium level closely. 3. Transaminitis Unclear etiology. Could be secondary to passive vascular congestion. However, we will also plan to check a hepatitis panel. Transaminase levels will be rechecked accordingly. 4. Troponin elevation Continue to trend troponins. Obtain echocardiogram. Cardiology consultation is pending. 5. Chronic urinary retention/schizophrenia/GERD/long-standing tobacco dependence Complicates care, management, recovery and prognosis. Continue appropriate ICU prophylaxis. Nicotine replacement therapy can be initiated while the patient is admitted to the hospital. TIME: 50 minutes of critical care time, independent of procedures, was spent addressing the patient's acute on chronic hypoxemic respiratory failure, hyponatremia, transaminitis, troponin elevation, review of all data and collaboration with the care team. ([id number]) Code Visit 9xxxx: [id number] Critical care first hour 02/02/18 07 <Electronically signed by Arturo Shelby DO> Date Arturo Shelby DO Cosigner Signature (if applicable): Date CC: Ulises Buchanan MD; Arturo Shelby D.O.; OUT OF TOWN DOCTOR Signed CBC-COMPLETE BLOOD CNT Collected: 02/02/2018 Status: F Source: [place] NO DIFF 4:00 AM [facility] REPOSITORY TYPE CODE TESTS RESULT OUT OF RANGE REFERENCE UNITS LAB L100.1000 4.4-11.0 K/mm3 High WBC 20.6 LAB L100.1200 4.6-6.2 M/mm3 Low RBC 4.37 LAB L100.1300 13.0-16.5 g/dl Normal HGB 13.1 LAB L100.1400 40-54 % Low HCT 39.0 LAB L100.1500 80-94 fL Normal MCV 89.2 LAB L100.1600 27.0-32.0 pg Normal MCH 30.0 LAB L100.1700 32-36 g/gl Normal MCHC 33.6 LAB L100.1810 11.6-14.6 % Normal RDW CV 14.2 LAB L100.1820 35.1-43.9 fl High RDW SD 45.7 LAB L100.1900 150-450 K/mm3 Normal PLT 204 LAB L100.2000 6.2-12.0 fl Normal MPV 9.7 Performed By: #### L100.0500 #### [facility] [address] [place], [place], [id number] BASIC METABOLIC Collected: 02/02/2018 Status: F Source: [place] PROFILE (BMP) 4:00 AM [facility] REPOSITORY TYPE CODE TESTS RESULT OUT OF RANGE REFERENCE UNITS LAB L501.0100 74-106 mg/dL Normal GLU 96 Result Comment: Please note revised GLUCOSE reference range effective 2017. LAB L501.1000 7-18 mg/dL Normal BUN 15 LAB L501.1100 0.70-1.30 mg/dL Low CREAT,SERUM 0.65 Result Comment: The validity of the calculated GFR AND GFRAA in patients over 70 years has not been determined. Clinical correlation is essential. LAB L501.1110 >60 mL/min Normal EST GFR 137 Result Comment: Non- GFR Calc LAB L501.1115 >60 mL/min Normal EST GFR - AA 166 Result Comment: GFR Calc LAB L501.1255 ml/min Normal Estimated CRCL 108.89 LAB L501.1300 10-20 RATIO High BUN/CRE 22.9 LAB L501.2200 8.5-10 mg/dL Low .1 CA 8.1 LAB L501.5300 136-14 mmol/L Low 5 NA 133 LAB L501.5600 3.5-5. mmol/L 1 K Normal 4.6 LAB L501.5900 98-107 mmol/L Low CL 90 LAB L501.6100 21.0-3 mmol/L 2.0 CO2 Normal 32.0 LAB L501.6200 5-15 GAP Normal 11 Performed By: #### L500.2500, L501.5200 #### [facility] [address] [place], [place], [address] MAGNESIUM Collected: 02/02/2018 Status: F Source: [place] 4:00 AM [facility] REPOSITORY TYPE CODE TESTS RESULT OUT OF RANGE REFERENCE UNITS LAB L501.5200 1.6-2.6 mg/dL Normal MG 2.5 Performed By: #### L500.2500, L501.5200 #### [facility] [address] [place], [address] TROPONIN-I Collected: 02/01/2018 Status: F Source: [place] 5:30 PM [facility] REPOSITORY TYPE CODE TESTS RESULT OUT OF RANGE REFERENCE UNITS LAB L501.4010 <0.045 ng/mL High alert 1.080 TROPONIN-I Result Comment: Critical Result(s) Called at: 18:09:34 02/01/2018 by: MIRTHA MORE IN ICU TROPONIN-I EXPECTED VALUES <0.045 Negative 0.045 - 0.590 Consistent with Cardiac Damage > OR = 0.600 Critical Value Not every elevated troponin is indicative of NV. These values should be used with clinical judgement in examining the patient's clinical picture for diagnosis. To establish a diagnosis of NV versus myocardial injury, there must be a demonstrated rise and/or fall in the troponin values, in addition to ischemic symptoms, EKG changes, new regional wall motion abnormality, and/or angiographical evidence. PLEASE NOTE: REFERENCE RANGES EDITED 17 Performed By: #### L501.4010 #### [facility] [address] [place], [address] ABDOMEN SINGLE VIEW Observed: 02/01/2018 Status: F Source: [place] (PORTABLE) 2:29 PM [facility] REPOSITORY [facility] Imaging Services [address] [facility] [place] [address] Abdomen Single View (Portable) MR#: [id number] Acct: [id number] Name: MARIAA OROZCO Rep #: [id number] : 1970 M 47 From: Jeremias Fraser MD PCP: OUT OF TOWN DOCTOR Status: ADM IN Study: Abdomen Single View (Portable) Date of Exam: 02/01/18 Exam# [id number] Ordering Dr: Arturo Shelby DO STUDY: X-RAY - ABDOMEN/PELVIS REASON FOR EXAM: Male, 47 years old. Oral gastric tube placement. TECHNIQUE: Single AP view of the abdomen / pelvis. COMPARISON: Comparison is made with prior examination dated January 31, 2018. FINDINGS: The tip of the orogastric tube is coiled in the fundal portion of the stomach. RAD/Abdomen Single View (Portable) IMPRESSION: The tip of the orogastric tube is coiled within the fundal portion of the stomach. Electronically Signed: Jeremias Fraser MD at 15:05 EST Tel [phone], Service support , CC: Arturo Shelby D.O.; OUT OF TOWN DOCTOR Riverboat Captain: Signed ECHOCARDIOGRAM COMPLETE Observed: 02/01/2018 Status: F Source: [place] 12:41 PM [facility] REPOSITORY [facility] Cardiovascular Services [address] [place] [address] Echo Complete 02/01/18 0838 MR#: [id number] Acct: [id number] Name: MARIAA OROZCO Rep #: [id number] : 1970 47 From: Ulises Buchanan MD Attending Dr: Fantasma Oro MD Status: ADM IN Ordering Dr: Arturo Shelby DO Date: 02/01/18 Location: ICU Sex: M C Admitted: 01/31/18 Reason For Study: dyspnea/SOB Procedure This was a 2D Doppler, Color Flow transthoracic echocardiogram. The study was technically difficult. The study was technically limited. Due to body habitus and PT is supine and on vent for exam. Exam performed portable in ICU/CCU. Left Ventricle Normal LV size. The estimated ejection fraction is 40 %. Stage 1 diastolic dysfunction. There is mild to moderate global hypokinesis of the left ventricle. Right Ventricle Normal RV size. Normal systolic function. Atria Normal left atrium. Normal right atrium. Mitral Valve Bileaflet diffuse mitral valve thickening. Tricuspid Valve Normal tricuspid valve. Aortic Valve Trisinus/trileaflet aortic valve. Normal aortic valve. Pulmonic Valve Normal pulmonic valve. Great Vessels Normal aortic root. The inferior vena cava is dilated. Pericardium/Pleural Small pericardial effusion. Thickened pericardium. MMode/2D Measurements AND Calculations LVIDd: 4.5 cm IVSd: 0.97 cm Ao root diam: 3.5 cm LVIDs: 3.5 cm LVPWd: 0.97 cm RVDd: 3.3 cm FS: 22.4 % LAV(MOD-bp): 21.5 ml LA A4 area: 9.5 cm2 LA dimension(2D): 3.3 cm LAV(MOD-bp) Indexed: 12.3 ml/m2 LAV(MOD-sp2): 22.1 ml LAV(MOD-sp4): 20.4 ml RA A4 area: 11.2 cm2 Time Measurements MV dec time: 0.23 sec Doppler Measurements AND Calculations MV E max carmen: 61.6 cm/sec Med Peak E' Carmen: 7.7 cm/sec Ao V2 max: 87.3 cm/sec MV A max carmen: 93.3 cm/sec E/E' med: 7.9 Ao max P.0 mmHg MV E/A: 0.66 LV V1 max: 65.5 cm/sec PA V2 max: 62.6 cm/sec LV V1 max P.7 mmHg Interpretation Summary Normal LV size. The estimated ejection fraction is 40 %. Stage 1 diastolic dysfunction. Bileaflet diffuse mitral valve thickening. Ordering Physician: Arturo Shelby D.O. Referring Physician: OTD Performed By: Megha Padilla, RENZO, RVT 02/01/18 1241 Date Ulises Buchanan MD CC: Fantasma Oro MD; Arturo Shelby D.O.; OUT OF TOWN DOCTOR Date Dictated: 02/01/18 0838 Date Transcribed: 02/01/18 124 Riverboat Captain: Signed TROPONIN-I Collected: 02/01/2018 Status: F Source: [place] 12:30 PM [facility] REPOSITORY TYPE CODE TESTS RESULT OUT OF RANGE REFERENCE UNITS LAB L501.4010 <0.045 ng/mL High alert 1.090 TROPONIN-I Result Comment: Critical Result(s) Called at: 13:56:43 02/01/2018 by: Sadie Holley TROPONIN-I EXPECTED VALUES <0.045 Negative 0.045 - 0.590 Consistent with Cardiac Damage > OR = 0.600 Critical Value Not every elevated troponin is indicative of NV. These values should be used with clinical judgement in examining the patient's clinical picture for diagnosis. To establish a diagnosis of NV versus myocardial injury, there must be a demonstrated rise and/or fall in the troponin values, in addition to ischemic symptoms, EKG changes, new regional wall motion abnormality, and/or angiographical evidence. PLEASE NOTE: REFERENCE RANGES EDITED 17 Performed By: #### L501.4010 #### [facility] [address] [place], [address] TROPONIN-I Collected: 02/01/2018 Status: F Source: [place] 9:30 AM [facility] REPOSITORY TYPE CODE TESTS RESULT OUT OF RANGE REFERENCE UNITS LAB L501.4010 <0.045 ng/mL High alert 0.990 TROPONIN-I Result Comment: Critical Result(s) Called at: 10:00:24 02/01/2018 by: Sadie Livingston TROPONIN-I EXPECTED VALUES <0.045 Negative 0.045 - 0.590 Consistent with Cardiac Damage > OR = 0.600 Critical Value Not every elevated troponin is indicative of NV. These values should be used with clinical judgement in examining the patient's clinical picture for diagnosis. To establish a diagnosis of NV versus myocardial injury, there must be a demonstrated rise and/or fall in the troponin values, in addition to ischemic symptoms, EKG changes, new regional wall motion abnormality, and/or angiographical evidence. PLEASE NOTE: REFERENCE RANGES EDITED 17 Performed By: #### L501.4010 #### [facility] [address] [place], [address] SODIUM LEVEL Collected: 02/01/2018 Status: F Source: [place] 9:30 AM [facility] REPOSITORY TYPE CODE TESTS RESULT OUT OF RANGE REFERENCE UNITS LAB L501.5300 136-145 mmol/L Low NA 128 Performed By: #### L501.5300 #### [facility] [address] [facility] [place], [address] Observed: 02/01/2018 Status: F Source: [place] RESPIRATORY PANEL 8:30 AM [facility] MOLECULAR REPOSITORY RP PANEL Normal Reference Range = Not Detected RESULTS CALLED TO ICU/CHICHI 02/01/18 1223 Dorothy Werner. Copy of report sent to Infection Control Printer MS#[id number] 02/01/18 1221 GUILLERMO. ADENOVIRUS Not Detected HUMAN METAPHNEUMO Not Detected INFLUENZA A Not Detected INFLUENZA A (SUBTYPE H1) Not Detected INFLUENZA A (SUBTYPE H3) Not Detected INFLUENZA B Positive for INFLUENZA B by NAAT technology PARAINFLUENZA 1 Not Detected PARAINFLUENZA 2 Not Detected PARAINFLUENZA 3 Not Detected PARAINFLUENZA 4 Not Detected RHINOVIRUS Not Detected RSV A Not Detected RSV B Not Detected NAAT METHOD Testing was performed using nucleic acid amplification ORGANISM 1: INFLUENZAE B Performed By: #### M100.638 #### [facility] [address] [facility], [address] Observed: 02/01/2018 Status: F Source: [place] CULTURE, SPUTUM 8:30 AM [facility] REPOSITORY Gram Stain Acceptable Specimen? Yes (<25 Epithelial cells per/lpf) Gram Stain 1+ White Blood Cells 1+ Epithelial cells 2+ Gram positive cocci Resp. Culture Mixed normal respiratory moreno. No Haemophilus, Streptococcus pneumoniae, beta-hemolytic Streptococcus or Staphylococcus aureus isolated. Performed By: #### M100.0800 #### [facility] [address] [facility], [address] URINE DRUG SCREEN Collected: 02/01/2018 Status: F Source: [place] (VISTA) 7:50 AM [facility] REPOSITORY TYPE CODE TESTS RESULT OUT OF RANGE REFERENCE UNITS LAB L505.0075 TO BE Normal CONFIRMED Result Comment: CONFIRMATORY TESTING FOR ALL POSITIVE URINE DRUG SCREEN RESULTS WILL ONLY BE SENT OUT UPON PHYSICIAN ORDER. VISTA Urine Drug Screen methods provide only preliminary analytical test results. A more specific alternate chemical method must be used in order to obtain a confirmed analytical result. Gas chromatography/mass spectrometery (GC/MS) is the preferred confirmatory method. Clinical consideration and professional judgement should be applied to any drug of abuse test result, particularly when preliminary positive results are used. URINE TCA TESTING MUST BE ORDERED SEPARATELY. USE TEST MNEMONIC: [facility] LAB L505.5005 VISTA UDS PH 6 Normal LAB L505.5015 <1000 ng/mL AMPHETAMINES Normal NEGATIVE LAB L505.5025 < 200 ng/mL BARBITIURATES Normal NEGATIVE LAB L505.5035 < 200 ng/mL BENZODIAZIPINE Normal NEGATIVE LAB L505.5045 < 300 ng/mL COCAINE Normal NEGATIVE LAB L505.5055 < 500 ng/mL ECSTACY Normal NEGATIVE LAB L505.5065 < 300 ng/mL METHADONE Normal NEGATIVE LAB L505.5075 < 300 ng/mL OPIATES Normal NEGATIVE LAB L505.5085 < 25 ng/mL PCP Normal NEGATIVE LAB L505.5095 < 50 ng/mL THC Normal NEGATIVE Performed By: #### L505.5000 #### [facility] [address] [facility], [address] OSMOLALITY, URINE Collected: 02/01/2018 Status: F Source: [place] 7:50 AM [facility] REPOSITORY TYPE CODE TESTS RESULT OUT OF RANGE REFERENCE UNITS LAB L501.7400 mOsm/KG Normal 204 OSMOLALITY,U R Result Comment: OSMOLALITY URINE REFERENCE INTERVALS 24-hour Urine 300 - 900 mOsm/kg Random Urine 50 - 1400 mOsm/kg After 12 Hr fluid restriction >850 mOsm/kg Performed By: #### L501.7400 #### [facility] [facility], [address] M R STAPH AUREUS Collected: 02/01/2018 Status: F Source: [place] DNA BY PCR 7:50 AM [facility] REPOSITORY TYPE CODE TESTS RESULT OUT OF RANGE REFERENCE UNITS LAB L8200.1100 Negative Normal MRSA Negative RESULT Performed By: #### L8200.1000 #### [facility] [place], [address] ACETAMINOPHEN (TYLENOL) Collected: 02/01/2018 Status: F Source: [place] LEVEL 7:40 AM [facility] REPOSITORY TYPE CODE TESTS RESULT OUT OF REFERENCE UNITS RANGE LAB L501.8400 10.0-30.0 ug/mL ACETAMINOPHEN Low 4.3 Performed By: #### L501.8400 #### [facility] [place], [address] OSMOLALITY, SERUM Collected: 02/01/2018 Status: F Source: [place] 7:40 AM [facility] REPOSITORY TYPE CODE TESTS RESULT OUT OF RANGE REFERENCE UNITS LAB L501.7300 275-295 mOsm/KG Low 268 OSMOLALITY,S ER Performed By: #### L501.7300 #### [facility] [address] [facility], [address] HEPATITIS PROFILE I Collected: 02/01/2018 Status: F Source: [place] DIAG 7:40 AM [facility] REPOSITORY TYPE CODE TESTS RESULT OUT OF RANGE REFERENCE UNITS LAB L3100.0200 Negative Normal HEP A Negative IgM 6734 LAB L3100.0400 Negative Normal HB Negative SURF AG LAB L3100.0440 Negative Normal HB Negative CORE [id number] Result Comment: Performed at: [facility] [id number] Cremator: Travis Baker PhD, Phone: [phone] Performed By: #### L3000.0350 #### [facility] (refer to report for specific site) refer to report for address and phone number CBC-COMPLETE BLOOD CNT Collected: 02/01/2018 Status: F Source: [place] NO DIFF 4:30 AM [facility] REPOSITORY TYPE CODE TESTS RESULT OUT OF RANGE REFERENCE UNITS LAB L100.1000 4.4-11.0 K/mm3 Normal WBC 8.8 LAB L100.1200 4.6-6.2 M/mm3 Low RBC 4.54 LAB L100.1300 13.0-16.5 g/dl Normal HGB 13.3 LAB L100.1400 40-54 % Low HCT 39.4 LAB L100.1500 80-94 fL Normal MCV 86.8 LAB L100.1600 27.0-32.0 pg Normal MCH 29.3 LAB L100.1700 32-36 g/gl Normal MCHC 33.8 LAB L100.1810 11.6-14.6 % Normal RDW CV 13.4 LAB L100.1820 35.1-43.9 fl Normal RDW SD 42.7 LAB L100.1900 150-450 K/mm3 Normal PLT 192 LAB L100.2000 6.2-12.0 fl Normal MPV 9.1 Performed By: #### L100.0500 #### [facility] [address] [place], [place], [address] PHOSPHORUS Collected: 02/01/2018 Status: F Source: [place] 4:30 AM [facility] REPOSITORY TYPE CODE TESTS RESULT OUT OF RANGE REFERENCE UNITS LAB L501.2300 2.5-4.9 mg/dL Normal PHOS 3.2 Performed By: #### L501.2300 #### [facility] [address] [place], [place], [id number] MAGNESIUM Collected: 02/01/2018 Status: F Source: [place] 4:30 AM [facility] REPOSITORY TYPE CODE TESTS RESULT OUT OF RANGE REFERENCE UNITS LAB L501.5200 1.6-2.6 mg/dL Normal MG 2.0 Performed By: #### L501.5200 #### [facility] [address] [place], [address] TROPONIN-I Collected: 02/01/2018 Status: F Source: [place] 4:30 AM [facility] REPOSITORY Order Comment: 'TROP' Serial specimen #1, #2 or #3: 3 'TROP' Serial specimen #1, #2, #3, or #4: 3 TYPE CODE TESTS RESULT OUT OF RANGE REFERENCE UNITS LAB L501.4010 <0.045 ng/mL High alert 0.712 TROPONIN-I Result Comment: Critical Result(s) Called at: 05:29:18 02/01/2018 by: Coy Herrera RN. (ICU). TROPONIN-I EXPECTED VALUES <0.045 Negative 0.045 - 0.590 Consistent with Cardiac Damage > OR = 0.600 Critical Value Not every elevated troponin is indicative of NV. These values should be used with clinical judgement in examining the patient's clinical picture for diagnosis. To establish a diagnosis of NV versus myocardial injury, there must be a demonstrated rise and/or fall in the troponin values, in addition to ischemic symptoms, EKG changes, new regional wall motion abnormality, and/or angiographical evidence. PLEASE NOTE: REFERENCE RANGES EDITED 17 Performed By: #### L501.4010 #### [facility] [address] [place], [address] COMPREHENSIVE METABOLIC Collected: 02/01/2018 Status: F Source: [facility] 4:30 AM [facility] REPOSITORY TYPE CODE TESTS RESULT OUT OF RANGE REFERENCE UNITS LAB L501.0100 74-106 mg/dL Normal GLU 80 Result Comment: Please note revised GLUCOSE reference range effective 2017. LAB L501.1000 7-18 mg/dL Normal BUN 12 LAB L501.1100 0.70-1.30 mg/dL Low CREAT,SERUM 0.61 Result Comment: The validity of the calculated GFR AND GFRAA in patients over 70 years has not been determined. Clinical correlation is essential. LAB L501.1110 >60 mL/min Normal EST GFR 150 Result Comment: Non- GFR Calc LAB L501.1115 >60 mL/min Normal EST GFR - AA 181 Result Comment: GFR Calc LAB L501.1255 ml/min Normal Estimated CRCL 119.76 LAB L501.1300 10-20 RATIO BUN/CRE Normal 19.8 LAB L501.1500 6.4-8. g/dL Low 2 T PROT 5.1 LAB L501.1800 3.2-5. g/dL Low 0 ALB 3.0 LAB L501.1950 2.2-4. g/dL Low 2 GLOB 2.1 LAB L501.2000 0.9-2. RATIO 4 A/G Normal 1.4 LAB L501.2200 8.5-10 mg/dL Low .1 CA 7.8 LAB L501.4100 15-37 U/L High AST 1083 LAB L501.4305 45-117 U/L ALK P Normal 82 LAB L501.4405 16-61 U/L High ALT 861 LAB L501.4600 0.20-1 mg/dL .00 T BILI Normal 0.90 LAB L501.5300 136-14 mmol/L Low 5 NA 128 LAB L501.5600 3.5-5. mmol/L 1 K Normal 4.2 LAB L501.5900 98-107 mmol/L Low CL 86 LAB L501.6100 21.0-3 mmol/L High 2.0 CO2 33.0 LAB L501.6200 5-15 GAP Normal 9 Performed By: #### L500.4050 #### [facility] [address] [facility] [place], [place], [address] BNP,B-TYPE NATRIURETIC Collected: 02/01/2018 Status: F Source: [place] PEPTIDE 4:30 AM [facility] REPOSITORY TYPE CODE TESTS RESULT OUT OF RANGE REFERENCE UNITS LAB L503.6620 0-100 pg/mL High B-TYPE 485.4 DARIAN PEP Performed By: #### L503.6620 #### [facility] [address] [facility] [place], [place], [address] LACTIC ACID Collected: 02/01/2018 Status: F Source: [place] 12:55 AM [facility] REPOSITORY Order Comment: Yes/No query for Sepsis Lactate Rule Y TYPE CODE TESTS RESULT OUT OF REFERENCE UNITS RANGE LAB L503.6005 0.4-2.0 mmol/L High LACTIC ACID 2.2 Result Comment: CALLED [facility] ICU WITH CRITICAL LA BY FARZAD 02-01-18 AT 0201AM READ BACK BY SAME Performed By: #### L503.6005 #### [facility] [address] [facility] [place], [address] EMERGENCY DEPARTMENT Observed: 02/01/2018 Status: F Source: [place] SUMMARY 12:19 AM [facility] REPOSITORY [facility] Medical Records Department [address] [place] [address] Emergency Department Summary 01/31/18 2305 MR#: [id number] Acct: [id number] Name: MARIAA OROZCO Candido Rolon Rep #: [id number] : 1970 47 From: Mariaa Che MD PCP: OUT OF TOWN DOCTOR Status: ADM IN - ER Visit Summary Date of Service: 01/31/18 Chief Complaint: Unresponsive History of Present Illness: The patient is a 47 M presenting from the shelter secondary to being unresponsive. Patient has an underlying history of MR, COPD, and frequent respiratory infections. He is a new resident of this shelter. Apparently staff was doing a check on him today, and he was noted to have decreased responsiveness. EMS was contacted, and they stated that the patient was unresponsive and had a pulse ox in the 50s. He was placed on supplemental oxygen and by the time he got to the emergency department pulse oxes were approaching the 80s, and his responsiveness was improving. [facility] states that the patient potentially has a history of seizures, although is not on any sort of anticonvulsants. Review of systems unable to be obtained secondary to the patient's level of illness. Physical Examination: Vital signs notable for heart rate of 129, respiratory rate of 30, pulse ox of 77% on nasal cannula. Cachectic appearing male visibly in some respiratory discomfort. Head normocephalic. PRL, EOMI no evidence of conjunctival pallor. Moist mucous membranes. No JVD. Heart was tachycardic and regular. Respiratory exam shows prolonged expiratory phase with wheezing and tachypnea with respiratory distress. Abdomen was soft and nontender. Extremities nontender nonedematous. Skin normal color no rash. Patient was alert and oriented to person, able to follow all commands with his upper and lower extremities. Test Results: EKG demonstrates sinus tachycardia with a rate of 124 with a rightward axis deviation and pulmonary disease pattern. CBC unremarkable, chemistry shows sodium of 117 chloride of 71. Liver panel shows bili of 2.1, AST of 299 and ALT of 158. Troponin 0.3. Lactic acid 3.8. VBG shows pH of 7.2 carbon dioxide of 70. Chest x-ray shows good placement of ET tube with infiltrate and multiple bullae noted. Emergency Department Course and Treatment: Patient presented secondary to a unresponsive episode and hypoxemia. On initial arrival, patient was verbal and responding to all commands but was uncooperative with supplemental oxygen or with nebulized breathing treatments. Multiple redirections were tried, and the patient continually was taking off his oxygen and the satting into the 80% range and having worsening respiratory function. I believe that due to his MR, and his level of disease that he does not have capacity at this time, and I believe that he requires intubation for adequate resuscitation of his respiratory disease. Patient was placed on supplemental oxygen again, was treated with etomidate, and succinylcholine. Direct laryngoscopy was performed using a Belkys 4 blade and a 8.0 ET tube. First-pass success was obtained, there was good color change and bilateral breath sounds. Patient did have an episode where he desaturated to 70%, and then easily came back up to 100% with bagging on 100% oxygen. Patient was found to have an infiltrate on chest x-ray, he was treated with Rocephin and azithromycin. He was found to have an elevated lactic acid and troponin which I believe likely are associated with his hypoxemia. Patient was found to be profoundly hyponatremic, which I am unsure of the etiology of this. I did consider the possibility of using 3% saline on the patient, but as he had full return of his mental capacity prior to us intubating him I believe that normal replacement the patient's saline rather than aggressive with 3% is appropriate. Patient potentially could have seized secondary to hyponatremia, versus ceased secondary to his hypoxemia. patient was given Solu-Medrol secondary to his obstructive lung disease. After OG tube was passed, blood was obtained from the stomach, so the patient was given Protonix. I contacted both the hospitalist and the volunteer coordinator, and the patient will be admitted for further management. Disposition: Admission Impression: 1. Hypoxic respiratory failure 2. COPD exacerbation 3. Upper GI bleed 4. Hyponatremia 5. Hypochloremia 6. Metabolic and respiratory acidosis 7. Intubation by ED physician Critical care time 60 minutes This note was generated with Vidder dictation software. It may contain incorrect words, spelling, and punctuation that were not noted in review of the chart prior to signing ED Disposition - Plan for ED Patient: Disposition: Acute Care Hospital [facility] Chief Complaint: General Illness What to do if you have Problems For any increased pain, shortness of breath, bleeding, nausea or vomiting, chest pain, or any unexpected problems, contact your Primary Care Provider. Call [facility] ([phone]) or report to the closest Emergency Room. Call 911 if necessary. 02/01/18 0019 <Electronically signed by Mariaa Che MD> Date Mariaa Che MD Cosigner Signature (If Indicated): Date CC: OUT OF TOWN DOCTOR BLOOD GASES BY CPS Collected: 02/01/2018 Status: F Source: [place] 12:15 AM [facility] REPOSITORY TYPE CODE TESTS RESULT OUT OF RANGE REFERENCE UNITS LAB L9000.9990 Normal BLD GAS TYPE ART LAB L9001.1000 Normal SITE L Radial LAB L9001.1010 Normal TRACEY TEST NA LAB L9001.1048 Normal Mode A-C LAB L9001.1050 O2 Normal Delivery Dev Vent LAB L9001.1065 Vt Normal 400 LAB L9001.1070 RR Normal 16 LAB L9001.1074 Normal FI02 100 LAB L9001.1076 Normal PEEP 8 LAB L9001.1104 Normal Results To HOSP LAB L9001.1105 Normal Time Given 14 LAB L9001.1110 7.35-7.45 Low pH - I-STAT 7.33 LAB L9001.1210 35-45 mmHg High pCO2 - ISTAT 59.2 LAB L9001.1310 75-100 mmHG High alert PO2 I-STAT 375 LAB L9001.2300 22-26 mmol/L High HCO3 ISTAT 31.2 LAB L9001.2400 -2 to +2 mmol/L High BE ISTAT 5 LAB L9001.2415 mmol/L Normal TOTAL CO2 33 ISTAT LAB L9001.2425 95-99 % High SO2 ISTAT 100 Performed By: #### L9000.0800 #### [facility] Point of Care [address] [place] [address] COMPREHENSIVE METABOLIC Collected: 02/01/2018 Status: F Source: [facility] 12:05 AM [facility] REPOSITORY TYPE CODE TESTS RESULT OUT OF RANGE REFERENCE UNITS LAB L501.0100 74-106 mg/dL High GLU 112 Result Comment: Fasting Glucose result from 100 to 125 mg/dL suggests IMPAIRED HOMEOSTASIS per A.D.A. criteria. Please note revised GLUCOSE reference range effective 2017. LAB L501.1000 7-18 mg/dL Normal BUN 15 LAB L501.1100 0.70-1.30 mg/dL Normal CREAT,SERUM 0.71 Result Comment: The validity of the calculated GFR AND GFRAA in patients over 70 years has not been determined. Clinical correlation is essential. LAB L501.1110 >60 mL/min Normal EST GFR 126 Result Comment: Non- GFR Calc LAB L501.1115 >60 mL/min Normal EST GFR - AA 152 Result Comment: GFR Calc LAB L501.1255 ml/min Normal Estimated CRCL 102.89 LAB L501.1300 10-20 RATIO High BUN/CRE 21.2 LAB L501.1500 6.4-8. g/dL Low 2 T PROT 5.0 LAB L501.1800 3.2-5. g/dL Low 0 ALB 2.9 LAB L501.1950 2.2-4. g/dL Low 2 GLOB 2.1 LAB L501.2000 0.9-2. RATIO 4 A/G Normal 1.4 LAB L501.2200 8.5-10 mg/dL Low .1 CA 7.1 LAB L501.4100 15-37 U/L High AST 657 LAB L501.4305 45-117 U/L ALK P Normal 78 LAB L501.4405 16-61 U/L High ALT 458 LAB L501.4600 0.20-1 mg/dL High .00 T BILI 1.40 LAB L501.5300 136-14 mmol/L Low 5 NA alert 119 Result Comment: Critical Result(s) Called at: 01:12:18 02/01/2018 by: Andressa AGUIRRE LAB L501.5600 3.5-5.1 mmol/L Normal K 4.2 LAB L501.5900 98-107 mmol/L Low CL 79 LAB L501.6100 21.0-32.0 mmol/L Normal CO2 32.0 LAB L501.6200 5-15 Normal 8 GAP Performed By: #### L500.4050 #### [facility] [address] [place], [address] TROPONIN-I Collected: 02/01/2018 Status: F Source: [place] 12:05 AM [facility] REPOSITORY Order Comment: 'TROP' Serial specimen #1, #2 or #3: 2 TYPE CODE TESTS RESULT OUT OF RANGE REFERENCE UNITS LAB L501.4010 <0.045 ng/mL High 0.480 TROPONIN-I Result Comment: TROPONIN-I EXPECTED VALUES <0.045 Negative 0.045 - 0.590 Consistent with Cardiac Damage > OR = 0.600 Critical Value Not every elevated troponin is indicative of NV. These values should be used with clinical judgement in examining the patient's clinical picture for diagnosis. To establish a diagnosis of NV versus myocardial injury, there must be a demonstrated rise and/or fall in the troponin values, in addition to ischemic symptoms, EKG changes, new regional wall motion abnormality, and/or angiographical evidence. PLEASE NOTE: REFERENCE RANGES EDITED 17 Performed By: #### L501.4010 #### [facility] [address] [place], [place], [address] CHEST 1 VIEW Observed: 02/01/2018 Status: F Source: [place] (PORTABLE) 12:02 AM [facility] REPOSITORY [facility] Imaging Services [address] [place] [address] Chest 1 View (Portable) MR#: [id number] Acct: [id number] Name: MARIAA OROZCO Gonzales Rep #: [id number] : 1970 M 47 From: Dilan Dick MD PCP: OUT OF TOWN DOCTOR Status: ADM IN Study: Chest 1 View (Portable) Date of Exam: 02/01/18 Exam# [id number] Ordering Dr: Robby Braun MD STUDY: X-RAY CHEST REASON FOR EXAM: Male, 47 years old. Patient intubated. Shortness of breath. TECHNIQUE: 1 view COMPARISON: January 31, 2018 FINDINGS: A background of emphysematous changes in the lungs especially in the right upper lobe. An ET tube and NG tube are in place. The heart is normal. Normal visualized thoracic spine. Normal visualized ribs, clavicles, and shoulders. There is no demonstrated abnormality of the visualized soft tissue structures of the upper abdomen. RAD/Chest 1 View (Portable) IMPRESSION: A background of emphysematous changes in the lungs. ET tube and NG tube in good positions Electronically Signed: Dilan Dick MD at 5:42 EST Tel , Service support , CC: OUT OF TOWN DOCTOR; Robby Braun MD Riverboat Captain: Signed HISTORY AND PHYSICAL Observed: 01/31/2018 Status: F Source: [place] EXAM 11:26 PM [facility] REPOSITORY [facility] Medical Records Department [address] [place] [address] History and Physical 01/31/18 2307 MR#: [id number] Acct: [id number] Name: PAMMARIAA Rep #: [id number] : 1970 47 From: Robby Braun MD PCP: OUT OF TOWN DOCTOR Status: ADM IN Y Location: ICU ICU08-1 Problem List (1) Respiratory failure Status: Acute Qualifiers: Chronicity: acute Respiratory failure complication: hypoxia and hypercapnia Qualified Code(s): J96.01 - Acute respiratory failure with hypoxia; J96.02 - Acute respiratory failure with hypercapnia (2) COPD (chronic obstructive pulmonary disease) Status: Acute (3) Smoker Status: Chronic (4) Mental and behavioral problem Status: Chronic History of Present Illness Date of Admission: 01/31/18 Chief Complaint: respiratory failure The patient is a 47 year old male patient resident of a shelter was found unresponsive in the home. His eyes were open and dilated but sluggish to respond. His initial SPO2 was 50% by ems and he was transported to the ER. The patient was agitated and combative with regards to keeping oxygen mask on in the ER and would not keep it on. He would immediately desaturate and urgent decision to intubate the patient was made by the ER doctor. The patient has no next of kin or power of divorce attorney to speak on his behalf and the decision was made in the best interest of the patient to protect his airway. Initial laboratory studies are significant for severe hyponatremia of 117, elevated troponin .302 along with elevated liver enzymes. WBC count is within normal limits. He was placed on mechanical ventilation and unable to provide any further history. The optical engineering manager of the shelter was present and stated he arrived to the facility one week ago from [place] and has essentially stopped eating since his arrival. His mother has dementia and is in a chcf and is his only known kin.His baseline is mild mental retardation but is able to communicate and follow commands without any major behavioral concerns. Patient will be admitted to ICU for critical care management. Past Medical History Past Medical History (Chronic Problems): Chronic Problems Smoker (Chronic) Mental and behavioral problem (Chronic) Allergies No Known Allergies Allergy (Verified 01/31/18 20:57) Home Medications: Ambulatory Orders Medication Instructions Recorded Acetaminophen [Tylenol Extra 500 mg PO Q6H PRN PRN 01/31/18 Smoking Status: Current every day smoker - *Family History Maternal History Items: No pertinent history Review of Systems Unable to obtain accurate/complete ROS d/t: patient is sedated and intubated VTE Information - Inpt Only VTE Present on Admission: No VTE Mechan Device Prophylaxis: None VTE Pharm Prophylaxis ordered?: Yes Patient Problems: Active and Suspected Problems Respiratory failure (Acute) COPD (chronic obstructive pulmonary disease) (Acute) - Physical Exam General: - - sedated and intubated HEENT: Atraumatic, EOMI, Normocephalic, Sluggish Pupils Neck: Supple Lungs: No rhonchi, No wheeze, Diminished Cardiovascular: Regular rate, Regular Rhythm, Normal S1, Normal S2, No murmurs Abdomen: Bowel Sounds Present Extremities: No edema Skin: No rashes Neurological: - - sedated and intubated Psych/Mental Status: - - unable to assess Vital Signs Temp Pulse Resp BP Pulse Ox 99.1 F 104 H 16 104/81 H 100 01/31/18 22:15 01/31/18 23:04 01/31/18 23:04 01/31/18 23:04 01/31/18 23:04 Oxygen Flow Rate (L/min) 15 Oxygen Delivery Method Room Air Weight: 131 lb 13.383 oz Body Mass Index (BMI) 17.4 Microbiology Past 72 Hours 01/31/18 21:27 Influenza Types A,B Direct FA ([place]) - Final Mucosa - Nasopharyngeal Laboratory Tests Past 24 Hrs WBC 10.8 RBC 4.43 L Hgb 13.0 Hct 38.8 L MCV 87.6 MCH 29.3 MCHC 33.5 RDW 13.2 RDW Differential 42.6 Plt Count 220 Assessment/Plan All Active Problems Respiratory failure (Acute) COPD (chronic obstructive pulmonary disease) (Acute) Chronic Problems Smoker (Chronic) Mental and behavioral problem (Chronic) Plan 1. Acute Respiratory Failure- Consult volunteer coordinator, continue mechanical ventilation, solumedrol 40mg IV q 8hrs. repeat CXR in am, CBC, BMP. Continue propofol sedation and NG tube to low int. suction 2. Hyponatremia- normal saline IV at 125cc/hours repeat BMP in 6hrs 3. DVT prophylaxis- LMWH 4. Elevated troponin- cycle cardiac enzymes 5. elevated liver enzymes (liver shock)- CMP in am Code Visit Inpatient E AND M: [id number] Init Hosp L3 01/31/182325 <Electronically signed by Robby Braun MD> Date Robby Braun MD Cosigner Signature: Date (if applicable) CC: OUT OF TOWN DOCTOR; Robby Braun MD Signed VENOUS BLOOD GAS Collected: 01/31/2018 Status: F Source: [place] 10:56 PM [facility] REPOSITORY TYPE CODE TESTS RESULT OUT OF RANGE REFERENCE UNITS LAB L9000.9990 Normal BLD GAS TYPE BRANDON LAB L9001.1000 Normal SITE OTHER LAB L9001.1050 O2 Normal Delivery Dev Vent LAB L9001.1060 MV Normal 5.00 LAB L9001.1065 Vt Normal 400 LAB L9001.1070 RR Normal 16 LAB L9001.1074 Normal FI02 100 LAB L9001.1076 Normal PEEP 8 LAB L9001.1104 Normal Results To ED LAB L9001.1105 Normal Time Given 2300 LAB L9002.1110 7.32-7.42 Low VBGpH - I-STAT 7.21 LAB L9002.1212 41-51 mmHg High alert VBG pCO2 - 76.1 ISTA LAB L9002.1310 25-40 mmHg Normal VBG PO2 I-STAT 30 LAB L9002.2300 22-26 mmol/L High VBG HCO3 ISTAT 31 LAB L9002.2400 -1.0-3.5 mmol/L Normal VBG BE ISTAT 3 LAB L9002.2410 50-70 % Low VBG SO2 ISTAT 43 LAB L9002.2415 23-33 mmol/L Normal VBG O2 CT 33 ISTAT Performed By: #### L9000.0810 #### [facility] Point of Care [address] [place] [address] ABDOMEN SINGLE VIEW Observed: 01/31/2018 Status: F Source: [place] (PORTABLE) 10:41 PM [facility] REPOSITORY [facility] Imaging Services [address] [place] [address] Abdomen Single View (Portable) MR#: [id number] Acct: [id number] Name: PAMMARIAA Rolon Rep #: [id number] : 1970 M 47 From: Griffin Schneider MD PCP: OUT OF TOWN DOCTOR Status: ADM IN Study: Abdomen Single View (Portable) Date of Exam: 01/31/18 Exam# [id number] Ordering Dr: Mariaa Che MD STUDY: X-RAY - ABDOMEN/PELVIS REASON FOR EXAM: Male, 47 years old. OG tube adjustment TECHNIQUE: 1 view semierect lower chest and upper abdomen COMPARISON: Chest x-ray 9:12 PM today FINDINGS: OD tube now in the stomach. Normal visualized lung bases. There is an unremarkable bowel gas pattern. There is no demonstrated free abdominal air. Normal soft tissue structures. Normal visualized osseous structures. 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 Y FLU A/B Rapid Negative test results should be confirmed by culture. Order Rapid Viral Culture for Influenzae A+B ([id number]) if clinically indicated. Influenza Ag, Direct Presumptive NEGATIVE for Influenza A/B Antigen (See Note) Performed By: #### M101.0101 #### [facility] [address] [place], [address] CHEST 1 VIEW Observed: 01/31/2018 Status: F Source: [place] (PORTABLE) 8:58 PM [facility] REPOSITORY [facility] Imaging Services [address] [place] [address] Chest 1 View (Portable) MR#: [id number] Acct: [id number] Name: MARIAA OROZCO Rep #: [id number] : 1970 M 47 From: Griffin Schneider MD PCP: OUT OF TOWN DOCTOR Status: REG ER Study: Chest 1 View (Portable) Date of Exam: 01/31/18 Exam# [id number] Ordering Dr: Mariaa Che MD STUDY: X-RAY CHEST REASON FOR EXAM: Male, 47 years old. The T-tube and OG placement TECHNIQUE: Single frontal view of the chest. COMPARISON: None. FINDINGS: Bibasilar interstitial infiltrates. Lucency right upper lobe probably represents a large bullae. Probable skinfold left upper lung field. Enteric tube terminates near the GE junction. The sidehole is above the GE junction. Endotracheal tube terminates 8.8 cm above the uzair. Lungs are hyperaerated. There is no demonstrated pleural abnormality. Normal size heart. Normal mediastinum and klaudia. Normal visualized pulmonary arteries. Normal visualized aortic arch and descending thoracic aorta. Normal visualized thoracic spine. Normal visualized ribs, clavicles, and shoulders. There is no demonstrated abnormality of the visualized soft tissue structures of the upper abdomen. RAD/Chest 1 View (Portable) IMPRESSION: Malpositioned enteric tube requires advancement 10 to 20 cm. ET tube as above. Bibasilar interstitial infiltrates. COPD. Probable skinfold left upper lung field. Follow-up recommended to exclude pneumothorax. 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 CBC W/DIFF, AUTOMATED Collected: 01/31/2018 Status: F Source: [place] 8:55 PM [facility] REPOSITORY TYPE CODE TESTS RESULT OUT OF RANGE REFERENCE UNITS LAB L100.1000 4.4-11.0 K/mm3 Normal WBC 10.8 LAB L100.1200 4.6-6.2 M/mm3 Low RBC 4.43 LAB L100.1300 13.0-16.5 g/dl Normal HGB 13.0 LAB L100.1400 40-54 % Low HCT 38.8 LAB L100.1500 80-94 fL Normal MCV 87.6 LAB L100.1600 27.0-32.0 pg Normal MCH 29.3 LAB L100.1700 32-36 g/gl Normal MCHC 33.5 LAB L100.1810 11.6-14.6 % Normal RDW CV 13.2 LAB L100.1820 35.1-43.9 fl Normal RDW SD 42.6 LAB L100.1900 150-450 K/mm3 Normal PLT 220 LAB L100.2000 6.2-12.0 fl Normal MPV 9.1 LAB L100.2100 47-70 % High NEUT% 88.4 LAB L100.2200 19-41 % Low LY% 4.0 LAB L100.2300 0-10 % Normal MONO% 7.3 LAB L100.2400 0-5 % Normal EO% 0.0 LAB L100.2500 0-1 % Normal BASO% 0.0 LAB L100.2550 0.0-0.9 % Normal IM GRAN % 0.300 Result Comment: IG% - Immature Granulocytes (promyelocytes, myelocytes and metamyelocytes) > 1% indicates that a LEFT SHIFT is Present. LAB L100.2620 2.0-7.7 X10 3/uL High Absolute Neut 9.5 LAB L100.2720 0.83-4.51 X10 3/ul Low Absolute Lymph 0.43 LAB L100.4500 Normal SMEAR COMMENT SCANNED Result Comment: LYMPHOPENIA NOTED Performed By: #### L100.0100 #### [facility] [address] [place], [address] COMPREHENSIVE METABOLIC Collected: 01/31/2018 Status: F Source: [place] 8:55 PM [facility] REPOSITORY TYPE CODE TESTS RESULT OUT OF RANGE REFERENCE UNITS LAB L501.0100 74-106 mg/dL Normal GLU 79 Result Comment: Please note revised GLUCOSE reference range effective 2017. LAB L501.1000 7-18 mg/dL Normal BUN 18 LAB L501.1100 0.70-1.30 mg/dL Normal CREAT,SERUM 0.85 Result Comment: The validity of the calculated GFR AND GFRAA in patients over 70 years has not been determined. Clinical correlation is essential. LAB L501.1110 >60 mL/min Normal EST GFR 102 Result Comment: Non- GFR Calc LAB L501.1115 >60 mL/min Normal EST GFR - AA 123 Result Comment: GFR Calc LAB L501.1255 ml/min Normal Estimated CRCL 88.92 LAB L501.1300 10-20 RATIO High BUN/CRE 21.2 LAB L501.1500 6.4-8. g/dL Low 2 T PROT 5.6 LAB L501.1800 3.2-5. g/dL Normal 0 ALB 3.4 LAB L501.1950 2.2-4. g/dL Normal 2 GLOB 2.2 LAB L501.2000 0.9-2. RATIO Normal 4 A/G 1.5 LAB L501.2200 8.5-10 mg/dL Low .1 CA 7.8 LAB L501.4100 15-37 U/L High AST 299 LAB L501.4305 45-117 U/L Normal ALK P 88 LAB L501.4405 16-61 U/L High ALT 158 LAB L501.4600 0.20-1 mg/dL High .00 T BILI 2.10 LAB L501.5300 136-14 mmol/L Low 5 NA alert 114 Result Comment: Critical Result(s) Called at: 21:40:42 01/31/2018 by: MIRTHA MCINTYRE TO DR. CHE LAB L501.5600 3.5-5.1 mmol/L Normal K 4.7 LAB L501.5900 98-107 mmol/L Low alert CL 71 Result Comment: Critical Result(s) Called at: 21:40:58 01/31/2018 by: MIRTHA MCINTYRE TO DR. CHE LAB L501.6100 21.0-32.0 mmol/L Normal CO2 32.0 LAB L501.6200 5-15 Normal GAP 11 Performed By: #### L500.4050, L501.4010 #### [facility] [address] [place], [address] TROPONIN-I Collected: 01/31/2018 Status: F Source: [place] 8:55 PM [facility] REPOSITORY TYPE CODE TESTS RESULT OUT OF RANGE REFERENCE UNITS LAB L501.4010 <0.045 ng/mL High 0.302 TROPONIN-I Result Comment: TROPONIN-I EXPECTED VALUES <0.045 Negative 0.045 - 0.590 Consistent with Cardiac Damage > OR = 0.600 Critical Value Not every elevated troponin is indicative of NV. These values should be used with clinical judgement in examining the patient's clinical picture for diagnosis. To establish a diagnosis of NV versus myocardial injury, there must be a demonstrated rise and/or fall in the troponin values, in addition to ischemic symptoms, EKG changes, new regional wall motion abnormality, and/or angiographical evidence. PLEASE NOTE: REFERENCE RANGES EDITED 17 Performed By: #### L500.4050, L501.4010 #### [facility] [address] [place], [address] PROTHROMBIN TIME W/INR Collected: 01/31/2018 Status: F Source: [place] 8:55 PM [facility] REPOSITORY TYPE CODE TESTS RESULT OUT OF RANGE REFERENCE UNITS LAB L300.4150 11.7-14.9 SECONDS High PROTIME 18.5 LAB L300.4200 Normal INR 1.5 Performed By: #### L300.3900, L300.4310 #### [facility] [address] [place], [address] PARTIAL THROMBOPLAST Collected: 01/31/2018 Status: F Source: [place] TIME 8:55 PM [facility] REPOSITORY TYPE CODE TESTS RESULT OUT OF RANGE REFERENCE UNITS LAB L300.4310 24.1-36.2 Seconds Normal PTT 32.5 Performed By: #### L300.3900, L300.4310 #### [facility] [address] [place], [address] LACTIC ACID Collected: 01/31/2018 Status: F Source: [place] 8:55 PM [facility] REPOSITORY Order Comment: Yes/No query for Sepsis Lactate Rule Y TYPE CODE TESTS RESULT OUT OF REFERENCE UNITS RANGE LAB L503.6005 0.4-2.0 mmol/L High LACTIC ACID 3.8 Result Comment: Critical Result(s) Called at: 21:46:07 01/31/2018 by: MIRTHA LLOYD IN ED Performed By: #### L503.6005 #### [facility] [address] [place], [address] Observed: 01/31/2018 Status: F Source: [place] CULTURE, BLOOD (WB) 8:55 PM [facility] REPOSITORY BC No growth in 5 days. Performed By: #### M200.1000 #### [facility] [address] [place], [address] Observed: 01/31/2018 Status: F Source: [place] CULTURE, BLOOD (WB) 12:17 PM [facility] REPOSITORY BC No growth in 5 days. Performed By: #### M200.1000 #### [facility] [address] [place], [address] BLOOD GAS, ARTERIAL Collected: 12/22/2017 Status: F Source: [facility] 2:14 PM [facility] REPOSITORY TYPE CODE TESTS RESULT OUT OF RANGE REFERENCE UNITS LAB ipH 7.350-7.450 Normal pH 7.412 LAB iPCO2 35-45 mm Hg High PCO2 50.5 Result Comment: Value above reference range LAB iPO2 80-100 mm Hg Low PO2 63.8 LAB iHCO3 22-26 mmol/L HCO3 High 32.1 LAB Manolo -2-2 mmol/L Base Excess High 6.1 LAB O2HB 92-99 % Low O2 Hemoglobin 90.1 Result Comment: Value below reference range LAB AAGRAD mm Hg [id number] Normal 21.6 LAB AARATIO % Aa Ratio Normal 74.7 LAB O2CT mmol/L O2CT Normal 8.2 LAB [id number] 92-99 % Hemoglobin O2 Sat. Normal 92.2 LAB COHB % Carboxyhemoglobin Normal 1.3 Result Comment: [place] Non-Smoker <1.5% of total Hgb Smoker 1.5 - 5.0 % of total Hgb Heavy Smoker 5.0 - 9.0 % of total Hgb LAB METHB < 2.0 % Methemoglobin Normal 1.0 LAB HHB 0.0-5.0 % DeOxyhemoglobin High (HHB) 7.6 LAB pHt 7.350-7. 450 pH (temp conv.) Normal 7.412 LAB pCO2t 35.0-45. mm Hg 0 pCO2 (temp conv.) High 50.5 LAB pO2t 80-100 mm Hg Low pO2 (temp conv.) 63.8 LAB DRAWNBY Drawn By (Bld Gas) Normal pdb LAB SITEABG Site (Bld Gas) Normal RTRADIAL LAB THB 13.5-17. g/dL 5 Hemoglobin (Bld Gas) Normal 14.4 LAB HCTABG 41-53 % Hematocrit (Bld Gas) Normal 44.3 LAB [id number] O2 Device Normal Room Air LAB FIO2 21-100 % FIO2 Normal 21.0 LAB TEMPABG 36.0-38. Celsius 0 Temperature (Bld Normal Gas) 37.0 LAB ALLENS Allens Test Normal Positive LAB BGINST Blood Gas Instrument Normal ;ICU Performed By: #### ABG #### Unless otherwise noted, all testing performed by [address] [address] CLIA: [id number] Principal Statistical Programmer: Napoleon Her M.D. URINALYSIS, ROUTINE Collected: 12/10/2017 Status: F Source: [facility] 12:48 PM [facility] REPOSITORY TYPE CODE TESTS RESULT OUT OF REFERENCE UNITS RANGE LAB COLOR Normal Color, Urine Straw LAB CHAUR Normal Character Clear LAB SPGRUR 1.003-1.029 Normal Specific 1.003 [place],Urine LAB PHUR 4.5-8.0 Normal pH,Urine 7.0 LAB GLUCUR NEG;NEGATIVE mg/dL Normal Glucose,Urine Negative LAB KETUR NEG;NEGATIVE mg/dL Normal Ketone,Urine Negative LAB PROTUR NEG;NEGATIVE mg/dL Normal Protein,Urine Negative LAB BLDUR NEG;NEGATIVE Normal Blood,Urine Negative LAB NITUR NEG;NEGATIVE Normal Nitrite,Urine Negative LAB BILIUR NEG;NEGATIVE Normal Bilirubin,Urin Negative e LAB UROUR <2 mg/dL Normal Urobilinogen,U < 2.0 rine LAB LEUESTUR Negative Normal Leuk.Esterase, Negative Urine LAB WBCUR 0-5 /HPF Normal WBC,Urine < 1 LAB RBCUR 0-5 /HPF Normal RBC,Urine < 1 Performed By: #### UA #### Unless otherwise noted, all testing performed by [facility] [address] [place], [place] [address] CLIA: [id number] Principal Statistical Programmer: Napoleon Her M.D. CT ABDO,PELVIS IV Observed: 12/10/2017 Status: F Source: [facility] CONTRAST ONLY 12:23 PM [facility] REPOSITORY Final Report Accession No: [id number] Performed: Dec 10 2017 12:23PM Examination: CT ABDO,PELVIS IV CONTRAST ONLY CT ABDO,PELVIS IV CONTRAST ONLY CLINICAL STATEMENT: Abdominal Pain COMPARISON: Correlated with chest CT 06/30/2017 TECHNIQUE: CT examination of the abdomen and pelvis following the administration of 75 mL Isovue-370 intravenous contrast. Coronal and sagittal reformations were performed. Dose reduction techniques were achieved by using automated exposure control and/or adjustment of mA and/or kV according to patient size and/or use of iterative reconstruction technique. FINDINGS: There is severe bullous emphysema involving the lungs. Stable linear atelectasis or scarring in the right lower lobe. Stable left lower lobe pulmonary nodule (series 3, image 14). The heart size is normal without pericardial effusion. The liver demonstrates normal morphology and attenuation without focal hepatic lesion. The gallbladder is present and unremarkable. The spleen, pancreas and adrenal glands are unremarkable. There is symmetric enhancement of the kidneys bilaterally. No abnormal enhancing renal mass. There is severe bilateral hydronephrosis and hydroureter likely secondary to external compression of severely dilated bladder. The bladder wall is thin. There is no free air, bowel obstruction or pneumatosis. There is moderate colonic stool burden involving the right colon. The appendix is not confidently identified The abdominal aorta is normal course with severe atherosclerotic calcifications. There is incomplete contrast opacification involving the infrarenal abdominal aorta with severe stenosis of the common iliac arteries bilaterally. No pelvic soft tissue masses identified. No aggressive osseous lesion is identified. IMPRESSION: 1. Severely distended bladder with severe bilateral hydronephrosis. 2. Incompletely contrast opacification of the distal aorta which raises suspicion for complete occlusion. This is of uncertain etiology and chronicity. A CTA would better evaluate once the bladder is decompressed. Interpreting Physician: CAROLINA MITCHELL M.D. Trans: n/a : cc: CHEST PA AND LATERAL Observed: 12/10/2017 Status: F Source: [facility] 11:43 AM [facility] REPOSITORY Final Report Accession No: [id number] Performed: Dec 10 2017 11:43AM Examination: CHEST PA AND LATERAL EXAM: CHEST PA AND LATERAL REASON FOR EXAM: COUGH. TECHNIQUE: Two-view chest. COMPARISON: Priors, most recent on 8. FINDINGS: The lungs are hyperinflated. Unchanged right basilar consolidation. Heart size is normal. No pleural effusion or pneumothorax. Osseous structures are without acute abnormality. IMPRESSION: No active disease in the chest Interpreting Physician: CAROLINA MITCHELL M.D. Trans: n/a : cc: CBC WITH DIFF Collected: 12/10/2017 Status: F Source: [facility] 11:23 AM [facility] REPOSITORY TYPE CODE TESTS RESULT OUT OF REFERENCE UNITS RANGE LAB WBC 3.6-10.4 K/mcL WBC High 10.8 LAB RBC 4.0-5.5 M/mcL RBC 4.77 LAB HGB 12.9-16.9 g/dL Hemoglobin 14.1 LAB HCT 37.9-49.2 % Hematocrit 41.8 LAB MCV 82.8-99.3 FL MCV 87.7 LAB MCH 27.7-34.6 pg MCH 29.7 LAB MCHC 32.9-35.5 g/dL MCHC 33.9 LAB RDW 10-14.3 % RDW 13.4 LAB PLT 139-354 K/mcL Platelet Count 265 LAB MPV 6.6-10.8 FL MPV 7.6 LAB NEUT# 1.4-6.8 K/mcL High Neutrophil # 8.9 LAB LYMPH# 0.9-3.6 K/mcL Low Lymphocyte # 0.7 LAB MONO# 0.2-0.6 K/mcL Monocyte High # 1.1 LAB EOS# 0-0.5 K/mcL Eosinophil # 0.0 LAB BASO# 0-0.2 K/mcL Basophil # 0.0 LAB SEGNEU% % Segmented Neut % 82.4 LAB LYMP% % Lymphocyte% 6.6 LAB MO% % Monocyte % 10.6 LAB EO% % Eosinophil % 0.0 LAB BA% % Basophil % 0.4 Performed By: #### CMET, EDCTNI, CBCDIF, LIPASE #### Unless otherwise noted, all testing performed by [place] [address] CLIA: [id number] Principal Statistical Programmer: Napoleon Her M.D. ED CARDIAC TROPONIN-I Collected: 12/10/2017 Status: F Source: [facility] 11:23 AM [facility] REPOSITORY TYPE CODE TESTS RESULT OUT OF RANGE REFERENCE UNITS LAB EDCTNI < 45 ng/L Normal ED Cardiac < 15 Troponin-I Result Comment: Elevation of troponin indicates some degree of myocardial necrosis but unless there is a significant rise and/or fall (if elevated) identified, it unlikely that an acute event has taken place Samples from patients routinely receiving high dose biotin therapy (100-300 mg/day) may show falsely decreased results. Please correlate clinically. Performed By: #### CMET, EDCTNI, CBCDIF, LIPASE #### Unless otherwise noted, all testing performed by [place] [address] CLIA: [id number] Principal Statistical Programmer: Napoleon Her M.D. LIPASE Collected: 12/10/2017 Status: F Source: [facility] 11:23 [facility] REPOSITORY TYPE CODE TESTS RESULT OUT OF REFERENCE UNITS RANGE LAB LIPASE 73-393 U/L Low Lipase 72 Performed By: #### CMET, EDCTNI, CBCDIF, LIPASE #### Unless otherwise noted, all testing performed by [place] [address] CLIA: [id number] Principal Statistical Programmer: Napoleon Her M.D. COMPREHENSIVE METABOLIC Collected: 12/10/2017 Status: F Source: [facility] PANEL 11:23 AM [facility] REPOSITORY TYPE CODE TESTS RESULT OUT OF RANGE REFERENCE UNITS LAB GLU 70-99 mg/dL Normal Glucose 71 Result Comment: This test result might be falsely depressed or falsely elevated on samples drawn from patients taking Sulfasalazine and Sulfapyridine. Venipuncture should occur prior to taking either of these drugs. LAB BUN 8-25 mg/dL Low BUN 3 LAB CREA 0.50-1.30 mg/dL Normal Creatinine 0.72 LAB eGFR ml/min/1.73s Normal q.m eGFR,NonAfrican-Am erican >=60 Result Comment: Non- GFR Calc eGFR is an estimated Glomerular Filtration Rate based on the value of the patient's serum creatinine. In outpatients, eGFR should be used as a helpful tool in screening for CKD. In inpatients or patients with acute renal failure, eGFR represents the GFR at the moment of the draw and should be used with caution. LAB eGFRB ml/min/1.73sq.m eGFR, Normal -Botswanan >=60 Result Comment: GFR Calc LAB CALCM 8.4-10.2 mg/dL Low Calcium 8.1 LAB NA 135-145 mmol/L Low Sodium 122 LAB K 3.5-5.1 mmol/L Normal Potassium 3.7 LAB CL 98-108 mmol/L Low Chloride 82 LAB CO2 21-32 mmol/L CO2 Normal 31 LAB AST 0-45 U/L AST Normal (SGOT) 28 Result Comment: This test result might be falsely depressed or falsely elevated on samples drawn from patients taking Sulfasalazine and Sulfapyridine. Venipuncture should occur prior to taking either of these drugs. LAB ALT 14-65 U/L Normal ALT (SGPT) 27 Result Comment: This test result might be falsely depressed or falsely elevated on samples drawn from patients taking Sulfasalazine and Sulfapyridine. Venipuncture should occur prior to taking either of these drugs. LAB ALKP 40-150 U/L Normal Alkaline Phosphatase 96 LAB BILIT 0.3-1.2 mg/dL Normal Bilirubin,Total 0.5 LAB PROT 6.0-8.0 g/dL Normal Protein, Total 6.1 LAB ALB 3.2-5.2 g/dL Normal Albumin 3.4 Performed By: #### CMET, EDCTNI, CBCDIF, LIPASE #### Unless otherwise noted, all testing performed by [address] [address] CLIA: [id number] Principal Statistical Programmer: Napoleon Her M.D. CHEST PA AND LATERAL Observed: 11/26/2017 Status: F Source: [facility] 9:19 PM [facility] REPOSITORY Final Report Accession No: [id number] Performed: Nov 26 2017 9:19PM Examination: CHEST PA AND LATERAL TWO-VIEW CHEST, 11/26/2017: INDICATION: Cough, shortness of breath. COMPARISON: 06/17/2017. FINDINGS: Upright frontal and lateral views of the chest were obtained. The cardiac silhouette appears unremarkable. Severe emphysematous changes are again seen, similar to prior exam including a large right apical bulla. There are small bilateral pleural effusions, right greater than left. No definite pneumothorax or pulmonary vascular congestion. IMPRESSION: 1. Small bilateral pleural effusions, right greater than left. 2. Severe emphysematous change including a large right apical bulla, similar to prior exam. Interpreting Physician: SAHIL RANDOLPH M.D. Trans: dg : cc: Observed: 11/26/2017 Status: F Source: [facility] CULTURE, BLOOD 8:35 PM [facility] REPOSITORY Test Name: Culture, Blood Culture Status: Final Culture Report: No Growth - Day 5 Micro Source: BLOOD Performed By: #### BC #### Unless otherwise noted, all testing performed by [address] [address] CLIA: [id number] Principal Statistical Programmer: Napoleon Her M.D. LACTIC ACID Collected: 11/26/2017 Status: F Source: [facility] 8:19 PM [facility] REPOSITORY TYPE CODE TESTS RESULT OUT OF RANGE REFERENCE UNITS LAB LA 0.6-2.0 mmol/L Normal Lactic Acid 1.1 Performed By: #### EDCTNI, CBCDIF, LA, CHEM8 #### Unless otherwise noted, all testing performed by [address] [address] CLIA: [id number] Principal Statistical Programmer: Napoleon Her M.D. CBC WITH DIFF Collected: 11/26/2017 Status: F Source: [facility] 8:18 PM [facility] REPOSITORY TYPE CODE TESTS RESULT OUT OF RANGE REFERENCE UNITS LAB WBC 3.6-10.4 K/mcL WBC Normal 10.2 LAB RBC 4.0-5.5 M/mcL RBC Normal 4.96 LAB HGB 12.9-16.9 g/dL Normal Hemoglobin 14.5 LAB HCT 37.9-49.2 % Normal Hematocrit 44.2 LAB MCV 82.8-99.3 FL MCV Normal 89.2 LAB MCH 27.7-34.6 pg MCH Normal 29.2 LAB MCHC 32.9-35.5 g/dL Low MCHC 32.7 LAB RDW 10-14.3 % RDW Normal 13.7 LAB PLT 139-354 K/mcL Platelet Normal Count 342 LAB MPV 6.6-10.8 FL MPV Normal 7.4 LAB NEUT# 1.4-6.8 K/mcL High Neutrophil # 7.5 LAB LYMPH# 0.9-3.6 K/mcL Normal Lymphocyte # 1.8 LAB MONO# 0.2-0.6 K/mcL High Monocyte # 0.9 LAB EOS# 0-0.5 K/mcL Normal Eosinophil # 0.0 LAB BASO# 0-0.2 K/mcL Basophil Normal # 0.0 LAB SEGNEU% % Normal Segmented Neut % 73.6 LAB LYMP% % Normal Lymphocyte% 17.4 LAB MO% % Monocyte Normal % 8.7 LAB EO% % Normal Eosinophil % 0.1 LAB BA% % Basophil Normal % 0.2 Performed By: #### EDCTNI, CBCDIF, LA, CHEM8 #### Unless otherwise noted, all testing performed by [place] [address] CLIA: [id number] Principal Statistical Programmer: Napoleon Her M.D. ED CARDIAC TROPONIN-I Collected: 11/26/2017 Status: F Source: [facility] 8:17 PM [facility] REPOSITORY TYPE CODE TESTS RESULT OUT OF RANGE REFERENCE UNITS LAB EDCTNI < 45 ng/L Normal ED Cardiac < 15 Troponin-I Result Comment: Elevation of troponin indicates some degree of myocardial necrosis but unless there is a significant rise and/or fall (if elevated) identified, it unlikely that an acute event has taken place Samples from patients routinely receiving high dose biotin therapy (100-300 mg/day) may show falsely decreased results. Please correlate clinically. Performed By: #### EDCTNI, CBCDIF, LA, CHEM8 #### Unless otherwise noted, all testing performed by [facility] [place] [address] [address] [place], [place] [address] CLIA: [id number] Principal Statistical Programmer: Napoleon Her M.D. BASIC METABOLIC PANEL Collected: 11/26/2017 Status: F Source: [facility] 8:17 PM [facility] REPOSITORY TYPE CODE TESTS RESULT OUT OF RANGE REFERENCE UNITS LAB GLU 70-99 mg/dL Normal Glucose 96 Result Comment: This test result might be falsely depressed or falsely elevated on samples drawn from patients taking Sulfasalazine and Sulfapyridine. Venipuncture should occur prior to taking either of these drugs. LAB BUN 8-25 mg/dL Low BUN 2 LAB CREA 0.50-1.30 mg/dL Normal Creatinine 0.57 LAB eGFR ml/min/1.73s Normal q.m eGFR,NonAfrican-Am erican >=60 Result Comment: Non- GFR Calc eGFR is an estimated Glomerular Filtration Rate based on the value of the patient's serum creatinine. In outpatients, eGFR should be used as a helpful tool in screening for CKD. In inpatients or patients with acute renal failure, eGFR represents the GFR at the moment of the draw and should be used with caution. LAB eGFRB ml/min/1.73sq.m eGFR, Normal -Botswanan >=60 Result Comment: GFR Calc LAB CALCM 8.4-10.2 mg/dL Calcium Normal 8.9 LAB NA 135-145 mmol/L Low Sodium 130 LAB K 3.5-5.1 mmol/L Normal Potassium 3.5 LAB CL 98-108 mmol/L Low Chloride 91 LAB CO2 21-32 mmol/L High CO2 34 Performed By: #### EDCTNI, CBCDIF, LA, CHEM8 #### Unless otherwise noted, all testing performed by [address] [place] [address] CLIA: [id number] Principal Statistical Programmer: Napoleon Her M.D. Observed: 11/26/2017 Status: F Source: [facility] CULTURE, BLOOD 8:17 PM [facility] REPOSITORY Test Name: Culture, Blood Culture Status: Final Culture Report: No Growth - Day 5 Micro Source: BLOOD Performed By: #### BC #### Unless otherwise noted, all testing performed by [place] [address] CLIA: [id number] Principal Statistical Programmer: Napoleon Her M.D. XR CHEST 2 VIEWS Observed: 10/27/2017 Status: F Source: [facility] 7:17 AM [facility] REPOSITORY Exam Date/Time: 10/27/2017 07:28 EDT Reason for Exam: Respiratory Distress Report STUDY: XR Chest 2 Views; 10/27/2017 7:28 am INDICATION: Respiratory Distress. COMPARISON: 06/17/2017 ACCESSION NUMBER(S): [id number] ORDERING CLINICIAN: Jovon Jo FINDINGS: PA and lateral views of the chest were obtained. Cardiac monitoring leads are seen over the chest. There is diffuse hyperinflation and hyperlucency of the lungs, most consistent with emphysema. No focal infiltrate, pleural effusion or pneumothorax is identified. The cardiac silhouette is within normal limits for size. IMPRESSION: 1. Hyperinflation and hyperlucency of the lungs, most consistent with emphysema. 2. No focal infiltrate or pneumothorax. FINAL REPORT Dictated: 10/27/2017 8:02 am Villa Betancur MD Signed (Electronic Signature): 10/27/2017 8:02 am Signed by: Villa Betancur MD Technologist: NAZARIO CBC W/ AUTO DIFF Collected: 10/27/2017 Status: F Source: [facility] 6:49 AM [facility] REPOSITORY TYPE CODE TESTS RESULT OUT OF RANGE REFERENCE UNITS LAB 00648583(L 3.6-11.0 E3/mcL OINC) Normal WBC 9.3 LAB 55540040(L 3.90-6.10 E6/mcL OINC) Normal RBC 4.74 LAB 88299479(L 13.5-18.0 G/DL OINC) Normal Hgb 14.0 LAB 54836531(L 42.0-52.0 % OINC) Normal Hct 42.7 LAB 53913640(L 11.5-14.5 % OINC) Normal RDW 13.4 LAB 66651543(L 27.0-31.0 pg OINC) Normal MCH 29.6 LAB 40967630(L 33.0-37.0 G/DL OINC) Low MCHC 32.8 LAB 16670035(L 78.0-100.0 fL OINC) Normal MCV 90.0 LAB 09411765(L 7.4-11.0 fL OINC) Normal MPV 7.4 LAB 91305942(L 130-400 E3/mcL OINC) Normal Platelet 309 Performed By: #### [id number] #### JENNIFER WallisHemkyle [address] [place] [address] AUTO DIFF Collected: 10/27/2017 Status: F Source: [facility] 6:49 AM [facility] REPOSITORY Order Comment: Order Added by Discern Expert. TYPE CODE TESTS RESULT OUT OF RANGE REFERENCE UNITS LAB 61763551(L 37.0-75.0 % OINC) High Neutro Auto 80.7 LAB 54699209(L 20.0-55.0 % OINC) Low Lymph Auto 9.7 LAB 65169692(L 0.0-10.0 % OINC) Normal Baker Auto 8.7 LAB 26238584(L 0.0-11.0 % OINC) Normal Eos Auto 0.3 LAB 50662752(L 0.0-2.0 % OINC) Normal Basophil Auto 0.6 LAB 82260594(L 1.4-6.5 E3/mcL OINC) High Neutro 7.5 Absolute LAB 92275889(L 1.2-3.4 E3/mcL OINC) Low Lymph Absolute 0.9 LAB 42287244(L 0.0-0.7 E3/mcL OINC) High Baker Absolute 0.8 LAB 31880526(L 0.0-0.7 E3/mcL OINC) Normal Eos Absolute 0.0 LAB 26057955(L 0.0-0.2 E3/mcL OINC) Normal Basophil 0.1 Absolute Performed By: #### [id number] #### JENNIFER [employer] [address] [place] [address] TROPONIN-I Collected: 10/27/2017 Status: F Source: [facility] 6:49 AM [facility] REPOSITORY TYPE CODE TESTS RESULT OUT OF RANGE REFERENCE UNITS LAB 22896404(LO .00-.03 ng/mL INC) Normal .02 Troponin-I Performed By: #### [id number] #### JENNIFER [employer] [address] [place] [address] BNP. Collected: 10/27/2017 Status: F Source: [facility] 6:49 [facility] REPOSITORY TYPE CODE TESTS RESULT OUT OF RANGE REFERENCE UNITS LAB CD:16540927 <=100 pg/mL 67(LOINC) High BNP. 153 Result Comment: Notice: Effective 07/29/2016 the methodology for BNP testing has changed. BNP values less than or equal to 100 pg/mL is considered normal for patients without CHF.The decision threshold was determined by the 95% confidence limit of BNP concentration in the non-CHF population age 55 and older.It is recommended that a new baseline value be established using the new method if monitoring patient's BNP level. Performed By: #### [id number] #### JENNIFER [employer] [address] [place] [address] BMP Collected: 10/27/2017 Status: F Source: [facility] 6:49 [facility] REPOSITORY TYPE CODE TESTS RESULT OUT OF RANGE REFERENCE UNITS LAB 24223483(L 70-99 mg/dL OINC) High Glucose Lvl 108 LAB 99438139(L 7-18 mg/dL OINC) Low BUN <5 LAB 7905713(LO 0.6-1.3 mg/dL INC) Normal Creatinine 0.6 LAB 48731891(L 5.4-30.0 ratio OINC) Normal BUN/Creat Ratio <8.3 LAB 09266259(L 8.4-10.2 mg/dL OINC) Calcium Normal Lvl 9.1 LAB 85211170(L 136-145 mEq/L OINC) Low Sodium Lvl 135 LAB 85198187(L 3.5-5.1 mEq/L OINC) Normal Potassium Lvl 4.6 LAB 78255262(L 98-107 mEq/L OINC) Low Chloride 89 LAB 59822854(L 24.0-30.0 mEq/L OINC) High CO2 35.6 Performed By: #### [id number] #### JENNIFER [employer] [address] [place] [address] EGFR Collected: 10/27/2017 Status: F Source: [facility] 6:49 AM [facility] REPOSITORY Order Comment: Order added by Discern Expert. TYPE CODE TESTS RESULT OUT OF RANGE REFERENCE UNITS LAB 65373117(LO mL/min/1.73 INC) m2 Normal eGFR >60 LAB 29432448(LO mL/min/1.73 INC) m2 Normal eGFR AA >60 Performed By: #### [id number] #### JENNIFER [employer] [address] [place] [address] Observed: 10/27/2017 Status: F Source: [facility] C BLOOD 6:49 AM [facility] REPOSITORY Final Report: No growth at 5 Days Performed By: #### [id number] #### JENNIFER Microbiology Automated Subsection [address] [place] [id number] THORAX W/O Observed: 06/30/2017 Status: F Source: [facility] CONTRAST 1:47 PM [facility] REPOSITORY Exam Date/Time: 06/30/2017 14:02 EDT Reason for Exam: COPD EMPHYSEMATOUS BLOB SMOKER;Lung nodule Report EXAM: CT Thorax w/o Contrast CLINICAL STATEMENT: Abnormal chest x-ray. Two nodular densities overlying the left upper lobe. COMPARISON: CT chest June 29, 2011. Chest x-ray June 17, 2017. TECHNIQUE: CT examination of the chest?without IV contrast. Coronal and sagittal reformations were performed. ? Dose reduction techniques were achieved by using automated exposure control and/or adjustment of mA and/or kV according to patient size and/or use of iterative reconstruction technique. FINDINGS: The nodular asymmetries on the chest x-ray correspond with fractures of the anterior left second and third ribs bridged by periosteal callus. There are no suspicious left upper lobe nodules. There are advanced changes of upper lobe predominant centrilobular and paraseptal emphysema with asymmetric severe bolus emphysema in the right upper lobe and, to a lesser extent, the middle lobe. There is mild central bronchial wall thickening consistent with airway inflammation. The central airways are clear. There is a 6 mm noncalcified nodule in the lateral left lower lobe (series 4 image 297). The nodule is unchanged in size or morphology from the prior examination consistent with a benign finding. There is a new 3 mm nodule in the medial basilar right lower lobe on series 4 image 257. Otherwise, no new nodules are seen. There are similar bandlike areas of chronic atelectasis or fibrotic scarring in the middle lobe and posteromedial lower lobes. There is no bulky mediastinal, axillary, or hilar adenopathy. There is a small anterior pericardial effusion measuring about 1.2 cm in AP thickness. There are multivessel scattered coronary artery calcifications predominantly involving the LAD artery. Included portions of the upper abdomen show mild bilateral hydronephrosis and left renal cortical scarring with an asymmetrically dilated left renal pelvis. The appearance, however is fairly similar to the prior study and may be related to chronic underlying ureteropelvic junction strictures but indeterminant. IMPRESSION: 1. The nodular asymmetries on chest x-ray correlate with fractures of the anterior left second and third ribs bridged by periosteal callus. 2. Advanced changes of emphysema with asymmetric severe right- sided bullous Exam Date/Time: 06/30/2017 14:02 EDT Report emphysema. 3. Mild bilateral bronchial wall thickening suggesting bronchitis (likely chronic) or reactive airways disease. 4. Stable 6 mm left lower lobe nodule from 2012 is consistent with a benign finding. There is a new 3 mm right lower lobe nodule. Consider followup unenhanced CT chest in one year. 5. Small anterior pericardial effusion. 6. Scattered atherosclerotic vascular disease of the aorta. Multivessel small coronary artery calcifications. 7. Bilateral hydronephrosis is partially imaged but fairly similar to the prior study. Although indeterminate, this may be related to underlying chronic ureteropelvic junction strictures. FINAL REPORT Dictated: 06/30/2017 4:11 pm Brody Lopez DO Signed (Electronic Signature): 06/30/2017 4:11 pm Signed by: Brody Lopez DO Technologist: ARMANI XR CHEST 2 VIEWS Observed: 06/17/2017 Status: F Source: [facility] 12:18 PM [facility] REPOSITORY Exam Date/Time: 06/17/2017 12:29 EDT Reason for Exam: COPD HYPOXEMIA SMOKER;COPD Report TWO-VIEW CHEST, 06/17/2017 INDICATION: COPD, chest pain. COMPARISON: None available. FINDINGS: Upright frontal and lateral views of the chest were obtained. The cardiac silhouette is normal in size. There is no pneumothorax, pulmonary vascular congestion, focal airspace consolidation, or pleural effusion. There is prominent emphysematous change with an upper lung zone predominance, right greater than left. Pleural-parenchymal scarring is present in the bilateral lung bases. There are two nodular densities in the left upper lobe. IMPRESSION: 1. No acute cardiopulmonary disease. 2. Prominent emphysematous change with an upper lung zone predominance, right greater than left. 3. There are two ill-defined nodular densities in the left upper lobe. Nonemergent chest CT is recommended to exclude underlying pulmonary nodules . 4. Pleural parenchymal scarring in the bilateral lung bases. Impression was placed in the stat call folder at the time of dictation. FINAL REPORT Dictated: 06/17/2017 5:21 pm Sahil Randolph MD Signed (Electronic Signature): 06/17/2017 5:21 pm Signed by: Sahil Randolph MD Technologist: AYAH BUN Collected: 06/07/2017 Status: F Source: [facility] 9:20 AM [facility] REPOSITORY TYPE CODE TESTS RESULT OUT OF RANGE REFERENCE UNITS LAB 03218099(LO 7-18 mg/dL INC) Normal BUN 7 Performed By: #### [id number] #### JENNIFER [employer] [address] [place] [address] EGFR Collected: 06/07/2017 Status: F Source: [facility] 9:20 AM [facility] REPOSITORY Order Comment: Order added by Discern Expert. TYPE CODE TESTS RESULT OUT OF RANGE REFERENCE UNITS LAB 33329617(LO mL/min/1.73 INC) m2 Normal eGFR >60 LAB 11603359(LO mL/min/1.73 INC) m2 Normal eGFR AA >60 Performed By: #### [id number] #### JENNIFER [employer] [address] [place] [id number] CREATININE Collected: 06/07/2017 Status: F Source: [facility] 9:20 AM [facility] REPOSITORY TYPE CODE TESTS RESULT OUT OF RANGE REFERENCE UNITS LAB 8122564(LO 0.6-1.3 mg/dL INC) Normal Creatinine 0.7 Performed By: #### [id number] #### JENNIFER [employer] [address] [place] [address] PSA TOTAL Collected: 06/07/2017 Status: F Source: [facility] 9:20 AM [facility] REPOSITORY TYPE CODE TESTS RESULT OUT OF RANGE REFERENCE UNITS LAB 43511321(LO ng/mL INC) Normal PSA Total 0.38 Result Comment: AGE-SPECIFIC REFERENCE RANGES FOR SERUM PSA REFERENCE RANGE NG/ML AGE ASIANS BLACKS WHITE 40-49 0- 2 0-2 0-2.5 50-59 0- 3 0-4 0-3.5 60-69 0- 4 0-4.5 0-4.5 70-79 0- 5 0-5.5 0-6.5 PSA INCREASES WITH AGE, RACE, AND EJACULATION WITHIN 48 HRS. [facility] VOL24,NO.2, , PG.339 Performed By: #### [id number] #### JENNIFER [employer] [address] [place] [address] US RENAL Observed: 05/31/2017 Status: F Source: [facility] 12:40 PM [facility] REPOSITORY Exam Date/Time: 05/31/2017 13:02 EDT Reason for Exam: URINARY RETENTION;Other (please specify) Report ULTRASOUND RENAL/RETROPERITONEAL ADDITIONAL CLINICAL INFORMATION: Urinary retention. COMPARISON: 05/27/2015. FINDINGS: Moderate bilateral hydronephrosis is again identified, not significantly changed. Mild bilateral renal cortical atrophy is present. No renal calculi are identified. There is fairly marked urinary bladder distention with prevoid urinary bladder volume measuring 1302 mL. Postvoid urinary bladder volume measures 577 mL. Bilateral ureteral jets are visualized. IMPRESSION: 1. Urinary bladder distention with large postvoid residual noted. 2. Moderate bilateral hydronephrosis, unchanged as compared to 05/27/2015. FINAL REPORT Dictated: 05/31/2017 6:33 pm Raciel Gao MD Signed (Electronic Signature): 05/31/2017 6:33 pm Signed by: Raciel Gao MD Technologist: JAMILA Observed: 05/03/2017 Status: F Source: HILDA Freitas URINE 5:55 PM [facility] REPOSITORY Final Report: No growth Performed By: #### [id number] #### JENNIFER Microbiology Subsection [address] [place] [address] Observed: 04/28/2017 Status: F Source: HILDA Freitas URINE 4:57 PM [facility] REPOSITORY Final Report: No growth Performed By: #### [id number] #### JENNIFER Microbiology Subsection [address] [place] [address] Observed: 04/05/2017 Status: F Source: HILDA Freitas URINE 6:36 PM [facility] REPOSITORY Final Report: >100,000 cfu/ml Enterobacter cloacae ORGANISM: Entclo SUSCEPTIBILITY RESULTS Antibiotic KODAK Dilutn KODAK Interp ORGANISM: Entclo Amox/Cla : >16/8 R Amp : >16 R Amp/Sul : 16/8 R* Cefaz : >16 R Cefo : <=2 S Ceftaz : <=1 S Ceftri : <=8 S Cefur : >16 R Cipro : <=1 S Gent : <=4 S Levo : <=2 S Ran : <=1 S Nitro : >64 R Pip/Rogelio : <=16 S Tetra : <=4 S Tobra : <=4 S SXT : <=2/38 S Performed By: #### [id number] #### JENNIFER Microbiology Subsection [address] [place] [address] ALLERGIES ALLERGIES DATE TYPE / CODE NAME / CODE REACTION SEVERITY SOURCE 01/31/2018 Drug No Known Unknown Pratima Allergy/416 Allergies/[id number] [facility] 649013(SNOM 388(RXNORM) Hospital ED CT) Repository Drug/582442 No Known Holiness 003(SNOMED Allergies [facility]) System Repository Drug/186969 No Known Holiness 003(SNOMED Medication [facility]) Allergies System Repository ENCOUNTERS ENCOUNTERS ADMIT/DISCHARGE ACCOUNT NUMBER ADMITTING ENCOUNTER LOCATION SOURCE CLASS 01/31/2018 [id number] Aparna, Ambulatory BMSBuilding: Pratima Bustamante BMS.[facility] Hospital Repository 01/31/2018/02/10/20 [id number] Braun, Inpatient [place] Pratima 18 Robby Encounter [facility] Hospital ding:[facility]oom Repository : [id number]: 1 01/31/2018 [id number] Braun, Ambulatory BMSBuilding: [place] Robby BMS.[facility] Repository 01/31/2018 [id number] Braun, Ambulatory BMSBuilding: [place] Robby BMS.[facility] Repository 01/31/2018 [id number] Braun, Ambulatory BMSBuilding: [place] BMS.[facility] Repository 01/31/2018 [id number] Braun, Ambulatory BMSBuilding: Pratima Robby BMS.[facility] Repository 01/31/2018 [id number] Braun, Ambulatory BMSBuilding: Pratima Robby BMS.[facility] Repository 01/31/2018 [id number] Braun, Ambulatory BMSBuilding: [place] Robby BMS.[facility] Repository 01/31/2018 [id number] Braun, Ambulatory BMSBuilding: Pratima Robby BMS..[facility] Repository 01/31/2018 [id number] Braun, Ambulatory BMSBuilding: [place] Robby BMS.[facility] Repository 01/31/2018 [id number] Braun, Ambulatory BMSBuilding: Pratima Robby BMS.[facility] Repository 01/31/2018 [id number] Braun, Ambulatory BMSBuilding: Pratima Orbby BMS.[facility] Repository 01/31/2018 [id number] Braun, Ambulatory BMSBuilding: Pratima Robby BMS.[facility] Repository 01/31/2018 [id number] Braun, Ambulatory BMSBuilding: Pratima Robby BMS.[facility] Repository 01/31/2018 [id number] Braun, Ambulatory BMSBuilding: [place] Robby BMS.[facility] Repository 01/31/2018 [id number] Braun, Ambulatory BMSBuilding: Pratima Robby BMS..[facility] Repository 01/31/2018 [id number] Braun, Ambulatory BMSBuilding: Pratima Robby BMS.[facility] Repository 01/31/2018 [id number] Braun, Ambulatory BMSBuilding: [place] Robby BMS.[facility] Repository 01/31/2018 [id number] Braun, Ambulatory BMSBuilding: Pratima Robby BMS.[facility] Repository 01/31/2018 [id number] Braun, Ambulatory BMSBuilding: Pratima Robby BMS.[facility] Repository 01/31/2018 [id number] Braun, Ambulatory BMSBuilding: [place] Robby BMS.[facility] Repository 01/31/2018 [id number] Braun, Ambulatory BMSBuilding: Pratima Robby BMS.[facility] Repository 01/31/2018 [id number] Braun, Ambulatory BMSBuilding: [place] Robby BMS.[facility] Repository 01/31/2018 [id number] Braun, Ambulatory BMSBuilding: Pratmia Robby BMS.[facility] Repository 01/31/2018 [id number] Braun, Ambulatory BMSBuilding: Pratima Robby BMS.[facility] Repository 01/31/2018 [id number] Braun, Ambulatory BMSBuilding: [place] Robby BMS.[facility] Repository 01/31/2018/02/10/20 [id number] Ambulatory BMSBuilding: [address] Repository 01/31/2018/02/10/20 [id number] Ambulatory BMSBuilding: [address] Repository 12/22/[id number] Fabrizio Ambulatory [facility] Repository 12/16/2017 [id number] [facility] Repository ing:Armida [place] 12/16/2017/12/17/19 [id number] Ambulatory [address] Urology [facility] Repository lding:Victor Hugo sfieldRoom: Waiting 12/13/[id number] [place] [address] ([place]) Repository 12/10/2017/12/11/[id number] Gabe Emergency [place] [address] Elvira Malin lding:A1E [place] [facility] [place] DeptRoom: [place] [address] [id number]: Repository A1E A1ED25 11/26/2017/11/27/[id number] Home Emergency [place] [address] Abhijit Josse lding:[address] and [facility] Daytont[facility]: [place] [address] B5INKid: Repository A1E A1ED11 10/27/2017/10/28/19 [id number] Jovon Jo Emergency [place] [address] [address] [facility] [facility] ding:[facility] EDRoom: WR Repository 10/27/2017 [id number] Ambulatory [address] [place] [address] Repository 10/07/2017/10/08/[id number] MDBuilding:[facility] owellRoom: Repository Room 1 07/07/2017/07/08/19 [id number] Ambulatory [address] [place] Rep[place] ing:AMUAshla nd 06/30/2017/07/01/[id number] Regional ding:[facility] Repository 06/21/2017 [id number] Ambulatory [facility] Repository ing:AMUAshla nd 06/21/2017/06/22/19 [id number] Ambulatory [address] [place] Repository ing:AMUAshla ndRoom: CD:[id number] 06/17/2017/06/18/[id number] Regional ding:[facility] Health System IO Repository 06/10/2017/06/11/19 [id number] [address] MDBuilding:[facility] owellRoom: Repository Room 1 06/07/2017/06/08/19 [id number] Tyron Carreon [address] Regional ding:[facility] Repository 06/07/2017/06/08/19 [id number] Ambulatory [address] [facility] [place] Repository ing:AMUAshla ndRoom: Procedure 05/31/2017/06/01/[id number] Tyron Carreon Ambulatory [place] [address] Hospital[facility]il Regional ding:[facility] Health System Repository 05/10/2017/05/11/19 [id number] [facility], Ambulatory [place] [address] Luis Gutierrez g:QCareRoom: Regional Room 3 Health System Repository 05/03/2017/05/04/19 [id number] Tyron Carreon Ambulatory [place] [address] Hospital[facility]il Regional ding:[facility] Repository 05/03/2017/05/04/19 [id number] [address] Repository ing:AMUAshla ndRoom: Room 1 04/28/2017/04/29/19 [id number] [facility], [place] [address] Luis Gutierrez [facility] Regional ding:[facility] Repository 04/28/2017/04/29/19 [id number] [facility], [place] [address] Luis Gutierrez g:QCareRoom: Regional Room 2 Health System Repository 04/05/2017/04/05/19 [id number] Tyron Carreon [place] [address] Hospital[facility]il Regional ding:[facility] System Repository 04/05/2017/04/05/19 [id number] [address] Repository ing:AMUAshla ndRoom: Room 2 PAYERS PAYERS ENCOUNTER GUARANTOR PAYER SUBSCRIBER SOURCE 01/31/2018 MARIAA Rolon Primary MARIAA MARTINEZSERMIDWEST Insurance:MEDICARE KISERDOB: [facility] COMMUNITY PART A BPolicy [id number] Hospital [id number] Number: Adrianna ZARCO DRCandidoMICHELLE, [id number] [place] [address]Ycl: (330) Date:2018-01-31 [phone] () 01/31/2018 Secondary MARIAA Andujar Insurance:MEDICAIDPol KISERDOB: [facility] icy Number: [id number] Hospital [id number] Repository Date:2018-01-31 01/31/2018 Tertiary NOT GIVENUNK [place] Insurance:SELF PAY [facility] Number: Effective Repository Date:2018-01-31 01/31/2018 MARIAA Rey Primary MARIAA Andujar [place]WE[place] Insurance:MEDICARE KISERDOB: Community COMMUNITY PART A [facility] [id number] Hospital [id number] Number: Repository CAROLEE NAVAS [id number] [place] [address]Xsm: (330) Date:2018-01-31 [phone] () 01/31/2018 Secondary MARIAA Rey [place] Insurance:MEDICAIDPol KISERDOB: Community icy Number: [id number] Hospital [id number] Repository Date:2018-01-31 01/31/2018 Tertiary NOT GIVENUNK [place] Insurance:SELF PAY [facility] Number: Effective Repository Date:2018-01-31 01/31/2018 MARIAA Rey Primary MARIAA Andujar [place] Insurance:MEDICARE KISERDOB: Community COMMUNITY PART A [facility] [id number] Hospital [id number] Number: Repository CAROLEE NAVAS [id number] [place] [address]Skk: (330) Date:2018-01-31 [phone] () 01/31/2018 Secondary MARIAA Rey [place] Insurance:MEDICAIDPol KISERDOB: Community icy Number: [id number] Hospital [id number] Repository Date:2018-01-31 01/31/2018 Tertiary NOT GIVENUNK [place] Insurance:SELF PAY [facility] Number: Effective Repository Date:2018-01-31 01/31/2018 MARIAA Rey Primary MARIAA MARTINEZSERMIDWEST Insurance:MEDICARE KISERDOB: Community COMMUNITY PART A [facility] [id number] Hospital [id number] Number: Repository CAROLEE NAVAS [id number] [place] [address]Ujj: (330) Date:2018-01-31 [phone] () 01/31/2018 Secondary MARIAA Rey [place] Insurance:MEDICAIDPol KISERDOB: Community icy Number: [id number] Hospital [id number] Repository Date:2018-01-31 01/31/2018 Tertiary NOT GIVENUNK Pratima Insurance:SELF PAY [facility] Number: Effective Repository Date:2018-01-31 01/31/2018 MARIAA Rey Primary MARIAA Andujar [place] Insurance:MEDICARE KISERDOB: Community COMMUNITY PART A [facility] [id number] Hospital [id number] Number: Repository CAROLEE NAVAS [id number] [place] [address]Mhk: (330) Date:2018-01-31 [phone] () 01/31/2018 Secondary MARIAA Rey [place] Insurance:MEDICAIDPol KISERDOB: Community icy Number: [id number] Hospital [id number] Repository Date:2018-01-31 01/31/2018 Tertiary NOT GIVENUNK [place] Insurance:SELF PAY [facility] Number: Effective Repository Date:2018-01-31 01/31/2018 MARIAA Rey Primary MARIAA Andujar [place] Insurance:MEDICARE KISERDOB: Community COMMUNITY PART A [facility] [id number] Hospital [id number] Number: Repository CAROLEE NAVAS [id number] [place] [address]Rtc: (330) Date:2018-01-31 [phone] () 01/31/2018 Secondary MARIAA Rey [place] Insurance:MEDICAIDPol KISERDOB: Community icy Number: [id number] Hospital [id number] Repository Date:2018-01-31 01/31/2018 Tertiary NOT GIVENUNK Pratima Insurance:SELF PAY [facility] Number: Effective Repository Date:2018-01-31 01/31/2018 MARIAA Rey Primary MARIAA MARTINEZSERMIDWEST Insurance:MEDICARE KISERDOB: Community COMMUNITY PART A [facility] [id number] Hospital [id number] Number: Repository CAROLEE NAVAS [id number] [place] [address]Hdw: (330) Date:2018-01-31 [phone] () 01/31/2018 Secondary MARIAA Rey [place] Insurance:MEDICAIDPol KISERDOB: Community icy Number: [id number] Hospital [id number] Repository Date:2018-01-31 01/31/2018 Tertiary NOT GIVENUNK Pratima Insurance:SELF PAY [facility] Number: Effective Repository Date:2018-01-31 01/31/2018 MARIAA Rey Primary MARIAA Andujar [place] Insurance:MEDICARE KISERDOB: Community COMMUNITY PART A [facility] [id number] Hospital [id number] Number: Repository CAROLEE NAVAS [id number] [place] [address]Ioa: (330) Date:2018-01-31 [phone] () 01/31/2018 Secondary MARIAA Rey [place] Insurance:MEDICAIDPol KISERDOB: Community icy Number: [id number] Hospital [id number] Repository Date:2018-01-31 01/31/2018 Tertiary NOT GIVENUNK [place] Insurance:SELF PAY [facility] Number: Effective Repository Date:2018-01-31 01/31/2018 MARIAA Rey Primary MARIAA Andujar [place] Insurance:MEDICARE KISERDOB: Community COMMUNITY PART A [facility] [id number] Hospital [id number] Number: Repository CAROLEE NAVAS [id number] [place] [address]Wvo: (330) Date:2018-01-31 [phone] () 01/31/2018 Secondary MARIAA Rey Pratima Insurance:MEDICAIDPol KISERDOB: Community icy Number: [id number] Hospital [id number] Repository Date:2018-01-31 01/31/2018 Tertiary NOT GIVENUNK Pratima Insurance:SELF PAY [facility] Number: Effective Repository Date:2018-01-31 01/31/2018 MARIAA Rey Primary MARIAA MARTINEZSERMIDWEST Insurance:MEDICARE KISERDOB: Community COMMUNITY PART A [facility] [id number] Hospital [id number] Number: Repository CAROLEE NAVAS [id number] [place] [address]Zxx: (330) Date:2018-01-31 [phone] () 01/31/2018 Secondary MARIAA Rey Pratima Insurance:MEDICAIDPol KISERDOB: Community icy Number: [id number] Hospital [id number] Repository Date:2018-01-31 01/31/2018 Tertiary NOT GIVENUNK [place] Insurance:SELF PAY [facility] Number: Effective Repository Date:2018-01-31 01/31/2018 MARIAA Rey Primary MARIAA MARTINEZSERMIDWEST Insurance:MEDICARE KISERDOB: Community COMMUNITY PART A [facility] [id number] Hospital [id number] Number: Repository CAROLEE NAVAS [id number] [place] [address]Alm: (330) Date:2018-01-31 [phone] () 01/31/2018 Secondary MARIAA Rey Pratima Insurance:MEDICAIDPol KISERDOB: Community icy Number: [id number] Hospital [id number] Repository Date:2018-01-31 01/31/2018 Tertiary NOT GIVENUNK [place] Insurance:SELF PAY [facility] Number: Effective Repository Date:2018-01-31 01/31/2018 MARIAA Rey Primary MARIAA Andujar [place] Insurance:MEDICARE KISERDOB: Community COMMUNITY PART A [facility] [id number] Hospital [id number] Number: Repository CAROLEE NAVAS [id number] [place] [address]Tnv: (330) Date:2018-01-31 [phone] () 01/31/2018 Secondary MARIAA Rey Pratima Insurance:MEDICAIDPol KISERDOB: Community icy Number: [id number] Hospital [id number] Repository Date:2018-01-31 01/31/2018 Tertiary NOT GIVENUNK [place] Insurance:SELF PAY [facility] Number: Effective Repository Date:2018-01-31 01/31/2018 MARIAA Rey Primary MARIAA MARTINEZSERMIDWEST Insurance:MEDICARE KISERDOB: Community COMMUNITY PART A [facility] [id number] Hospital [id number] Number: Repository CAROLEE NAVAS [id number] [place] [address]Sft: (330) Date:2018-01-31 [phone] () 01/31/2018 Secondary MARIAA Rey [place] Insurance:MEDICAIDPol KISERDOB: Community icy Number: [id number] Hospital [id number] Repository Date:2018-01-31 01/31/2018 Tertiary NOT GIVENUNK [place] Insurance:SELF PAY [facility] Number: Effective Repository Date:2018-01-31 01/31/2018 MARIAA Rey Primary MAIRAA MARTINEZSERMIDWEST Insurance:MEDICARE KISERDOB: Community COMMUNITY PART A [facility] [id number] Hospital [id number] Number: Repository CAROLEE NAVAS [id number] [place] [address]Ayb: (330) Date:2018-01-31 [phone] () 01/31/2018 Secondary MARIAA Rey Pratima Insurance:MEDICAIDPol KISERDOB: Community icy Number: [id number] Hospital [id number] Repository Date:2018-01-31 01/31/2018 Tertiary NOT GIVENUNK Pratima Insurance:SELF PAY [facility] Number: Effective Repository Date:2018-01-31 01/31/2018 MARIAA Rey Primary MARIAA Andujar [place] Insurance:MEDICARE KISERDOB: Community COMMUNITY PART A [facility] [id number] Hospital [id number] Number: Repository CAROLEE NAVAS [id number] [place] [address]Dec: (330) Date:2018-01-31 [phone] () 01/31/2018 Secondary MARIAA Rey Pratima Insurance:MEDICAIDPol KISERDOB: Community icy Number: [id number] Hospital [id number] Repository Date:2018-01-31 01/31/2018 Tertiary NOT GIVENUNK [place] Insurance:SELF PAY [facility] Number: Effective Repository Date:2018-01-31 01/31/2018 MARIAA Rey Primary MARIAA MARTINEZSERMIDWEST Insurance:MEDICARE KISERDOB: Community COMMUNITY PART A [facility] [id number] Hospital [id number] Number: Repository CAROLEE NAVAS [id number] [place] [address]Lph: (330) Date:2018-01-31 [phone] (HP) 01/31/2018 Secondary MARIAA Rey [place] Insurance:MEDICAIDPol KISERDOB: Community icy Number: [id number] Hospital [id number] Repository Date:2018-01-31 01/31/2018 Tertiary NOT GIVENUNK Pratima Insurance:SELF PAY [facility] Number: Effective Repository Date:2018-01-31 01/31/2018 MARIAA Rey Primary MARIAA MARTINEZSERMIDWEST Insurance:MEDICARE KISERDOB: Community COMMUNITY PART A [facility] [id number] Hospital [id number] Number: Repository CAROLEE NAVAS [id number] [place] [address]Qdm: (330) Date:2018-01-31 [phone] (HP) 01/31/2018 Secondary MARIAA Rey [place] Insurance:MEDICAIDPol KISERDOB: Community icy Number: [id number] Hospital [id number] Repository Date:2018-01-31 01/31/2018 Tertiary NOT GIVENUNK [place] Insurance:SELF PAY [facility] Number: Effective Repository Date:2018-01-31 01/31/2018 MARIAA Rey Primary MARIAA Andujar [place] Insurance:MEDICARE KISERDOB: Community COMMUNITY PART A [facility] [id number] Hospital [id number] Number: Repository CAROLEE NAVAS [id number] [place] [address]Mbo: (330) Date:2018-01-31 [phone] () 01/31/2018 Secondary MARIAA Rey [place] Insurance:MEDICAIDPol KISERDOB: Community icy Number: [id number] Hospital [id number] Repository Date:2018-01-31 01/31/2018 Tertiary NOT GIVENUNK [place] Insurance:SELF PAY [facility] Number: Effective Repository Date:2018-01-31 01/31/2018 MARIAA Rey Primary MARIAA Andujar [place] Insurance:MEDICARE KISERDOB: Community COMMUNITY PART A [facility] [id number] Hospital [id number] Number: Repository CAROLEE NAVAS [id number] [place] [address]Yfs: (330) Date:2018-01-31 [phone] (HP) 01/31/2018 Secondary MARIAA Rey Pratima Insurance:MEDICAIDPol KISERDOB: Community icy Number: [id number] Hospital [id number] Repository Date:2018-01-31 01/31/2018 Tertiary NOT GIVENUNK [place] Insurance:SELF PAY [facility] Number: Effective Repository Date:2018-01-31 01/31/2018 MARIAA Rey Primary MARIAA Andujar [place] Insurance:MEDICARE KISERDOB: Community COMMUNITY PART A [facility] [id number] Hospital [id number] Number: Repository CAROLEE NAVAS [id number] [place] [address]Wpi: (330) Date:2018-01-31 [phone] () 01/31/2018 Secondary MARIAA Rey Pratima Insurance:MEDICAIDPol KISERDOB: Community icy Number: [id number] Hospital [id number] Repository Date:2018-01-31 01/31/2018 Tertiary NOT GIVENUNK [place] Insurance:SELF PAY [facility] Number: Effective Repository Date:2018-01-31 01/31/2018 MARIAA Rey Primary MARIAA Andujar [place] Insurance:MEDICARE KISERDOB: Community COMMUNITY PART A [facility] [id number] Hospital [id number] Number: Repository CAROLEE NAVAS [id number] [place] [address]Cqj: (330) Date:2018-01-31 [phone] () 01/31/2018 Secondary MARIAA Rey [place] Insurance:MEDICAIDPol KISERDOB: Community icy Number: [id number] Hospital [id number] Repository Date:2018-01-31 01/31/2018 Tertiary NOT GIVENUNK Pratima Insurance:SELF PAY [facility] Number: Effective Repository Date:2018-01-31 01/31/2018 MARIAA Rey Primary MARIAA Andujar [place] Insurance:MEDICARE KISERDOB: Community COMMUNITY PART A [facility] [id number] Hospital [id number] Number: Repository CAROLEE NAVAS [id number] [place] [address]Sqi: (330) Date:2018-01-31 [phone] () 01/31/2018 Secondary MARIAA Rey Pratima Insurance:MEDICAIDPol KISERDOB: Community icy Number: [id number] Hospital [id number] Repository Date:2018-01-31 01/31/2018 Tertiary NOT GIVENUNK Pratima Insurance:SELF PAY [facility] Number: Effective Repository Date:2018-01-31 01/31/2018 MARIAA Rey Primary MARIAA Andujar [place] Insurance:MEDICARE KISERDOB: Community COMMUNITY PART A [facility] [id number] Hospital [id number] Number: Repository CAROLEE NAVAS [id number] [place] [address]Taq: (330) Date:2018-01-31 [phone] (HP) 01/31/2018 Secondary MARIAA Rey Pratima Insurance:MEDICAIDPol KISERDOB: Community icy Number: [id number] Hospital [id number] Repository Date:2018-01-31 01/31/2018 Tertiary NOT GIVENUNK [place] Insurance:SELF PAY [facility] Number: Effective Repository Date:2018-01-31 01/31/2018 MARIAA Rey Primary MARIAA Andujar [place] Insurance:MEDICARE KISERDOB: Community COMMUNITY PART A [facility] [id number] Hospital [id number] Number: Repository CAROLEE NAVAS [id number] [place] [address]Iap: (330) Date:2018-01-31 [phone] () 01/31/2018 Secondary MARIAA Rey Pratima Insurance:MEDICAIDPol KISERDOB: Community icy Number: [id number] Hospital [id number] Repository Date:2018-01-31 01/31/2018 Tertiary NOT GIVENUNK [place] Insurance:SELF PAY [facility] Number: Effective Repository Date:2018-01-31 01/31/2018 MARIAA Rey Primary MARIAA Andujar [place] Insurance:MEDICARE KISERDOB: Community COMMUNITY PART A [facility] [id number] Hospital [id number] Number: Repository CAROLEE NAVAS [id number] [place] [address]Ywu: (330) Date:2018-01-31 [phone] () 01/31/2018 Secondary MARIAA Rey [place] Insurance:MEDICAIDPol KISERDOB: Community icy Number: [id number] Hospital [id number] Repository Date:2018-01-31 01/31/2018 Tertiary NOT GIVENUNK [place] Insurance:SELF PAY [facility] Number: Effective Repository Date:2018-01-31 01/31/2018 MARIAA Rey Primary MARIAA Andujar [place] Insurance:MEDICARE KISERDOB: Community COMMUNITY PART A [facility] [id number] Hospital [id number] Number: Repository CAROLEE NAVAS [id number] [place] [address]Pny: (330) Date:2018-01-31 [phone] (HP) 01/31/2018 Secondary MARIAA Rey [place] Insurance:MEDICAIDPol KISERDOB: Community icy Number: [id number] Hospital [id number] Repository Date:2018-01-31 01/31/2018 Tertiary NOT GIVENUNK Pratima Insurance:SELF PAY [facility] Number: Effective Repository Date:2018-01-31 01/31/2018 MARIAA Rey Primary MARIAA Andujar [place] Insurance:MEDICARE KISERDOB: Community COMMUNITY PART A [facility] [id number] Hospital [id number] Number: Repository CAROLEE NAVAS [id number] [place] [address]Ewh: (330) Date:2018-01-31 [phone] (HP) 01/31/2018 Secondary MARIAA Rey Pratima Insurance:MEDICAIDPol KISERDOB: Community icy Number: [id number] Hospital [id number] Repository Date:2018-01-31 01/31/2018 Tertiary NOT GIVENUNK [place] Insurance:SELF PAY [facility] Number: Effective Repository Date:2018-01-31 01/31/2018 MARIAA Rey Primary MARIAA Andujar [place] Insurance:MEDICARE KISERDOB: Community COMMUNITY PART A [facility] [id number] Hospital [id number] Number: Repository CAROLEE NAVAS [id number] [place] [address]Trs: (330) Date:2018-01-31 [phone] (HP) 01/31/2018 Secondary MARIAA Rey [place] Insurance:MEDICAIDPol KISERDOB: Community icy Number: [id number] Hospital [id number] Repository Date:2018-01-31 01/31/2018 Tertiary NOT GIVENUNK Pratima Insurance:SELF PAY [facility] Number: Effective Repository Date:2018-01-31 12/22/2017 Primary MARIAA Rey [facility] Insurance:MedicarePol KISERDOB: Leisa and lorena Number: [id number] Yvette [id number] 3 [facility] Hospitals Date:Plan Name:[place], [place] Repository A [address]Xhz: (HP) 12/22/2017 Secondary [facility] Insurance:MedicarePol KISERDOB: Leisa roman [facility] Number: [id number] [place] [id number] 3 [facility] Date:Plan Name:[place], [place] Repository B [address]Atp: (HP) 12/22/2017 Tertiary [facility] Insurance:MedicaidPol KISERDOB: Rene Number: [id number] [place] [id number] 3 [facility] Date:Plan Name:[place], [place] Repository [address]Djk: (HP) 12/16/2017 MARIAA Primary MARIAA Patricia KISERDOB: Insurance:1500 KISERDOB: [facility] MEDICARE [id number] System ANIWA PRIMARYPolicy Number: ANIWA Repository [place], [place] [address]Zmk: Date:2017-12-1626566-5573Vgu: [id number] () Name:CD:[id number] O ()Tel: (615) [address]MQRZ[address], 000-0000 () [place] [address]FC: 12/16/2017 Secondary MARIAA Patricia Insurance:1500 KISERDOB: [facility] MEDICAID [id number] System PRIMARYPolicy Number: [place] Repository Effective [place], [place] Date:2017-12-16Tel: [id number] Name:CD:[id number] O (HP)Tel: (000) [address] [address] ([place]) [address]UG: 12/16/[address] [facility] KISERDOB: Insurance:1500 [facility] MEDICARE [id number] System ANIWA PRIMARYPolicy Number: ANIWA Repository [facility] [place] [address]Dzj: Date:2017-12-16Tel: [id number] (HP) Name:CD:[id number] O (HP)Tel: (000) [address]CX[address], [address] (WP) [place] [address]GK: 12/16/2017 Secondary [facility]:1500 KISERDOB: [facility] MEDICAID [id number] System PRIMARYPolicy Number: ANIWA Repository Effective [place], [place] Date:2017-12-16Tel: [id number] Name:CD:[id number] O (HP)Tel: (000) [address] [address] ([place]) [address]ZB: 12/10/2017 Primary [facility] Insurance:MedicarePol KISERDOB: Leisa and lorena Number: [id number] Yvette [id number] 3 [facility] Hospitals Date:Plan Name:[place] Repository A [address]Snc: (HP) 12/10/2017 Secondary MARIAA [facility] Insurance:MedicarePol KISERDOB: Rene Number: [id number] Yvette [id number] 3 [facility] Hospitals Date:Plan Name:[place], [place] Repository B [address]Idz: (HP) 12/10/2017 Tertiary [facility] Insurance:MedicaidPol KISERDOB: Leisa and icy Number: [id number] Yvette [id number] 3 [facility] Hospitals Date:Plan Name:[place], [place] Repository [address]Hou: (HP) 11/26/2017 Primary [facility] Insurance:MedicarePol KISERDOB: Leisa and icy Number: [id number] Yvette [id number] 3 [facility] Hospitals Date:Plan Name:[place], [place] Repository A [address]Dyi: (HP) 11/26/2017 Secondary [facility] Insurance:MedicarePol KISERDOB: [place] and icy Number: [id number] Yvette [id number] 3 [facility] Hospitals Date:Plan Name:[place], [place] Repository B [address]Jjz: (HP) 11/26/2017 Tertiary [facility] Insurance:MedicaidPol KISERDOB: Leisa and icy Number: [id number] Yvette [id number] 3 [facility] Hospitals Date:Plan Name:[place], [place] Repository [address]Zzs: (HP) 10/27/2017 MARIAA KIRK Primary [facility] KISERDOB: Insurance:MedicarePol KISERDOB: [facility] icy Number: Effective [id number] System ANIWA Date:2017-10-27 ANIWA Repository [place] [id number] [place] [place] [address]Hkf: Name:CD:[id number] [facility] [address]Bgh: [id number] [place] (HP) [phone]: (800) (HP) 000-0000 (WP) 10/27/[address] [facility] Insurance:MedicaidPol KISERDOB: [facility] icy Number: Effective [id number] System Date:2017-10-27 - [facility] 5450-71-43Puwp [place] Name:CD:[id number] E [address]Vaa: [address] [facility] [place] (HP)Tel: [phone]) [phone]: (WP) [phone] 10/27/2017 [facility] Insurance:MedicarePol KISERDOB: [facility] icy Number: [id number] Repository [place] [id number] [facility] [id number]: Date:Plan Name:[place] A [id number]: (HP) (HP) 10/27/2017 [facility] Insurance:MedicarePol KISERDOB: Hospitals icy Number: [id number] Repository [id number] [facility] Date:Plan Name:[place] B [id number]: (HP) 10/27/2017 [facility] Insurance:MedicaidPol KISERDOB: Hospitals icy Number: [id number] Repository [id number] [facility] Date:Plan [place] Name:Health [id number]: [place], [place] [address]YB: (478) (HP) [phone] 10/07/2017 [facility] KISERDOB: Insurance:1500 KISERDOB: [facility] MEDICARE [id number] System [facility] PRIMARYPolicy Number: [facility] [place] [place] [address]Rwi: Date:2017-10-0765470-0265Zto: 5180-55-21Kgif (HP) Name:CD:[id number] O (HP)Tel: (000) [address]BU[address]JR[address]QS, 000-0000 (WP) [place] [address]GY: 10/07/2017 Secondary MARIAA Patricia Insurance:1500 KISERDOB: [facility] MEDICAID [id number] System PRIMARYPolicy Number: [facility] Repository [place] Date:2017-10-07 [address]Tls: 0370-40-83Bbuxlan Name:CD:[id number] O (HP)Tel: (000) [address], [place] 000-0000 (WP) [address]RL: 07/07/2017 [facility] Primary MARIAA OROZCODOB: Insurance:[address] [place], [place] [address]B: [facility] MEDICARE [id number] System [place] PRIMARYPolicy Number: [place], [place] Effective [place], [place] [id number]: Date:2017-04-05 [id number]: 3884-04-32Nsep31plan (HP) Name:CD:[id number] O (HP)Tel: (000) [address]SWEYWJFQD, 000-0000 (WP) [place] [address]TT: 07/07/2017 Secondary MARIAA Patricia Insurance:1500 KISERDOB: [facility] MEDICAID [id number] System PRIMARYPolicy Number: [facility] Effective [place] Date:2017-04-05 [id number]: [id number] Name:CD:[id number] O (HP)Tel: (000) [address], [place] 000-0000 (WP) [address]QZ: 06/30/2017 MARIAA Primary MARIAA MARREROB: Insurance[facility] HospitalB: [facility] icy Number: Effective [id number] System [facility] Date:2017-06-29 - [facility] Repository [place] 9344-92-67Ffcy [place] [address]Opz: Name:CD:[id number] [address] [address]Fyq: [id number], [place] (HP) [phone]: (800) (HP) 000-0000 (WP) 06/30/2017 Secondary MARIAA Patricia Insurance:MedicaidPol KISERDOB: [facility] icy Number: Effective [id number] System Date:2017-06-29 - [facility] Repository 7790-17-20Dvfb [place] Name:CD:[id number] [address]Ync: [facility] [address] (HP)Tel: (000) [phone]: (WP) [phone] 06/21/2017 MARIAA WB Primary MARIAA Holiness KISERDOB: Insurance:1500 KISERDOB: [facility] MEDICARE [id number] System [place] PRIMARYPolicy Number: [place] [address]Cvy: Date:2017-06-21Tel: [id number] (HP) Name:CD:[id number] O (HP)Tel: (000) [address]YHCIIKPBF, 000-0000 (WP) [place] [address]FT: 06/21/2017 Secondary MARIAA WB Holiness Insurance:1500 KISERDOB: [facility] MEDICAID [id number] System PRIMARYPolicy Number: [facility] Effective [place] Date:2017-06-21Tel: [id number] Name:CD:[id number] O (HP)Tel: (000) [address], [place] 000-0000 (WP) [address]IS: 06/21/2017 MARIAA Primary MARIAA MARTINEZSERDOB: Insurance:1500 KISERDOB: [facility] MEDICARE [id number] System [facility] PRIMARYPolicy Number: [facility] Repository [place] [address]Aoq: Date:2017-06-07Tel: 4885-15-94Gjzj (HP) Name:CD:[id number] O (HP)Tel: 000) [address] [address]KOKKDOSUW, 000-0000 (WP) [place] [address]RI: 06/21/2017 Secondary MARIAA Holiness Insurance:1500 KISERDOB: [facility] MEDICAID [id number] System PRIMARYPolicy Number: [facility] Repository [place] Date:2017-06-07Tel: 6827-03-43Baxe Name:CD:[id number] O (HP)Tel: (000) [address], [place] 000-0000 (WP) [address]KD: 06/17/2017 [facility] Primary MARIAA MARTINEZSERDOB: Insurance:MedicarePol [facility]: [facility] icy Number: Effective [id number] System [facility] Date:2017-06-11 - [facility] Repository [place] 3069-07-66Qozm [place] [address]Jps: Name:CD:[id number] [address] [address]Opj: 799663EEZEJVEULH, [place] (HP) [phone]: (778) (HP) 000-0000 (WP) 06/17/2017 Secondary MARIAA Patricia Insurance:MedicaidPol [facility]USDOB: [facility] icy Number: Effective [id number] System Date:2017-06-11 - [facility] Repository 1619-24-03Darl [place] Name:CD:[id number] E [address]Hvq: [address] [place] (HP)Tel: (000) [phone]: (WP) [phone] 06/10/2017 MARIAA Primary MARIAA OROZCODOB: Insurance:1500 KISERDOB: [facility] MEDICARE [id number] System [facility] PRIMARYPolicy Number: [facility] Repository [place] [address]Lpv: Date:2016-12-10Tel: [id number] (HP) Name:CD:[id number] O (HP)Tel: (000) [address]AFHJXTBGU, 000-0000 (WP) [place] [address]SY: 06/10/2017 Secondary MARIAA Holiness Insurance:1500 KISERDOB: [facility] MEDICAID [id number] System PRIMARYPolicy Number: [facility] Repository [place] Date:2016-12-10Tel: 9985-82-60Oygo Name:CD:[id number] O (HP)Tel: (000) [address], [place] 000-0000 (WP) [address]UZ: 06/07/2017 [facility] Primary MARIAA Hilda MARREROB: Insurance:MedicarePol KISERDOB: [facility] icy Number: Effective [id number] System [facility] Date:2017-06-07 - [facility] [place]ository [place] 5509-64-05[place]mg [place] [address]Ezz: Name:CD:[id number] [address] [address]Lnr: 601699XAYQSODDVCGALLATIN [place], [place] (HP) [phone]: (471) (HP) [phone] (WP) 06/07/2017 Secondary MARIAA Patricia Insurance:MedicaidPol [facility] ARIZONADOB: [facility] icy Number: Effective [id number] System Date:2017-06-07 - [facility] Rep[facility] 8472-61-80Sjoa [place] Name:CD:[id number] E [address]Flg: [facility] [address] [place], [place] (HP)Tel: (000 [phone]: (WP) [phone] 06/07/2017 MARIAA WB Primary MARIAA MARREROB: Insurance:1500 KISERDOB: [facility] MEDICARE [id number] System [place] PRIMARYPolicy Number: [place] Effective [place], [place] [id number]: Date:2017-05-03 [id number]: 6943-43-85Qxow31plan (HP) Name:CD:[id number] O (HP)Tel: (000) [address]IQHWHBFVI, 000-0000 (WP) [place] [address]NC: 06/07/2017 Secondary MARIAA Patricia Insurance:1500 KISERDOB: [facility] MEDICAID [id number] System PRIMARYPolicy Number: [facility] Repository [place] Date:2017-05-03 [id number]: 5791-45-04Ayfilan Name:CD:[id number] O (HP)Tel: (000) [address]RONGALL[place], [place] 000-0000 (WP) [address]UD: 05/31/2017 MARIAA WB Primary MARIAA MARREROB: Insurance:MedicarePol SERDOB: [facility] icy Number: Effective [id number] System [facility] Date:2017-05-04 [facility] [place] 5923-55-29Ufwf [place] [address]Liz: Name:CD:[id number] [id number]: 525626WDJWTFYDZN, [place] (HP) [phone]: (661) (HP) 000-0000 (WP) 05/31/2017 Secondary MARIAA Patricia Insurance:MedicaidPol KISERDOB: [facility] icy Number: Effective [id number] System Date:2017-05-04 - [facility] Repository 4625-01-33Xmyo [place] Name:CD:[id number] E [id number]: [address] [place], [place] (HP)Tel: 000) [phone]: (WP) [phone] 05/10/2017 MARIAA Primary MARIAA Gallegoaribecky OROZCODOB: Insurance:[address] [place] [address]: [facility] MEDICARE [id number] System [place] PRIMARYPolicy Number: [place] Effective [place], [place] [id number]: Date:2017-05-10 - [id number]: 6439-54-16Rsbq31plan (HP) Name:CD:[id number] O (HP)Tel: (000) [address] [address]JPYCQCFQP, 000-0000 (WP) [place] [address]WS: 05/10/2017 Secondary MARIAA Patricia Insurance:1500 KISERDOB: [facility] MEDICAID [id number] System PRIMARYPolicy Number: [facility] Repository [place] Date:2017-05-10 - [id number]: 4814-30-80Qrlp31plan Name:CD:[id number] O (HP)Tel: (000) [address], [place] 000-0000 (WP) [address]TD: 05/03/2017 MARIAA WB Primary MARIAA Gallegoaritan KISERDOB: Insurance:MedicarePol KISERDOB: [facility] icy Number: Effective [id number] System [facility] Date:2017-05-03 - [facility] 9064-34-69Mtwl [place], [place] [id number]: Name:CD:[id number] [address]Tcu: 658753JZTILOMCUF, [place] (HP) [phone]: (800) (HP) [phone] (WP) 05/03/2017 Secondary MARIAA Patricia Insurance:MedicaidPol KISERDOB: [facility] icy Number: Effective [id number] System Date:2017-05-03 - [facility] Repository 8647-97-93Vhtp [place] Name:CD:[id number] E [id number]: [facility] [address], [place] ()Tel: (471) [phone]: (WP) [phone] 05/03/2017 MARIAA WB Primary MARIAA Patricia KISERDOB: Insurance:1500 KISERDOB: [facility] MEDICARE [id number] System [place] PRIMARYPolicy Number: [place] Effective [place], [place] [id number]: Date:2017-05-03 [id number]: 2936-05-34Ubam31plan (HP) Name:CD:[id number] O (HP)Tel: 000) [address]YPARFMVVL, 000-0000 (WP) [place] [address]BH: 05/03/2017 Secondary MARIAA Gallegoaritan Insurance:1500 KISERDOB: [facility] MEDICAID [id number] System PRIMARYPolicy Number: [facility] Repository [place] Date:2017-05-03 [id number]: 9914-01-12Oqjl31plan Name:CD:[id number] O (HP)Tel: (000) [address], [place] 000-0000 (WP) [address]RQ: 04/28/2017 MARIAA Primary MARIAA OROZCODOB: Insurance:MedicarePol [facility] CAMPUSDOB: [facility] icy Number: Effective [id number] System [facility] Date:2017-04-28 - [facility] Repository [place] 7277-30-49Shdb [place], [place] [id number]: Name:CD:[id number] [facility] [id number]: 999794TEVYVOVFZL, [place] (HP) [phone]: (477) (HP) 000-0000 (WP) 04/28/2017 Secondary MARIAA Patricia Insurance:MedicaidPol KISERDOB: [facility] icy Number: Effective [id number] System Date:2017-04-28 - [facility] Repository 7771-22-30Mthi [place] Name:CD:[id number]: [facility] [address] [place], [place] (HP)Tel: 000) [phone]: (WP) [phone] 04/28/2017 MARIAA Primary MARIAA OROZCODOB: Insurance:[address] [place], [place] [address]B: [facility] MEDICARE [id number] System [facility] PRIMARYPolicy Number: [facility] Repository [place] [id number]: Date:2017-04-28 - [id number]: 9445-92-82Avho-12-31plan (HP) Name:CD:[id number] O (HP)Tel: (000) [address]FYDDKVKQO, 000-0000 (WP) [place] [address]EZ: 04/28/2017 Secondary MARIAA Patricia Insurance:1500 KISERDOB: [facility] MEDICAID [id number] System PRIMARYPolicy Number: [facility] Repository [place] Date:2017-04-28 - [id number]: 8323-75-79Fsna Name:CD:[id number] O (HP)Tel: (000) [address], [place] 000-0000 (WP) [address]DR: 04/05/2017 MARIAA Primary MARIAA OROZCODOB: Insurance:MedicarePol KISERDOB: [facility] icy Number: Effective [id number] System [facility] Date:2017-04-05 - [facility] [place] 3894-85-51Ltyg [place], [place] [id number]: Name:CD:[id number] [id number]: 879869WPJLPTIGLI, [place] (HP) [phone]: (800) (HP) 000-0000 (WP) 04/05/2017 Secondary MARIAA Patricia Insurance:MedicaidPol KISERDOB: [facility] icy Number: Effective [id number] System Date:2017-04-05 - [facility] Repository 6995-72-69Oymz [place] Name:CD:[id number] E [id number]: [facility] [address] [place] (HP)Tel: (000) [phone]: (WP) [phone] 04/05/2017 MARIAA WB Primary MARIAA OROZCODOB: Insurance:[facility] KISERDOB: [facility] MEDICARE [id number] System [facility] PRIMARYPolicy Number: [facility] Repository [place] [id number]: Date:2016-09-23 [id number]: 7840-20-81Qclo (HP) Name:CD:[id number] O (HP)Tel: (000) [address]ZHHBQDJGX, 000-0000 (WP) [place] [address]ET: 04/05/2017 Secondary MARIAA [facility] Insurance:1500 KISERDOB: [facility] MEDICAID [id number] System PRIMARYPolicy Number: [place] Date:2016-09-23 [id number]: 1040-25-61Ztih Name:CD:[id number] O (HP)Tel: (000) [address], [place] 000-0000 (WP) [address]IR:
== END 2018-02-09 14:21 | disposition skilled nursing facility (03) | DRG 208 ==
LOC: ED 22:00 → ICU 23:14 → PCU 02-04 13:11
PROVIDERS: Hospitalist; Internal Medicine; Internal Medicine Cardiovascular Disease; Internal Medicine Critical Care Medicine; Admitting Provider Family Medicine; Emergency Provider Emergency Medicine; Visit Provider Internal Medicine
DX: J96.21 Acute and chronic respiratory failure with hypoxia (principal); J10.00 Influenza due to other identified influenza virus with unspecified type of pneumonia; E43 Unspecified severe protein-calorie malnutrition; E87.1 Hypo-osmolality and hyponatremia; J44.1 Chronic obstructive pulmonary disease with (acute) exacerbation; Z68.1 Body mass index [BMI] 19.9 or less, adult; J44.0 Chronic obstructive pulmonary disease with (acute) lower respiratory infection; I50.40 Unspecified combined systolic (congestive) and diastolic (congestive) heart failure; R74.8 Abnormal levels of other serum enzymes; F81.9 Developmental disorder of scholastic skills, unspecified; E87.6 Hypokalemia; F17.210 Nicotine dependence, cigarettes, uncomplicated; E87.8 Other disorders of electrolyte and fluid balance, not elsewhere classified; F70 Mild intellectual disabilities; F20.9 Schizophrenia, unspecified; Z99.81 Dependence on supplemental oxygen; R33.9 Retention of urine, unspecified; I73.9 Peripheral vascular disease, unspecified
CPT/HCPCS: 31500; 31720; 36415; 36600; 51702; 71045; 74018; 80048; 80053; 80076; 80307; 80329; 81001; 82803; 83605; 83735; 83880; 83930; 83935; 84100; 84132; 84295; 84300; 84484; 85025; 85027; 85610; 85730; 86705; 86709; 87040; 87070; 87205; 87340; 87633; 87641; 87804; 93005; 93306; 93458; 93567; 94002; 94003; 94640; 94660; 94667; 94668; 95831; 97110; 97116; 97161; 97165; 97530; 97802; 99251; 99285; 99406; J7030; J7040; J7050; A4216; C1769; C1894; G0463; G0480; J3490; Q9967